=== PATIENT | female | born 1970 | race Caucasian/White ===

== ENCOUNTER 2018-08-15 23:21 | Emergency (ER) | payer MEDICAID, OTHER ==
[~2018-08-15] VITALS: Ht 162.6 cm; Wt 63.0 kg
--- NOTE | 2018-08-15 23:30 | NUR ---
BLOOD SUGAR WAS 406
--- NOTE | 2018-08-15 23:39 | ED General ---
General Chief Complaint: Glucose Problems Source of Information: Patient, RN Notes Reviewed Exam Limitations: No Limitations History of Present Illness Date Seen by Provider: Aug 15, 2018 Time Seen by Provider: 23:38 Allergies and Home Medications Allergies Coded Allergies: No Known Drug Allergies (Unverified , 08/16/18) Physical Exam Vital Signs Vital Signs - First Documented 08/15/18 23:25 Temp 98.6 Pulse 104 Resp 18 B/P (MAP) 120/72 (88) Pulse Ox 96 O2 Delivery Room Air Capillary Refill : Height, Weight, BMI Height: '" Weight: lbs. oz. kg; BMI Method: Progress/Results/Core Measures Suspected Sepsis SIRS Temperature: Pulse: Respiratory Rate: Laboratory Tests 08/15/18 23:25: White Blood Count 8.5 Blood Pressure / Mean: Laboratory Tests 08/15/18 23:25: Creatinine 0.86, Platelet Count 304, Total Bilirubin 0.2 Results/Orders Lab Results Laboratory Tests Test 08/15/18 00:00 08/15/18 23:25 08/15/18 23:28 Range/Units Urine Color YELLOW Urine Clarity CLEAR Urine pH 5.5 5-9 Urine Specific [place] 1.010 L 1.016-1.022 Urine Protein NEGATIVE NEGATIVE Urine Glucose (UA) 3+ H NEGATIVE Urine Ketones NEGATIVE NEGATIVE Urine Nitrite NEGATIVE NEGATIVE Urine Bilirubin NEGATIVE NEGATIVE Urine Urobilinogen 0.2 NORMAL MG/DL Urine Leukocyte Esterase NEGATIVE NEGATIVE Urine RBC (Auto) NEGATIVE NEGATIVE Urine RBC NONE /HPF Urine WBC 0-2 /HPF Urine Squamous Epithelial Cells 2-5 /HPF Urine Crystals NONE /LPF Urine Bacteria NONE /HPF Urine Casts NONE /LPF Urine Mucus NEGATIVE /LPF Urine Culture Indicated NO White Blood Count 8.5 4.3-11.0 10^3/uL Red Blood Count 4.07 L 4.35-5.85 10^6/uL Hemoglobin 11.9 11.5-16.0 G/DL Hematocrit 36 35-52 % Mean Corpuscular Volume 88 80-99 FL Mean Corpuscular Hemoglobin 29 25-34 PG Mean Corpuscular Hemoglobin Concent 33 32-36 G/DL Red Cell Distribution Width 12.6 10.0-14.5 % Platelet Count 304 130-400 10^3/uL Mean Platelet Volume 9.1 7.4-10.4 FL Neutrophils (%) (Auto) 55 42-75 % Lymphocytes (%) (Auto) 35 12-44 % Monocytes (%) (Auto) 6 0-12 % Eosinophils (%) (Auto) 4 0-10 % Basophils (%) (Auto) 1 0-10 % Neutrophils # (Auto) 4.7 1.8-7.8 X 10^3 Lymphocytes # (Auto) 3.0 1.0-4.0 X 10^3 Monocytes # (Auto) 0.5 0.0-1.0 X 10^3 Eosinophils # (Auto) 0.3 0.0-0.3 10^3/uL Basophils # (Auto) 0.0 0.0-0.1 10^3/uL Sodium Level 134 L 135-145 MMOL/L Potassium Level 3.9 3.6-5.0 MMOL/L Chloride Level 92 L 98-107 MMOL/L Carbon Dioxide Level 25 21-32 MMOL/L Anion Gap 17 H 5-14 MMOL/L Blood Urea Nitrogen 12 7-18 MG/DL Creatinine 0.86 0.60-1.30 MG/DL Estimat Glomerular Filtration Rate > 60 BUN/Creatinine Ratio 14 Glucose Level 411 *H 70-105 MG/DL Calcium Level 10.4 H 8.5-10.1 MG/DL Corrected Calcium 10.1 8.5-10.1 MG/DL Magnesium Level 1.4 L 1.8-2.4 MG/DL Total Bilirubin 0.2 0.1-1.0 MG/DL Aspartate Amino Transf (AST/SGOT) 20 5-34 U/L Alanine Aminotransferase (ALT/SGPT) 29 0-55 U/L Alkaline Phosphatase 54 40-136 U/L Troponin I < 0.30 <0.30 NG/ML Total Protein 7.1 6.4-8.2 GM/DL Albumin 4.4 3.2-4.5 GM/DL Glucometer 406 *H 70-110 MG/DL My Orders Orders - DARIUS DEL CASTILLO DO Cbc With Automated Diff (08/15/18 23:56) Comprehensive Metabolic Panel (08/15/18 23:56) Magnesium (08/15/18 23:56) Troponin I (08/15/18 23:56) Ua Culture If Indicated (08/15/18 23:56) Phosphorus (08/15/18 23:56) Iv/Invasive Line Insertion .IV start (08/15/18 23:56) Beta Hydroxybutyrate (08/15/18 23:56) Accucheck Q1hr Q1HR (08/15/18 23:56) Magnesium Oxide Tablet (Mag Ox Tablet) (08/16/18 00:45) Potassium Chloride (Tablet) (K Dur Table (08/16/18 00:45) Insulin Aspart (Novolog) (Novolog (Charg (08/16/18 00:45) Insulin (Regular) Human (Humulin R (Per (08/16/18 00:45) Medications Given in ED Current Medications Medications Dose Ordered Sig/Francis Route Start Time Stop Time Status Last Admin Dose Admin Insulin Aspart 10 unit ONCE ONCE SC 08/16/18 00:45 08/16/18 00:46 UNV 08/16/18 00:52 10 UNIT Magnesium Oxide 400 mg ONCE ONCE PO 08/16/18 00:45 08/16/18 00:46 DC 08/16/18 00:46 400 MG Potassium Chloride 40 meq ONCE ONCE PO 08/16/18 00:45 08/16/18 00:46 DC 08/16/18 00:46 40 MEQ Vital Signs/I&O 08/15/18 23:25 Temp 98.6 Pulse 104 Resp 18 B/P (MAP) 120/72 (88) Pulse Ox 96 O2 Delivery Room Air Capillary Refill : Departure Impression Primary Impression: Hyperglycemia Additional Impressions: NIDDM Non compliance w medication regimen Disposition: 01 HOME, SELF-CARE Condition: Stable Departure-Patient Inst. Decision time for Depature: 01:02 Patient Instructions: Hyperglycemia, Adult (DC) Add. Discharge Instructions: All discharge instructions reviewed with patient and/or family. Voiced understanding. GET RESTARTED ON YOUR MEDICATIONS DIRECTED INCLUDING TONIGHT. DARIUS DEL CASTILLO DO Aug 15, 2018 23:39
[2018-08-16 00:17] LABS: BILIRUBIN,URINE NEGATIVE (NEGATIVE); CLARITY,URINE CLEAR; COLOR,URINE YELLOW; GLUCOSE, URINE (UA) 3+ (NEGATIVE); KETONES,URINE NEGATIVE (NEGATIVE); LEUKOCYTE ESTERASE ,URINE NEGATIVE (NEGATIVE); NITRITE,URINE NEGATIVE (NEGATIVE); PH,URINE 5.5 (5-9); PROTEIN,URINE NEGATIVE (NEGATIVE); UROBILINOGEN,URINE 0.2 MG/DL (NORMAL); WBC,URINE 0-2 /HPF
[2018-08-16 00:17] LABS: WHITE BLOOD COUNT 8.5 10^3/uL (4.3-11.0)
[2018-08-16 00:18] LABS: BASOPHILS % (AUTO) 1 % (0-10); EOSINOPHILS # (AUTO) 0.3 10^3/uL (0.0-0.3); EOSINOPHILS % (AUTO) 4 % (0-10); HEMATOCRIT 36 % (35-52); HEMOGLOBIN 11.9 G/DL (11.5-16.0); LYMPHOCYTES % (AUTO) 35 % (12-44); MEAN CORPUSCULAR HEMOGLOBIN 29 PG (25-34); MEAN CORPUSCULAR HGB CONC 33 G/DL (32-36); MEAN CORPUSCULAR VOLUME 88 FL (80-99); MEAN PLATELET VOLUME 9.1 FL (7.4-10.4); MONOCYTES # (AUTO) 0.5 X 10^3 (0.0-1.0); MONOCYTES % (AUTO) 6 % (0-12); NEUTROPHILS # (AUTO) 4.7 X 10^3 (1.8-7.8); NEUTROPHILS % (AUTO) 55 % (42-75); PLATELET COUNT 304 10^3/uL (130-400); RED CELL DISTRIBUTION WIDTH 12.6 % (10.0-14.5)
[2018-08-16 00:29] LABS: SODIUM 134 MMOL/L (135-145)
[2018-08-16 00:30] LABS: BUN/CREATININE RATIO 14; CARBON DIOXIDE 25 MMOL/L (21-32); CHLORIDE 92 MMOL/L (98-107); CREATININE SERUM 0.86 MG/DL (0.60-1.30); GFR ESTIMATED > 60; GLUCOSE 411 MG/DL (70-105); POTASSIUM 3.9 MMOL/L (3.6-5.0)
[2018-08-16 00:31] LABS: ALANINE AMINOTRANSFERASE 29 U/L (0-55); ALBUMIN 4.4 GM/DL (3.2-4.5); ALKALINE PHOSPHATASE 54 U/L (40-136); BILIRUBIN,TOTAL 0.2 MG/DL (0.1-1.0); CALCIUM 10.4 MG/DL (8.5-10.1); MAGNESIUM 1.4 MG/DL (1.8-2.4); TOTAL PROTEIN 7.1 GM/DL (6.4-8.2)
[2018-08-16] MEDS ORDERED: inSUlin ASPART (NovoLOG) 1 UNIT/0.01 ML (CHARGE PER UNIT) SC ONE (00:45)
[2018-08-16] MEDS ORDERED: MAGNESIUM OXIDE (MAG-OX)400 MG TAB PO ONE (00:45)
[2018-08-16] MEDS ORDERED: KCL 20 MEQ TAB (K-DUR) PO ONE (00:45)
[2018-08-16] MEDS ORDERED: inSUlin (REGULAR) HUMAN 1 UNIT/0.01 ML (CHARGE PER UNIT) ONE (00:45)
[2018-08-16 01:14] VITALS: BP 121/77
[2018-08-16 14:48] LABS: PHOSPHORUS 4.6 MG/DL (2.3-4.7)
== END 2018-08-16 01:15 | disposition home or self-care (01) ==
LOC: ER FS 23:23
DX: E11.65 Type 2 diabetes mellitus with hyperglycemia (principal); Z91.14 Patient's other noncompliance with medication regimen
CPT/HCPCS: 36415; 80053; 81000; 82010; 82962; 83735; 84100; 84484; 85025; 99283

== ENCOUNTER 2018-09-07 07:08 | Day surgery (SDC) | payer MEDICAID ==
[2018-09-07] VITALS (10 sets, daily range): BP systolic 122–142; BP diastolic 69–84
[~2018-09-07] VITALS: Ht 162.6 cm; Wt 63.0 kg
[~2018-09-07 07:08] MED LIST: CITA20TA9 PO; CYCL10TA9 PO; DAPA5TAB PO; FENO145T37 PO; FLUT9.9S NS; GABA-488 PO; LEVO112T55 PO; LOPE2CAP14 PO; METF-399 PO; PANT40TA3 PO; RANI-515 PO
--- OUTSIDE RECORDS SUMMARY | 2018-09-07 07:11 | XMS REPORT | Continuity of Care Document ---
Author Organization Unknown Address Unknown Allergies There is no data. Medications There is no data. Problems There is no data. Procedures There is no data. Results Test Result Range TSH - 12/29/17 16:01 TSH 0.59 mIU/L NRG TSH - 05/11/18 10:00 TSH 0.50 mIU/L NRG PDM - 09 PANEL (PROFILE 1) - 08/28/18 13:22 Prescribed Drug 1 Codeine NRG Creatinine 48.3 mg/dL > or=20.0 pH 5.02 4.5 - 9.0 Oxidant NEGATIVE mcg/mL <200 Amphetamines NEGATIVE ng/mL <500 medMATCH Amphetamines CONSISTENT NRG Benzodiazepines NEGATIVE CONFIRMED ng/mL <100 Marijuana Metabolite NEGATIVE ng/mL <20 medMATCH Marijuana Metab CONSISTENT NRG Cocaine Metabolite NEGATIVE ng/mL <150 medMATCH Cocaine Metab CONSISTENT NRG Opiates POSITIVE ng/mL <100 Oxycodone NEGATIVE ng/mL <100 medMATCH Oxycodone CONSISTENT NRG COMMENT NRG Alphahydroxyalprazolam NEGATIVE ng/mL <25 medMATCH aOH alprazolam CONSISTENT NRG Alphahydroxymidazolam NEGATIVE ng/mL <50 medMATCH aOH midazolam CONSISTENT NRG Alphahydroxytriazolam NEGATIVE ng/mL <50 medMATCH aOH triazolam CONSISTENT NRG Aminoclonazepam NEGATIVE ng/mL <25 medMATCH Aminoclonazepam CONSISTENT NRG Hydroxyethylflurazepam NEGATIVE ng/mL <50 medMATCH OH,Et flurazepam CONSISTENT NRG Lorazepam NEGATIVE ng/mL <50 medMATCH Lorazepam CONSISTENT NRG Nordiazepam NEGATIVE ng/mL <50 medMATCH Nordiazepam CONSISTENT NRG Oxazepam NEGATIVE ng/mL <50 medMATCH Oxazepam CONSISTENT NRG Temazepam NEGATIVE ng/mL <50 medMATCH Temazepam CONSISTENT NRG Codeine 3661 ng/mL <50 medMATCH Codeine CONSISTENT NRG Hydrocodone NEGATIVE ng/mL <50 medMATCH Hydrocodone CONSISTENT NRG Hydromorphone NEGATIVE ng/mL <50 medMATCH Hydromorphone CONSISTENT NRG Morphine 330 ng/mL <50 medMATCH Morphine CONSISTENT NRG Norhydrocodone NEGATIVE ng/mL <50 medMATCH Norhydrocodone CONSISTENT NRG Barbiturates NEGATIVE ng/mL <300 medMATCH Barbiturates CONSISTENT NRG Methadone Metabolite NEGATIVE ng/mL <100 medMATCH Methadone Metab CONSISTENT NRG Phencyclidine NEGATIVE ng/mL <25 medMATCH Phencyclidine CONSISTENT NRG MICROALBUMIN/CREATININE RATIO, URINE - 08/30/18 09:20 CREATININE, RANDOM URINE 96 mg/dL 20-275 MICROALBUMIN 0.6 mg/dL See Note: MICROALBUMIN/CREATININE RATIO, RANDOM URINE 6 mcg/mg creat <30 CMP - 08/30/18 09:20 GLUCOSE 145 mg/dL 65-99 UREA NITROGEN (BUN) 13 mg/dL 7-25 CREATININE 0.88 mg/dL 0.50-1.05 eGFR NON-AFR. MONTENEGRIN 77 mL/min/1.73m2 > OR=60 eGFR 89 mL/min/1.73m2 > OR=60 BUN/CREATININE RATIO NOT APPLICABLE (calc) 6-22 SODIUM 140 mmol/L 135-146 POTASSIUM 4.4 mmol/L 3.5-5.3 CHLORIDE 105 mmol/L 98-110 CARBON DIOXIDE 26 mmol/L 20-32 CALCIUM 10.1 mg/dL 8.6-10.4 PROTEIN, TOTAL 7.0 g/dL 6.1-8.1 ALBUMIN 4.5 g/dL 3.6-5.1 GLOBULIN 2.5 g/dL (calc) 1.9-3.7 ALBUMIN/GLOBULIN RATIO 1.8 (calc) 1.0-2.5 BILIRUBIN, TOTAL 0.4 mg/dL 0.2-1.2 ALKALINE PHOSPHATASE 51 U/L 33-130 AST 20 U/L 10-35 ALT 19 U/L 6-29 TSH - 08/30/18 09:20 TSH 0.74 mIU/L NRG A1C - 08/30/18 09:20 HEMOGLOBIN A1c 7.6 % of total Hgb <5.7 Encounters ACCT No. Visit Date/Time Discharge Status Pt. Type Provider Facility Loc./Unit Complaint [id number] 09/05/2018 15:30:00 [facility] [id number] 08/30/2018 09:30:00 Document Registration [id number] 08/28/2018 13:30:00 Document Registration [id number] 05/11/2018 11:45:00 Document Registration [id number] 05/11/2018 11:40:00 Document Registration [id number] 05/11/2018 11:40:00 Document Registration [id number] 12/29/2017 15:00:00 Document Registration
--- NOTE | 2018-09-07 07:57 | Progress Note-Pre Operative ---
Pre-Operative Progress Note H&P Reviewed The H&P was reviewed, patient examined and no changes noted. Time Seen by Provider: 07:52 Date H&P Reviewed: Sep 07, 2018 Time H&P Reviewed: 07:53 Pre-Operative Diagnosis: Incarcerated Incisional/Ventral Hernia RAMIREZ WALTERS DO Sep 07, 2018 07:57
[2018-09-07] MEDS ORDERED: LIDOCAINE PF 2% 5 ML (XYLOCAINE) VIAL ONE (08:00)
[2018-09-07] MEDS ORDERED: fentaNYL INJECTION 100 MCG/2 ML AMP ONE (08:00)
[2018-09-07] MEDS ORDERED: proPOfol 200 MG/20 ML (DIPRIVAN) VIAL IV ONE (08:00)
[2018-09-07] MEDS ORDERED: NEOSTIGMINE 3 MG/3 ML VIAL ONE (08:00)
[2018-09-07] MEDS ORDERED: SEVOFLURANE (ULTANE) 15 ML INHAL SOLN ONE ×2 (08:00→09:40)
[2018-09-07] MEDS ORDERED: GLYCOPYRROLATE 0.2 MG/ML (ROBINUL) 2 ML VIAL ONE (08:00)
[2018-09-07] MEDS ORDERED: ROCURONIUM 10 MG/ML 5 ML SYRINGE IV ONE (08:00)
[2018-09-07] MEDS ORDERED: MIDAZOLAM 2 MG/2 ML (VERSED) VIAL ONE (08:00)
[2018-09-07] MEDS ORDERED: ONDANSETRON 4 MG/2 ML (SDV) Z0FRAN ONE (08:00)
[2018-09-07] MEDS ORDERED: BUP/EPI 0.5% 1:200,000 (MARCAINE) 10ML VIAL IJ ONE ×2 (08:06→08:13)
[2018-09-07] MEDS ORDERED: ceFAZolin 2 GM/50 ML NS 50 ML ONE (08:14)
[2018-09-07] MEDS ORDERED: LACTATED RINGERS 1,000 ML IV PRN (08:17)
[2018-09-07] MEDS ORDERED: ceFAZolin 2 GM/50 ML NS 50 ML IV ONE (08:30)
--- NOTE | 2018-09-07 09:50 | Progress Note-Post Operative ---
Post-Operative Progess Note Surgeon (s)/Access Representative (s) Surgeon RAMIREZ WALTERS DO Access Representative: NONE Pre-Operative Diagnosis Incarcerated Incisional/Ventral Hernia Post-Operative Diagnosis same Procedure & Operative Findings Date of Procedure 09/07/18 Procedure Performed/Findings Lap Vent/Inc with mesh placement Anesthesia Type GET Estimated Blood Loss Estimated blood loss (mL): scant Specimens/Packing Specimens Removed hernia contents RAMIREZ WALTERS DO Sep 07, 2018 09:50
[2018-09-07] MEDS ORDERED: ACHD5005 PO (09:51)
[2018-09-07] MEDS ORDERED: morphine INJ 10 MG/ML 1ML (SYR OR VIAL) ONE (09:53)
--- NOTE | 2018-09-07 09:53 | Discharge Inst-Surgical ---
Discharge Inst-Surgical Depart Medication/Instructions New, Converted or Re-Newed RX: RX Given to Pt/Family Patient Instructions Follow up Appt: Make appointment for 1 week. [phone] Instructions: No lifting greater than 20 pounds. No strenuous activity. May shower in 24 hours, no tub bath or soaking. Use incentive spirometer at home as directed. No Smoking Skin/Wound Care: May remove bandages in am. You need to leave the Dermabond on incision it will fall off on it's own. Symptoms to Report: Appetite Changes, Extremity Discoloration, Numbness/Tingling, Swelling Increased, Bleeding Excessive, Eyesight Changes, Pain Increased, Urine Color Change, Constipation(Persistent), Fever over 101 degree F, Pain/Pressure in chest, Urinating Difficulty, Cough Up/Vomit Blood, Heart Beat Irreg/Pounding, Pain/Pressure in jaw, Cramps in feet or legs, Lightheadedness, Pain/Pressure in shoulder, Diarrhea(Persistent), Memory Changes Suddenly, Questions/Concerns, Weight gain consecutive days, Dizziness/Fainting, Nausea/Vomiting, Shortness of Breath, Weight gain over 2 pounds If questions or concerns contact your physician Or seek help at emergency department. Activity Activity as Tolerated: Yes Driving Instructions: No Driving/Refer to Dr. Varela Discharge Diet: No Restrictions Diet After 24 Hours: Clear Liquid if Nauseous If Any Problems/Questions/Issu: Contact Your Physician, Go to Emergency Room Skin/Wound Care Infection Signs and Symptoms: Increased Redness, Foul Odor of Wound, Increased Drainage, Skin Itchy or Has a Rash, Increased Swelling, Temperature Above 101 F Wound Care Comment: Heating pad to shoulder and neck for pain Bathing Instructions: Shower Stitches/Kofi/Dermabond Dis: Dermabond Ice Pack: Ice On and Off Site RAMIREZ WALTERS DO Sep 07, 2018 09:53
[2018-09-07] MEDS ORDERED: ONDANSETRON 4 MG/2 ML (SDV) Z0FRAN IVP PRN (10:00)
[2018-09-07] MEDS ORDERED: HYDROmorphone 2 MG/ML VIAL (DILAUDID) IV ONE (10:00)
[2018-09-07] MEDS ORDERED: morphine INJ 10 MG/ML 1ML (SYR OR VIAL) IVP ONE (10:00)
--- NOTE | 2018-09-07 10:28 | Anesthesia-General Post-Op ---
General Patient Condition Mental Status/LOC: Same as Preop Cardiovascular: Satisfactory Nausea/Vomiting: Absent Respiratory: Satisfactory Pain: Controlled Complications: Absent Post Op Complications Complications None Follow Up Care/Instructions Patient Instructions None needed. Anesthesia/Patient Condition Patient Condition Patient is doing well, no complaints, stable vital signs, no apparent adverse anesthesia problems. No complications reported per nursing. GERBER OLVERA CRNA Sep 07, 2018 10:28
[2018-09-07] MEDS ORDERED: HYDROcodone/APAP 5 MG/325 MG (LORTAB) TAB ONE ×2 (11:27→11:30)
[2018-09-07] MEDS ORDERED: HYDROcodone/APAP 5 MG/325 MG (LORTAB) TAB PO ONE (11:45)
--- NOTE | 2018-09-07 13:10 | OPERATIVE REPORT ---
DATE OF SERVICE: 09/07/2018 PREOPERATIVE DIAGNOSIS: Incarcerated incisional ventral hernia. POSTOPERATIVE DIAGNOSIS: Incarcerated incisional ventral hernia. PROCEDURE: Laparoscopic ventral incisional herniorrhaphy with mesh placement. SURGEON: Moi Bruno DO SPRING SALVAGE WORKER: None. ANESTHESIA: General endotracheal tube. SPECIMEN: Hernia contents. BLOOD LOSS: Scant. FLUIDS: Per anesthesia. POSTOPERATIVE CONDITION: Stable. INDICATION FOR PROCEDURE: The patient is a 48-year-old female, who has had a previous hernia repair. She thought she had two, one in the umbilicus and one up above and the one up above was at the port site. FINDINGS: The patient had incarcerated incisional hernia up at the port site. There did not appear to be a hernia down in the midline around the umbilicus. Picture was taken. PROCEDURE NOTE: After informed consent was obtained, the patient was brought to the operating room, placed on the operating table in supine position. She was sterilely prepped and draped in normal fashion. Local lidocaine was used to infiltrate the left upper quadrant just below the rib. I then made an incision with #11 blade, carried down through the skin into subcutaneous tissue, deepened down to subcutaneous tissue with Bovie electrocautery down to the fascia. Fascia was incised with Bovie electrocautery and bluntly entered the abdomen, swept a finger around, placed 0 Vicryl [id number] suture and placed a limited trocar port under direct visualization. Created pneumoperitoneum, saw adhesions in the midline and then placed 2 more ports, 5 mm ports in normal fashion using local lidocaine. A 11 blade for stab incision and VersaStep system all done under direct visualization and then carefully started taking down the adhesions to look in the midline to make sure there is no hernia. I could see previous mesh, but I did not see any hernia. I then started taking down the falciform ligament, so we could get up to the port and the patient had approximately 2 or 3 cm fascial defect, took down some of the incarcerated fat out of the defect, took a picture of the defect and then elected to place a 4.5 inch Bard Echo mesh. I made a small stab incision through the previous port and then placed a grasper and then placed mesh into the abdomen and then grabbed the catheter and pulled with a grasper and pulled this up to the abdominal wall, cut off the corner and then blew up the balloon and then held this in place. We then tacked this up with SecureStrap Tacker, tacking around the edges at about 0.5 cm intervals and then removed the balloon and then tacked in the middle to do an inner layer, laid up very nicely, took a picture of this and then removed all ports under direct visualization, allowed the pneumoperitoneum to escape. Closed the left lower quadrant incision, closed the fascia with 0 Vicryl [id number] suture. I then copiously irrigated all incisions with normal saline and then closed the two small 5 mm incisions with a single interrupted 4-0 undyed Monocryl subcuticular stitch. Closed the left upper quadrant incision with 3 interrupted 4-0 undyed Monocryl subcuticular stitches. Area was cleaned and dried and Dermabond placed as well as bandaged. The patient then transferred to recovery room in stable condition. Sponge, instrument and needle count correct at the end of the case. Job ID: [id number] DocumentID: [id number] Dictated Date: 09/07/2018 09:49:29 Leather Stamper Date: 09/07/2018 13:09:44 Dictated By: MOI BRUNO DO MTDYvette
== END 2018-09-07 12:40 | disposition home or self-care (01) ==
LOC: SDC 07:08
PROVIDERS: ATTEND Surgery
DX: K43.0 Incisional hernia with obstruction, without gangrene (principal); K21.9 Gastro-esophageal reflux disease without esophagitis; K58.9 Irritable bowel syndrome, unspecified; E11.9 Type 2 diabetes mellitus without complications; F32.9 Major depressive disorder, single episode, unspecified; G89.29 Other chronic pain; M54.9 Dorsalgia, unspecified; M41.9 Scoliosis, unspecified; F17.210 Nicotine dependence, cigarettes, uncomplicated; Z88.6 Allergy status to analgesic agent; Z88.8 Allergy status to other drugs, medicaments and biological substances; Z88.2 Allergy status to sulfonamides; Z91.048 Other nonmedicinal substance allergy status; Z79.899 Other long term (current) drug therapy; Z79.84 Long term (current) use of oral hypoglycemic drugs; Z90.710 Acquired absence of both cervix and uterus
CPT/HCPCS: 82962; 87081; 88302

== ENCOUNTER 2018-09-24 13:59 | Emergency (ER) | payer MEDICAID ==
[~2018-09-24] VITALS: Ht 162.6 cm; Wt 64.9 kg
[~2018-09-24 13:59] MED LIST changes: +ACHD5005 PO
--- OUTSIDE RECORDS SUMMARY | 2018-09-24 14:06 | XMS REPORT | Continuity of Care Document ---
Author Organization Unknown Address Unknown Phone Unavailable Allergies There is no data. Medications There [...] 7-25 CREATININE 0.88 mg/dL 0.50-1.05 eGFR NON-AFR. CITIZEN OF [place] 77 mL/min/1.73m2 > OR=60 eGFR 89 mL/min/1.73m2 [...] Status Pt. Type Provider Facility Loc./Unit Complaint [id number] 09/05/2018 15:30:00 09/05/2018 23:59:59 CLS [facility], CARLOS Davis [facility] [id number] 08/30/2018 09:30:00 Document Registration [id number] 08/28/2018 13:30:00 Document Registration [id number] 05/11/2018 11:45:00 Document Registration [id number] 05/11/2018 11:40:00 Document Registration [id number] 05/11/2018 11:40:00 Document Registration [id number] 12/29/2017 15:00:00 Document Registration
[2018-09-24 15:32] LABS: HEMATOCRIT 37 % (35-52); HEMOGLOBIN 12.1 G/DL (11.5-16.0); MEAN CORPUSCULAR HEMOGLOBIN 29 PG (25-34); MEAN CORPUSCULAR HGB CONC 33 G/DL (32-36); MEAN CORPUSCULAR VOLUME 87 FL (80-99); MEAN PLATELET VOLUME 8.1 FL (7.4-10.4); PLATELET COUNT 379 10^3/uL (130-400); RED CELL DISTRIBUTION WIDTH 13.7 % (10.0-14.5); WHITE BLOOD COUNT 9.2 10^3/uL (4.3-11.0)
--- NOTE | 2018-09-24 15:32 | ED GI ---
General Chief Complaint: Abdominal/GI Problems Stated Complaint: PT IS 2 WKS POST OP - INCISION PAIN ON UPPER ABD Nursing Triage Note: Had hernia surgery [address] walters at [facility]. Last night heard a pop and is having RUQ pain ratedd at 2/10 currently but goes up to 8/10 with movement. The pain is described as sharp and RUQ is tender to palpation. Sepsis Screen: No Definite Risk History of Present Illness Date Seen by Provider: Sep 24, 2018 Time Seen by Provider: 15:26 Initial Comments as above pt apparently has had 3 hernia repairs laparoscopically the last 2 weeks ago says last night she was laughing hard and felt pop in RUQ abd and some pain intermittently having pain worse this AM radiating across upper abd has nausea no vomiting has unchanged chronic mild diarrhea ate earlier today wants to know what happened Allergies and Home Medications Allergies Coded Allergies: Sulfa (Sulfonamide Antibiotics) (Verified Allergy, Unknown, abd pain, 09/05/18) adhesive tape (Verified Allergy, Unknown, Hives, 09/05/18) bupropion (Verified Allergy, Unknown, sucidial, 09/05/18) carisoprodol (Verified Allergy, Unknown, heart palpatations, 09/05/18) quetiapine (Verified Allergy, Unknown, suicidal, 09/05/18) Home Medications Citalopram Hydrobromide 20 Mg Tablet, 20 MG PO DAILY, (Reported) Cyclobenzaprine HCl 10 Mg Tablet, 10 MG PO TID PRN for MUSCLE SPASMS, (Reported) Dapagliflozin Propanediol 5 Mg Tablet, 5 MG PO DAILY, (Reported) Fenofibrate Nanocrystallized 145 Mg Tablet, 145 MG PO DAILY, (Reported) Fluticasone Propionate 9.9 Ml [place].susp, 2 SPRAY NS DAILY PRN for nasal congestion, (Reported) Gabapentin 300 Mg Capsule, 300 MG PO TID, (Reported) Hydrocodone Bit/Acetaminophen 1 Tab Tab, 1 TAB PO Q6H PRN for PAIN-MODERATE Prescribed by: RAMIREZ WALTERS on 09/07/18 0951 Levothyroxine Sodium 112 Mcg Tablet, 112 MCG PO DAILY, (Reported) Loperamide HCl 2 Mg Capsule, 2 MG PO UD PRN for DIARRHEA, (Reported) Metformin HCl 1,000 Mg Tablet, 1,000 MG PO BID, (Reported) Pantoprazole Sodium 40 Mg Tablet.dr, 40 MG PO DAILY, (Reported) Ranitidine HCl 150 Mg Tablet, 150 MG PO DAILY, (Reported) Patient Home Medication List Home Medication List Reviewed: Yes Review of Systems Review of Systems Constitutional: No chills, No fever Respiratory: Denies No Symptoms Reported Cardiovascular: Denies No Symptoms Reported Gastrointestinal: Abdominal Pain, Nausea Genitourinary: No Symptoms Reported Musculoskeletal: no symptoms reported Past Bsllhoj-Iecfdb-Wpqflx Hx Patient Social History Alcohol Use: Denies Use Recreational Drug Use: No Smoking Status: Current Everyday Smoker Type Used: Cigarettes 2nd Hand Smoke Exposure: No Recent Foreign Travel: No Contact w/Someone Who Travel: No Recent Infectious Disease Expo: No Recent Hopitalizations: No Physical Abuse: No Sexual Abuse: No Mistreated: No Fear: No Seasonal Allergies Seasonal Allergies: Yes Past Medical History Surgeries: Yes (c/s x2, hernia x2, cone bx x2) Section, Hysterectomy, 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 Respiratory: No Cardiac: Yes High Cholesterol Neurological: No Genitourinary: No Gastrointestinal: Yes Gastroesophageal Reflux, Irritable Bowel Musculoskeletal: Yes Scoliosis, Chronic Back Pain Endocrine: Yes Hypothyroidsim, Diabetes, Non-Insulin dep HEENT: No Cancer: Yes Cervical Psychosocial: Yes Bipolar, Depression Integumentary: No Blood Disorders: No Physical Exam Vital Signs Vital Signs - First Documented 09/24/18 14:00 Temp 98.8 Pulse 111 Resp 20 B/P (MAP) 121/78 (92) Pulse Ox 97 Capillary Refill : Less Than 3 Seconds Height/Weight/BMI Height: 5'4.00" Weight: 143lbs. 0.0oz. 64.633151ik; 23.9 BMI Method:Stated General Appearance: WD/WN HEENT: PERRL/EOMI, normal ENT inspection, pharynx normal Neck: non-tender Respiratory: lungs clear, normal breath sounds Cardiovascular: regular rate, rhythm Gastrointestinal: normal bowel sounds, soft, tenderness (mild diffuse upper), other (no definitive recurrence of hernia appreciated on palpation) Progress/Results/Core Measures Results/Orders Lab Results Laboratory Tests Test 09/24/18 15:20 Range/Units White Blood Count 9.2 4.3-11.0 10^3/uL Red Blood Count 4.19 L 4.35-5.85 10^6/uL Hemoglobin 12.1 11.5-16.0 G/DL Hematocrit 37 35-52 % Mean Corpuscular Volume 87 80-99 FL Mean Corpuscular Hemoglobin 29 25-34 PG Mean Corpuscular Hemoglobin Concent 33 32-36 G/DL Red Cell Distribution Width 13.7 10.0-14.5 % Platelet Count 379 130-400 10^3/uL Mean Platelet Volume 8.1 7.4-10.4 FL Neutrophils (%) (Auto) 47 42-75 % Lymphocytes (%) (Auto) 30 12-44 % Monocytes (%) (Auto) 5 0-12 % Eosinophils (%) (Auto) 18 H 0-10 % Basophils (%) (Auto) 1 0-10 % Neutrophils # (Auto) 4.3 1.8-7.8 X 10^3 Lymphocytes # (Auto) 2.7 1.0-4.0 X 10^3 Monocytes # (Auto) 0.5 0.0-1.0 X 10^3 Eosinophils # (Auto) 1.6 H 0.0-0.3 10^3/uL Basophils # (Auto) 0.1 0.0-0.1 10^3/uL Neutrophils % (Manual) 50 % Lymphocytes % (Manual) 29 % Monocytes % (Manual) 4 % Eosinophils % (Manual) 12 % Basophils % (Manual) 2 % Band Neutrophils 3 % Sodium Level 136 135-145 MMOL/L Potassium Level 3.5 L 3.6-5.0 MMOL/L Chloride Level 96 L 98-107 MMOL/L Carbon Dioxide Level 21 21-32 MMOL/L Anion Gap 19 H 5-14 MMOL/L Blood Urea Nitrogen 13 7-18 MG/DL Creatinine 0.84 0.60-1.30 MG/DL Estimat Glomerular Filtration Rate > 60 BUN/Creatinine Ratio 15 Glucose Level 192 H 70-105 MG/DL Calcium Level 9.8 8.5-10.1 MG/DL Corrected Calcium 9.4 8.5-10.1 MG/DL Total Bilirubin 0.2 0.1-1.0 MG/DL Aspartate Amino Transf (AST/SGOT) 19 5-34 U/L Alanine Aminotransferase (ALT/SGPT) 17 0-55 U/L Alkaline Phosphatase 51 40-136 U/L Total Protein 7.3 6.4-8.2 GM/DL Albumin 4.5 3.2-4.5 GM/DL My Orders Orders - NATALEE,ASHUTOSH P MD Cbc With Automated Diff (09/24/18 15:05) Comprehensive Metabolic Panel (09/24/18 15:05) Iv Heplock-Insert (Order) (09/24/18 15:05) Fentanyl Injection (Sublimaze Injection (09/24/18 15:45) Manual Differential (09/24/18 15:20) Lorazepam Injection (Ativan Injection) (09/24/18 16:15) Iohexol Injection (Omnipaque 350 Mg/Ml 1 (09/24/18 16:15) Received Contrast (Hold Metformin- Contr (09/24/18 16:15) Sodium Chloride Flush (Catheter Flush Sy (09/24/18 16:15) Ns (Ivpb) (Sodium Chloride 0.9% Ivpb Bag (09/24/18 16:15) Ct Abdomen/Pelvis W (09/24/18 16:05) Medications Given in ED Current Medications Medications Dose Ordered Sig/Francis Route Start Time Stop Time Status Last Admin Dose Admin Fentanyl Citrate 25 mcg Q1H PRN IVP 09/24/18 15:45 09/24/18 15:40 25 MCG Iohexol 100 ml ONCE ONCE IV 09/24/18 16:15 09/24/18 16:16 DC 09/24/18 16:37 100 ML Lorazepam 1 mg ONCE ONCE IVP 09/24/18 16:15 09/24/18 16:16 DC 09/24/18 16:23 1 MG Sodium Chloride 10 ml NEEDED PRN IV 09/24/18 16:15 09/24/18 16:37 10 ML Sodium Chloride 100 ml ONCE ONCE IV 09/24/18 16:15 09/24/18 16:16 DC 09/24/18 16:37 100 ML Vital Signs/I&O 09/24/18 14:00 Temp 98.8 Pulse 111 Resp 20 B/P (MAP) 121/78 (92) Pulse Ox 97 Blood Pressure Mean: 92 Diagnostic Imaging Diagonstic Imaging: CT (no apparent failure of mesh etc has fluid collection hx and labs not consistent with abscess no fevers WBC normal) Departure Impression Primary Impression: Abdominal wall pain Disposition: 01 HOME, SELF-CARE Condition: Stable Departure-Patient Inst. Decision time for Depature: 17:37 Referrals: DARIUS FONTANEZ (PCP) Primary Care Physician CARLOS POST MD (Family) Primary Care Physician Patient Instructions: Abdominal Hernia Repair (DC) Add. Discharge Instructions: please be in touch with your surgeon for further guidance ASHUTOSH ALBRIGHT MD Sep 24, 2018 15:32
[2018-09-24 15:33] LABS: BASOPHILS # (AUTO) 0.1 10^3/uL (0.0-0.1); BASOPHILS % (AUTO) 1 % (0-10); EOSINOPHILS # (AUTO) 1.6 10^3/uL (0.0-0.3); EOSINOPHILS % (AUTO) 18 % (0-10); LYMPHOCYTES # (AUTO) 2.7 X 10^3 (1.0-4.0); LYMPHOCYTES % (AUTO) 30 % (12-44); MONOCYTES # (AUTO) 0.5 X 10^3 (0.0-1.0); MONOCYTES % (AUTO) 5 % (0-12); NEUTROPHILS # (AUTO) 4.3 X 10^3 (1.8-7.8); NEUTROPHILS % (AUTO) 47 % (42-75)
[2018-09-24] MEDS ORDERED: fentaNYL INJECTION 100 MCG/2 ML AMP IVP PRN (15:45)
[2018-09-24 15:50] LABS: BUN/CREATININE RATIO 15; CARBON DIOXIDE 21 MMOL/L (21-32); CHLORIDE 96 MMOL/L (98-107); CREATININE SERUM 0.84 MG/DL (0.60-1.30); GFR ESTIMATED > 60; POTASSIUM 3.5 MMOL/L (3.6-5.0); SODIUM 136 MMOL/L (135-145)
[2018-09-24 15:51] LABS: ALANINE AMINOTRANSFERASE 17 U/L (0-55); ALBUMIN 4.5 GM/DL (3.2-4.5); ALKALINE PHOSPHATASE 51 U/L (40-136); BILIRUBIN,TOTAL 0.2 MG/DL (0.1-1.0); CALCIUM 9.8 MG/DL (8.5-10.1); GLUCOSE 192 MG/DL (70-105); TOTAL PROTEIN 7.3 GM/DL (6.4-8.2)
[2018-09-24 15:54] LABS: BAND NEUTROPHILS 3 %; BASOPHILS % (MANUAL) 2 %; EOSINOPHILS % (MANUAL) 12 %; LYMPHOCYTES % (MANUAL) 29 %; MONOCYTES % (MANUAL) 4 %; NEUTROPHILS % (MANUAL) 50 %
[2018-09-24] MEDS ORDERED: CATHETER FLUSH 10 ML SYR IV PRN (16:15)
[2018-09-24] MEDS ORDERED: IOHEXOL 350 MG/ML 100 ML (OMNIPAQUE 350) VIAL IV ONE (16:15)
[2018-09-24] MEDS ORDERED: LORazepam INJ 2 MG/ML (ATIVAN) VIAL IVP ONE (16:15)
[2018-09-24] MEDS ORDERED: NS 100 ML (IVPB) BAG IV ONE (16:15)
[2018-09-24] MEDS ORDERED: HOLD METFORMIN - RECEIVED CONTRAST 20 ML VIAL IV SCH (16:15)
--- NOTE | 2018-09-24 17:24 | Diagnostic Imaging Report ---
INDICATION: Right upper quadrant pain since last night. Postoperative hernia repair two weeks ago. Hernia repair x 3. Hysterectomy, tubal ligation, . EXAMINATION: CT of the abdomen and pelvis with contrast, 09/24/2018. COMPARISON: None. FINDINGS: Lung bases appear unremarkable. There is marked fatty infiltration throughout the liver with no acute process seen. Gallbladder and spleen are grossly unremarkable. Adrenal glands and pancreas demonstrate no acute finding. Small nodule subcentimeter in nature in the left adrenal gland, followup or comparison with priors would be useful. There is a fluid collection noted within the anterior aspect of the left upper abdomen, measuring 2.4 x 1.5 x 2.4 cm in size with peripheral enhancement and adjacent fat stranding extending into the anterior subcutaneous soft tissues just deep to the skin. A more vague appearing area of fluid along the superior border of this lesion is seen in the subcutaneous fatty tissue. This is possibly a postprocedural abscess, however, correlation with site of recent surgery recommended. Otherwise, this could represent a seroma or hematoma, correlate with symptoms. No air within the lesion, however, is appreciated. Within the remaining abdomen and pelvis postoperative findings are noted along the midline of the lower abdomen. No adjacent abnormal acute abnormality is appreciated. No intra-abdominal free air or fluid appreciated. There is no inflammatory change about the bowel loops. The appendix is unremarkable. Osseous structures are grossly unremarkable as well. IMPRESSION: 1. Abnormality within the anterior abdominal wall in the left upper abdomen which appears intramuscular in nature, possibly a postsurgical seroma or hematoma; however, abscess is suspected and clinical correlation with symptoms recommended. Adjacent overlying subcutaneous fat stranding also noted. 2. Chronic findings otherwise noted within the abdomen and pelvis, see above description. Dictated by: Dictated on workstation # [id number]
[2018-09-24 17:46] VITALS: BP 114/79
== END 2018-09-24 17:47 | disposition home or self-care (01) ==
LOC: EDUNIT# 13:59 → ER FS 14:02
DX: G89.18 Other acute postprocedural pain (principal); R10.11 Right upper quadrant pain; E11.9 Type 2 diabetes mellitus without complications; F31.9 Bipolar disorder, unspecified; E03.9 Hypothyroidism, unspecified; E78.00 Pure hypercholesterolemia, unspecified; K21.9 Gastro-esophageal reflux disease without esophagitis; K58.9 Irritable bowel syndrome, unspecified; F17.210 Nicotine dependence, cigarettes, uncomplicated; Z85.41 Personal history of malignant neoplasm of cervix uteri; Z98.51 Tubal ligation status; Z90.710 Acquired absence of both cervix and uterus; Z88.2 Allergy status to sulfonamides; Z88.8 Allergy status to other drugs, medicaments and biological substances; Z79.52 Long term (current) use of systemic steroids; Z79.84 Long term (current) use of oral hypoglycemic drugs
CPT/HCPCS: 36415; 74177; 80053; 85007; 85027

== ENCOUNTER 2018-10-03 03:35 | Emergency (ER) | payer MEDICAID ==
[~2018-10-03] VITALS: Ht 162.6 cm; Wt 64.4 kg
[2018-10-03] MEDS ORDERED: ACETAMINOPHEN 500 MG TAB (TYLENOL) PO STA (03:39)
[2018-10-03] MEDS: NS IV 1000 ML 1,000 ML IV SCH ×3 (03:49→05:39)
--- NOTE | 2018-10-03 03:49 | NUR ---
The total amount of NS bags that Dr. Cochran ordered is 2. EMS had 2 bags hanging on arrival. Patients fluids stopped at 0449 with a total of 2000mls infused.
--- NOTE | 2018-10-03 03:54 | ED General ---
General Chief Complaint: Fever-Adult/Adol Stated Complaint: COMPLICATIONS WITH SURGICAL INCISION Nursing Triage Note: Patient was brought in via EMS with complaints of fever and body aches. Patient states that she had a hernia repair on 09/07/18 and there were complications with infection. Patient has 2 visible lap sites that are pink with no drainage noted. Patient states that she began feeling ill yesterday afternoon. She began having body aches and running a fever. EMS started an 18 in the left AC and a 20 in the left hand. EMS has 2 liters of NS hanging. Nursing Sepsis Screen: Possible Sepsis Risk Source of Information: Patient History of Present Illness Date Seen by Provider: Oct 03, 2018 Time Seen by Provider: 03:35 Initial Comments 48-year-old female presenting with complaints of body aches and fever that started around 3 PM Tuesday. She states that she has been fighting some infection off and on with the surgical sites on her abdomen from a recent laparoscopic ventral hernia repair. This was done at [facility] hit the end of August. She has not been on any antibiotics for it. She initially thought that it was just her joints are bothering her today. However with the body aches and fever getting worse throughout the evening she finally decided that it was her surgery that might be causing the problems. She called 911 and had them bring her to the hospital tonight. Allergies and Home Medications Allergies Coded Allergies: Sulfa (Sulfonamide Antibiotics) (Verified Allergy, Unknown, abd pain, 09/05/18) adhesive tape (Verified Allergy, Unknown, Hives, 09/05/18) bupropion (Verified Allergy, Unknown, sucidial, 09/05/18) carisoprodol (Verified Allergy, Unknown, heart palpatations, 09/05/18) quetiapine (Verified Allergy, Unknown, suicidal, 09/05/18) Home Medications Citalopram Hydrobromide 20 Mg Tablet, 20 MG PO DAILY, (Reported) Cyclobenzaprine HCl 10 Mg Tablet, 10 MG PO TID PRN for MUSCLE SPASMS, (Reported) Dapagliflozin Propanediol 5 Mg Tablet, 5 MG PO DAILY, (Reported) Fenofibrate Nanocrystallized 145 Mg Tablet, 145 MG PO DAILY, (Reported) Fluticasone Propionate 9.9 Ml [place].susp, 2 SPRAY NS DAILY PRN for nasal congestion, (Reported) Gabapentin 300 Mg Capsule, 300 MG PO TID, (Reported) Hydrocodone Bit/Acetaminophen 1 Tab Tab, 1 TAB PO Q6H PRN for PAIN-MODERATE Prescribed by: RAMIREZ WALTERS on 09/07/18 0951 Levofloxacin 500 Mg Tablet, 500 MG PO DAILY Prescribed by: FAROOQ LANGE on 10/03/18 0537 Levothyroxine Sodium 112 Mcg Tablet, 112 MCG PO DAILY, (Reported) Loperamide HCl 2 Mg Capsule, 2 MG PO UD PRN for DIARRHEA, (Reported) Metformin HCl 1,000 Mg Tablet, 1,000 MG PO BID, (Reported) Pantoprazole Sodium 40 Mg Tablet.dr, 40 MG PO DAILY, (Reported) Ranitidine HCl 150 Mg Tablet, 150 MG PO DAILY, (Reported) Patient Home Medication List Home Medication List Reviewed: Yes Review of Systems Review of Systems Constitutional: chills, fever (since 1500 Tuesday afternoon) EENTM: No vision loss, No nose congestion, No throat pain Respiratory: cough, dyspnea on exertion, phlegm, short of breath, wheezing Cardiovascular: No chest pain Gastrointestinal: abdominal pain (around the surgical laparoscopic incision sites) Genitourinary: No dysuria, No frequency Musculoskeletal: joint pain (generalized), muscle pain, muscle stiffness Skin: change in color (mild redness around the surgical laparoscopic sites on her abdomen) Psychiatric/Neurological: Anxiety Hematologic/Lymphatic: No Symptoms Reported Immunological/Allergic: no symptoms reported Past Dhyoeik-Crytyj-Nxgeae Hx Past Med/Social Hx: Reviewed Nursing Past Med/Soc Hx Patient Social History Alcohol Use: Denies Use Recreational Drug Use: No Smoking Status: Current Everyday Smoker Type Used: Cigarettes 2nd Hand Smoke Exposure: No Recent Foreign Travel: No Contact w/Someone Who Travel: No Recent Infectious Disease Expo: No Recent Hopitalizations: No Physical Abuse: No Sexual Abuse: No Mistreated: No Fear: No Seasonal Allergies Seasonal Allergies: Yes Past Medical History Surgeries: Yes (c/s x2, hernia x2, cone bx x2) Section, Hysterectomy, 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 Respiratory: No Cardiac: Yes High Cholesterol Neurological: No Genitourinary: No Gastrointestinal: Yes Gastroesophageal Reflux, Irritable Bowel Musculoskeletal: Yes Scoliosis, Chronic Back Pain Endocrine: Yes Hypothyroidsim, Diabetes, Non-Insulin dep HEENT: No Cancer: Yes Cervical Psychosocial: Yes Bipolar, Depression Integumentary: No Blood Disorders: No Physical Exam Vital Signs Vital Signs - First Documented 10/03/18 03:35 Temp 102.1 Pulse 123 Resp 20 B/P (MAP) 128/78 (95) Pulse Ox 97 O2 Delivery Room Air Capillary Refill : Less Than 3 Seconds Height, Weight, BMI Height: 5'4.00" Weight: 142lbs. 0oz. 64.111656dg; 23.9 BMI Method:Stated General Appearance: WD/WN, Mild Distress HEENT: PERRL/EOMI, Normal ENT Inspection, Pharynx Normal Neck: Full Range of Motion, Supple, Tender Lateral Respiratory: No Accessory Muscle Use, No Respiratory Distress, Decreased Breath Sounds; No Rhonci, No Stridor Cardiovascular: Normal Peripheral Pulses, Tachycardia Gastrointestinal: Normal Bowel Sounds, No Pulsatile Mass, Soft, Tenderness (around the laparoscopic incision sites on abdomen. no fluctuance or drainage noted) Extremity: Normal Capillary Refill, Normal Range of Motion, No Calf Tenderness Neurologic/Psychiatric: Alert, Oriented x3, No Motor/Sensory Deficits, city secretary II- XII Norm as Tested Skin: Warm/Dry, Erythema (mild around the lap incision site on epigastric area and left lateral abdomen) Focused Exam Lactate Level 10/03/18 03:32: Lactic Acid Level 1.78 Lactic Acid Level Laboratory Tests Test 10/03/18 03:32 Lactic Acid Level 1.78 MMOL/L (0.50-2.00) Progress/Results/Core Measures Suspected Sepsis Recent Fever Within 48 Hours: Yes Infection Criteria Present: Suspected New Infection New/Unexplained Altered Menta: No Sepsis Screen: Possible Sepsis Risk SIRS Temperature:102.1 Pulse: 123 Respiratory Rate: 20 Laboratory Tests 10/03/18 03:32: White Blood Count 7.9 Blood Pressure 128 /78 Mean: 95 10/03/18 03:32: Lactic Acid Level 1.78 Laboratory Tests 10/03/18 03:32: Creatinine 0.82, Platelet Count 242, Total Bilirubin 0.4 Results/Orders Lab Results Laboratory Tests Test 10/03/18 03:32 10/03/18 03:55 Range/Units White Blood Count 7.9 4.3-11.0 10^3/uL Red Blood Count 3.80 L 4.35-5.85 10^6/uL Hemoglobin 11.0 L 11.5-16.0 G/DL Hematocrit 34 L 35-52 % Mean Corpuscular Volume 89 80-99 FL Mean Corpuscular Hemoglobin 29 25-34 PG Mean Corpuscular Hemoglobin Concent 33 32-36 G/DL Red Cell Distribution Width 13.8 10.0-14.5 % Platelet Count 242 130-400 10^3/uL Mean Platelet Volume 9.0 7.4-10.4 FL Neutrophils (%) (Auto) 70 42-75 % Lymphocytes (%) (Auto) 11 L 12-44 % Monocytes (%) (Auto) 4 0-12 % Eosinophils (%) (Auto) 15 H 0-10 % Basophils (%) (Auto) 0 0-10 % Neutrophils # (Auto) 5.5 1.8-7.8 X 10^3 Lymphocytes # (Auto) 0.9 L 1.0-4.0 X 10^3 Monocytes # (Auto) 0.2 0.0-1.0 X 10^3 Eosinophils # (Auto) 1.2 H 0.0-0.3 10^3/uL Basophils # (Auto) 0.0 0.0-0.1 10^3/uL Neutrophils % (Manual) 66 % Lymphocytes % (Manual) 11 % Monocytes % (Manual) 2 % Eosinophils % (Manual) 17 % Basophils % (Manual) 0 % Band Neutrophils 4 % Blood Morphology Comment NORMAL Sodium Level 133 L 135-145 MMOL/L Potassium Level 3.7 3.6-5.0 MMOL/L Chloride Level 97 L 98-107 MMOL/L Carbon Dioxide Level 20 L 21-32 MMOL/L Anion Gap 16 H 5-14 MMOL/L Blood Urea Nitrogen 12 7-18 MG/DL Creatinine 0.82 0.60-1.30 MG/DL Estimat Glomerular Filtration Rate > 60 BUN/Creatinine Ratio 15 Glucose Level 133 H 70-105 MG/DL Lactic Acid Level 1.78 0.50-2.00 MMOL/L Calcium Level 8.8 8.5-10.1 MG/DL Corrected Calcium 8.8 8.5-10.1 MG/DL Total Bilirubin 0.4 0.1-1.0 MG/DL Aspartate Amino Transf (AST/SGOT) 19 5-34 U/L Alanine Aminotransferase (ALT/SGPT) 14 0-55 U/L Alkaline Phosphatase 45 40-136 U/L Total Protein 6.6 6.4-8.2 GM/DL Albumin 4.0 3.2-4.5 GM/DL Urine Color YELLOW Urine Clarity CLEAR Urine pH 6.0 5-9 Urine Specific [place] 1.010 L 1.016-1.022 Urine Protein NEGATIVE NEGATIVE Urine Glucose (UA) 3+ H NEGATIVE Urine Ketones NEGATIVE NEGATIVE Urine Nitrite NEGATIVE NEGATIVE Urine Bilirubin NEGATIVE NEGATIVE Urine Urobilinogen 0.2 NORMAL MG/DL Urine Leukocyte Esterase NEGATIVE NEGATIVE Urine RBC (Auto) NEGATIVE NEGATIVE Urine RBC NONE /HPF Urine WBC NONE /HPF Urine Squamous Epithelial Cells 5-10 /HPF Urine Crystals NONE /LPF Urine Bacteria FEW H /HPF Urine Casts NONE /LPF Urine Mucus NEGATIVE /LPF Urine Culture Indicated NO My Orders Orders - FAROOQ LANGE MD Acetaminophen Tablet (Tylenol Tablet) (10/03/18 03:39) Cbc With Automated Diff (10/03/18 03:39) Comprehensive Metabolic Panel (10/03/18 03:39) Blood Culture (10/03/18 03:39) Ua Culture If Indicated (10/03/18 03:39) Chest Pa/Lat (2 View) (10/03/18 03:39) Ed Iv/Invasive Line Start (10/03/18 03:39) Lactic Acid Analyzer (10/03/18 03:39) Ns Iv 1000 Ml (Sodium Chloride 0.9%) (10/03/18 03:45) Ct Abdomen/Pelvis W (10/03/18 03:43) Iohexol Injection (Omnipaque 350 Mg/Ml 1 (10/03/18 04:00) Received Contrast (Hold Metformin- Contr (10/03/18 04:00) Ns (Ivpb) (Sodium Chloride 0.9% Ivpb Bag (10/03/18 04:00) Manual Differential (10/03/18 03:32) Levofloxacin 500 Mg/100 Ml Iv (Levaquin (10/03/18 05:30) Ketorolac Injection (Toradol Injection) (10/03/18 05:30) Medications Given in ED Current Medications Medications Dose Ordered Sig/Francis Route Start Time Stop Time Status Last Admin Dose Admin Iohexol 100 ml ONCE ONCE IV 10/03/18 04:00 10/03/18 04:02 DC 10/03/18 04:18 100 ML Levofloxacin/ Dextrose 100 ml @ 100 mls/hr ONCE ONCE IV 10/03/18 05:30 10/03/18 06:29 10/03/18 05:35 100 MLS/HR Sodium Chloride 100 ml ONCE ONCE IV 10/03/18 04:00 10/03/18 04:02 DC 10/03/18 04:18 40 ML Vital Signs/I&O 10/03/18 10/03/18 03:35 03:52 Temp 102.1 102.1 Pulse 123 Resp 20 B/P (MAP) 128/78 (95) Pulse Ox 97 O2 Delivery Room Air Capillary Refill : Less Than 3 Seconds Blood Pressure Mean: 95 Progress Note #1: Progress Note obtain labs, cultures and lactic acid. give ivf for hydration with her tachycardia. acetaminophen for fever. Check a CT scan of the abdomen and pelvis to look for abscess or complication of her surgery. She had prior ct scan done on September 24 that did not show any abscess then when she was seen for abdominal pain in [facility] ED. At that time she did not have fever. Progress Note #2: Progress Note Labs are stable without acute significant abnormality. Normal WBC count and Lactic acid. CXR appears clear without acute infiltrate. CT scan did not show a reason for the fever either. the fluid collection seen on previous imaging from 09/24 has gotten smaller although she still has fat stranding. Temp has come down with treatment. She denies any tick bites recently either to account for her fever. No rashes either. With no focal source for fever will treat with empiric antibiotic and have her push fluids and rest at home. Follow up with clinic or return if worsens or not improving. Blood cultures are still pending. Diagnostic Imaging Diagonstic Imaging: CT Plain Films/CT/US/NM/MRI: abdomen, pelvis Comments Impression: Decrease in size of previously noted anterior abdominal wall fluid collection with persistent adjacent stranding of the subcutaneous fat. Radiologist Efrem Sawyer M.D. Study read at 4:52 AM and initial results transmitted at 5 AM. Reviewed: Reviewed [facility] Study Diagonstic Imaging: Xray Plain Films/CT/US/NM/MRI: chest Comments On my review of the 2 view chest x-ray she has no acute infiltrate or effusion. There is no cardiomegaly. Reviewed: Reviewed by Me Departure Impression Primary Impression: Fever in adult Additional Impressions: Arthralgia Qualified Codes: M25.50 - Pain in unspecified joint Cough Disposition: HOME, SELF-CARE Condition: Stable Departure-Patient Inst. Decision time for Depature: 05:34 Referrals: DARIUS FONTANEZ (PCP) Primary Care Physician CARLOS POST MD (Family) Primary Care Physician Patient Instructions: Fever, Adult (DC), Fever of Unknown Origin (DC) Add. Discharge Instructions: Stay well hydrated and make sure you are drinking plenty of fluids Take the full course of antibiotics Check with clinic for continued concerns of if having worsening symptoms you cou ld return to the ER as well. You could alternate Acetaminophen with Ibuprofen for your fevers over 101 F All discharge instructions reviewed with patient and/or family. Voiced understanding. Scripts Levofloxacin (Levofloxacin) 500 Mg Tablet 500 MG PO DAILY for 7 Days, #7 TAB 0 Refills Prov: FAROOQ LANGE MD 10/03/18 FAROOQ LANGE MD Oct 03, 2018 03:53
[2018-10-03 04:00] LABS: BASOPHILS % (AUTO) 0 % (0-10); EOSINOPHILS # (AUTO) 1.2 10^3/uL (0.0-0.3); EOSINOPHILS % (AUTO) 15 % (0-10); HEMATOCRIT 34 % (35-52); LYMPHOCYTES # (AUTO) 0.9 X 10^3 (1.0-4.0); LYMPHOCYTES % (AUTO) 11 % (12-44); MEAN CORPUSCULAR HEMOGLOBIN 29 PG (25-34); MEAN CORPUSCULAR HGB CONC 33 G/DL (32-36); MEAN CORPUSCULAR VOLUME 89 FL (80-99); MONOCYTES # (AUTO) 0.2 X 10^3 (0.0-1.0); MONOCYTES % (AUTO) 4 % (0-12); NEUTROPHILS # (AUTO) 5.5 X 10^3 (1.8-7.8); NEUTROPHILS % (AUTO) 70 % (42-75); PLATELET COUNT 242 10^3/uL (130-400); RED CELL DISTRIBUTION WIDTH 13.8 % (10.0-14.5); WHITE BLOOD COUNT 7.9 10^3/uL (4.3-11.0)
[2018-10-03] MEDS ORDERED: HOLD METFORMIN - RECEIVED CONTRAST 20 ML VIAL IV SCH (04:00)
[2018-10-03] MEDS ORDERED: NS 100 ML (IVPB) BAG IV ONE (04:00)
[2018-10-03] MEDS ORDERED: IOHEXOL 350 MG/ML 100 ML (OMNIPAQUE 350) VIAL IV ONE (04:00)
[2018-10-03 04:09] LABS: BACTERIA,URINE FEW /HPF; BILIRUBIN,URINE NEGATIVE (NEGATIVE); CLARITY,URINE CLEAR; COLOR,URINE YELLOW; GLUCOSE, URINE (UA) 3+ (NEGATIVE); KETONES,URINE NEGATIVE (NEGATIVE); LEUKOCYTE ESTERASE ,URINE NEGATIVE (NEGATIVE); NITRITE,URINE NEGATIVE (NEGATIVE); PROTEIN,URINE NEGATIVE (NEGATIVE); UROBILINOGEN,URINE 0.2 MG/DL (NORMAL)
[2018-10-03 04:18] LABS: BUN/CREATININE RATIO 15; CALCIUM 8.8 MG/DL (8.5-10.1); CARBON DIOXIDE 20 MMOL/L (21-32); CHLORIDE 97 MMOL/L (98-107); CREATININE SERUM 0.82 MG/DL (0.60-1.30); GFR ESTIMATED > 60; GLUCOSE 133 MG/DL (70-105); POTASSIUM 3.7 MMOL/L (3.6-5.0); SODIUM 133 MMOL/L (135-145)
[2018-10-03 04:19] LABS: ALANINE AMINOTRANSFERASE 14 U/L (0-55); ALKALINE PHOSPHATASE 45 U/L (40-136); BILIRUBIN,TOTAL 0.4 MG/DL (0.1-1.0); TOTAL PROTEIN 6.6 GM/DL (6.4-8.2)
[2018-10-03 04:26] LABS: BAND NEUTROPHILS 4 %; BASOPHILS % (MANUAL) 0 %; EOSINOPHILS % (MANUAL) 17 %; LYMPHOCYTES % (MANUAL) 11 %; MONOCYTES % (MANUAL) 2 %; NEUTROPHILS % (MANUAL) 66 %; RBC MORPH NORMAL
[2018-10-03] MEDS ORDERED: LEVOFLOXACIN 500 MG/100 ML IV 100 ML IV ONE (05:30)
[2018-10-03] MEDS ORDERED: KETOROLAC 30 MG/ML VIAL IVP STA (05:30)
[2018-10-03] MEDS ORDERED: LEVO500T80 PO (05:37)
[2018-10-03 06:30] VITALS: BP 114/60
--- NOTE | 2018-10-03 07:33 | Diagnostic Imaging Report ---
PROCEDURE: CT abdomen and pelvis with contrast. TECHNIQUE: Multiple contiguous axial images were obtained through the abdomen and pelvis after administration of intravenous contrast. Auto Exposure Controls were utilized during the CT exam to meet ALARA standards for radiation dose reduction. INDICATION: Fever and abdominal pain. Ventral hernia repair on 09/07/2018. Comparison is made with a study from a 09/24/2018. There is diffuse hepatic steatosis present. The gallbladder and bile ducts are normal. The spleen, pancreas and adrenals are normal. Kidneys, ureters and bladder are normal. No acute bowel abnormality is seen. Mesh is seen along the anterior abdominal wall with no residual or recurrent ventral hernia seen. There is no mass or abnormal fluid collections. The previously seen edema and induration of the anterior abdominal wall musculature in the left lower quadrant which is likely from laparotomy site has shown near complete resolution. There is no free intraperitoneal air or fluid. There is no abscess evident. There is no acute bony abnormality. IMPRESSION: No acute abnormality is seen. Dictated by: Dictated on workstation # [id number]
--- NOTE | 2018-10-03 07:40 | Diagnostic Imaging Report ---
INDICATION: Fever EXAMINATION: PA and lateral views of the chest. FINDINGS: The heart size and vascularity are normal. Lungs are clear. There is no effusion. There is no acute bony abnormality. IMPRESSION: No acute abnormality is seen. Dictated by: Dictated on workstation # [id number]
== END 2018-10-03 06:29 | disposition home or self-care (01) ==
LOC: EDUNIT# 03:35 → ER FS 03:38
DX: R50.9 Fever, unspecified (principal); R05 Cough; M25.512 Pain in left shoulder; M25.542 Pain in joints of left hand; F41.9 Anxiety disorder, unspecified; E78.00 Pure hypercholesterolemia, unspecified; K21.9 Gastro-esophageal reflux disease without esophagitis; K58.9 Irritable bowel syndrome, unspecified; E11.9 Type 2 diabetes mellitus without complications; E03.9 Hypothyroidism, unspecified; F31.9 Bipolar disorder, unspecified; F17.210 Nicotine dependence, cigarettes, uncomplicated; Z85.41 Personal history of malignant neoplasm of cervix uteri; Z90.710 Acquired absence of both cervix and uterus; Z98.51 Tubal ligation status; Z98.890 Other specified postprocedural states; Z88.2 Allergy status to sulfonamides; Z88.1 Allergy status to other antibiotic agents; Z88.8 Allergy status to other drugs, medicaments and biological substances; Z79.52 Long term (current) use of systemic steroids; Z79.84 Long term (current) use of oral hypoglycemic drugs
CPT/HCPCS: 36415; 71046; 74177; 80053; 81000; 83605; 85007; 85027; 87040

== ENCOUNTER 2018-10-30 20:44 | Emergency (ER) | payer MEDICAID ==
[~2018-10-30] VITALS: Ht 160 cm; Wt 65.0 kg
[~2018-10-30 20:44] MED LIST changes: +LEVO500T80 PO
[2018-10-30] MEDS ORDERED: DEXAMETHASONE 10 MG/ML (DECADRON) 1 ML VIAL IM STA (22:16)
[2018-10-30] MEDS ORDERED: methylPREDNISolone 80 MG/ML (DEPO MEDROL) VIAL IM STA (22:16)
[2018-10-30] MEDS ORDERED: ORPHENADRINE 60 MG/2 ML (NORFLEX) AMP IM STA (22:16)
--- NOTE | 2018-10-30 22:20 | ED Upper Extremity ---
General Chief Complaint: Upper Extremity Stated Complaint: UPPER BACK PAIN, RT ARM PAIN Nursing Triage Note: PT COMPLAINING OF RIGHT UPPER ARM AND NECK PAIN THAT STARTED 5 DAYS AGO. PT HAS TAKEN FLEXERIL AND TYLENOL #3 FOR PAIN Nursing Sepsis Screen: No Definite Risk Source: patient History of Present Illness Date Seen by Provider: Oct 30, 2018 Time Seen by Provider: 21:58 Initial Comments 48-year-old female presenting with complaints of upper back pain. She states that about 5 days ago she woke up with pain in her neck and upper back. Since then it has moved and isolated into the right scapula and shoulder. It's radiating down her right arm. She denies any numbness or tingling. She has been having some sharp pains especially with trying to move her right arm. She denies having pain like this before. She has been trying to take Flexeril and Tylenol 3 for pain. If that helps her sleep but the pain is still there when she wakes up. She has had family members massaged her back in that area that is tender and did helps for a short while but immediately comes back. She denies any fall or trauma to this area. She has felt that her right arm and hand has been more swollen with her not being able to use it is much. She has a history of bulging disks in her back. She was unsure if that might be causing some of the symptoms. Allergies and Home Medications Allergies Coded Allergies: Sulfa (Sulfonamide Antibiotics) (Verified Allergy, Unknown, abd pain, 09/05/18) adhesive tape (Verified Allergy, Unknown, Hives, 09/05/18) bupropion (Verified Allergy, Unknown, sucidial, 09/05/18) carisoprodol (Verified Allergy, Unknown, heart palpatations, 09/05/18) quetiapine (Verified Allergy, Unknown, suicidal, 09/05/18) Home Medications Citalopram Hydrobromide 20 Mg Tablet, 20 MG PO DAILY, (Reported) Cyclobenzaprine HCl 10 Mg Tablet, 10 MG PO TID PRN for MUSCLE SPASMS, (Reported) Dapagliflozin Propanediol 5 Mg Tablet, 5 MG PO DAILY, (Reported) Fenofibrate Nanocrystallized 145 Mg Tablet, 145 MG PO DAILY, (Reported) Fluticasone Propionate 9.9 Ml [place].susp, 2 SPRAY NS DAILY PRN for nasal congestion, (Reported) Gabapentin 300 Mg Capsule, 300 MG PO TID, (Reported) Hydrocodone Bit/Acetaminophen 1 Tab Tab, 1 TAB PO Q6H PRN for PAIN-MODERATE Prescribed by: RAMIREZ WALTERS on 09/07/18 0951 Levofloxacin 500 Mg Tablet, 500 MG PO DAILY Prescribed by: FAROOQ LANGE on 10/03/18 0537 Levothyroxine Sodium 112 Mcg Tablet, 112 MCG PO DAILY, (Reported) Loperamide HCl 2 Mg Capsule, 2 MG PO UD PRN for DIARRHEA, (Reported) Metformin HCl 1,000 Mg Tablet, 1,000 MG PO BID, (Reported) Pantoprazole Sodium 40 Mg Tablet.dr, 40 MG PO DAILY, (Reported) Ranitidine HCl 150 Mg Tablet, 150 MG PO DAILY, (Reported) Patient Home Medication List Home Medication List Reviewed: Yes Review of Systems Constitutional: No chills, No fever EENTM: No blurred vision, No double vision, No vision loss Respiratory: No cough, No short of breath Cardiovascular: No palpitations Gastrointestinal: no symptoms reported Genitourinary: no symptoms reported Musculoskeletal: see HPI Skin: no symptoms reported Psychiatric/Neurological: Denies Numbness, Denies Paresthesia Past Qbwxdgm-Wtqqjh-Zrkigy Hx Past Med/Social Hx: Reviewed Nursing Past Med/Soc Hx Patient Social History Alcohol Use: Denies Use Recreational Drug Use: No Smoking Status: Current Everyday Smoker Type Used: Cigarettes 2nd Hand Smoke Exposure: No Recent Foreign Travel: No Contact w/Someone Who Travel: No Recent Infectious Disease Expo: No Recent Hopitalizations: No Physical Abuse: No Sexual Abuse: No Mistreated: No Seasonal Allergies Seasonal Allergies: Yes Past Medical History Surgeries: Yes (c/s x2, hernia x2, cone bx x2) Section, Hysterectomy, 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 Respiratory: No Cardiac: Yes High Cholesterol Neurological: No Genitourinary: No Gastrointestinal: Yes Gastroesophageal Reflux, Irritable Bowel Musculoskeletal: Yes Scoliosis, Chronic Back Pain Endocrine: Yes Hypothyroidsim, Diabetes, Non-Insulin dep HEENT: No Cancer: Yes Cervical Psychosocial: Yes Bipolar, Depression Integumentary: No Blood Disorders: No Physical Exam Vital Signs Vital Signs - First Documented 10/30/18 21:12 Temp 36.6 Pulse 110 Resp 18 B/P (MAP) 137/89 (105) Pulse Ox 97 O2 Delivery Room Air Capillary Refill : Less Than 3 Seconds Height, Weight, BMI Height: 5'4.00" Weight: 142lbs. 0oz. 64.788439vs; 25.00 BMI Method:Stated General Appearance: WD/WN, no apparent distress HEENT: PERRL/EOMI, normal ENT inspection, TMs normal, pharynx normal Neck: non-tender, full range of motion, supple, normal inspection Cardiovascular: normal peripheral pulses, regular rate, rhythm Respiratory: chest non-tender, lungs clear, normal breath sounds Neurologic/Tendon: normal sensation, normal motor functions, normal tendon functions Neurologic/Psychiatric: special technical operations officer II-XII nml as tested, no motor/sensory deficits, alert, normal mood/affect, oriented x 3 Skin: normal color, warm/dry Progress/Results/Core Measures Results/Orders My Orders Orders - FAROOQ LANGE MD Dexamethasone Injection (Decadron Inject (10/30/18 22:16) Methylprednisolone Acetate Inj (Depo-Med (10/30/18 22:16) Orphenadrine Injection (Norflex Injectio (10/30/18 22:16) Vital Signs/I&O 10/30/18 10/30/18 21:12 22:27 Temp 36.6 Pulse 110 100 Resp 18 18 B/P (MAP) 137/89 (105) 137/89 Pulse Ox 97 98 O2 Delivery Room Air Room Air Blood Pressure Mean: 105 Progress Progress Note : Progress Note reviewed with pt that I could do a CT scan to look for bulging discs or pinched nerve but MRI would look best. On exam the areas of tenderness are over muscles so muscle relaxer and treatment for inflammation would help. will treat with steroids for inflammation and then have her continue flexeril and T#3. Check with Alexis Parrish from Ortho or her regular provider this week if not improving. Given Dexamethasone, DepoMedrol and Norflex here. Departure Impression Primary Impression: Rhomboid muscle strain Qualified Codes: S29.012A - Strain of muscle and tendon of back wall of thorax, initial encounter Additional Impressions: Radiculopathy affecting upper extremity Pinched nerve in shoulder Qualified Codes: G56.81 - Other specified mononeuropathies of right upper limb Disposition: 01 HOME, SELF-CARE Condition: Stable Departure-Patient Inst. Decision time for Depature: 22:18 Referrals: DARIUS FONTANEZ (PCP) Primary Care Physician SELF,CRALOS MD (Family) Primary Care Physician Patient Instructions: Muscle Strain (DC), Radiculopathy (DC), Upper Back Pain (DC) Add. Discharge Instructions: If not improving in the next few days check with clinic and you may need to have imaging to look at your spine for pinched nerve or bulging disk. Alexis Parrish with Orthopedics is available by calling [phone] or check with Tatianna Castellanos. All discharge instructions reviewed with patient and/or family. Voiced understanding. Images Torso/Trunk 1 - Muscle Spams, Tenderness, Other-See Progress Note Progress Tender to palpation over rhomboid muscles and paraspinal muscles on right side or upper back and shoulder area FAROOQ LANGE MD Oct 30, 2018 22:20
[2018-10-30 22:27] VITALS: BP 137/89
== END 2018-10-30 22:28 | disposition home or self-care (01) ==
LOC: EDUNIT# 20:44 → ER FS 20:46
DX: S29.012A Strain of muscle and tendon of back wall of thorax, initial encounter (principal); M54.12 Radiculopathy, cervical region; E78.00 Pure hypercholesterolemia, unspecified; K21.9 Gastro-esophageal reflux disease without esophagitis; K58.9 Irritable bowel syndrome, unspecified; E03.9 Hypothyroidism, unspecified; E11.9 Type 2 diabetes mellitus without complications; F31.9 Bipolar disorder, unspecified; F17.210 Nicotine dependence, cigarettes, uncomplicated; Z88.2 Allergy status to sulfonamides; Z88.8 Allergy status to other drugs, medicaments and biological substances; Z79.84 Long term (current) use of oral hypoglycemic drugs; Z98.890 Other specified postprocedural states; Z98.51 Tubal ligation status; Z85.41 Personal history of malignant neoplasm of cervix uteri; X50.1XXA Overexertion from prolonged static or awkward postures, initial encounter
CPT/HCPCS: 96372; 99284

== ENCOUNTER 2018-12-02 06:53 | Emergency (ER) | payer MEDICAID ==
[~2018-12-02] VITALS: Ht 160 cm; Wt 63.3 kg
[~2018-12-02 06:53] MED LIST changes: -RANI-515 PO; +RANI-609 PO
[2018-12-02] MEDS ORDERED: morphine INJ 10 MG/ML 1ML (SYR OR VIAL) IVP STA (07:25)
[2018-12-02] MEDS ORDERED: ONDANSETRON 4 MG/2 ML (SDV) Z0FRAN IVP ONE ×2 (07:30→09:30)
[2018-12-02 07:49] LABS: BASOPHILS # (AUTO) 0.1 10^3/uL (0.0-0.1); BASOPHILS % (AUTO) 1 % (0-10); EOSINOPHILS # (AUTO) 0.7 10^3/uL (0.0-0.3); EOSINOPHILS % (AUTO) 6 % (0-10); HEMATOCRIT 39 % (35-52); HEMOGLOBIN 13.2 G/DL (11.5-16.0); LYMPHOCYTES # (AUTO) 2.3 X 10^3 (1.0-4.0); LYMPHOCYTES % (AUTO) 21 % (12-44); MEAN CORPUSCULAR HEMOGLOBIN 29 PG (25-34); MEAN CORPUSCULAR HGB CONC 34 G/DL (32-36); MEAN CORPUSCULAR VOLUME 86 FL (80-99); MEAN PLATELET VOLUME 8.7 FL (7.4-10.4); MONOCYTES # (AUTO) 0.4 X 10^3 (0.0-1.0); MONOCYTES % (AUTO) 4 % (0-12); NEUTROPHILS # (AUTO) 7.5 X 10^3 (1.8-7.8); NEUTROPHILS % (AUTO) 68 % (42-75); PLATELET COUNT 365 10^3/uL (130-400); RED CELL DISTRIBUTION WIDTH 12.8 % (10.0-14.5); WHITE BLOOD COUNT 11.1 10^3/uL (4.3-11.0)
[2018-12-02 07:52] LABS: CLARITY,URINE CLEAR; COLOR,URINE YELLOW
[2018-12-02 07:53] LABS: BILIRUBIN,URINE NEGATIVE (NEGATIVE); GLUCOSE, URINE (UA) NEGATIVE (NEGATIVE); KETONES,URINE NEGATIVE (NEGATIVE); LEUKOCYTE ESTERASE ,URINE NEGATIVE (NEGATIVE); NITRITE,URINE NEGATIVE (NEGATIVE); PH,URINE 6.5 (5-9); PROTEIN,URINE NEGATIVE (NEGATIVE)
[2018-12-02 08:03] LABS: ALANINE AMINOTRANSFERASE 21 U/L (0-55); ALBUMIN 4.6 GM/DL (3.2-4.5); ALKALINE PHOSPHATASE 48 U/L (40-136); BILIRUBIN,TOTAL 0.2 MG/DL (0.1-1.0); BUN/CREATININE RATIO 11; CALCIUM 9.6 MG/DL (8.5-10.1); CARBON DIOXIDE 24 MMOL/L (21-32); CHLORIDE 96 MMOL/L (98-107); GFR ESTIMATED > 60; GLUCOSE 137 MG/DL (70-105); LIPASE 51 U/L (8-78); POTASSIUM 3.7 MMOL/L (3.6-5.0); SODIUM 134 MMOL/L (135-145); TOTAL PROTEIN 7.4 GM/DL (6.4-8.2)
[2018-12-02] MEDS ORDERED: HOLD METFORMIN - RECEIVED CONTRAST 20 ML VIAL IV SCH (08:15)
[2018-12-02] MEDS ORDERED: NS 100 ML (IVPB) BAG IV ONE (08:15)
[2018-12-02] MEDS ORDERED: IOHEXOL 350 MG/ML 100 ML (OMNIPAQUE 350) VIAL IV ONE (08:15)
[2018-12-02] MEDS ORDERED: CATHETER FLUSH 10 ML SYR IV PRN (08:15)
--- NOTE | 2018-12-02 08:39 | Diagnostic Imaging Report ---
PROCEDURE: CT abdomen and pelvis with contrast. TECHNIQUE: Multiple contiguous axial images were obtained through the abdomen and pelvis after administration of intravenous contrast. Auto Exposure Controls were utilized during the CT exam to meet ALARA standards for radiation dose reduction. INDICATION: Crampy abdominal pain since the yesterday afternoon, vomited twice this morning. History of irritable bowel syndrome with diarrhea. CORRELATION STUDY: None. FINDINGS: LOWER THORAX: Clear. LIVER: Enlarged at 22 cm craniocaudal length with moderate steatosis. GALLBLADDER: Present and unremarkable. No bile duct dilatation. SPLEEN: There is a somewhat triangular, wedge-shaped area of asymmetric low-attenuation involving the posterior to mid aspect of the spleen. This occupies approximately one 4th of the splenic volume. This is changed from prior study. No significant pericapsular fluid collections. Enhancing vessel does course through this area. PANCREAS: Unremarkable. ADRENAL GLANDS: 9 mm nodule left adrenal gland likely stable, favors probable adenoma. KIDNEYS: Normal configuration. No calcification or obstruction. ABDOMINAL AORTA: Moderate aortoiliac wall calcification. Major branches are patent proximally. GASTROINTESTINAL TRACT: Stomach is collapsed, however there is suggestion of some gastric wall thickening and hyperemia. Small bowel nonobstructed. There is mild severity fecal retention throughout the colon. No evidence for appendicitis. No abdominal ascites or free air. Postoperative changes anterior abdominal wall with mesh. URINARY BLADDER: Relatively decompressed. REPRODUCTIVE: Post hysterectomy. OSSEOUS STRUCTURES: Asymmetric degenerative changes L4-L5 level disc space narrowing reactive endplate sclerosis and osteophyte. OTHER: None. IMPRESSION: 1. Suggestion of some gastric wall thickening hyperemia could reflect nonspecific abdomen gastritis. No bowel obstruction. 2. Development of a wedge-shaped area of a diminished attenuation of the spleen suspect for potential area of splenic infarct. Age is indeterminate, but does not have an overly acute appearance. 3. Hepatomegaly with steatosis. Dictated by: Dictated on workstation # [id number]
[2018-12-02] MEDS ORDERED: FAMOTIDINE 20MG/2ML IV (PEPCID) IVP ONE (09:30)
[2018-12-02] MEDS ORDERED: ONDA4TAB11 PO (09:33)
[2018-12-02] MEDS ORDERED: TRAM-42 PO (09:33)
[2018-12-02 09:42] VITALS: BP 154/90
[2018-12-03] MEDS ORDERED: HYOS0.1283 SL (00:08)
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
--- OUTSIDE RECORDS SUMMARY | 2018-12-25 13:42 | XMS REPORT | Continuity of Care Document ---
Author Organization Unknown POS Address Unknown SP Phone Unavailable SP Allergies Active Description Code Type Severity POS Reaction Onset Reported/Identified POS to Patient Clinical Status POS Yes No Known Drug Allergies [id number] Drug SP Unknown N/A 08/16/2018 SP SP Yes adhesive tape [id number] Joel g Allergy SP Unknown Hives 09/05/2018 SP SP Yes bupropion [id number] Drug Allergy SP sucidial 09/05/2018 SP Yes carisoprodol [id number] Drug Allergy SP Unknown heart palpatati 09/05/2018 SP SP Yes quetiapine [id number] Drug Allerg y SP suicidal 09/05/2018 SP Yes Sulfa (Sulfonamide Antibiotics) [id number] SP Allergy Unknown abd pain 2018 SP SP Medications There is no data. Problems Date Dx Coded Attending Type Code POS Diagnosed By POS 08/16/2018 DARIUS DEL CASTILLO DO Ot E11.65 SP TYPE 2 DIABETES MELLITUS WITH HYPERGLYCE SP 08/16/2018 DARIUS DEL CASTILLO DO Ot Z91.14 SP PATIENT'S OTHER NONCOMPLIANCE WITH MEDIC SP 08/17/2018 DARIUS DEL CASTILLO DO Ot E11.65 SP TYPE 2 DIABETES MELLITUS WITH HYPERGLYCE SP 08/17/2018 DARIUS DEL CASTILLO DO Ot Z91.14 SP PATIENT'S OTHER NONCOMPLIANCE WITH MEDIC SP 09/05/2018 RAMIREZ WALTERS DO B Ot Z01.8 18 SP FOR OTHER PREPROCEDURAL EXAMIN SP 09/07/2018 RAMIREZ WALTERS DO Ot E11.9 SP 2 DIABETES MELLITUS WITHOUT COMPLIC SP 09/07/2018 RAMIREZ WALTERS DO Ot F17.2 10 SP DEPENDENCE, CIGARETTES, UNCOMPL SP 09/07/2018 RAMIREZ WALTERS DO B Ot F32.9 SP DEPRESSIVE DISORDER, SINGLE EPISOD SP 09/07/2018 RAMIREZ WALTERS DO Ot G89.2 9 SP CHRONIC PAIN SP 09/07/2018 RAMIREZ WALTERS DO Ot K21.9 SPESOPHAGEAL REFLUX DISEASE WITHOUT SP 09/07/2018 RAMIREZ WALTERS DO Ot K43.0 SP HERNIA WITH OBSTRUCTION, WITH SP 09/07/2018 RAMIREZ WALTERS DO Ot K58.9 SP BOWEL SYNDROME WITHOUT DIARRHE SP 09/07/2018 RAMIREZ WALTERS DO Ot M41.9 SP UNSPECIFIED SP 09/07/2018 RAMIREZ WALTERS DO Ot M54.9 SP UNSPECIFIED SP 09/07/2018 RAMIREZ WALTERS DO Ot Z79.8 4 SP TERM (CURRENT) USE OF ORAL HYPOGLYC SP 09/07/2018 RAMIREZ WALTERS DO Ot 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 SP 09/07/2018 RAMIREZ WALTERS DO Ot Z88.2 SP STATUS TO SULFONAMIDES STATUS SP 09/07/2018 RAMIREZ WALTERS DO Ot Z88.6 SP STATUS TO ANALGESIC AGENT STATUS SP 09/07/2018 RAMIREZ WALTERS DO Ot Z88.8 SP STATUS TO OT DRUG/MEDS/BIOL SUB SP 09/07/2018 RAMIREZ WALTERS DO Ot Z90.7 10 SP ABSENCE OF BOTH CERVIX AND UTER SP 09/07/2018 RAMIREZ WALTERS DO Ot Z91.0 48 SP NONMEDICINAL SUBSTANCE ALLERGY STA SP 09/17/2018 RAMIREZ WALTERS DO Ot E11.9 SP 2 DIABETES MELLITUS WITHOUT COMPLIC SP 09/17/2018 RAMIREZ WALTERS DO Ot F17.2 10 SP DEPENDENCE, CIGARETTES, UNCOMPL SP 09/17/2018 RAMIREZ WALTERS DO Ot F32.9 SP DEPRESSIVE DISORDER, SINGLE EPISOD SP 09/17/2018 RAMIREZ WALTERS DO Ot G89.2 9 SP CHRONIC PAIN SP 09/17/2018 RAMIREZ WALTERS DO Ot K21.9 SPESOPHAGEAL REFLUX DISEASE WITHOUT SP 09/17/2018 RAMIREZ WALTERS DO Ot K43.0 SP HERNIA WITH OBSTRUCTION, WITH SP 09/17/2018 RAMIREZ WALTERS DO Ot K58.9 SP BOWEL SYNDROME WITHOUT DIARRHE SP 09/17/2018 RAMIREZ WALTERS DO Ot M41.9 SP UNSPECIFIED SP 09/17/2018 DELMAN DO, RAMIREZ B Ot M54.9 SP UNSPECIFIED SP 09/17/2018 ROMOE GUTIERREZ RAMIREZ B Ot Z79.8 4 SP TERM (CURRENT) USE OF ORAL HYPOGLYC SP 09/17/2018 ROMEO GUTIERREZ RAMIREZ B Ot Z79.8 99 SP [facility] (CURRENT) DRUG THERAPY SP 09/17/2018 ROMEO GUTIERREZ RAMIREZ B Ot Z88.2 SP STATUS TO SULFONAMIDES STATUS SP 09/17/2018 ROMEO GUTIERREZ RAMIREZ B Ot Z88.6 SP STATUS TO ANALGESIC AGENT STATUS SP 09/17/2018 ROMEO GUTIERREZ RAMIREZ B Ot Z88.8 SP STATUS TO OTH DRUG/MEDS/BIOL SUB SP 09/17/2018 ROMEO GUTIERREZ RAMIREZ B Ot Z90.7 10 SP ABSENCE OF BOTH CERVIX AND UTER SP 09/17/2018 ROMEO GUTIERREZJANELLEIC B Ot Z91.0 48 SP NONMEDICINAL SUBSTANCE ALLERGY STA SP 09/24/2018 ASHUTOSH ALBRIGHT MD Ot E03. 9 SP UNSPECIFIED SP 09/24/2018 ASHUTOSH ALBRIGHT MD Ot E11. 9 SP 2 DIABETES MELLITUS WITHOUT COMPLIC SP 09/24/2018 ASHUTOSH ALBRIGHT MD Ot E78. 00 SP HYPERCHOLESTEROLEMIA, UNSPECIFIED SP 09/24/2018 ASHUTOSH ALBRIGHT MD Ot F17.210 SP NICOTINE DEPENDENCE, CIGARETTES, UNCOMPL SP 09/24/2018 ASHUTOSH ALBRIGHT MD Ot F31. 9 SP DISORDER, UNSPECIFIED SP 09/24/2018 ASHUTOSH ALBRIGHT MD Ot G89. 18 SP ACUTE POSTPROCEDURAL PAIN SP 09/24/2018 ASHUTOSH ALBRIGHT MD Ot K21. 9 SPESOPHAGEAL REFLUX DISEASE WITHOUT SP 09/24/2018 ASHUTOSH ALBRIGHT MD Ot K58. 9 SP BOWEL SYNDROME WITHOUT DIARRHE SP 09/24/2018 ASHUTOSH ALBRIGHT MD Ot R10. 11 SP UPPER QUADRANT PAIN SP 09/24/2018 ASHUTOSH ALBRIGHT MD Ot R10. 9 SP ABDOMINAL PAIN SP 09/24/2018 ASHUTOSH ALBRIGHT MD Ot Z79. 52 SP TERM (CURRENT) USE OF SYSTEMIC STER SP 09/24/2018 ASHUTOSH ALBRIGHT MD Ot Z79. 84 SP TERM (CURRENT) USE OF ORAL HYPOGLYC SP 09/24/2018 ASHUTOSH ALBRIGHT MD Ot Z85. 41 SP HISTORY OF MALIGNANT NEOPLASM O SP 09/24/2018 NATALEE HERRERA, ASHUTOSH Mathur Ot Z88. 2 SP STATUS TO SULFONAMIDES STATUS SP 09/24/2018 NATALEE HERRERA, ASHUTOSH Mathur Ot Z88. 8 SP STATUS TO OTH DRUG/MEDS/BIOL SUB SP 09/24/2018 NATALEE HERRERA, ASHUTOSH Mathur Ot Z90.710 SP ACQUIRED ABSENCE OF BOTH CERVIX AND UTER SP 09/24/2018 NATALEE HERRERA, ASHUTOSH Mathur Ot Z98. 51 SP LIGATION STATUS SP 10/03/2018 NAZARIO HERRERA, FAROOQ Patterson Ot E03.9 SP UNSPECIFIED SP 10/03/2018 NAZARIO HERRERA, FAROOQ Patterson Ot E11.9 SP 2 DIABETES MELLITUS WITHOUT COMPLIC SP 10/03/2018 NAZARIO HERRERA, FAROOQ Patterson Ot E78.0 0 SP HYPERCHOLESTEROLEMIA, UNSPECIFIED SP 10/03/2018 NAZARIO HERRERA, FAROOQ Patterson Ot F17.2 10 SP DEPENDENCE, CIGARETTES, UNCOMPL SP 10/03/2018 NAZARIO HERRERA, FAROOQ Patterson Ot F31.9 SP DISORDER, UNSPECIFIED SP 10/03/2018 NAZARIO HERRERA, FAROOQ Patterson Ot F41.9 SP DISORDER, UNSPECIFIED SP 10/03/2018 NAZARIO HERRERA, FAROOQ Patterson Ot K21.9 SPESOPHAGEAL REFLUX DISEASE WITHOUT SP 10/03/2018 NAZARIO HERRERA, FAROOQ Patterson Ot K58.9 SP BOWEL SYNDROME WITHOUT DIARRHE SP 10/03/2018 NAZARIO HERRERA, FAROOQ Patterson Ot M25.5 12 SP IN LEFT SHOULDER SP 10/03/2018 NAZARIO HERRERA, FAROOQ Patterson Ot M25.5 42 SP IN JOINTS OF LEFT HAND SP 10/03/2018 NAZARIO HERRERA, FAROOQ Patterson Ot R05 SP SP 10/03/2018 NAAZRIO HERRERA, FAROOQ Patterson Ot R50.9 SP UNSPECIFIED SP 10/03/2018 NAZARIO HERRERA, FAROOQ Patterson Ot Z79.5 2 SP TERM (CURRENT) USE OF SYSTEMIC STER SP 10/03/2018 FAROOQ LANGE MD Ot Z79.8 4 SP TERM (CURRENT) USE OF ORAL HYPOGLYC SP 10/03/2018 NAZARIO HERRERA, FAROOQ Patterson Ot Z85.4 1 SP HISTORY OF MALIGNANT NEOPLASM O SP 10/03/2018 NAZARIO HERRERA, FAROOQ Patterson Ot Z88.1 SP STATUS TO OTHER ANTIBIOTIC AGENT SP 10/03/2018 NAZARIO HERRERA, FAROOQ Patterson Ot Z88.2 SP STATUS TO SULFONAMIDES STATUS SP 10/03/2018 FAROOQ LANGE MD Ot Z88.8 SP STATUS TO OTH DRUG/MEDS/BIOL SUB SP 10/03/2018 FAROOQ LANGE MD Ot Z90.7 10 SP ABSENCE OF BOTH CERVIX AND UTER SP 10/03/2018 FAROOQ LANGE MD Ot Z98.5 1 SP LIGATION STATUS SP 10/03/2018 FAROOQ LANGE MD Ot Z98.8 90 SP SPECIFIED POSTPROCEDURAL STATES SP 10/05/2018 FAROOQ LANGE MD Ot E03.9 SP UNSPECIFIED SP 10/05/2018 FAROOQ LANGE MD Ot E11.9 SP 2 DIABETES MELLITUS WITHOUT COMPLIC SP 10/05/2018 FAROOQ LANGE MD Ot E78.0 0 SP HYPERCHOLESTEROLEMIA, UNSPECIFIED SP 10/05/2018 FAROOQ LANGE MD Ot F17.2 10 SP DEPENDENCE, CIGARETTES, UNCOMPL SP 10/05/2018 FAROOQ LANGE MD Ot F31.9 SP DISORDER, UNSPECIFIED SP 10/05/2018 FAROOQ LANGE MD Ot F41.9 SP DISORDER, UNSPECIFIED SP 10/05/2018 FAROOQ LANGE MD Ot K21.9 SPESOPHAGEAL REFLUX DISEASE WITHOUT SP 10/05/2018 FAROOQ LANGE MD Ot K58.9 SP BOWEL SYNDROME WITHOUT DIARRHE SP 10/05/2018 FAROOQ LANGE MD Ot M25.5 12 SP IN LEFT SHOULDER SP 10/05/2018 FAROOQ LANGE MD Ot M25.5 42 SP IN JOINTS OF LEFT HAND SP 10/05/2018 FAROOQ LANGE MD Ot R05 SP SP 10/05/2018 FAROOQ LANGE MD Ot R50.9 SP UNSPECIFIED SP 10/05/2018 FAROOQ LANGE MD Ot Z79.5 2 SP TERM (CURRENT) USE OF SYSTEMIC STER SP 10/05/2018 FAROOQ LANGE MD Ot Z79.8 4 SP TERM (CURRENT) USE OF ORAL HYPOGLYC SP 10/05/2018 FAROOQ LANGE MD Ot Z85.4 1 SP HISTORY OF MALIGNANT NEOPLASM O SP 10/05/2018 FAROOQ LANGE MD Ot Z88.1 SP STATUS TO OTHER ANTIBIOTIC AGENT SP 10/05/2018 FAROOQ LANGE MD Ot Z88.2 SP STATUS TO SULFONAMIDES STATUS SP 10/05/2018 FAROOQ LANGE MD Ot Z88.8 SP STATUS TO OTH DRUG/MEDS/BIOL SUB SP 10/05/2018 FAROOQ LANGE MD Ot Z90.7 10 SP ABSENCE OF BOTH CERVIX AND UTER SP 10/05/2018 FAROOQ LANGE MD Ot Z98.5 1 SP LIGATION STATUS SP 10/05/2018 FAROOQ LANGE MD Ot Z98.8 90 SP SPECIFIED POSTPROCEDURAL STATES SP 10/30/2018 FAROOQ LANGE MD Ot E03.9 SP UNSPECIFIED SP 10/30/2018 FAROOQ LANGE MD Ot E11.9 SP 2 DIABETES MELLITUS WITHOUT COMPLIC SP 10/30/2018 FAROOQ LANGE MD Ot E78.0 0 SP HYPERCHOLESTEROLEMIA, UNSPECIFIED SP 10/30/2018 FAROOQ LANGE MD Ot F17.2 10 SP DEPENDENCE, CIGARETTES, UNCOMPL SP 10/30/2018 FAROOQ LANGE MD Ot F31.9 SP DISORDER, UNSPECIFIED SP 10/30/2018 FAROOQ LANGE MD Ot K21.9 SPESOPHAGEAL REFLUX DISEASE WITHOUT SP 10/30/2018 FAROOQ LANGE MD Ot K58.9 SP BOWEL SYNDROME WITHOUT DIARRHE SP 10/30/2018 FAROOQ LANGE MD Ot M54.1 2 SP CERVICAL REGION SP 10/30/2018 FAROOQ LANGE MD Ot M54.6 SP IN THORACIC SPINE SP 10/30/2018 FAROOQ LANGE MD Ot S29.012A SP STRAIN OF MUSCLE AND TENDON OF BACK WALL SP 10/30/2018 FAROOQ LANGE MD Ot X50.1XXA SP OVEREXERTION FROM PROLONGED STATIC OR AW SP 10/30/2018 FAROOQ LANGE MD Ot Z79.8 4 SP TERM (CURRENT) USE OF ORAL HYPOGLYC SP 10/30/2018 FAROOQ LANGE MD Ot Z85.4 1 SP HISTORY OF MALIGNANT NEOPLASM O SP 10/30/2018 FAROOQ LANGE MD Ot Z88.2 SP STATUS TO SULFONAMIDES STATUS SP 10/30/2018 FAROOQ LANGE MD Ot Z88.8 SP STATUS TO OTH DRUG/MEDS/BIOL SUB SP 10/30/2018 NAZARIO HERRERA, FAROOQ Patterson Ot Z98.5 1 SP LIGATION STATUS SP 10/30/2018 NAZARIO HERRERA, FAROOQ Patterson Ot Z98.8 90 SP SPECIFIED POSTPROCEDURAL STATES SP 12/05/2018 [facility], ELAINA Ot D73.5 SP OF SPLEEN SP 12/05/2018 [facility], ELAINA Ot E03.9 SP UNSPECIFIED SP 12/05/2018 [facility], ELAINA Ot E11.9 TYPE 2 SPDIABETES MELLITUS WITHOUT COMPLIC SP 12/05/2018 [facility], ELAINA Ot E78.00 PURE SP UNSPECIFIED SP 12/05/2018 [facility], ELAINA Ot F31.9 SP DISORDER, UNSPECIFIED SP 12/05/2018 [facility], ELAINA Ot K21.9 SPESOPHAGEAL REFLUX DISEASE WITHOUT SP 12/05/2018 [facility], ELAINA Ot K58.0 SP BOWEL SYNDROME WITH DIARRHEA SP 12/05/2018 [facility], ELAINA Ot R10.84 SP ABDOMINAL PAIN SP 12/05/2018 [facility], ELAINA Ot R11.2 NAUSEA SPWITH VOMITING, UNSPECIFIED SP 12/05/2018 [facility], ELAINA Ot Z79.84 LONG SP (CURRENT) USE OF ORAL HYPOGLYC SP 12/05/2018 [facility], ELAINA Ot Z85.41 SP HISTORY OF MALIGNANT NEOPLASM O SP 12/05/2018 [facility], ELAINA Ot Z88.2 SP STATUS TO SULFONAMIDES STATUS SP 12/05/2018 [facility], ELAINA Ot Z88.8 SP STATUS TO OTH DRUG/MEDS/BIOL SUB SP 12/05/2018 [facility], ELAINA Ot Z90.710 SP ABSENCE OF BOTH CERVIX AND UTER SP 12/05/2018 [facility], ELAINA Ot Z98.51 TUBAL SPLIGATION STATUS SP 12/06/2018 KIRK DOSANDRA K Ot E03.9 SP UNSPECIFIED SP 12/06/2018 KIRK DO SANDRA K Ot E11.9 TYPE SP2 DIABETES MELLITUS WITHOUT COMPLIC SP 12/06/2018 KIRK DOSANDRA K Ot E78.00 SP HYPERCHOLESTEROLEMIA, UNSPECIFIED SP 12/06/2018 KIRK DO SANDRA K Ot F31.9 SP DISORDER, UNSPECIFIED SP 12/06/2018 KIRK DO SANDRA K Ot K21.9 SPESOPHAGEAL REFLUX DISEASE WITHOUT SP 12/06/2018 KIRK DO, SANDRA K Ot K52.9 SP GASTROENTERITIS AND COLITIS SP 12/06/2018 KIRK SANDRA GUTIERREZ Ot K58.9 SP BOWEL SYNDROME WITHOUT DIARRHE SP 12/06/2018 SANDRA BRADLEY DO Ot R11.2 SP WITH VOMITING, UNSPECIFIED SP 12/06/2018 SANDRA BRADLEY DO Ot Z79.51 SP TERM (CURRENT) USE OF INHALED STERO SP 12/06/2018 SANDRA BRADLEY DO Ot Z79.84 SP TERM (CURRENT) USE OF ORAL HYPOGLYC SP 12/06/2018 KIRK SANDRA Steward Ot Z85.41 SP HISTORY OF MALIGNANT NEOPLASM O SP 12/06/2018 SANDRA BRADLEY DO Ot Z88.2 SP STATUS TO SULFONAMIDES STATUS SP 12/06/2018 KIRK SANDRA Steward Ot Z88.8 SP STATUS TO OTH DRUG/MEDS/BIOL SUB SP 12/06/2018 SANDRA BRADLEY DO Ot Z90.710 SP ABSENCE OF BOTH CERVIX AND UTER SP 12/06/2018 IKRK SANDRA Steward Ot Z98.51 SP LIGATION STATUS SP Procedures There is no data. Results Test Result Range POS TSH - 12/29/17 16:01 POS TSH 0.59 mIU/L NRG SP TSH - 05/11/18 10:00 POS TSH 0.50 mIU/L NRG SP Complete urinalysis with reflex to cultu re - 08/15/18 00:00 POS Urine color determination YELLOW NRG SP Urine clarity determination CLEAR NR G SP Urine pH measurement by test strip 5.5 5-9 SP Specific gravity of urine by test strip 1.010 1.016-1.022 SP Urine protein assay by test strip, semi-quantitative NEGATIVE SP NEGATIVE SP Urine glucose detection by automated test strip 3+ NEGATIVE SP Erythrocytes detection in urine sediment by light micr oscopy NEGATIVE SP NEGATIVE SP Urine ketones detection by automated test strip NE GATIVE SP Urine nitrite detection by test strip NEGATIVE NEGATIVE SP Urine total bilirubin detection by test strip NEGA TIVE SP Urine urobilinogen measurement by automated test strip (mass/volume) SP mg/dL NORMAL SP Urine leukocyte esterase detection by dipstick NEG ATIVE SP Automated urine sediment erythrocyte cou nt by microscopy (number/high power SP NONE NRG SP Automated urine sediment leukocyte count by microscopy (number/high power field) SP [HPF] NRG SP Bacteria detection in urine sediment by light microsco py NONE SP NRG SP Squamous epithelial cells detection in u rine sediment by light microscopy SP 2-5 NRG SP Crystals detection in urine sediment by light microsco py NONE SP NRG SP Casts detection in urine sediment by light microscopy NONE SP Mucus detection in urine sediment by light microscopy NEGATIVE SP NRG SP Complete urinalysis with reflex to culture NO NRG SP Complete blood count (CBC) with automate d white blood cell (WBC) differential - POS 23:25 Blood leukocytes automated count (number/volume) 8.5 10*3/uL POS 4.3-11.0 SP Blood erythrocytes automated count (number/volume) 4.07 10*6/uL SP 4.35-5.85 SP Venous blood hemoglobin measurement (mass/volume) 11.9 g/dL SP16.0 Blood hematocrit (volume fraction) 36 % 35-52 SP Automated erythrocyte mean corpuscular volume 88 [ foz_us] SP99 Automated erythrocyte mean corpuscular h emoglobin (mass per erythrocyte) SP 29 pg 25-34 SP Automated erythrocyte mean corpuscular h emoglobin concentration measurement SP 33 g/dL 32-36 SP Automated erythrocyte distribution width ratio 12. 6 % 10.0- SP Automated blood platelet count (count/volume) 304 10*3/uL SP400 Automated blood platelet mean volume measurement 9.1 [foz_us] SP 7.4-10.4 SP Automated blood neutrophils/100 leukocytes 55 % 42-75 SP Automated blood lymphocytes/100 leukocytes 35 % 12-44 SP Blood monocytes/100 leukocytes 6 % 0-12 SP Automated blood eosinophils/100 leukocytes 4 % 0-10 SP Automated blood basophils/100 leukocytes 1 % 0-10 SP Blood neutrophils automated count (number/volume) 4.7 10*3 SP7.8 Blood lymphocytes automated count (number/volume) 3.0 10*3 SP4.0 Blood monocytes automated count (number/volume) 0. 5 10*3 SP1.0 Automated eosinophil count 0.3 10*3/uL 0 .0-0.3 SP Automated blood basophil count (count/volume) 0.0 10*3/uL SP0.1 Comprehensive metabolic panel - 08/15/18 23:25 POS Serum or plasma sodium measurement (moles/volume) 134 mmol/L SP 135-145 SP Serum or plasma potassium measurement (moles/volume) 3.9 mmol/L SP 3.6-5.0 SP Serum or plasma chloride measurement (moles/volume) 92 mmol/L SP 98-107 SP Carbon dioxide 25 mmol/L 21-32 SP Serum or plasma anion gap determination (moles/volume) 17 mmol/L SP 5-14 SP Serum or plasma urea nitrogen measurement (mass/volume ) 12 mg/dL SP 7-18 SP Serum or plasma creatinine measurement (mass/volume) 0.86 mg/dL SP 0.60-1.30 SP Serum or plasma urea nitrogen/creatinine mass ratio 14 NRG SP Serum or plasma creatinine measurement w ith calculation of estimated glomerular SP rate > NRG SP Serum or plasma glucose measurement (mass/volume) 411 mg/dL SP105 Serum or plasma calcium measurement (mass/volume) 10.4 mg/dL SP 8.5-10.1 SP Serum or plasma total bilirubin measurement (mass/volu me) 0.2 mg/dL SP 0.1-1.0 SP Serum or plasma alkaline phosphatase liliana surement (enzymatic activity/volume) SP 54 U/L 40-136 SP Serum or plasma aspartate aminotransfera se measurement (enzymatic SP 20 U/L 5-34 SP Serum or plasma alanine aminotransferase measurement (enzymatic activity/volume) SP 29 U/L 0-55 SP Serum or plasma protein measurement (mass/volume) 7.1 g/dL SP8.2 Serum or plasma albumin measurement (mass/volume) 4.4 g/dL SP4.5 CALCIUM CORRECTED 10.1 mg/dL 8.5-10.1 SP Serum or plasma phosphate measurement (m ass/volume) - 08/15/18 23:25 POS Serum or plasma phosphate measurement (mass/volume) 4.6 mg/dL SP 2.3-4.7 SP Magnesium - 08/15/18 23:25 POS Magnesium 1.4 mg/dL 1.8-2.4 SP Serum or plasma troponin i.cardiac measu rement (mass/volume) - 08/15/18 23:25 POS Serum or plasma troponin i.cardiac measurement (mass/v olume) < ng/mL POS <0.30 SP Beta-hydroxybutyric acid measurement - 0 08/15/18 23:25 POS Beta-hydroxybutyric acid measurement 0.09 mmol/L 0.00-0.27 SP Capillary blood glucose measurement by g lucometer (mass/volume) - 08/15/18 23:28 POS Capillary blood glucose measurement by glucometer (mas s/volume) 406 POS 70-110 SP Capillary blood glucose measurement by g lucometer (mass/volume) - 08/16/18 01:09 POS Capillary blood glucose measurement by glucometer (mas s/volume) 297 POS 70-110 SP PDM - 09 PANEL (PROFILE 1) - 08/28/18 13 :22 POS Prescribed Drug 1 Codeine NRG SP Creatinine 48.3 mg/dL > or=20.0 SP pH 5.02 4.5 - 9.0 SP Oxidant NEGATIVE mcg/mL <200 SP Amphetamines NEGATIVE ng/mL <500 SP medMATCH Amphetamines CONSISTENT NRG SP Benzodiazepines NEGATIVE CONFIRMED ng/mL <100 SP Marijuana Metabolite NEGATIVE ng/mL <20 SP medMATCH Marijuana Metab CONSISTENT NRG SP Cocaine Metabolite NEGATIVE ng/mL <150 SP medMATCH Cocaine Metab CONSISTENT NRG SP Opiates POSITIVE ng/mL <100 SP Oxycodone NEGATIVE ng/mL <100 SP medMATCH Oxycodone CONSISTENT NRG SP COMMENT NRG SP Alphahydroxyalprazolam NEGATIVE ng/mL <25 SP medMATCH aOH alprazolam CONSISTENT NRG SP Alphahydroxymidazolam NEGATIVE ng/mL < 50 SP medMATCH aOH midazolam CONSISTENT NRG SP Alphahydroxytriazolam NEGATIVE ng/mL < 50 SP medMATCH aOH triazolam CONSISTENT NRG SP Aminoclonazepam NEGATIVE ng/mL <25 SP medMATCH Aminoclonazepam CONSISTENT NRG SP Hydroxyethylflurazepam NEGATIVE ng/mL <50 SP medMATCH OH,Et flurazepam CONSISTENT NR G SP Lorazepam NEGATIVE ng/mL <50 SP medMATCH Lorazepam CONSISTENT NRG SP Nordiazepam NEGATIVE ng/mL <50 SP medMATCH Nordiazepam CONSISTENT NRG SP Oxazepam NEGATIVE ng/mL <50 SP medMATCH Oxazepam CONSISTENT NRG SP Temazepam NEGATIVE ng/mL <50 SP medMATCH Temazepam CONSISTENT NRG SP Codeine 3661 ng/mL <50 SP medMATCH Codeine CONSISTENT NRG SP Hydrocodone NEGATIVE ng/mL <50 SP medMATCH Hydrocodone CONSISTENT NRG SP Hydromorphone NEGATIVE ng/mL <50 SP medMATCH Hydromorphone CONSISTENT NRG SP Morphine 330 ng/mL <50 SP medMATCH Morphine CONSISTENT NRG SP Norhydrocodone NEGATIVE ng/mL <50 SP medMATCH Norhydrocodone CONSISTENT NRG SP Barbiturates NEGATIVE ng/mL <300 SP medMATCH Barbiturates CONSISTENT NRG SP Methadone Metabolite NEGATIVE ng/mL <100 SP medMATCH Methadone Metab CONSISTENT NRG SP Phencyclidine NEGATIVE ng/mL <25 SP medMATCH Phencyclidine CONSISTENT NRG SP MICROALBUMIN/CREATININE RATIO, URINE - 0 08/30/18 09:20 POS CREATININE, RANDOM URINE 96 mg/dL 20-27 5 SP MICROALBUMIN 0.6 mg/dL See Note: SP MICROALBUMIN/CREATININE RATIO, RANDOM URINE 6 mcg/ mg creat SP CMP - 08/30/18 09:20 POS GLUCOSE 145 mg/dL 65-99 SP UREA NITROGEN (BUN) 13 mg/dL 7-25 SP CREATININE 0.88 mg/dL 0.50-1.05 SP eGFR NON-AFR. THAI 77 mL/min/1.73m2 > OR=60 SP eGFR 89 mL/min/1.73m2 > OR=60 SP BUN/CREATININE RATIO NOT APPLICABLE (calc) 6-22 SP SODIUM 140 mmol/L 135-146 SP POTASSIUM 4.4 mmol/L 3.5-5.3 SP CHLORIDE 105 mmol/L 98-110 SP CARBON DIOXIDE 26 mmol/L 20-32 SP CALCIUM 10.1 mg/dL 8.6-10.4 SP PROTEIN, TOTAL 7.0 g/dL 6.1-8.1 SP ALBUMIN 4.5 g/dL 3.6-5.1 SP GLOBULIN 2.5 g/dL (calc) 1.9-3.7 SP ALBUMIN/GLOBULIN RATIO 1.8 (calc) 1.0-2. 5 SP BILIRUBIN, TOTAL 0.4 mg/dL 0.2-1.2 SP ALKALINE PHOSPHATASE 51 U/L 33-130 SP AST 20 U/L 10-35 SP ALT 19 U/L 6-29 SP TSH - 08/30/18 09:20 POS TSH 0.74 mIU/L NRG SP A1C - 08/30/18 09:20 POS HEMOGLOBIN A1c 7.6 % of total Hgb <5.7 SP Capillary blood glucose measurement by g lucometer (mass/volume) - 09/07/18 07:30 POS Capillary blood glucose measurement by glucometer (mas s/volume) 160 POS 70-110 SP Methicillin resistant Staphylococcus aur eus (MRSA) screening culture - 09/07/18 POS Methicillin resistant Staphylococcus aureus (MRSA) scr eening culture POS NRG SP Complete blood count (CBC) with automate d white blood cell (WBC) differential - POS 15:20 Blood leukocytes automated count (number/volume) 9.2 10*3/uL POS 4.3-11.0 SP Blood erythrocytes automated count (number/volume) 4.19 10*6/uL SP 4.35-5.85 SP Venous blood hemoglobin measurement (mass/volume) 12.1 g/dL SP16.0 Blood hematocrit (volume fraction) 37 % 35-52 SP Automated erythrocyte mean corpuscular volume 87 [ foz_us] SP99 Automated erythrocyte mean corpuscular h emoglobin (mass per erythrocyte) SP 29 pg 25-34 SP Automated erythrocyte mean corpuscular h emoglobin concentration measurement SP 33 g/dL 32-36 SP Automated erythrocyte distribution width ratio 13. 7 % 10.0- SP Automated blood platelet count (count/volume) 379 10*3/uL SP400 Automated blood platelet mean volume measurement 8.1 [foz_us] SP 7.4-10.4 SP Automated blood neutrophils/100 leukocytes 47 % 42-75 SP Automated blood lymphocytes/100 leukocytes 30 % 12-44 SP Blood monocytes/100 leukocytes 5 % 0-12 SP Automated blood eosinophils/100 leukocytes 18 % 0-10 SP Automated blood basophils/100 leukocytes 1 % 0-10 SP Blood neutrophils automated count (number/volume) 4.3 10*3 SP7.8 Blood lymphocytes automated count (number/volume) 2.7 10*3 SP4.0 Blood monocytes automated count (number/volume) 0. 5 10*3 SP1.0 Automated eosinophil count 1.6 10*3/uL 0 .0-0.3 SP Automated blood basophil count (count/volume) 0.1 10*3/uL SP0.1 Comprehensive metabolic panel - 09/24/18 15:20 POS Serum or plasma sodium measurement (moles/volume) 136 mmol/L SP 135-145 SP Serum or plasma potassium measurement (moles/volume) 3.5 mmol/L SP 3.6-5.0 SP Serum or plasma chloride measurement (moles/volume) 96 mmol/L SP 98-107 SP Carbon dioxide 21 mmol/L 21-32 SP Serum or plasma anion gap determination (moles/volume) 19 mmol/L SP 5-14 SP Serum or plasma urea nitrogen measurement (mass/volume ) 13 mg/dL SP 7-18 SP Serum or plasma creatinine measurement (mass/volume) 0.84 mg/dL SP 0.60-1.30 SP Serum or plasma urea nitrogen/creatinine mass ratio 15 NRG SP Serum or plasma creatinine measurement w ith calculation of estimated glomerular SP rate > NRG SP Serum or plasma glucose measurement (mass/volume) 192 mg/dL SP105 Serum or plasma calcium measurement (mass/volume) 9.8 mg/dL SP10.1 Serum or plasma total bilirubin measurement (mass/volu me) 0.2 mg/dL SP 0.1-1.0 SP Serum or plasma alkaline phosphatase liliana surement (enzymatic activity/volume) SP 51 U/L 40-136 SP Serum or plasma aspartate aminotransfera se measurement (enzymatic SP 19 U/L 5-34 SP Serum or plasma alanine aminotransferase measurement (enzymatic activity/volume) SP 17 U/L 0-55 SP Serum or plasma protein measurement (mass/volume) 7.3 g/dL SP8.2 Serum or plasma albumin measurement (mass/volume) 4.5 g/dL SP4.5 CALCIUM CORRECTED 9.4 mg/dL 8.5-10.1 SP Manual absolute plasma cell count - 09/14 03/04 15:20 POS Blood monocytes/100 leukocytes 4 % NRG SP Manual blood segmented neutrophils/100 leukocytes 50 % NRG SP Blood band neutrophils/100 leukocytes 3 % NRG SP Manual blood lymphocytes/100 leukocytes 29 % NRG SP Manual eosinophils/100 leukocytes in nose 12 % NRG SP Manual blood basophils/100 leukocytes 2 % NRG SP Complete blood count (CBC) with automate d white blood cell (WBC) differential - POS 03:32 Blood leukocytes automated count (number/volume) 7.9 10*3/uL POS 4.3-11.0 SP Blood erythrocytes automated count (number/volume) 3.80 10*6/uL SP 4.35-5.85 SP Venous blood hemoglobin measurement (mass/volume) 11.0 g/dL SP16.0 Blood hematocrit (volume fraction) 34 % 35-52 SP Automated erythrocyte mean corpuscular volume 89 [ foz_us] SP99 Automated erythrocyte mean corpuscular h emoglobin (mass per erythrocyte) SP 29 pg 25-34 SP Automated erythrocyte mean corpuscular h emoglobin concentration measurement SP 33 g/dL 32-36 SP Automated erythrocyte distribution width ratio 13. 8 % 10.0- SP Automated blood platelet count (count/volume) 242 10*3/uL SP400 Automated blood platelet mean volume measurement 9.0 [foz_us] SP 7.4-10.4 SP Automated blood neutrophils/100 leukocytes 70 % 42-75 SP Automated blood lymphocytes/100 leukocytes 11 % 12-44 SP Blood monocytes/100 leukocytes 4 % 0-12 SP Automated blood eosinophils/100 leukocytes 15 % 0-10 SP Automated blood basophils/100 leukocytes 0 % 0-10 SP Blood neutrophils automated count (number/volume) 5.5 10*3 SP7.8 Blood lymphocytes automated count (number/volume) 0.9 10*3 SP4.0 Blood monocytes automated count (number/volume) 0. 2 10*3 SP1.0 Automated eosinophil count 1.2 10*3/uL 0 .0-0.3 SP Automated blood basophil count (count/volume) 0.0 10*3/uL SP0.1 Blood lactic acid measurement (moles/vol ume) - 10/03/18 03:32 POS Blood lactic acid measurement (moles/volume) 1.78 mmol/L SP2.00 Comprehensive metabolic panel - 10/03/18 03:32 POS Serum or plasma sodium measurement (moles/volume) 133 mmol/L SP 135-145 SP Serum or plasma potassium measurement (moles/volume) 3.7 mmol/L SP 3.6-5.0 SP Serum or plasma chloride measurement (moles/volume) 97 mmol/L SP 98-107 SP Carbon dioxide 20 mmol/L 21-32 SP Serum or plasma anion gap determination (moles/volume) 16 mmol/L SP 5-14 SP Serum or plasma urea nitrogen measurement (mass/volume ) 12 mg/dL SP 7-18 SP Serum or plasma creatinine measurement (mass/volume) 0.82 mg/dL SP 0.60-1.30 SP Serum or plasma urea nitrogen/creatinine mass ratio 15 NRG SP Serum or plasma creatinine measurement w ith calculation of estimated glomerular SP rate > NRG SP Serum or plasma glucose measurement (mass/volume) 133 mg/dL SP105 Serum or plasma calcium measurement (mass/volume) 8.8 mg/dL SP10.1 Serum or plasma total bilirubin measurement (mass/volu me) 0.4 mg/dL SP 0.1-1.0 SP Serum or plasma alkaline phosphatase liliana surement (enzymatic activity/volume) SP 45 U/L 40-136 SP Serum or plasma aspartate aminotransfera se measurement (enzymatic SP 19 U/L 5-34 SP Serum or plasma alanine aminotransferase measurement (enzymatic activity/volume) SP 14 U/L 0-55 SP Serum or plasma protein measurement (mass/volume) 6.6 g/dL SP8.2 Serum or plasma albumin measurement (mass/volume) 4.0 g/dL SP4.5 CALCIUM CORRECTED 8.8 mg/dL 8.5-10.1 SP Manual absolute plasma cell count - 09/15 03:32 POS Blood monocytes/100 leukocytes 2 % NRG SP Manual blood segmented neutrophils/100 leukocytes 66 % NRG SP Blood band neutrophils/100 leukocytes 4 % NRG SP Manual blood lymphocytes/100 leukocytes 11 % NRG SP Manual eosinophils/100 leukocytes in nose 17 % NRG SP Manual blood basophils/100 leukocytes 0 % NRG SP Blood erythrocyte morphology finding identification NORMAL SP Bacterial blood culture - 10/03/18 03:32 POS Bacterial blood culture NG NRG SP Complete urinalysis with reflex to cultu re - 10/03/18 03:55 POS Urine color determination YELLOW NRG SP Urine clarity determination CLEAR NR G SP Urine pH measurement by test strip 6.0 5-9 SP Specific gravity of urine by test strip 1.010 1.016-1.022 SP Urine protein assay by test strip, semi-quantitative NEGATIVE SP NEGATIVE SP Urine glucose detection by automated test strip 3+ NEGATIVE SP Erythrocytes detection in urine sediment by light micr oscopy NEGATIVE SP NEGATIVE SP Urine ketones detection by automated test strip NE GATIVE SP Urine nitrite detection by test strip NEGATIVE NEGATIVE SP Urine total bilirubin detection by test strip NEGA TIVE SP Urine urobilinogen measurement by automated test strip (mass/volume) SP mg/dL NORMAL SP Urine leukocyte esterase detection by dipstick NEG ATIVE SP Automated urine sediment erythrocyte cou nt by microscopy (number/high power SP NONE NRG SP Automated urine sediment leukocyte count by microscopy (number/high power field) SP NONE NRG SP Bacteria detection in urine sediment by light microsco py FEW SP NRG SP Squamous epithelial cells detection in u rine sediment by light microscopy SP 5-10 NRG SP Crystals detection in urine sediment by light microsco py NONE SP NRG SP Casts detection in urine sediment by light microscopy NONE SP Mucus detection in urine sediment by light microscopy NEGATIVE SP NRG SP Complete urinalysis with reflex to culture NO NRG SP Bacterial blood culture - 10/03/18 04:04 POS Bacterial blood culture NG NRG SP Complete blood count (CBC) with automate d white blood cell (WBC) differential - POS 07:30 Blood leukocytes automated count (number/volume) 11.1 10*3/uL POS 4.3-11.0 SP Blood erythrocytes automated count (number/volume) 4.57 10*6/uL SP 4.35-5.85 SP Venous blood hemoglobin measurement (mass/volume) 13.2 g/dL SP16.0 Blood hematocrit (volume fraction) 39 % 35-52 SP Automated erythrocyte mean corpuscular volume 86 [ foz_us] SP99 Automated erythrocyte mean corpuscular h emoglobin (mass per erythrocyte) SP 29 pg 25-34 SP Automated erythrocyte mean corpuscular h emoglobin concentration measurement SP 34 g/dL 32-36 SP Automated erythrocyte distribution width ratio 12. 8 % 10.0- SP Automated blood platelet count (count/volume) 365 10*3/uL SP400 Automated blood platelet mean volume measurement 8.7 [foz_us] SP 7.4-10.4 SP Automated blood neutrophils/100 leukocytes 68 % 42-75 SP Automated blood lymphocytes/100 leukocytes 21 % 12-44 SP Blood monocytes/100 leukocytes 4 % 0-12 SP Automated blood eosinophils/100 leukocytes 6 % 0-10 SP Automated blood basophils/100 leukocytes 1 % 0-10 SP Blood neutrophils automated count (number/volume) 7.5 10*3 SP7.8 Blood lymphocytes automated count (number/volume) 2.3 10*3 SP4.0 Blood monocytes automated count (number/volume) 0. 4 10*3 SP1.0 Automated eosinophil count 0.7 10*3/uL 0 .0-0.3 SP Automated blood basophil count (count/volume) 0.1 10*3/uL SP0.1 Comprehensive metabolic panel - 12/02/18 07:30 POS Serum or plasma sodium measurement (moles/volume) 134 mmol/L SP 135-145 SP Serum or plasma potassium measurement (moles/volume) 3.7 mmol/L SP 3.6-5.0 SP Serum or plasma chloride measurement (moles/volume) 96 mmol/L SP 98-107 SP Carbon dioxide 24 mmol/L 21-32 SP Serum or plasma anion gap determination (moles/volume) 14 mmol/L SP 5-14 SP Serum or plasma urea nitrogen measurement (mass/volume ) 9 mg/dL SP 7-18 SP Serum or plasma creatinine measurement (mass/volume) 0.80 mg/dL SP 0.60-1.30 SP Serum or plasma urea nitrogen/creatinine mass ratio 11 NRG SP Serum or plasma creatinine measurement w ith calculation of estimated glomerular SP rate > NRG SP Serum or plasma glucose measurement (mass/volume) 137 mg/dL SP105 Serum or plasma calcium measurement (mass/volume) 9.6 mg/dL SP10.1 Serum or plasma total bilirubin measurement (mass/volu me) 0.2 mg/dL SP 0.1-1.0 SP Serum or plasma alkaline phosphatase liliana surement (enzymatic activity/volume) SP 48 U/L 40-136 SP Serum or plasma aspartate aminotransfera se measurement (enzymatic SP 21 U/L 5-34 SP Serum or plasma alanine aminotransferase measurement (enzymatic activity/volume) SP 21 U/L 0-55 SP Serum or plasma protein measurement (mass/volume) 7.4 g/dL SP8.2 Serum or plasma albumin measurement (mass/volume) 4.6 g/dL SP4.5 Lipase - 12/02/18 07:30 POS Lipase 51 U/L 8-78 SP Complete urinalysis with reflex to cultu re - 12/02/18 07:40 POS Urine color determination YELLOW NRG SP Urine clarity determination CLEAR NR G SP Urine pH measurement by test strip 6.5 5-9 SP Specific gravity of urine by test strip 1.020 1.016-1.022 SP Urine protein assay by test strip, semi-quantitative NEGATIVE SP NEGATIVE SP Urine glucose detection by automated test strip NE GATIVE SP Erythrocytes detection in urine sediment by light micr oscopy NEGATIVE SP NEGATIVE SP Urine ketones detection by automated test strip NE GATIVE SP Urine nitrite detection by test strip NEGATIVE NEGATIVE SP Urine total bilirubin detection by test strip NEGA TIVE SP Urine urobilinogen measurement by automated test strip (mass/volume) SP mg/dL NORMAL SP Urine leukocyte esterase detection by dipstick NEG ATIVE SP Automated urine sediment erythrocyte cou nt by microscopy (number/high power SP NONE NRG SP Automated urine sediment leukocyte count by microscopy (number/high power field) SP NONE NRG SP Bacteria detection in urine sediment by light microsco py NONE SP NRG SP Squamous epithelial cells detection in u rine sediment by light microscopy SP 5-10 NRG SP Crystals detection in urine sediment by light microsco py NONE SP NRG SP Casts detection in urine sediment by light microscopy NONE SP Mucus detection in urine sediment by light microscopy NEGATIVE SP NRG SP Complete urinalysis with reflex to culture NO NRG SP Fibrin D-dimer FEU measurement in platel et poor plasma (mass/volume) - 12/02/18 POS Fibrin D-dimer FEU measurement in platelet poor plasma (mass/volume) POS ug/mL 0.00-0.49 SP Complete blood count (CBC) with automate d white blood cell (WBC) differential - POS 22:10 Blood leukocytes automated count (number/volume) 15.2 10*3/uL POS 4.3-11.0 SP Blood erythrocytes automated count (number/volume) 4.86 10*6/uL SP 4.35-5.85 SP Venous blood hemoglobin measurement (mass/volume) 13.7 g/dL SP16.0 Blood hematocrit (volume fraction) 41 % 35-52 SP Automated erythrocyte mean corpuscular volume 84 [ foz_us] SP99 Automated erythrocyte mean corpuscular h emoglobin (mass per erythrocyte) SP 28 pg 25-34 SP Automated erythrocyte mean corpuscular h emoglobin concentration measurement SP 34 g/dL 32-36 SP Automated erythrocyte distribution width ratio 13. 4 % 10.0- SP Automated blood platelet count (count/volume) 356 10*3/uL SP400 Automated blood platelet mean volume measurement 8.3 [foz_us] SP 7.4-10.4 SP Automated blood neutrophils/100 leukocytes 77 % 42-75 SP Automated blood lymphocytes/100 leukocytes 15 % 12-44 SP Blood monocytes/100 leukocytes 5 % 0-12 SP Automated blood eosinophils/100 leukocytes 3 % 0-10 SP Automated blood basophils/100 leukocytes 0 % 0-10 SP Blood neutrophils automated count (number/volume) 11.8 10*3 SP7.8 Blood lymphocytes automated count (number/volume) 2.2 10*3 SP4.0 Blood monocytes automated count (number/volume) 0. 8 10*3 SP1.0 Automated eosinophil count 0.5 10*3/uL 0 .0-0.3 SP Automated blood basophil count (count/volume) 0.0 10*3/uL SP0.1 PT panel in platelet poor plasma by coag ulation assay - 12/02/18 22:10 POS Prothrombin time (PT) in platelet poor plasma by coagu lation assay SP s 12.2-14.7 SP INR in platelet poor plasma or blood by coagulation as say 0.9 SP 0.8-1.4 SP Activated partial thromboplastin time (a PTT) in platelet poor plasma POS assay - 12/02/18 22:10 Activated partial thromboplastin time (a PTT) in platelet poor plasma POS assay 30 s 24-35 SP Serum heterophile antibody titer - 12/02 22:10 POS Serum heterophile antibody titer NEGATIVE NEGATIVE SP Manual absolute plasma cell count - 11/14 11/02 22:10 POS Blood monocytes/100 leukocytes 4 % NRG SP Manual blood segmented neutrophils/100 leukocytes 72 % NRG SP Blood band neutrophils/100 leukocytes 3 % NRG SP Manual blood lymphocytes/100 leukocytes 18 % NRG SP Manual eosinophils/100 leukocytes in nose 3 % NRG SP Blood erythrocyte morphology finding identification NORMAL SP Comprehensive metabolic panel - 12/02/18 22:10 POS Serum or plasma sodium measurement (moles/volume) 134 mmol/L SP 135-145 SP Serum or plasma potassium measurement (moles/volume) 3.7 mmol/L SP 3.6-5.0 SP Serum or plasma chloride measurement (moles/volume) 99 mmol/L SP 98-107 SP Carbon dioxide 20 mmol/L 21-32 SP Serum or plasma anion gap determination (moles/volume) 15 mmol/L SP 5-14 SP Serum or plasma urea nitrogen measurement (mass/volume ) 7 mg/dL SP 7-18 SP Serum or plasma creatinine measurement (mass/volume) 0.85 mg/dL SP 0.60-1.30 SP Serum or plasma urea nitrogen/creatinine mass ratio 8 NRG SP Serum or plasma creatinine measurement w ith calculation of estimated glomerular SP rate > NRG SP Serum or plasma glucose measurement (mass/volume) 122 mg/dL SP105 Serum or plasma calcium measurement (mass/volume) 10.2 mg/dL SP 8.5-10.1 SP Serum or plasma total bilirubin measurement (mass/volu me) 0.4 mg/dL SP 0.1-1.0 SP Serum or plasma alkaline phosphatase liliana surement (enzymatic activity/volume) SP 58 U/L 40-136 SP Serum or plasma aspartate aminotransfera se measurement (enzymatic SP 19 U/L 5-34 SP Serum or plasma alanine aminotransferase measurement (enzymatic activity/volume) SP 23 U/L 0-55 SP Serum or plasma protein measurement (mass/volume) 7.8 g/dL SP8.2 Serum or plasma albumin measurement (mass/volume) 4.6 g/dL SP4.5 Magnesium - 12/02/18 22:10 POS Magnesium 1.4 mg/dL 1.6-2.4 SP Serum or plasma amylase measurement (enz ymatic activity/volume) - 12/02/18 22:10 POS Serum or plasma amylase measurement (enzymatic activit y/volume) 74 U/L POS 25-125 SP Lipase - 12/02/18 22:10 POS Lipase 23 U/L 8-78 SP Serum or plasma acetaminophen measuremen t (mass/volume) - 12/02/18 22:10 POS Serum or plasma acetaminophen measurement (mass/volume ) < ug/mL SP 10-30 SP Serum or plasma ethanol measurement (mas s/volume) - 12/02/18 22:10 POS Serum or plasma ethanol measurement (mass/volume) < mg/dL SP Complete urinalysis with reflex to cultu re - 12/02/18 22:55 POS Urine color determination LAZARA NRG SP Urine clarity determination CLEAR NR G SP Urine pH measurement by test strip 6.5 5-9 SP Specific gravity of urine by test strip 1.010 1.016-1.022 SP Urine protein assay by test strip, semi-quantitative 2+ SP Urine glucose detection by automated test strip NE GATIVE SP Erythrocytes detection in urine sediment by light micr oscopy NEGATIVE SP NEGATIVE SP Urine ketones detection by automated test strip 1+ NEGATIVE SP Urine nitrite detection by test strip NEGATIVE NEGATIVE SP Urine total bilirubin detection by test strip NEGA TIVE SP Urine urobilinogen measurement by automated test strip (mass/volume) SP NORMAL SP Urine leukocyte esterase detection by dipstick 1+ NEGATIVE SP Automated urine sediment erythrocyte cou nt by microscopy (number/high power SP NONE NRG SP Automated urine sediment leukocyte count by microscopy (number/high power field) SP RARE NRG SP Bacteria detection in urine sediment by light microsco py TRACE SP NRG SP Squamous epithelial cells detection in u rine sediment by light microscopy SP 10-25 NRG SP Crystals detection in urine sediment by light microsco py NONE SP NRG SP Casts detection in urine sediment by light microscopy NONE SP Mucus detection in urine sediment by light microscopy MODERATE SP NRG SP Complete urinalysis with reflex to culture NO NRG SP Urine drug screening test - 12/02/18 22: 55 POS Urine phencyclidine detection by screening method NEGATIVE SP Urine benzodiazepines detection by screening method NEGATIVE SP NEGATIVE SP Urine cocaine detection NEGATIVE NEGATI VE SP Urine amphetamines detection by screening method N EGATIVE SP Urine methamphetamine detection by screening method NEGATIVE SP NEGATIVE SP Urine cannabinoids detection by screening method N EGATIVE SP Urine opiates detection by screening method POSITI VE SP Urine barbiturates detection NEGATIVE N EGATIVE SP Screening urine tricyclic antidepressants detection NEGATIVE SP NEGATIVE SP Urine methadone detection by screening method NEGA TIVE SP Urine oxycodone detection NEGATIVE NEGA TIVE SP Urine propoxyphene detection NEGATIVE N EGATIVE SP A1C - 12/05/18 09:30 POS HEMOGLOBIN A1c 6.4 % of total Hgb <5.7 SP CULTURE, URINE - 12/06/18 05:12 POS CULTURE, URINE, ROUTINE SEE NOTE NRG SP Encounters ACCT No. Visit Date/Time Discharge Status POS Pt. Type Provider Facility Loc./Un it POS Complaint POS [id number] 12/16/2018 12:50:00 12/16/2018 23:59: 59 CLS SP Outpatient [facility] SP [id number] 12/05/2018 10:40:00 Document SPRegistration SP [id number] 12/05/2018 09:30:00 Document SPRegistration SP [id number] 08/30/2018 09:30:00 Document SPRegistration SP [id number] 08/28/2018 13:30:00 Document SPRegistration SP [id number] 05/11/2018 11:45:00 Document SPRegistration SP [id number] 05/11/2018 11:40:00 Document SPRegistration SP [id number] 05/11/2018 11:40:00 Document SPRegistration SP [id number] 12/29/2017 15:00:00 Document SPRegistration SP [id number] 12/02/2018 22:51:00 00:50:00 SP DIS Outpatient KIRK , SANDRA K V ia [facility] ER N,V,ABD PAIN SP [id number] 12/02/2018 06:56:00 09:50:00 SP DIS Outpatient ELAINA COREY DO Via [facility] ER FS N,V,ABD PAIN SP [id number] 10/30/2018 20:46:00 22:28:00 SP DIS Emergency NAZARIO HERRERA, FAROOQ Patterson [facility] FS UPPER BACK PAIN, RT ARM PAIN SP [id number] 10/03/2018 03:38:00 06:29:00 SP DIS Emergency NAZARIO HERRERA, FAROOQ Patterson [facility] FS COMPLICATIONS WITH SURGICAL INCISION SP [id number] 09/24/2018 14:02:00 17:47:00 SP DIS Emergency ASHUTOSH ALBRIGHT MD [facility] FS PT IS 2 WKS POST OP - INCISI ON PAIN ON SP ABD [id number] 09/07/2018 07:08:00 12:40:00 SP DIS Outpatient RAMIREZ WALTERS DO [facility] SD INCISIONAL/VENTRAL HERNIA SP [id number] 09/05/2018 07:15:00 10:29:00 SP DIS Outpatient RAMIREZ WALTERS DO [facility] PREOP INCISIONAL/VENTRAL HERNIA SP [id number] 08/15/2018 23:23:00 01:15:00 SP DIS Emergency DARIUS DEL CASTILLO DO [facility] ER FS DIABETIC ISSUES SP [id number] 08/31/2018 15:09:00 SP Registration SP
== END 2018-12-02 09:50 | disposition home or self-care (01) ==
LOC: EDUNIT# 06:53 → ER FS 06:56
DX: R10.84 Generalized abdominal pain (principal); R11.2 Nausea with vomiting, unspecified; K58.0 Irritable bowel syndrome with diarrhea; D73.5 Infarction of spleen; E78.00 Pure hypercholesterolemia, unspecified; K21.9 Gastro-esophageal reflux disease without esophagitis; E03.9 Hypothyroidism, unspecified; E11.9 Type 2 diabetes mellitus without complications; F31.9 Bipolar disorder, unspecified; Z88.2 Allergy status to sulfonamides; Z88.8 Allergy status to other drugs, medicaments and biological substances; Z79.84 Long term (current) use of oral hypoglycemic drugs; Z90.710 Acquired absence of both cervix and uterus; Z98.51 Tubal ligation status; Z85.41 Personal history of malignant neoplasm of cervix uteri
CPT/HCPCS: 36415; 74177; 80053; 81000; 83690; 85025; 85379; 93005; 96374; 96375; 96376

== ENCOUNTER 2018-12-02 22:49 | Emergency (ER) | payer MEDICAID ==
[~2018-12-02] VITALS: Ht 160 cm; Wt 63.3 kg
[~2018-12-02 22:49] MED LIST changes: +ONDA4TAB11 PO; +RANI-515 PO; -RANI-609 PO; +TRAM-42 PO
[2018-12-02] MEDS ORDERED: LACTATED RINGERS 1,000 ML IV ONE (23:03)
[2018-12-02 23:11] LABS: BILIRUBIN,URINE NEGATIVE (NEGATIVE); CLARITY,URINE CLEAR; COLOR,URINE AMBER; GLUCOSE, URINE (UA) NEGATIVE (NEGATIVE); KETONES,URINE 1+ (NEGATIVE); LEUKOCYTE ESTERASE ,URINE 1+ (NEGATIVE); NITRITE,URINE NEGATIVE (NEGATIVE); PH,URINE 6.5 (5-9); PROTEIN,URINE 2+ (NEGATIVE)
[2018-12-02] MEDS ORDERED: ONDANSETRON 4 MG/2 ML (SDV) Z0FRAN IVP ONE (23:15)
[2018-12-02] MEDS ORDERED: PANTOPRAZOLE 40 MG (PROTONIX) VIAL IV ONE (23:15)
[2018-12-02 23:23] LABS: BASOPHILS % (AUTO) 0 % (0-10); EOSINOPHILS # (AUTO) 0.5 10^3/uL (0.0-0.3); EOSINOPHILS % (AUTO) 3 % (0-10); HEMATOCRIT 41 % (35-52); HEMOGLOBIN 13.7 G/DL (11.5-16.0); LYMPHOCYTES # (AUTO) 2.2 X 10^3 (1.0-4.0); LYMPHOCYTES % (AUTO) 15 % (12-44); MEAN CORPUSCULAR HEMOGLOBIN 28 PG (25-34); MEAN CORPUSCULAR HGB CONC 34 G/DL (32-36); MEAN CORPUSCULAR VOLUME 84 FL (80-99); MEAN PLATELET VOLUME 8.3 FL (7.4-10.4); MONOCYTES # (AUTO) 0.8 X 10^3 (0.0-1.0); MONOCYTES % (AUTO) 5 % (0-12); NEUTROPHILS # (AUTO) 11.8 X 10^3 (1.8-7.8); NEUTROPHILS % (AUTO) 77 % (42-75); PLATELET COUNT 356 10^3/uL (130-400); RED CELL DISTRIBUTION WIDTH 13.4 % (10.0-14.5); WHITE BLOOD COUNT 15.2 10^3/uL (4.3-11.0)
[2018-12-02 23:29] LABS: BACTERIA,URINE TRACE /HPF; WBC,URINE RARE /HPF
[2018-12-02 23:30] LABS: INR 0.9 (0.8-1.4); PROTHROMBIN TIME PATIENT 12.4 SEC (12.2-14.7)
[2018-12-02 23:35] LABS: AMPHETAMINE SCREEN, URINE NEGATIVE (NEGATIVE); BARBITURATE SCREEN URINE NEGATIVE (NEGATIVE); BENZODIAZEPINES SCREEN URINE NEGATIVE (NEGATIVE); CANNABINOID SCREEN, URINE NEGATIVE (NEGATIVE); COCAINE SCREEN URINE NEGATIVE (NEGATIVE); METHADONE STAT NEGATIVE (NEGATIVE); METHAMPHETAMINE SCREEN URINE S NEGATIVE (NEGATIVE); OPIATE SCREEN URINE POSITIVE (NEGATIVE); OXYCODONE STAT NEGATIVE (NEGATIVE); PROPOXYPHENE STAT NEGATIVE (NEGATIVE); TRICYCLIC ANTIDEPRESSANTS SCRE NEGATIVE (NEGATIVE)
[2018-12-02 23:44] LABS: BAND NEUTROPHILS 3 %; EOSINOPHILS % (MANUAL) 3 %; LYMPHOCYTES % (MANUAL) 18 %; MONOCYTES % (MANUAL) 4 %; NEUTROPHILS % (MANUAL) 72 %; RBC MORPH NORMAL
[2018-12-02 23:46] LABS: ALANINE AMINOTRANSFERASE 23 U/L (0-55); ALBUMIN 4.6 GM/DL (3.2-4.5); ALKALINE PHOSPHATASE 58 U/L (40-136); AMYLASE 74 U/L (25-125); BILIRUBIN,TOTAL 0.4 MG/DL (0.1-1.0); BUN/CREATININE RATIO 8; CALCIUM 10.2 MG/DL (8.5-10.1); CARBON DIOXIDE 20 MMOL/L (21-32); CHLORIDE 99 MMOL/L (98-107); CREATININE SERUM 0.85 MG/DL (0.60-1.30); GFR ESTIMATED > 60; GLUCOSE 122 MG/DL (70-105); LIPASE 23 U/L (8-78); MAGNESIUM 1.4 MG/DL (1.6-2.4); POTASSIUM 3.7 MMOL/L (3.6-5.0); SODIUM 134 MMOL/L (135-145); TOTAL PROTEIN 7.8 GM/DL (6.4-8.2)
[2018-12-02 23:52] LABS: ACETAMINOPHEN < 10 UG/ML (10-30)
[2018-12-03] MEDS ORDERED: KETOROLAC 30 MG/ML VIAL IVP ONE
[2018-12-03] MEDS ORDERED: HYOSCYAMINE 0.125 MG (LEVSIN) TAB PO ONE
[2018-12-03] MEDS ORDERED: MAGNESIUM OXIDE (MAG-OX)400 MG TAB PO ONE
[2018-12-03] MEDS ORDERED: diphenhydrAMINE 50 MG/ML INJ (BENADRYL) IVP ONE
[2018-12-03] MEDS ORDERED: PROMETHAZINE INJ 25 MG/ML (PHENERGAN) AMP IVP ONE
[2018-12-03] MEDS ORDERED: HYOS0.1283 SL (00:08)
--- NOTE | 2018-12-03 00:09 | ED GI ---
General Chief Complaint: Abdominal/GI Problems Stated Complaint: N,V,ABD PAIN Source of Information: Patient Allergies and Home Medications Allergies Coded Allergies: Sulfa (Sulfonamide Antibiotics) (Verified Allergy, Unknown, abd pain, 09/05/18) adhesive tape (Verified Allergy, Unknown, Hives, 09/05/18) bupropion (Verified Allergy, Unknown, sucidial, 09/05/18) carisoprodol (Verified Allergy, Unknown, heart palpatations, 09/05/18) quetiapine (Verified Allergy, Unknown, suicidal, 09/05/18) Home Medications Citalopram Hydrobromide 20 Mg Tablet, 20 MG PO DAILY, (Reported) Cyclobenzaprine HCl 10 Mg Tablet, 10 MG PO TID PRN for MUSCLE SPASMS, (Reported) Dapagliflozin Propanediol 5 Mg Tablet, 5 MG PO DAILY, (Reported) Fenofibrate Nanocrystallized 145 Mg Tablet, 145 MG PO DAILY, (Reported) Fluticasone Propionate 9.9 Ml Stem.susp, 2 SPRAY NS DAILY PRN for nasal congestion, (Reported) Gabapentin 300 Mg Capsule, 300 MG PO TID, (Reported) Hydrocodone Bit/Acetaminophen 1 Tab Tab, 1 TAB PO Q6H PRN for PAIN-MODERATE Prescribed by: RAMIREZ WALTERS on 09/07/18 0951 Levofloxacin 500 Mg Tablet, 500 MG PO DAILY Prescribed by: FAROOQ LANGE on 10/03/18 0537 Levothyroxine Sodium 112 Mcg Tablet, 112 MCG PO DAILY, (Reported) Loperamide HCl 2 Mg Capsule, 2 MG PO UD PRN for DIARRHEA, (Reported) Metformin HCl 1,000 Mg Tablet, 1,000 MG PO BID, (Reported) Ondansetron 4 Mg Tab.rapdis, 4 MG PO q6 Prescribed by: ELAINA COREY on 12/02/18932 Pantoprazole Sodium 40 Mg Tablet.dr, 40 MG PO DAILY, (Reported) Ranitidine HCl 150 Mg Tablet, 150 MG PO DAILY, (Reported) Tramadol HCl 50 Mg Tablet, 50 MG PO Q4H Prescribed by: ELAINA COREY on 12/02/18932 Past [id number]-Ptfyhu Hx Patient Social History Type Used: Cigarettes 2nd Hand Smoke Exposure: No Recent Hopitalizations: No Seasonal Allergies Seasonal Allergies: Yes Past Medical History Surgeries: Yes (c/s x2, hernia x2, cone bx x2) Section, Hysterectomy, 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 Respiratory: No Cardiac: Yes High Cholesterol Neurological: No Genitourinary: No Gastrointestinal: Yes Gastroesophageal Reflux, Irritable Bowel Musculoskeletal: Yes Degenerate Disk Disease, Scoliosis, Chronic Back Pain Endocrine: Yes Hypothyroidsim, Diabetes, Non-Insulin dep HEENT: Yes (chronic sinusitis) Cancer: Yes Cervical Psychosocial: Yes Bipolar, Depression Integumentary: No Blood Disorders: No Physical Exam Vital Signs Capillary Refill : Height/Weight/BMI Height: 5'4.00" Weight: 142lbs. 0oz. [id number]; 24.00 BMI Method:Stated Progress/Results/Core Measures Results/Orders Lab Results Laboratory Tests Test 12/02/18 22:10 12/02/18 22:55 Range/Units White Blood Count 15.2 H 4.3-11.0 10^3/uL Red Blood Count 4.86 4.35-5.85 10^6/uL Hemoglobin 13.7 11.5-16.0 G/DL Hematocrit 41 35-52 % Mean Corpuscular Volume 84 80-99 FL Mean Corpuscular Hemoglobin 28 25-34 PG Mean Corpuscular Hemoglobin Concent 34 32-36 G/DL Red Cell Distribution Width 13.4 10.0-14.5 % Platelet Count 356 130-400 10^3/uL Mean Platelet Volume 8.3 7.4-10.4 FL Neutrophils (%) (Auto) 77 H 42-75 % Lymphocytes (%) (Auto) 15 12-44 % Monocytes (%) (Auto) 5 0-12 % Eosinophils (%) (Auto) 3 0-10 % Basophils (%) (Auto) 0 0-10 % Neutrophils # (Auto) 11.8 H 1.8-7.8 X 10^3 Lymphocytes # (Auto) 2.2 1.0-4.0 X 10^3 Monocytes # (Auto) 0.8 0.0-1.0 X 10^3 Eosinophils # (Auto) 0.5 H 0.0-0.3 10^3/uL Basophils # (Auto) 0.0 0.0-0.1 10^3/uL Neutrophils % (Manual) 72 % Lymphocytes % (Manual) 18 % Monocytes % (Manual) 4 % Eosinophils % (Manual) 3 % Band Neutrophils 3 % Blood Morphology Comment NORMAL Prothrombin Time 12.4 12.2-14.7 SEC INR Comment 0.9 0.8-1.4 Activated Partial Thromboplast Time 30 24-35 SEC Sodium Level 134 L 135-145 MMOL/L Potassium Level 3.7 3.6-5.0 MMOL/L Chloride Level 99 98-107 MMOL/L Carbon Dioxide Level 20 L 21-32 MMOL/L Anion Gap 15 H 5-14 MMOL/L Blood Urea Nitrogen 7 7-18 MG/DL Creatinine 0.85 0.60-1.30 MG/DL Estimat Glomerular Filtration Rate > 60 BUN/Creatinine Ratio 8 Glucose Level 122 H 70-105 MG/DL Calcium Level 10.2 H 8.5-10.1 MG/DL Corrected Calcium 8.5-10.1 MG/DL Magnesium Level 1.4 L 1.6-2.4 MG/DL Total Bilirubin 0.4 0.1-1.0 MG/DL Aspartate Amino Transf (AST/SGOT) 19 5-34 U/L Alanine Aminotransferase (ALT/SGPT) 23 0-55 U/L Alkaline Phosphatase 58 40-136 U/L Total Protein 7.8 6.4-8.2 GM/DL Albumin 4.6 H 3.2-4.5 GM/DL Amylase Level 74 25-125 U/L Lipase 23 8-78 U/L Acetaminophen Level < 10 L 10-30 UG/ML Serum Alcohol < 10 <10 MG/DL Monoscreen NEGATIVE NEGATIVE Urine Color LAZARA H Urine Clarity CLEAR Urine pH 6.5 5-9 Urine Specific [place] 1.010 L 1.016-1.022 Urine Protein 2+ H NEGATIVE Urine Glucose (UA) NEGATIVE NEGATIVE Urine Ketones 1+ H NEGATIVE Urine Nitrite NEGATIVE NEGATIVE Urine Bilirubin NEGATIVE NEGATIVE Urine Urobilinogen NORMAL NORMAL MG/DL Urine Leukocyte Esterase 1+ H NEGATIVE Urine RBC (Auto) NEGATIVE NEGATIVE Urine RBC NONE /HPF Urine WBC RARE /HPF Urine Squamous Epithelial Cells 10-25 H /HPF Urine Crystals NONE /LPF Urine Bacteria TRACE /HPF Urine Casts NONE /LPF Urine Mucus MODERATE H /LPF Urine Culture Indicated NO Urine Opiates Screen POSITIVE H NEGATIVE Urine Oxycodone Screen NEGATIVE NEGATIVE Urine Methadone Screen NEGATIVE NEGATIVE Urine Propoxyphene Screen NEGATIVE NEGATIVE Urine Barbiturates Screen NEGATIVE NEGATIVE Ur Tricyclic Antidepressants Screen NEGATIVE NEGATIVE Urine Phencyclidine Screen NEGATIVE NEGATIVE Urine Amphetamines Screen NEGATIVE NEGATIVE Urine Methamphetamines Screen NEGATIVE NEGATIVE Urine Benzodiazepines Screen NEGATIVE NEGATIVE Urine Cocaine Screen NEGATIVE NEGATIVE Urine Cannabinoids Screen NEGATIVE NEGATIVE My Orders Orders - SANDRA BRADLEY DO Ed Iv/Invasive Line Start (12/02/18 23:03) Acetaminophen (12/02/18 23:03) Alcohol (12/02/18 23:03) Amylase (12/02/18:03) Cbc With Automated Diff (12/02/18:03) Comprehensive Metabolic Panel (12/02/18:03) Drug Screen Stat (Urine) (12/02/18:) Lipase (12/02/18:03) Magnesium (12/02/18:03) Monotest (12/02/18:03) Protime With Inr (12/02/18:) Partial Thromboplastin Time (12/02/18:) Ua Culture If Indicated (12/02/18 23:03) Ed Iv/Invasive Line Start (12/02/18 23:03) Lactated Ringers (Lr 1000 Ml Iv Solution (12/02/18 23:03) Ondansetron Injection (Zofran Injectio (12/02/18 23:15) Pantoprazole Injection (Protonix Injecti (12/02/18 23:15) Manual Differential (12/02/18 22:10) Magnesium Oxide Tablet (Mag Ox Tablet) (12/03/18 00:00) Ketorolac Injection (Toradol Injection) (12/03/18 00:00) Hyoscyamine Sl Tablet (Levsin Sl Tablet) (12/03/18 00:00) Promethazine Injection (Phenergan Injec (12/03/18 00:00) Diphenhydramine Injection (Benadryl Inje (12/03/18 00:00) Medications Given in ED Current Medications Medications Dose Ordered Sig/Francis Route Start Time Stop Time Status Last Admin Dose Admin Lactated Ringer's 1,000 ml @ 0 mls/hr Q0M ONCE IV 12/02/18 23:03 12/02/18 23:06 DC 12/02/18 23:17 1,000 MLS/HR Ondansetron HCl 4 mg ONCE ONCE IVP 12/02/18 23:15 12/02/18 23:16 DC 12/02/18 23:16 4 MG Pantoprazole 40 mg ONCE ONCE IV 12/02/18 23:15 12/02/18 23:16 DC 12/02/18 23:16 40 MG Departure Impression Primary Impression: Gastroenteritis Disposition: 01 HOME, SELF-CARE Condition: Improved Departure-Patient Inst. Referrals: JESÚS WHITE APRN (PCP) Primary Care Physician [facility] (Family) Primary Care Physician Patient Instructions: [id number] Add. Discharge Instructions: CLEAR LIQUIDS--WATER, BROTH, JELLO, GATORADE TOMORROW IF YOU ARE BETTER, ADD BRATS DIET TO CLEAR LIQUIDS--BANANAS, RICE, APPLESAUCE, TOAST, SALTINES CONTINUE YOUR PHENERGAN AND ZOFRAN PRESCRIBED FOLLOW UP WITH YOUR DR ON TUESDAY FOR FURTHER CARE All discharge instructions reviewed with patient and/or family. Voiced understanding. Scripts Hyoscyamine Sulfate (Levsin-Sl) 0.125 Mg Tab.subl 1-2 TAB SL Q4H for Abdominal Pain, #15 TAB Prov: SANDRA BRADLEY DO 12/03/18 SANDRA BRADLEY DO Dec 03, 2018 00:09
[2018-12-03 00:50] VITALS: BP 157/101
== END 2018-12-03 00:50 | disposition home or self-care (01) ==
LOC: EDUNIT# 22:49 → ER 22:51
DX: K52.9 Noninfective gastroenteritis and colitis, unspecified (principal); E78.00 Pure hypercholesterolemia, unspecified; E11.9 Type 2 diabetes mellitus without complications; E03.9 Hypothyroidism, unspecified; K21.9 Gastro-esophageal reflux disease without esophagitis; K58.9 Irritable bowel syndrome, unspecified; F31.9 Bipolar disorder, unspecified; Z85.41 Personal history of malignant neoplasm of cervix uteri; Z88.2 Allergy status to sulfonamides; Z88.8 Allergy status to other drugs, medicaments and biological substances; Z79.51 Long term (current) use of inhaled steroids; Z79.84 Long term (current) use of oral hypoglycemic drugs; Z90.710 Acquired absence of both cervix and uterus; Z98.51 Tubal ligation status
CPT/HCPCS: 36415; 80053; 80306; 80320; 80329; 81000; 82150; 83690; 83735; 85007; 85027; 85610; 85730; 86308

== ENCOUNTER 2019-01-13 00:23 | Emergency (ER) | payer MEDICAID ==
[~2019-01-13] VITALS: Ht 160 cm; Wt 63.3 kg
[~2019-01-13 00:23] MED LIST changes: +HYOS0.1283 SL
--- NOTE | 2019-01-13 00:44 | NUR ---
PT. WAS ABLE TO MOVE HER LEGS TO THE SIDE OF THE WHEELCHAIR AND CARDIOLOGY NURSE PRACTITIONER ORDER TO GET ON THE TABLE FOR X-RAYS. PT. STATED SOMETIMES THEY WORK AND SOMETIMES THEY DONT.
--- NOTE | 2019-01-13 00:47 | ED Back Pain ---
General Chief Complaint: Back Problems Stated Complaint: LOW BACK PAIN Nursing Triage Note: PT. REPORTED SHE HAS HAD BACK PAIN FOR YEARS BUT STARTING THIS EVENING AROUND 1930 SHE WAS UNABLE TO MOVE HER LEGS AND FELT LIKE THEY WERE IN A DEEP SLEEP. PT. HAD TO HAVE ASSISTANCE TO GET OUT OF THE CAR. Nursing Sepsis Screen: No Definite Risk Source of Information: Patient Exam Limitations: No Limitations History of Present Illness Date Seen by Provider: Jan 13, 2019 Time Seen by Provider: 12:35 Initial Comments Presents after a fall today and worsening of her chronic low back pain. STates she was having numbness and tingling into both legs and was having trouble mov ing her legs and had to have help. Symptoms resolved and was then able to move her legs. Seemed to feel that way only when she was sitting on the bed w legs extended and feet on top of bed. Denies loss of bowel or bladder control. Denies loss of sensation. Allergies and Home Medications Allergies Coded Allergies: Sulfa (Sulfonamide Antibiotics) (Verified Allergy, Unknown, abd pain, 09/05/18) adhesive tape (Verified Allergy, Unknown, Hives, 09/05/18) bupropion (Verified Allergy, Unknown, sucidial, 09/05/18) carisoprodol (Verified Allergy, Unknown, heart palpatations, 09/05/18) quetiapine (Verified Allergy, Unknown, suicidal, 09/05/18) Home Medications Citalopram Hydrobromide 20 Mg Tablet, 20 MG PO DAILY, (Reported) Cyclobenzaprine HCl 10 Mg Tablet, 10 MG PO TID PRN for MUSCLE SPASMS, (Reported) Dapagliflozin Propanediol 5 Mg Tablet, 5 MG PO DAILY, (Reported) Fenofibrate Nanocrystallized 145 Mg Tablet, 145 MG PO DAILY, (Reported) Fluticasone Propionate 9.9 Ml [place].susp, 2 SPRAY NS DAILY PRN for nasal congestion, (Reported) Gabapentin 300 Mg Capsule, 300 MG PO TID, (Reported) Hydrocodone Bit/Acetaminophen 1 Tab Tab, 1 TAB PO Q6H PRN for PAIN-MODERATE Prescribed by: RAMIREZ WALTERS on 09/07/18 0951 Hyoscyamine Sulfate 0.125 Mg Tab.subl, 1-2 TAB SL Q4H Prescribed by: SANDRA BRADLEY on 12/03/18 0008 Levofloxacin 500 Mg Tablet, 500 MG PO DAILY Prescribed by: FAROOQ LANGE on 10/03/18 0537 Levothyroxine Sodium 112 Mcg Tablet, 112 MCG PO DAILY, (Reported) Loperamide HCl 2 Mg Capsule, 2 MG PO UD PRN for DIARRHEA, (Reported) Metformin HCl 1,000 Mg Tablet, 1,000 MG PO BID, (Reported) Ondansetron 4 Mg Tab.rapdis, 4 MG PO q6 Prescribed by: ELAINA COREY on 12/02/18932 Pantoprazole Sodium 40 Mg Tablet.dr, 40 MG PO DAILY, (Reported) Ranitidine HCl 150 Mg Tablet, 150 MG PO DAILY, (Reported) Tramadol HCl 50 Mg Tablet, 50 MG PO Q4H Prescribed by: ELAINA COREY on 12/02/18932 Patient Home Medication List Home Medication List Reviewed: Yes Review of Systems Constitutional: No chills, No fever, No malaise Respiratory: No cough Cardiovascular: No chest pain, No palpitations Gastrointestinal: No abdominal pain, No vomiting Musculoskeletal: back pain; No joint pain, No muscle pain, No muscle stiffness, No muscle cramps; muscle weakness (b/l legs- comes and goes) Skin: No change in color, No rash Psychiatric/Neurological: Numbness, Tingling, Weakness Past Egdangg-Crmpcz-Vdbyhz Hx Past Med/Social Hx: Reviewed Nursing Past Med/Soc Hx Patient Social History Type Used: Cigarettes 2nd Hand Smoke Exposure: No Recent Foreign Travel: No Contact w/Someone Who Travel: No Recent Infectious Disease Expo: No Recent Hopitalizations: No Seasonal Allergies Seasonal Allergies: Yes Past Medical History Surgeries: Yes Abdominal, Section, Hysterectomy, Oophorectomy, 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 Respiratory: No Cardiac: Yes High Cholesterol Neurological: No 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 Disorders: Yes 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 Disorders: Ovarian Cyst [employer] History: Hysterectomy, 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, Menopausal Genitourinary: Yes Bladder Infection Gastrointestinal: Yes Gastroesophageal Reflux, Chronic Diarrhea, Irritable Bowel Musculoskeletal: Yes Degenerate Disk Disease, Scoliosis, Chronic Back Pain Endocrine: Yes Hypothyroidsim, Diabetes, Non-Insulin dep HEENT: Yes (chronic sinusitis) Cancer: Yes Cervical Did You Recieve Any Treatments: Yes What Type of Treatment Did You: Surgical Intervention Psychosocial: Yes Anxiety, Bipolar, Depression Integumentary: No Blood Disorders: No Physical Exam Vital Signs Vital Signs - First Documented 01/13/19 00:33 Temp 36.3 Pulse 108 Resp 16 B/P (MAP) 148/87 (107) Pulse Ox 96 O2 Delivery Room Air Capillary Refill : Less Than 3 Seconds Height, Weight, BMI Height: 5'4.00" Weight: 142lbs. 0oz. 64.616577gs; 24.00 BMI Method:Stated General Appearance: No Apparent Distress, WD/WN Back: Normal Inspection, No Vertebral Tenderness Extremity: Normal Capillary Refill, Normal Inspection, Normal Range of Motion, Non Tender, No Calf Tenderness, No Pedal Edema Neurologic/Psychiatric: No Motor/Sensory Deficits, Normal Mood/Affect; No Motor Weakness (able to flex both hips and extend both legs without difficulty. dorsi- and plantarflexion of both feet) Progress/Results/Core Measures Results/Orders My Orders Orders - JAREK ADAME DO Lumbar Spine 2 Or 3 View (01/13/19 00:40) Vital Signs/I&O 01/13/19 00:33 Temp 36.3 Pulse 108 Resp 16 B/P (MAP) 148/87 (107) Pulse Ox 96 O2 Delivery Room Air Blood Pressure Mean: 107 POS Departure Impression Primary Impression: Chronic back pain Qualified Codes: M54.9 - Dorsalgia, unspecified; G89.29 - Other chronic pain Additional Impressions: Lumbar radiculopathy Degenerative joint disease (DJD) of lumbar spine Qualified Codes: M47.816 - Spondylosis without myelopathy or radiculopathy, lumbar region Disposition: 01 HOME, SELF-CARE Condition: Stable Departure-Patient Inst. Decision time for Depature: 12:45 Referrals: JESÚS WHITE APRN (PCP) Primary Care Physician [facility] (Family) Primary Care Physician Patient Instructions: JAREK Duncan DO Jan 13, 2019 00:46 POS
[2019-01-13 00:52] VITALS: BP 148/87
--- NOTE | 2019-01-13 07:29 | Diagnostic Imaging Report ---
INDICATION: Low back pain COMPARISON: None FINDINGS: 3 views of the lumbar column demonstrate mild lumbar scoliosis. Mild to moderate diffuse degenerative changes are present. This is most pronounced at L4-L5 and L5-S1. There is no osseous lesion. There is no traumatic malalignment or fracture. SI joints are symmetric. IMPRESSION: 1. Mild to moderate diffuse degenerative changes 2. No traumatic malalignment or fracture Dictated by: Dictated on workstation # [id number]
--- OUTSIDE RECORDS SUMMARY | 2019-02-07 19:07 | XMS REPORT | Continuity of Care Document ---
Author Organization Unknown Address Unknown Phone Unavailable Allergies Active Description Code Type Severity Reaction Onset Reported/Identified Relationship to Patient Clinical Status Yes No Known Drug Allergies [id number] Drug Allergy Unknown N/A 08/16/2018 Yes adhesive tape [id number] Joel g Allergy Unknown Hives 09/05/2018 Yes bupropion [id number] Drug Allergy Unknown sucidial 09/05/2018 Yes carisoprodol [id number] Drug Allergy Unknown heart palpatati 09/05/2018 Yes quetiapine [id number] Drug Allerg y Unknown suicidal 09/05/2018 Yes Sulfa (Sulfonamide Antibiotics) [id number] Drug Allergy Unknown abd pain 09/05/2018 Medications There is no data. Problems Date Dx Coded Attending Type Code Diagnosis Diagnosed By 08/16/2018 DARIUS DEL CASTILLO DO, Ot E11.65 TYPE 2 DIABETES MELLITUS WITH HYPERGLYCE 08/16/2018 DARIUS DEL CASTILLO DO Ot Z91.14 PATIENT'S OTHER NONCOMPLIANCE WITH MEDIC 08/17/2018 DARIUS DEL CASTILLO DO, Ot E11.65 TYPE 2 DIABETES MELLITUS WITH HYPERGLYCE 08/17/2018 DARIUS DEL CASTILLO DO Ot Z91.14 PATIENT'S OTHER NONCOMPLIANCE WITH MEDIC 09/05/2018 RAMIREZ WALTERS DO Ot Z01.8 18 ENCOUNTER FOR OTHER PREPROCEDURAL EXAMIN 09/07/2018 RAMIREZ WALTERS DO Ot E11.9 TYPE 2 DIABETES MELLITUS WITHOUT COMPLIC 09/07/2018 RAMIREZ WALTERS DO Ot F17.2 10 NICOTINE DEPENDENCE, CIGARETTES, UNCOMPL 09/07/2018 RAMIREZ WALTERS DO Ot F32.9 MAJOR DEPRESSIVE DISORDER, SINGLE EPISOD 09/07/2018 RAMIREZ WALTERS DO Ot G89.2 9 OTHER CHRONIC PAIN 09/07/2018 RAMIREZ WALTERS DO Ot K21.9 GASTRO-ESOPHAGEAL REFLUX DISEASE WITHOUT 09/07/2018 RAMIREZ WALTERS DO Ot K43.0 INCISIONAL HERNIA WITH OBSTRUCTION, WITH 09/07/2018 RAMIREZ WALTERS DO Ot K58.9 IRRITABLE BOWEL SYNDROME WITHOUT DIARRHE 09/07/2018 RAMIREZ WALTERS DO Ot M41.9 SCOLIOSIS, UNSPECIFIED 09/07/2018 RAMIREZ WALTERS DO Ot M54.9 DORSALGIA, UNSPECIFIED 09/07/2018 RAMIREZ WALTERS DO Ot Z79.8 4 NURSING HOME (CURRENT) USE OF ORAL HYPOGLYC 09/07/2018 ARMIREZ WALTERS DO Ot Z79.8 99 OTHER CLOTH TRIMMER HAND (CURRENT) DRUG THERAPY 09/07/2018 RAMIREZ WALTERS DO Ot Z88.2 ALLERGY STATUS TO SULFONAMIDES STATUS 09/07/2018 RAMIREZ WALTERS DO Ot Z88.6 ALLERGY STATUS TO ANALGESIC AGENT STATUS 09/07/2018 RAMIREZ WALTERS DO Ot Z88.8 ALLERGY STATUS TO OTH DRUG/MEDS/BIOL SUB 09/07/2018 RMAIREZ WALTERS DO Ot Z90.7 10 ACQUIRED ABSENCE OF BOTH CERVIX AND UTER 09/07/2018 RAMIREZ WALTERS DO Ot Z91.0 48 OTHER NONMEDICINAL SUBSTANCE ALLERGY STA 09/17/2018 RAMIREZ WALTERS DO Ot E11.9 TYPE 2 DIABETES MELLITUS WITHOUT COMPLIC 09/17/2018 RAMIREZ WALTERS DO Ot F17.2 10 NICOTINE DEPENDENCE, CIGARETTES, UNCOMPL 09/17/2018 RAMIREZ WALTERS DO Ot F32.9 MAJOR DEPRESSIVE DISORDER, SINGLE EPISOD 09/17/2018 RAMIREZ WALTERS DO Ot G89.2 9 OTHER CHRONIC PAIN 09/17/2018 RAMIREZ WALTERS DO Ot K21.9 GASTRO-ESOPHAGEAL REFLUX DISEASE WITHOUT 09/17/2018 RAMIREZ WALTERS DO Ot K43.0 INCISIONAL HERNIA WITH OBSTRUCTION, WITH 09/17/2018 RAMIREZ WALTERS DO B Ot K58.9 IRRITABLE BOWEL SYNDROME WITHOUT DIARRHE 09/17/2018 RAMIREZ WALTERS DO Ot M41.9 SCOLIOSIS, UNSPECIFIED 09/17/2018 RAMIREZ WALTERS DO B Ot M54.9 DORSALGIA, UNSPECIFIED 09/17/2018 RAMIREZ WALTERS DO B Ot Z79.8 4 CL[employer] TRIMMER HAND (CURRENT) USE OF ORAL HYPOGLYC 09/17/2018 RAMIREZ WALTERS DO Ot Z79.8 99 OTHER [employer]OTH TRIMMER HAND (CURRENT) DRUG THERAPY 09/17/2018 RAMIREZ WALTERS DO Ot Z88.2 ALLERGY STATUS TO SULFONAMIDES STATUS 09/17/2018 RAMIREZ WALTERS DO Ot Z88.6 ALLERGY STATUS TO ANALGESIC AGENT STATUS 09/17/2018 RAMIREZ WALTERS DO Ot Z88.8 ALLERGY STATUS TO OTH DRUG/MEDS/BIOL SUB 09/17/2018 RAMIREZ WALTERS DO Ot Z90.7 10 ACQUIRED ABSENCE OF BOTH CERVIX AND UTER 09/17/2018 RAMIREZ WALTERS DO Ot Z91.0 48 OTHER NONMEDICINAL SUBSTANCE ALLERGY STA 09/24/2018 ASHUTOSH ALBRIGHT MD Ot E03. 9 HYPOTHYROIDISM, UNSPECIFIED 09/24/2018 ASHUTOSH ALBRIGHT MD Ot E11. 9 TYPE 2 DIABETES MELLITUS WITHOUT COMPLIC 09/24/2018 ASHUTOSH ALBRIGHT MD Ot E78. 00 PURE HYPERCHOLESTEROLEMIA, UNSPECIFIED 09/24/2018 ASHUTOSH ALBRIGHT MD Ot F17.210 NICOTINE DEPENDENCE, CIGARETTES, UNCOMPL 09/24/2018 ASHUTOSH ALBRIGHT MD Ot F31. 9 BIPOLAR DISORDER, UNSPECIFIED 09/24/2018 ASHUTOSH ALBRIGHT MD Ot G89. 18 OTHER ACUTE POSTPROCEDURAL PAIN 09/24/2018 ASHUTOSH ALBRIGHT MD Ot K21. 9 GASTRO-ESOPHAGEAL REFLUX DISEASE WITHOUT 09/24/2018 ASHUTOSH ALBRIGHT MD Ot K58. 9 IRRITABLE BOWEL SYNDROME WITHOUT DIARRHE 09/24/2018 ASHUTOSH ALBRIGHT MD Ot R10. 11 RIGHT UPPER QUADRANT PAIN 09/24/2018 ASHUTOSH ALBRIGHT MD Ot R10. 9 UNSPECIFIED ABDOMINAL PAIN 09/24/2018 ASHUTOSH ALBRIGHT MD Ot Z79. 52 NURSING HOME (CURRENT) USE OF SYSTEMIC STER 09/24/2018 ASHUTOSH ALBRIGHT MD Ot Z79. 84 CLOTH TRIMMER HAND (CURRENT) USE OF ORAL HYPOGLYC 09/24/2018 ASHUTOSH ALBRIGHT MD Ot Z85. 41 PERSONAL HISTORY OF MALIGNANT NEOPLASM O 09/24/2018 ASHUTOSH ALBRIGHT MD Ot Z88. 2 ALLERGY STATUS TO SULFONAMIDES STATUS 09/24/2018 ASHUTOSH ALBRIGHT MD Ot Z88. 8 ALLERGY STATUS TO OTH DRUG/MEDS/BIOL SUB 09/24/2018 ASHUTOSH ALBRIGHT MD Ot Z90.710 ACQUIRED ABSENCE OF BOTH CERVIX AND UTER 09/24/2018 ASHUTOSH ALBRIGHT MD Ot Z98. 51 TUBAL LIGATION STATUS 10/03/2018 FAROOQ LANGE MD Ot E03.9 HYPOTHYROIDISM, UNSPECIFIED 10/03/2018 FAROOQ LANGE MD Ot E11.9 TYPE 2 DIABETES MELLITUS WITHOUT COMPLIC 10/03/2018 FAROOQ LANGE MD Ot E78.0 0 PURE HYPERCHOLESTEROLEMIA, UNSPECIFIED 10/03/2018 FAROOQ LANGE MD Ot F17.2 10 NICOTINE DEPENDENCE, CIGARETTES, UNCOMPL 10/03/2018 FAROOQ LANGE MD Ot F31.9 BIPOLAR DISORDER, UNSPECIFIED 10/03/2018 FAROOQ LANGE MD Ot F41.9 ANXIETY DISORDER, UNSPECIFIED 10/03/2018 FAROOQ LANGE MD Ot K21.9 GASTRO-ESOPHAGEAL REFLUX DISEASE WITHOUT 10/03/2018 FAROOQ LANGE MD Ot K58.9 IRRITABLE BOWEL SYNDROME WITHOUT DIARRHE 10/03/2018 FAROOQ LANGE MD Ot M25.5 12 PAIN IN LEFT SHOULDER 10/03/2018 FAROOQ LANGE MD Ot M25.5 42 PAIN IN JOINTS OF LEFT HAND 10/03/2018 FAROOQ LANGE MD Ot R05 COUGH 10/03/2018 FAROOQ LANGE MD Ot R50.9 FEVER, UNSPECIFIED 10/03/2018 FAROOQ LANGE MD Ot Z79.5 2 CL[employer] TRIMMER HAND (CURRENT) USE OF SYSTEMIC STER 10/03/2018 FAROOQ LANGE MD Ot Z79.8 4 NURSING HOME (CURRENT) USE OF ORAL HYPOGLYC 10/03/2018 FAROOQ LANGE MD Ot Z85.4 1 PERSONAL HISTORY OF MALIGNANT NEOPLASM O 10/03/2018 FAROOQ LANGE MD Ot Z88.1 ALLERGY STATUS TO OTHER ANTIBIOTIC AGENT 10/03/2018 FAROOQ LANGE MD Ot Z88.2 ALLERGY STATUS TO SULFONAMIDES STATUS 10/03/2018 FAROOQ LANGE MD, Ot Z88.8 ALLERGY STATUS TO OTH DRUG/MEDS/BIOL SUB 10/03/2018 FAROOQ LANGE MD Ot Z90.7 10 ACQUIRED ABSENCE OF BOTH CERVIX AND UTER 10/03/2018 FAROOQ LANGE MD Ot Z98.5 1 TUBAL LIGATION STATUS 10/03/2018 FAROOQ LANGE MD, Ot Z98.8 90 OTHER SPECIFIED POSTPROCEDURAL STATES 10/05/2018 FAROOQ LANGE MD, Ot E03.9 HYPOTHYROIDISM, UNSPECIFIED 10/05/2018 FAROOQ LANGE MD, Ot E11.9 TYPE 2 DIABETES MELLITUS WITHOUT COMPLIC 10/05/2018 FAROOQ LANGE MD, Ot E78.0 0 PURE HYPERCHOLESTEROLEMIA, UNSPECIFIED 10/05/2018 FAROOQ LANGE MD, Ot F17.2 10 NICOTINE DEPENDENCE, CIGARETTES, UNCOMPL 10/05/2018 FAROOQ LANGE MD Ot F31.9 BIPOLAR DISORDER, UNSPECIFIED 10/05/2018 FAROOQ LANGE MD, Ot F41.9 ANXIETY DISORDER, UNSPECIFIED 10/05/2018 FAROOQ LANGE MD, Ot K21.9 GASTRO-ESOPHAGEAL REFLUX DISEASE WITHOUT 10/05/2018 FAROOQ LANGE MD, Ot K58.9 IRRITABLE BOWEL SYNDROME WITHOUT DIARRHE 10/05/2018 FAROOQ LANGE MD, Ot M25.5 12 PAIN IN LEFT SHOULDER 10/05/2018 FAROOQ LANGE MD, Ot M25.5 42 PAIN IN JOINTS OF LEFT HAND 10/05/2018 FAROOQ LANGE MD Ot R05 COUGH 10/05/2018 FAROOQ LANGE MD, Ot R50.9 FEVER, UNSPECIFIED 10/05/2018 FAROOQ LANGE MD, Ot Z79.5 2 NURSING HOME (CURRENT) USE OF SYSTEMIC STER 10/05/2018 FAROOQ LANGE MD, Ot Z79.8 4 NURSING HOME (CURRENT) USE OF ORAL HYPOGLYC 10/05/2018 FAROOQ LANGE MD, Ot Z85.4 1 PERSONAL HISTORY OF MALIGNANT NEOPLASM O 10/05/2018 FAROOQ LANGE MD, Ot Z88.1 ALLERGY STATUS TO OTHER ANTIBIOTIC AGENT 10/05/2018 FAROOQ LANGE MD, Ot Z88.2 ALLERGY STATUS TO SULFONAMIDES STATUS 10/05/2018 FAROOQ LANGE MD, Ot Z88.8 ALLERGY STATUS TO OTH DRUG/MEDS/BIOL SUB 10/05/2018 FAROOQ LANGE MD, Ot Z90.7 10 ACQUIRED ABSENCE OF BOTH CERVIX AND UTER 10/05/2018 FAROOQ LANGE MD, Ot Z98.5 1 TUBAL LIGATION STATUS 10/05/2018 FAROOQ LANGE MD, Ot Z98.8 90 OTHER SPECIFIED POSTPROCEDURAL STATES 10/30/2018 FAROOQ LANGE MD, Ot E03.9 HYPOTHYROIDISM, UNSPECIFIED 10/30/2018 FAROOQ LANGE MD, Ot E11.9 TYPE 2 DIABETES MELLITUS WITHOUT COMPLIC 10/30/2018 FAROOQ LANGE MD, Ot E78.0 0 PURE HYPERCHOLESTEROLEMIA, UNSPECIFIED 10/30/2018 FAROOQ LANGE MD, Ot F17.2 10 NICOTINE DEPENDENCE, CIGARETTES, UNCOMPL 10/30/2018 FAROOQ LANGE MD, Ot F31.9 BIPOLAR DISORDER, UNSPECIFIED 10/30/2018 FAROOQ LANGE MD, Ot K21.9 GASTRO-ESOPHAGEAL REFLUX DISEASE WITHOUT 10/30/2018 FAROOQ LANGE MD, Ot K58.9 IRRITABLE BOWEL SYNDROME WITHOUT DIARRHE 10/30/2018 FAROOQ LANGE MD, Ot M54.1 2 RADICULOPATHY, CERVICAL REGION 10/30/2018 FAROOQ LANGE MD, Ot M54.6 PAIN IN THORACIC SPINE 10/30/2018 FAROOQ LANGE MD, Ot S29.012A STRAIN OF MUSCLE AND TENDON OF BACK WALL 10/30/2018 FAROOQ LANGE MD, Ot X50.1XXA OVEREXERTION FROM PROLONGED STATIC OR AW 10/30/2018 FAROOQ LANGE MD, Ot Z79.8 4 NURSING HOME (CURRENT) USE OF ORAL HYPOGLYC 10/30/2018 FAROOQ LANGE MD, Ot Z85.4 1 PERSONAL HISTORY OF MALIGNANT NEOPLASM O 10/30/2018 FAROOQ LANGE MD, Ot Z88.2 ALLERGY STATUS TO SULFONAMIDES STATUS 10/30/2018 FAROOQ LANGE MD, Ot Z88.8 ALLERGY STATUS TO OTH DRUG/MEDS/BIOL SUB 10/30/2018 FAROOQ LAGNE MD, Ot Z98.5 1 TUBAL LIGATION STATUS 10/30/2018 FAROOQ LANGE MD, Ot Z98.8 90 OTHER SPECIFIED POSTPROCEDURAL STATES 12/02/2018 COREY ELAINA GUTIERREZ Ot 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 12/02/2018 ELAINA COREY DO Ot E03.9 HYPOTHYROIDISM, UNSPECIFIED 12/02/2018 ELAINA COREY DO Ot E11.9 TYPE 2 DIABETES MELLITUS WITHOUT COMPLIC 12/02/2018 ELAINA COREY DO Ot E78.00 PURE HYPERCHOLESTEROLEMIA, UNSPECIFIED 12/02/2018 MADHAV GUTIERREZ ELAINA Ot F31.9 BIPOLAR DISORDER, UNSPECIFIED 12/02/2018 LIVINGSTON DO, ELAINA Ot K21.9 GASTRO-ESOPHAGEAL REFLUX DISEASE WITHOUT 12/02/2018 [facility] K58.0 IRRITABLE BOWEL SYNDROME WITH DIARRHEA 12/02/2018 COREY DO, ELAINA Ot R10.84 GENERALIZED ABDOMINAL PAIN 12/02/2018 LIVINGSTON DO, ELAINA Ot R11.2 NAUSEA WITH VOMITING, UNSPECIFIED 12/02/2018 [facility], ELAINA Ot Z79.84 CLOTH TRIMMER HAND (CURRENT) USE OF ORAL HYPOGLYC 12/02/2018 LIVINGSTON DO, ELAINA Ot Z85.41 PERSONAL HISTORY OF MALIGNANT NEOPLASM O 12/02/2018 LIVINGSTON DO, ELAINA Ot Z88.2 ALLERGY STATUS TO SULFONAMIDES STATUS 12/02/2018 [facility], ELAINA Ot Z88.8 ALLERGY STATUS TO OTH DRUG/MEDS/BIOL SUB 12/02/2018 [facility] Ot Z90.710 ACQUIRED ABSENCE OF BOTH CERVIX AND UTER 12/02/2018 [facility], ELAINA Ot Z98.51 TUBAL LIGATION STATUS 12/03/2018 KIRK DOSANDRA Ot E03.9 HYPOTHYROIDISM, UNSPECIFIED 12/03/2018 OWINGS DO SANDRA K Ot E11.9 TYPE 2 DIABETES MELLITUS WITHOUT COMPLIC 12/03/2018 KIRK DOYUSUFA K Ot E78.00 PURE HYPERCHOLESTEROLEMIA, UNSPECIFIED 12/03/2018 OWINGS DO SANDRA Nichelle Ot F31.9 BIPOLAR DISORDER, UNSPECIFIED 12/03/2018 KIRK DO SANDRA K Ot K21.9 GASTRO-ESOPHAGEAL REFLUX DISEASE WITHOUT 12/03/2018 KIRK DOYUSUFA Nichelle Ot K52.9 NONINFECTIVE GASTROENTERITIS AND COLITIS 12/03/2018 OWINGS DO SANDRA K Ot K58.9 IRRITABLE BOWEL SYNDROME WITHOUT DIARRHE 12/03/2018 KIRK DO SANDRA K Ot R11.2 NAUSEA WITH VOMITING, UNSPECIFIED 12/03/2018 KIRK DOYUSUFA Nichelle Ot Z79.51 NURSING HOME (CURRENT) USE OF INHALED STERO 12/03/2018 OWINGS DOYUSUFA Nichelle Ot Z79.84 NURSING HOME (CURRENT) USE OF ORAL HYPOGLYC 12/03/2018 KIRK DOYUSUFA Nichelle Ot Z85.41 PERSONAL HISTORY OF MALIGNANT NEOPLASM O 12/03/2018 OWINGS DOYUSUFA Nichelle Ot Z88.2 ALLERGY STATUS TO SULFONAMIDES STATUS 12/03/2018 KIRK DO, SANDRA K Ot Z88.8 ALLERGY STATUS TO OTH DRUG/MEDS/BIOL SUB 12/03/2018 KIRK DO, SANDRA K Ot Z90.710 ACQUIRED ABSENCE OF BOTH CERVIX AND UTER 12/03/2018 KIRK DO, SANDRA K Ot Z98.51 TUBAL LIGATION STATUS 12/05/2018 LIVINGSTON DO, ELAINA Ot 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 12/05/2018 COREY DO, ELAINA Ot E03.9 HYPOTHYROIDISM, UNSPECIFIED 12/05/2018 LIVINGSTON DO, ELAINA Ot E11.9 TYPE 2 DIABETES MELLITUS WITHOUT COMPLIC 12/05/2018 LIVINGSTON DO, ELAINA Ot E78.00 PURE HYPERCHOLESTEROLEMIA, UNSPECIFIED 12/05/2018 LIVINGSTON DO, ELAINA Ot F31.9 BIPOLAR DISORDER, UNSPECIFIED 12/05/2018 LIVINGSTON DO, ELAINA Ot K21.9 GASTRO-ESOPHAGEAL REFLUX DISEASE WITHOUT 12/05/2018 [facility], ELAINA Ot K58.0 IRRITABLE BOWEL SYNDROME WITH DIARRHEA 12/05/2018 [facility], ELAINA Ot R10.84 GENERALIZED ABDOMINAL PAIN 12/05/2018 [facility], ELAINA Ot R11.2 NAUSEA WITH VOMITING, UNSPECIFIED 12/05/2018 [facility], ELAINA Ot Z79.84 NURSING HOME (CURRENT) USE OF ORAL HYPOGLYC 12/05/2018 [facility], ELAINA Ot Z85.41 PERSONAL HISTORY OF MALIGNANT NEOPLASM O 12/05/2018 [facility], ELAINA Ot Z88.2 ALLERGY STATUS TO SULFONAMIDES STATUS 12/05/2018 LIVINGSTON DO, ELAINA Ot Z88.8 ALLERGY STATUS TO OTH DRUG/MEDS/BIOL SUB 12/05/2018 LIVINGSTON DO, ELAINA Ot Z90.710 ACQUIRED ABSENCE OF BOTH CERVIX AND UTER 12/05/2018 COREY DO, ELAINA Ot Z98.51 TUBAL LIGATION STATUS 12/06/2018 KIRK DOYUSUFA K Ot E03.9 HYPOTHYROIDISM, UNSPECIFIED 12/06/2018 KIRK DOYUSUFA K Ot E11.9 TYPE 2 DIABETES MELLITUS WITHOUT COMPLIC 12/06/2018 KIRK DO, SANDRA Nichelle Ot E78.00 PURE HYPERCHOLESTEROLEMIA, UNSPECIFIED 12/06/2018 KIRK DO, SANDRA Nichelle Ot F31.9 BIPOLAR DISORDER, UNSPECIFIED 12/06/2018 KIRK DOYUSUFA Nichelle Ot K21.9 GASTRO-ESOPHAGEAL REFLUX DISEASE WITHOUT 12/06/2018 KIRK DOSANDRA Ot K52.9 NONINFECTIVE GASTROENTERITIS AND COLITIS 12/06/2018 KRIK GUTIERREZ SANDRA K Ot K58.9 IRRITABLE BOWEL SYNDROME WITHOUT DIARRHE 12/06/2018 KIRK GUTIERREZSANDRA Ot R11.2 NAUSEA WITH VOMITING, UNSPECIFIED 12/06/2018 KIRK GUTIERREZSANDRA Ot Z79.51 CLOTH TRIMMER HAND (CURRENT) USE OF INHALED STERO 12/06/2018 KIRK SANDRA Ot Z79.84 CLOTH TRIMMER HAND (CURRENT) USE OF ORAL HYPOGLYC 12/06/2018 KIRK SANDRA Ot Z85.41 PERSONAL HISTORY OF MALIGNANT NEOPLASM O 12/06/2018 KIRK GUTIERREZSANDRA Ot Z88.2 ALLERGY STATUS TO SULFONAMIDES STATUS 12/06/2018 KIRK GUTIERREZSANDRA Ot Z88.8 ALLERGY STATUS TO OTH DRUG/MEDS/BIOL SUB 12/06/2018 KIRK SANDRA Ot Z90.710 ACQUIRED ABSENCE OF BOTH CERVIX AND UTER 12/06/2018 KIRK SANDRA Ot Z98.51 TUBAL LIGATION STATUS 01/13/2019 ROVENSTINE DOJAREK Ot E03.9 HYPOTHYROIDISM, UNSPECIFIED 01/13/2019 ROVENSTINE DOJAREK Ot E11.9 TYPE 2 DIABETES MELLITUS WITHOUT COMPLIC 01/13/2019 ROVENSTINE JAREK GUTIERREZ Ot E78.00 PURE HYPERCHOLESTEROLEMIA, UNSPECIFIED 01/13/2019 ROVENSTINE DOJAREK Ot F31.9 BIPOLAR DISORDER, UNSPECIFIED 01/13/2019 ROVENSTINE DOJAREK Ot F41.9 ANXIETY DISORDER, UNSPECIFIED 01/13/2019 ROVENSTINE DOJAREK Ot G89.29 OTHER CHRONIC PAIN 01/13/2019 ROVENSTINE DOJAREK Ot K21.9 GASTRO-ESOPHAGEAL REFLUX DISEASE WITHOUT 01/13/2019 ROVENSTINE DOJAREK Ot K58.9 IRRITABLE BOWEL SYNDROME WITHOUT DIARRHE 01/13/2019 ROVENSTINE JAREK GUTIERREZ Ot M51.36 OTHER INTERVERTEBRAL DISC DEGENERATION, 01/13/2019 ROVENSTINE DOJAREK Ot M54.16 RADICULOPATHY, LUMBAR REGION 01/13/2019 ROVENSTINE DOJAREK Ot M54.5 LOW BACK PAIN 01/13/2019 ROVENSTINE DO, JAREK L Ot Z79.51 CLOTH TRIMMER HAND (CURRENT) USE OF INHALED STERO 01/13/2019 ROVENSTINE DO, JAREK Monge Ot Z79.84 CLOTH TRIMMER HAND (CURRENT) USE OF ORAL HYPOGLYC 01/13/2019 ROVENSTINE DO, JAREK Monge Ot Z85.41 PERSONAL HISTORY OF MALIGNANT NEOPLASM O 01/13/2019 ROVENSTINE DO, JAREK Monge Ot Z88.2 ALLERGY STATUS TO SULFONAMIDES STATUS 01/13/2019 ROVENSTINE DO, JAREK Monge Ot Z88.5 ALLERGY STATUS TO NARCOTIC AGENT STATUS 01/13/2019 ROVENSTINE DO, JAREK Monge Ot Z88.8 ALLERGY STATUS TO OTH DRUG/MEDS/BIOL SUB 01/13/2019 ROVENSTINE DO, JAREK Monge Ot Z90.710 ACQUIRED ABSENCE OF BOTH CERVIX AND UTER 01/13/2019 ROVENSTINE DO, JAREK Monge Ot Z98.51 TUBAL LIGATION STATUS 01/17/2019 ROVENSTINE DO, JAREK Monge Ot E03.9 HYPOTHYROIDISM, UNSPECIFIED 01/17/2019 ROVENSTINE DO, JAREK Monge Ot E11.9 TYPE 2 DIABETES MELLITUS WITHOUT COMPLIC 01/17/2019 ROVENSTINE DO, JAREK Monge Ot E78.00 PURE HYPERCHOLESTEROLEMIA, UNSPECIFIED 01/17/2019 ROVENSTINE DOJAREK Ot F31.9 BIPOLAR DISORDER, UNSPECIFIED 01/17/2019 ROVENSTINE DOJAREK Ot F41.9 ANXIETY DISORDER, UNSPECIFIED 01/17/2019 ROVENSTINE DOJAREK Ot G89.29 OTHER CHRONIC PAIN 01/17/2019 ROVENSTINE DO, JAREK Monge Ot K21.9 GASTRO-ESOPHAGEAL REFLUX DISEASE WITHOUT 01/17/2019 ROVENSTINE DO, JAREK Monge Ot K58.9 IRRITABLE BOWEL SYNDROME WITHOUT DIARRHE 01/17/2019 ROVENSTINE DOJAREK Ot M51.36 OTHER INTERVERTEBRAL DISC DEGENERATION, 01/17/2019 ROVENSTINE DO, JAREK Monge Ot M54.16 RADICULOPATHY, LUMBAR REGION 01/17/2019 ROVENSTINE DOJAREK Ot M54.5 LOW BACK PAIN 01/17/2019 ROVENSTINE DO, JAREK Monge Ot Z79.51 CLOTH TRIMMER HAND (CURRENT) USE OF INHALED STERO 01/17/2019 MATILDAVENSTINE DO JAREK Monge Ot Z79.84 CLOTH TRIMMER HAND (CURRENT) USE OF ORAL HYPOGLYC 01/17/2019 IONASTINE DO JAREK Monge Ot Z85.41 PERSONAL HISTORY OF MALIGNANT NEOPLASM O 01/17/2019 IONASTOZIEL DO JAREK Monge Ot Z88.2 ALLERGY STATUS TO SULFONAMIDES STATUS 01/17/2019 IONASTINE DO JAREK Monge Ot Z88.5 ALLERGY STATUS TO NARCOTIC AGENT STATUS 01/17/2019 IONASTINE DO JAREK Monge Ot Z88.8 ALLERGY STATUS TO OTH DRUG/MEDS/BIOL SUB 01/17/2019 IONASTOZIEL GUTIERREZ JAREK Monge Ot Z90.710 ACQUIRED ABSENCE OF BOTH CERVIX AND UTER 01/17/2019 IONASTOZIEL GUTIERREZ JAREK Monge Ot Z98.51 TUBAL LIGATION STATUS Procedures There is no data. Results Test Result Range TSH - 12/29/17 16:01 TSH 0.59 mIU/L NRG TSH - 05/11/18 10:00 TSH 0.50 mIU/L NRG Complete urinalysis with reflex to cultu re - 08/15/18 00:00 Urine color determination YELLOW NRG Urine clarity determination CLEAR NR G Urine pH measurement by test strip 5.5 5-9 Specific gravity of urine by test strip 1.010 1.016-1.022 Urine protein assay by test strip, semi-quantitative NEGATIVE NEGATIVE Urine glucose detection by automated test strip 3+ NEGATIVE Erythrocytes detection in urine sediment by light micr oscopy NEGATIVE NEGATIVE Urine ketones detection by automated test strip NE GATIVE NEGATIVE Urine nitrite detection by test strip NEGATIVE NEGATIVE Urine total bilirubin detection by test strip NEGA TIVE NEGATIVE Urine urobilinogen measurement by automated test strip (mass/volume) 0.2 mg/dL NORMAL Urine leukocyte esterase detection by dipstick NEG ATIVE NEGATIVE Automated urine sediment erythrocyte cou nt by microscopy (number/high power field) NONE NRG Automated urine sediment leukocyte count by microscopy (number/high power field) [HPF] NRG Bacteria detection in urine sediment by light microsco py NONE NRG Squamous epithelial cells detection in u rine sediment by light microscopy 2-5 NRG Crystals detection in urine sediment by light microsco py NONE NRG Casts detection in urine sediment by light microscopy NONE NRG Mucus detection in urine sediment by light microscopy NEGATIVE NRG Complete urinalysis with reflex to culture NO NRG Complete blood count (CBC) with automate d white blood cell (WBC) differential - 08/15/18 23:25 Blood leukocytes automated count (number/volume) 8.5 10*3/uL 4.3-11.0 Blood erythrocytes automated count (number/volume) 4.07 10*6/uL 4.35-5.85 Venous blood hemoglobin measurement (mass/volume) 11.9 g/dL 11.5-16.0 Blood hematocrit (volume fraction) 36 % 35-52 Automated erythrocyte mean corpuscular volume 88 [ foz_us] 80-99 Automated erythrocyte mean corpuscular h emoglobin (mass per erythrocyte) 29 pg 25-34 Automated erythrocyte mean corpuscular h emoglobin concentration measurement (mass/volume) 33 g/dL 32-36 Automated erythrocyte distribution width ratio 12. 6 % 10.0- 14.5 Automated blood platelet count (count/volume) 304 10*3/uL 130-400 Automated blood platelet mean volume measurement 9.1 [foz_us] 7.4-10.4 Automated blood neutrophils/100 leukocytes 55 % 42-75 Automated blood lymphocytes/100 leukocytes 35 % 12-44 Blood monocytes/100 leukocytes 6 % 0-12 Automated blood eosinophils/100 leukocytes 4 % 0-10 Automated blood basophils/100 leukocytes 1 % 0-10 Blood neutrophils automated count (number/volume) 4.7 10*3 1.8-7.8 Blood lymphocytes automated count (number/volume) 3.0 10*3 1.0-4.0 Blood monocytes automated count (number/volume) 0. 5 10*3 0.0-1.0 Automated eosinophil count 0.3 10*3/uL 0 .0-0.3 Automated blood basophil count (count/volume) 0.0 10*3/uL 0.0-0.1 Comprehensive metabolic panel - 08/15/18 23:25 Serum or plasma sodium measurement (moles/volume) 134 mmol/L 135-145 Serum or plasma potassium measurement (moles/volume) 3.9 mmol/L 3.6-5.0 Serum or plasma chloride measurement (moles/volume) 92 mmol/L 98-107 Carbon dioxide 25 mmol/L 21-32 Serum or plasma anion gap determination (moles/volume) 17 mmol/L 5-14 Serum or plasma urea nitrogen measurement (mass/volume ) 12 mg/dL 7-18 Serum or plasma creatinine measurement (mass/volume) 0.86 mg/dL 0.60-1.30 Serum or plasma urea nitrogen/creatinine mass ratio 14 NRG Serum or plasma creatinine measurement w ith calculation of estimated glomerular filtration rate > NRG Serum or plasma glucose measurement (mass/volume) 411 mg/dL 70-105 Serum or plasma calcium measurement (mass/volume) 10.4 mg/dL 8.5-10.1 Serum or plasma total bilirubin measurement (mass/volu me) 0.2 mg/dL 0.1-1.0 Serum or plasma alkaline phosphatase liliana surement (enzymatic activity/volume) 54 U/L 40-136 Serum or plasma aspartate aminotransfera se measurement (enzymatic activity/volume) 20 U/L 5-34 Serum or plasma alanine aminotransferase measurement (enzymatic activity/volume) 29 U/L 0-55 Serum or plasma protein measurement (mass/volume) 7.1 g/dL 6.4-8.2 Serum or plasma albumin measurement (mass/volume) 4.4 g/dL 3.2-4.5 CALCIUM CORRECTED 10.1 mg/dL 8.5-10.1 Serum or plasma phosphate measurement (m ass/volume) - 08/15/18 23:25 Serum or plasma phosphate measurement (mass/volume) 4.6 mg/dL 2.3-4.7 Magnesium - 08/15/18 23:25 Magnesium 1.4 mg/dL 1.8-2.4 Serum or plasma troponin i.cardiac measu rement (mass/volume) - 08/15/18 23:25 Serum or plasma troponin i.cardiac measurement (mass/v olume) < ng/mL <0.30 Beta-hydroxybutyric acid measurement - 0 08/15/18 23:25 Beta-hydroxybutyric acid measurement 0.09 mmol/L 0.00-0.27 Capillary blood glucose measurement by g lucometer (mass/volume) - 08/15/18 23:28 Capillary blood glucose measurement by glucometer (mas s/volume) 406 mg/dL 70-110 Capillary blood glucose measurement by g lucometer (mass/volume) - 08/16/18 01:09 Capillary blood glucose measurement by glucometer (mas s/volume) 297 mg/dL 70-110 PDM - 09 PANEL (PROFILE 1) - 08/28/18 13 :22 Prescribed Drug 1 Codeine NRG Creatinine 48.3 mg/dL > or = 20.0 pH 5.02 4.5 - 9.0 Oxidant NEGATIVE [...] aOH alprazolam CONSISTENT NRG Alphahydroxymidazolam NEGATIVE ng/mL < 50 medMATCH aOH midazolam CONSISTENT NRG Alphahydroxytriazolam NEGATIVE ng/mL < 50 medMATCH aOH triazolam CONSISTENT NRG Aminoclonazepam NEGATIVE ng/mL <25 medMATCH Aminoclonazepam CONSISTENT NRG Hydroxyethylflurazepam NEGATIVE ng/mL <50 medMATCH OH,Et flurazepam CONSISTENT NR G Lorazepam NEGATIVE ng/mL <50 medMATCH Lorazepam CONSISTENT [...] Phencyclidine CONSISTENT NRG MICROALBUMIN/CREATININE RATIO, URINE - 0 08/30/18 09:20 CREATININE, RANDOM URINE 96 mg/dL 20-27 5 MICROALBUMIN 0.6 mg/dL See Note: MICROALBUMIN/CREATININE RATIO, RANDOM URINE 6 mcg/ mg creat <30 CMP - 08/30/18 09:20 GLUCOSE 145 mg/dL 65-99 UREA NITROGEN (BUN) 13 mg/dL 7-25 CREATININE 0.88 mg/dL 0.50-1.05 eGFR NON-AFR. SWISS 77 mL/min/1.73m2 > OR = 60 eGFR 89 mL/min/1.73m2 > OR = 60 BUN/CREATININE RATIO NOT APPLICABLE (calc) 6-22 SODIUM 140 mmol/L 135-146 POTASSIUM 4.4 mmol/L 3.5-5.3 CHLORIDE 105 mmol/L 98-110 CARBON DIOXIDE 26 mmol/L 20-32 CALCIUM 10.1 mg/dL 8.6-10.4 PROTEIN, TOTAL 7.0 g/dL 6.1-8.1 ALBUMIN 4.5 g/dL 3.6-5.1 GLOBULIN 2.5 g/dL (calc) 1.9-3.7 ALBUMIN/GLOBULIN RATIO 1.8 (calc) 1.0-2. 5 BILIRUBIN, TOTAL 0.4 mg/dL 0.2-1.2 ALKALINE PHOSPHATASE 51 U/L 33-130 AST 20 U/L 10-35 ALT 19 U/L 6-29 TSH - 08/30/18 09:20 TSH 0.74 mIU/L NRG A1C - 08/30/18 09:20 HEMOGLOBIN A1c 7.6 % of total Hgb <5.7 Capillary blood glucose measurement by g lucometer (mass/volume) - 09/07/18 07:30 Capillary blood glucose measurement by glucometer (mas s/volume) 160 mg/dL 70-110 Methicillin resistant Staphylococcus aur eus (MRSA) screening culture - 09/07/18 07:55 Methicillin resistant Staphylococcus aureus (MRSA) scr eening culture NEG NRG Complete blood count (CBC) with automate d white blood cell (WBC) differential - 09/24/18 15:20 Blood leukocytes automated count (number/volume) 9.2 10*3/uL 4.3-11.0 Blood erythrocytes automated count (number/volume) 4.19 10*6/uL 4.35-5.85 Venous blood hemoglobin measurement (mass/volume) 12.1 g/dL 11.5-16.0 Blood hematocrit (volume fraction) 37 % 35-52 Automated erythrocyte mean corpuscular volume 87 [ foz_us] 80-99 Automated erythrocyte mean corpuscular h emoglobin (mass per erythrocyte) 29 pg 25-34 Automated erythrocyte mean corpuscular h emoglobin concentration measurement (mass/volume) 33 g/dL 32-36 Automated erythrocyte distribution width ratio 13. 7 % 10.0- 14.5 Automated blood platelet count (count/volume) 379 10*3/uL 130-400 Automated blood platelet mean volume measurement 8.1 [foz_us] 7.4-10.4 Automated blood neutrophils/100 leukocytes 47 % 42-75 Automated blood lymphocytes/100 leukocytes 30 % 12-44 Blood monocytes/100 leukocytes 5 % 0-12 Automated blood eosinophils/100 leukocytes 18 % 0-10 Automated blood basophils/100 leukocytes 1 % 0-10 Blood neutrophils automated count (number/volume) 4.3 10*3 1.8-7.8 Blood lymphocytes automated count (number/volume) 2.7 10*3 1.0-4.0 Blood monocytes automated count (number/volume) 0. 5 10*3 0.0-1.0 Automated eosinophil count 1.6 10*3/uL 0 .0-0.3 Automated blood basophil count (count/volume) 0.1 10*3/uL 0.0-0.1 Comprehensive metabolic panel - 09/24/18 15:20 Serum or plasma sodium measurement (moles/volume) 136 mmol/L 135-145 Serum or plasma potassium measurement (moles/volume) 3.5 mmol/L 3.6-5.0 Serum or plasma chloride measurement (moles/volume) 96 mmol/L 98-107 Carbon dioxide 21 mmol/L 21-32 Serum or plasma anion gap determination (moles/volume) 19 mmol/L 5-14 Serum or plasma urea nitrogen measurement (mass/volume ) 13 mg/dL 7-18 Serum or plasma creatinine measurement (mass/volume) 0.84 mg/dL 0.60-1.30 Serum or plasma urea nitrogen/creatinine mass ratio 15 NRG Serum or plasma creatinine measurement w ith calculation of estimated glomerular filtration rate > NRG Serum or plasma glucose measurement (mass/volume) 192 mg/dL 70-105 Serum or plasma calcium measurement (mass/volume) 9.8 mg/dL 8.5-10.1 Serum or plasma total bilirubin measurement (mass/volu me) 0.2 mg/dL 0.1-1.0 Serum or plasma alkaline phosphatase liliana surement (enzymatic activity/volume) 51 U/L 40-136 Serum or plasma aspartate aminotransfera se measurement (enzymatic activity/volume) 19 U/L 5-34 Serum or plasma alanine aminotransferase measurement (enzymatic activity/volume) 17 U/L 0-55 Serum or plasma protein measurement (mass/volume) 7.3 g/dL 6.4-8.2 Serum or plasma albumin measurement (mass/volume) 4.5 g/dL 3.2-4.5 CALCIUM CORRECTED 9.4 mg/dL 8.5-10.1 Manual absolute plasma cell count - 09/14 03/04 15:20 Blood monocytes/100 leukocytes 4 % NRG Manual blood segmented neutrophils/100 leukocytes 50 % NRG Blood band neutrophils/100 leukocytes 3 % NRG Manual blood lymphocytes/100 leukocytes 29 % NRG Manual eosinophils/100 leukocytes in nose 12 % NRG Manual blood basophils/100 leukocytes 2 % NRG Complete blood count (CBC) with automate d white blood cell (WBC) differential - 10/03/18 03:32 Blood leukocytes automated count (number/volume) 7.9 10*3/uL 4.3-11.0 Blood erythrocytes automated count (number/volume) 3.80 10*6/uL 4.35-5.85 Venous blood hemoglobin measurement (mass/volume) 11.0 g/dL 11.5-16.0 Blood hematocrit (volume fraction) 34 % 35-52 Automated erythrocyte mean corpuscular volume 89 [ foz_us] 80-99 Automated erythrocyte mean corpuscular h emoglobin (mass per erythrocyte) 29 pg 25-34 Automated erythrocyte mean corpuscular h emoglobin concentration measurement (mass/volume) 33 g/dL 32-36 Automated erythrocyte distribution width ratio 13. 8 % 10.0- 14.5 Automated blood platelet count (count/volume) 242 10*3/uL 130-400 Automated blood platelet mean volume measurement 9.0 [foz_us] 7.4-10.4 Automated blood neutrophils/100 leukocytes 70 % 42-75 Automated blood lymphocytes/100 leukocytes 11 % 12-44 Blood monocytes/100 leukocytes 4 % 0-12 Automated blood eosinophils/100 leukocytes 15 % 0-10 Automated blood basophils/100 leukocytes 0 % 0-10 Blood neutrophils automated count (number/volume) 5.5 10*3 1.8-7.8 Blood lymphocytes automated count (number/volume) 0.9 10*3 1.0-4.0 Blood monocytes automated count (number/volume) 0. 2 10*3 0.0-1.0 Automated eosinophil count 1.2 10*3/uL 0 .0-0.3 Automated blood basophil count (count/volume) 0.0 10*3/uL 0.0-0.1 Blood lactic acid measurement (moles/vol ume) - 10/03/18 03:32 Blood lactic acid measurement (moles/volume) 1.78 mmol/L 0.50-2.00 Comprehensive metabolic panel - 10/03/18 03:32 Serum or plasma sodium measurement (moles/volume) 133 mmol/L 135-145 Serum or plasma potassium measurement (moles/volume) 3.7 mmol/L 3.6-5.0 Serum or plasma chloride measurement (moles/volume) 97 mmol/L 98-107 Carbon dioxide 20 mmol/L 21-32 Serum or plasma anion gap determination (moles/volume) 16 mmol/L 5-14 Serum or plasma urea nitrogen measurement (mass/volume ) 12 mg/dL 7-18 Serum or plasma creatinine measurement (mass/volume) 0.82 mg/dL 0.60-1.30 Serum or plasma urea nitrogen/creatinine mass ratio 15 NRG Serum or plasma creatinine measurement w ith calculation of estimated glomerular filtration rate > NRG Serum or plasma glucose measurement (mass/volume) 133 mg/dL 70-105 Serum or plasma calcium measurement (mass/volume) 8.8 mg/dL 8.5-10.1 Serum or plasma total bilirubin measurement (mass/volu me) 0.4 mg/dL 0.1-1.0 Serum or plasma alkaline phosphatase liliana surement (enzymatic activity/volume) 45 U/L 40-136 Serum or plasma aspartate aminotransfera se measurement (enzymatic activity/volume) 19 U/L 5-34 Serum or plasma alanine aminotransferase measurement (enzymatic activity/volume) 14 U/L 0-55 Serum or plasma protein measurement (mass/volume) 6.6 g/dL 6.4-8.2 Serum or plasma albumin measurement (mass/volume) 4.0 g/dL 3.2-4.5 CALCIUM CORRECTED 8.8 mg/dL 8.5-10.1 Manual absolute plasma cell count - 09/15 03:32 Blood monocytes/100 leukocytes 2 % NRG Manual blood segmented neutrophils/100 leukocytes 66 % NRG Blood band neutrophils/100 leukocytes 4 % NRG Manual blood lymphocytes/100 leukocytes 11 % NRG Manual eosinophils/100 leukocytes in nose 17 % NRG Manual blood basophils/100 leukocytes 0 % NRG Blood erythrocyte morphology finding identification NORMAL NRG Bacterial blood culture - 10/03/18 03:32 Bacterial blood culture NG NRG Complete urinalysis with reflex to cultu re - 10/03/18 03:55 Urine color determination YELLOW NRG Urine clarity determination CLEAR NR G Urine pH measurement by test strip 6.0 5-9 Specific gravity of urine by test strip 1.010 1.016-1.022 Urine protein assay by test strip, semi-quantitative NEGATIVE NEGATIVE Urine glucose detection by automated test strip 3+ NEGATIVE Erythrocytes detection in urine sediment by light micr oscopy NEGATIVE NEGATIVE Urine ketones detection by automated test strip NE GATIVE NEGATIVE Urine nitrite detection by test strip NEGATIVE NEGATIVE Urine total bilirubin detection by test strip NEGA TIVE NEGATIVE Urine urobilinogen measurement by automated test strip (mass/volume) 0.2 mg/dL NORMAL Urine leukocyte esterase detection by dipstick NEG ATIVE NEGATIVE Automated urine sediment erythrocyte cou nt by microscopy (number/high power field) NONE NRG Automated urine sediment leukocyte count by microscopy (number/high power field) NONE NRG Bacteria detection in urine sediment by light microsco py FEW NRG Squamous epithelial cells detection in u rine sediment by light microscopy 5-10 NRG Crystals detection in urine sediment by light microsco py NONE NRG Casts detection in urine sediment by light microscopy NONE NRG Mucus detection in urine sediment by light microscopy NEGATIVE NRG Complete urinalysis with reflex to culture NO NRG Bacterial blood culture - 10/03/18 04:04 Bacterial blood culture NG NRG Complete blood count (CBC) with automate d white blood cell (WBC) differential - 12/02/18 07:30 Blood leukocytes automated count (number/volume) 11.1 10*3/uL 4.3-11.0 Blood erythrocytes automated count (number/volume) 4.57 10*6/uL 4.35-5.85 Venous blood hemoglobin measurement (mass/volume) 13.2 g/dL 11.5-16.0 Blood hematocrit (volume fraction) 39 % 35-52 Automated erythrocyte mean corpuscular volume 86 [ foz_us] 80-99 Automated erythrocyte mean corpuscular h emoglobin (mass per erythrocyte) 29 pg 25-34 Automated erythrocyte mean corpuscular h emoglobin concentration measurement (mass/volume) 34 g/dL 32-36 Automated erythrocyte distribution width ratio 12. 8 % 10.0- 14.5 Automated blood platelet count (count/volume) 365 10*3/uL 130-400 Automated blood platelet mean volume measurement 8.7 [foz_us] 7.4-10.4 Automated blood neutrophils/100 leukocytes 68 % 42-75 Automated blood lymphocytes/100 leukocytes 21 % 12-44 Blood monocytes/100 leukocytes 4 % 0-12 Automated blood eosinophils/100 leukocytes 6 % 0-10 Automated blood basophils/100 leukocytes 1 % 0-10 Blood neutrophils automated count (number/volume) 7.5 10*3 1.8-7.8 Blood lymphocytes automated count (number/volume) 2.3 10*3 1.0-4.0 Blood monocytes automated count (number/volume) 0. 4 10*3 0.0-1.0 Automated eosinophil count 0.7 10*3/uL 0 .0-0.3 Automated blood basophil count (count/volume) 0.1 10*3/uL 0.0-0.1 Comprehensive metabolic panel - 12/02/18 07:30 Serum or plasma sodium measurement (moles/volume) 134 mmol/L 135-145 Serum or plasma potassium measurement (moles/volume) 3.7 mmol/L 3.6-5.0 Serum or plasma chloride measurement (moles/volume) 96 mmol/L 98-107 Carbon dioxide 24 mmol/L 21-32 Serum or plasma anion gap determination (moles/volume) 14 mmol/L 5-14 Serum or plasma urea nitrogen measurement (mass/volume ) 9 mg/dL 7-18 Serum or plasma creatinine measurement (mass/volume) 0.80 mg/dL 0.60-1.30 Serum or plasma urea nitrogen/creatinine mass ratio 11 NRG Serum or plasma creatinine measurement w ith calculation of estimated glomerular filtration rate > NRG Serum or plasma glucose measurement (mass/volume) 137 mg/dL 70-105 Serum or plasma calcium measurement (mass/volume) 9.6 mg/dL 8.5-10.1 Serum or plasma total bilirubin measurement (mass/volu me) 0.2 mg/dL 0.1-1.0 Serum or plasma alkaline phosphatase liliana surement (enzymatic activity/volume) 48 U/L 40-136 Serum or plasma aspartate aminotransfera se measurement (enzymatic activity/volume) 21 U/L 5-34 Serum or plasma alanine aminotransferase measurement (enzymatic activity/volume) 21 U/L 0-55 Serum or plasma protein measurement (mass/volume) 7.4 g/dL 6.4-8.2 Serum or plasma albumin measurement (mass/volume) 4.6 g/dL 3.2-4.5 Lipase - 12/02/18 07:30 Lipase 51 U/L 8-78 Complete urinalysis with reflex to cultu re - 12/02/18 07:40 Urine color determination YELLOW NRG Urine clarity determination CLEAR NR G Urine pH measurement by test strip 6.5 5-9 Specific gravity of urine by test strip 1.020 1.016-1.022 Urine protein assay by test strip, semi-quantitative NEGATIVE NEGATIVE Urine glucose detection by automated test strip NE GATIVE NEGATIVE Erythrocytes detection in urine sediment by light micr oscopy NEGATIVE NEGATIVE Urine ketones detection by automated test strip NE GATIVE NEGATIVE Urine nitrite detection by test strip NEGATIVE NEGATIVE Urine total bilirubin detection by test strip NEGA TIVE NEGATIVE Urine urobilinogen measurement by automated test strip (mass/volume) 0.2 mg/dL NORMAL Urine leukocyte esterase detection by dipstick NEG ATIVE NEGATIVE Automated urine sediment erythrocyte cou nt by microscopy (number/high power field) NONE NRG Automated urine sediment leukocyte count by microscopy (number/high power field) NONE NRG Bacteria detection in urine sediment by light microsco py NONE NRG Squamous epithelial cells detection in u rine sediment by light microscopy 5-10 NRG Crystals detection in urine sediment by light microsco py NONE NRG Casts detection in urine sediment by light microscopy NONE NRG Mucus detection in urine sediment by light microscopy NEGATIVE NRG Complete urinalysis with reflex to culture NO NRG Fibrin D-dimer FEU measurement in platel et poor plasma (mass/volume) - 12/02/18 07:50 Fibrin D-dimer FEU measurement in platelet poor plasma (mass/volume) 0.53 ug/mL 0.00-0.49 Complete blood count (CBC) with automate d white blood cell (WBC) differential - 12/02/18 22:10 Blood leukocytes automated count (number/volume) 15.2 10*3/uL 4.3-11.0 Blood erythrocytes automated count (number/volume) 4.86 10*6/uL 4.35-5.85 Venous blood hemoglobin measurement (mass/volume) 13.7 g/dL 11.5-16.0 Blood hematocrit (volume fraction) 41 % 35-52 Automated erythrocyte mean corpuscular volume 84 [ foz_us] 80-99 Automated erythrocyte mean corpuscular h emoglobin (mass per erythrocyte) 28 pg 25-34 Automated erythrocyte mean corpuscular h emoglobin concentration measurement (mass/volume) 34 g/dL 32-36 Automated erythrocyte distribution width ratio 13. 4 % 10.0- 14.5 Automated blood platelet count (count/volume) 356 10*3/uL 130-400 Automated blood platelet mean volume measurement 8.3 [foz_us] 7.4-10.4 Automated blood neutrophils/100 leukocytes 77 % 42-75 Automated blood lymphocytes/100 leukocytes 15 % 12-44 Blood monocytes/100 leukocytes 5 % 0-12 Automated blood eosinophils/100 leukocytes 3 % 0-10 Automated blood basophils/100 leukocytes 0 % 0-10 Blood neutrophils automated count (number/volume) 11.8 10*3 1.8-7.8 Blood lymphocytes automated count (number/volume) 2.2 10*3 1.0-4.0 Blood monocytes automated count (number/volume) 0. 8 10*3 0.0-1.0 Automated eosinophil count 0.5 10*3/uL 0 .0-0.3 Automated blood basophil count (count/volume) 0.0 10*3/uL 0.0-0.1 PT panel in platelet poor plasma by coag ulation assay - 12/02/18 22:10 Prothrombin time (PT) in platelet poor plasma by coagu lation assay 12.4 s 12.2-14.7 INR in platelet poor plasma or blood by coagulation as say 0.9 0.8-1.4 Activated partial thromboplastin time (a PTT) in platelet poor plasma bycoagulation assay - 12/02/18 22:10 Activated partial thromboplastin time (a PTT) in platelet poor plasma bycoagulation assay 30 s 24-35 Serum heterophile antibody titer - 12/02 22:10 Serum heterophile antibody titer NEGATIVE NEGATIVE Manual absolute plasma cell count - 11/14 11/02 22:10 Blood monocytes/100 leukocytes 4 % NRG Manual blood segmented neutrophils/100 leukocytes 72 % NRG Blood band neutrophils/100 leukocytes 3 % NRG Manual blood lymphocytes/100 leukocytes 18 % NRG Manual eosinophils/100 leukocytes in nose 3 % NRG Blood erythrocyte morphology finding identification NORMAL NRG Comprehensive metabolic panel - 12/02/18 22:10 Serum or plasma sodium measurement (moles/volume) 134 mmol/L 135-145 Serum or plasma potassium measurement (moles/volume) 3.7 mmol/L 3.6-5.0 Serum or plasma chloride measurement (moles/volume) 99 mmol/L 98-107 Carbon dioxide 20 mmol/L 21-32 Serum or plasma anion gap determination (moles/volume) 15 mmol/L 5-14 Serum or plasma urea nitrogen measurement (mass/volume ) 7 mg/dL 7-18 Serum or plasma creatinine measurement (mass/volume) 0.85 mg/dL 0.60-1.30 Serum or plasma urea nitrogen/creatinine mass ratio 8 NRG Serum or plasma creatinine measurement w ith calculation of estimated glomerular filtration rate > NRG Serum or plasma glucose measurement (mass/volume) 122 mg/dL 70-105 Serum or plasma calcium measurement (mass/volume) 10.2 mg/dL 8.5-10.1 Serum or plasma total bilirubin measurement (mass/volu me) 0.4 mg/dL 0.1-1.0 Serum or plasma alkaline phosphatase liliana surement (enzymatic activity/volume) 58 U/L 40-136 Serum or plasma aspartate aminotransfera se measurement (enzymatic activity/volume) 19 U/L 5-34 Serum or plasma alanine aminotransferase measurement (enzymatic activity/volume) 23 U/L 0-55 Serum or plasma protein measurement (mass/volume) 7.8 g/dL 6.4-8.2 Serum or plasma albumin measurement (mass/volume) 4.6 g/dL 3.2-4.5 Magnesium - 12/02/18 22:10 Magnesium 1.4 mg/dL 1.6-2.4 Serum or plasma amylase measurement (enz ymatic activity/volume) - 12/02/18 22:10 Serum or plasma amylase measurement (enzymatic activit y/volume) 74 U/L 25-125 Lipase - 12/02/18 22:10 Lipase 23 U/L 8-78 Serum or plasma acetaminophen measuremen t (mass/volume) - 12/02/18 22:10 Serum or plasma acetaminophen measurement (mass/volume ) < ug/mL 10-30 Serum or plasma ethanol measurement (mas s/volume) - 12/02/18 22:10 Serum or plasma ethanol measurement (mass/volume) < mg/dL <10 Complete urinalysis with reflex to cultu re - 12/02/18 22:55 Urine color determination LAZARA NRG Urine clarity determination CLEAR NR G Urine pH measurement by test strip 6.5 5-9 Specific gravity of urine by test strip 1.010 1.016-1.022 Urine protein assay by test strip, semi-quantitative 2+ NEGATIVE Urine glucose detection by automated test strip NE GATIVE NEGATIVE Erythrocytes detection in urine sediment by light micr oscopy NEGATIVE NEGATIVE Urine ketones detection by automated test strip 1+ NEGATIVE Urine nitrite detection by test strip NEGATIVE NEGATIVE Urine total bilirubin detection by test strip NEGA TIVE NEGATIVE Urine urobilinogen measurement by automated test strip (mass/volume) NORMAL NORMAL Urine leukocyte esterase detection by dipstick 1+ NEGATIVE Automated urine sediment erythrocyte cou nt by microscopy (number/high power field) NONE NRG Automated urine sediment leukocyte count by microscopy (number/high power field) RARE NRG Bacteria detection in urine sediment by light microsco py TRACE NRG Squamous epithelial cells detection in u rine sediment by light microscopy 10-25 NRG Crystals detection in urine sediment by light microsco py NONE NRG Casts detection in urine sediment by light microscopy NONE NRG Mucus detection in urine sediment by light microscopy MODERATE NRG Complete urinalysis with reflex to culture NO NRG Urine drug screening test - 12/02/18 22: 55 Urine phencyclidine detection by screening method NEGATIVE NEGATIVE Urine benzodiazepines detection by screening method NEGATIVE NEGATIVE Urine cocaine detection NEGATIVE NEGATI VE Urine amphetamines detection by screening method N EGATIVE NEGATIVE Urine methamphetamine detection by screening method NEGATIVE NEGATIVE Urine cannabinoids detection by screening method N EGATIVE NEGATIVE Urine opiates detection by screening method POSITI VE NEGATIVE Urine barbiturates detection NEGATIVE N EGATIVE Screening urine tricyclic antidepressants detection NEGATIVE NEGATIVE Urine methadone detection by screening method NEGA TIVE NEGATIVE Urine oxycodone detection NEGATIVE NEGA TIVE Urine propoxyphene detection NEGATIVE N EGATIVE A1C - 12/05/18 09:30 HEMOGLOBIN A1c 6.4 % of total Hgb <5.7 CULTURE, URINE - 12/06/18 05:12 CULTURE, URINE, ROUTINE SEE NOTE NRG Encounters ACCT No. Visit Date/Time Discharge Status Pt. Type Provider Facility Loc./Unit Complaint [id number] 01/25/2019 14:20:00 01/25/2019 23:59: [id number] 12/05/2018 10:40:00 Document Registration [id number] 12/05/2018 09:30:00 Document Registration [id number] 08/30/2018 09:30:00 Document Registration [id number] 08/28/2018 13:30:00 Document Registration [id number] 05/11/2018 11:45:00 Document Registration [id number] 05/11/2018 11:40:00 Document Registration [id number] 05/11/2018 11:40:00 Document Registration [id number] 12/29/2017 15:00:00 Document Registration [id number] 01/13/2019 00:26:00 00:56:00 DIS Emergency JAREK ADAME DO Via [facility] ER FS LOW BACK PAIN [id number] 12/02/2018 22:51:00 00:50:00 DIS Emergency SANDRA BRADLEY DO [facility] ER N,V,ABD PAIN [id number] 12/02/2018 06:56:00 09:50:00 DIS Emergency ELAINA COREY DO [facility] ER FS N,V,ABD PAIN [id number] 10/30/2018 20:46:00 22:28:00 DIS Emergency FAROOQ LANGE MD [facility] ER FS UPPER BACK PAIN, RT ARM PAIN [id number] 10/03/2018 03:38:00 06:29:00 DIS Emergency FAROOQ LANGE MD [facility] ER FS COMPLICATIONS WITH SURG ICAL INCISION [id number] 09/24/2018 14:02:00 17:47:00 DIS Emergency ASHUTOSH ALBRIGHT MD [facility] ER FS PT IS 2 WKS POST OP - I NCISION PAIN ON UPPER ABD [id number] 09/07/2018 07:08:00 019 12:40:00 DIS Outpatient RAMIREZ WALTERS DO [facility] INCISIONAL/VENTRAL ANGELITA [place] [id number] 09/05/2018 07:15:00 10:29:00 DIS Outpatient RAMIREZ WALTERS DO Via [facility] PREOP INCISIONAL/VENTRAL ANGELITA IA [id number] 08/15/2018 23:23:00 01:15:00 DIS Emergency DARIUS DEL CASTILLO DO Via [facility] ER FS DIABETIC ISSUES [id number] 08/31/2018 15:09:00 Document Registration
== END 2019-01-13 00:56 | disposition home or self-care (01) ==
LOC: EDUNIT# 00:23 → ER FS 00:26
DX: M54.16 Radiculopathy, lumbar region (principal); M51.36 Other intervertebral disc degeneration, lumbar region; M54.5 Low back pain; G89.29 Other chronic pain; E78.00 Pure hypercholesterolemia, unspecified; K21.9 Gastro-esophageal reflux disease without esophagitis; K58.9 Irritable bowel syndrome, unspecified; E03.9 Hypothyroidism, unspecified; E11.9 Type 2 diabetes mellitus without complications; F41.9 Anxiety disorder, unspecified; F31.9 Bipolar disorder, unspecified; Z88.2 Allergy status to sulfonamides; Z88.5 Allergy status to narcotic agent; Z88.8 Allergy status to other drugs, medicaments and biological substances; Z79.51 Long term (current) use of inhaled steroids; Z79.84 Long term (current) use of oral hypoglycemic drugs; Z90.710 Acquired absence of both cervix and uterus; Z98.51 Tubal ligation status; Z85.41 Personal history of malignant neoplasm of cervix uteri
CPT/HCPCS: 72100

== ENCOUNTER 2019-02-18 19:51 | Emergency (ER) | payer MEDICAID ==
[~2019-02-18] VITALS: Ht 160 cm; Wt 67.1 kg
[2019-02-18] MEDS ORDERED: NS IV 1000 ML 1,000 ML IV SCH (20:15)
[2019-02-18 20:16] LABS: BASOPHILS % (AUTO) 1 % (0-10); EOSINOPHILS % (AUTO) 12 % (0-10); HEMATOCRIT 37 % (35-52); HEMOGLOBIN 12.3 G/DL (11.5-16.0); LYMPHOCYTES # (AUTO) 3.6 X 10^3 (1.0-4.0); LYMPHOCYTES % (AUTO) 41 % (12-44); MEAN CORPUSCULAR HEMOGLOBIN 29 PG (25-34); MEAN CORPUSCULAR HGB CONC 33 G/DL (32-36); MEAN CORPUSCULAR VOLUME 87 FL (80-99); MEAN PLATELET VOLUME 8.8 FL (7.4-10.4); MONOCYTES % (AUTO) 5 % (0-12); NEUTROPHILS # (AUTO) 0.3 X 10^3 (1.8-7.8); NEUTROPHILS % (AUTO) 41 % (42-75); PLATELET COUNT 326 10^3/uL (130-400); RED CELL DISTRIBUTION WIDTH 13.4 % (10.0-14.5); WHITE BLOOD COUNT 8.7 10^3/uL (4.3-11.0)
[2019-02-18 20:17] LABS: EOSINOPHILS # (AUTO) 0.4 10^3/uL (0.0-0.3); MONOCYTES # (AUTO) 3.6 X 10^3 (0.0-1.0); SMEAR SCAN COMMENT 0.09
--- NOTE | 2019-02-18 20:19 | ED General ---
General Chief Complaint: General Problems/Pain Stated Complaint: HYPOGLYCEMIA History of Present Illness Date Seen by Provider: Feb 18, 2019 Time Seen by Provider: 20:00 Initial Comments Patient is a lethargic complaining of low blood sugar blood sugar in the 50s by EMS they administered oral glucose and did come up still lethargic no other complaints that her stomach has had some intermittent discomfort and has had some diarrhea. But short of that no nausea vomiting no fever no chills no chest pain no productive cough Timing/Duration: 2-3 Days Severity: Mild Associated Systoms: No Chest Pain, No Cough, No Diaphoresis, No Fever/Chills; Loss of Appetite, Malaise; No Nausea/Vomiting, No Rash; Weakness Allergies and Home Medications Allergies Coded Allergies: Sulfa (Sulfonamide Antibiotics) (Verified Allergy, Unknown, abd pain, 09/05/18) adhesive tape (Verified Allergy, Unknown, Hives, 09/05/18) bupropion (Verified Allergy, Unknown, sucidial, 09/05/18) carisoprodol (Verified Allergy, Unknown, heart palpatations, 09/05/18) quetiapine (Verified Allergy, Unknown, suicidal, 09/05/18) Home Medications Citalopram Hydrobromide 20 Mg Tablet, 20 MG PO DAILY, (Reported) Cyclobenzaprine HCl 10 Mg Tablet, 10 MG PO TID PRN for MUSCLE SPASMS, (Reported) Dapagliflozin Propanediol 5 Mg Tablet, 5 MG PO DAILY, (Reported) Fenofibrate Nanocrystallized 145 Mg Tablet, 145 MG PO DAILY, (Reported) Fluticasone Propionate 9.9 Ml [place].susp, 2 SPRAY NS DAILY PRN for nasal congestion, (Reported) Gabapentin 300 Mg Capsule, 300 MG PO TID, (Reported) Hydrocodone Bit/Acetaminophen 1 Tab Tab, 1 TAB PO Q6H PRN for PAIN-MODERATE Prescribed by: RAMIREZ WALTERS on 09/07/18 0951 Hyoscyamine Sulfate 0.125 Mg Tab.subl, 1-2 TAB SL Q4H Prescribed by: SANDRA BRADLEY on 12/03/18 0008 Levofloxacin 500 Mg Tablet, 500 MG PO DAILY Prescribed by: FAROOQ LANGE on 10/03/18 0537 Levothyroxine Sodium 112 Mcg Tablet, 112 MCG PO DAILY, (Reported) Loperamide HCl 2 Mg Capsule, 2 MG PO UD PRN for DIARRHEA, (Reported) Metformin HCl 1,000 Mg Tablet, 1,000 MG PO BID, (Reported) Ondansetron 4 Mg Tab.rapdis, 4 MG PO q6 Prescribed by: ELAINA COREY on 12/02/18932 Pantoprazole Sodium 40 Mg Tablet.dr, 40 MG PO DAILY, (Reported) Ranitidine HCl 150 Mg Tablet, 150 MG PO DAILY, (Reported) Tramadol HCl 50 Mg Tablet, 50 MG PO Q4H Prescribed by: ELAINA COREY on 12/02/18932 Patient Home Medication List Home Medication List Reviewed: Yes Review of Systems Review of Systems Constitutional: No chills, No dizziness, No fever; malaise, weakness EENTM: No hearing loss, No ear pain, No eye pain, No throat pain, No throat swelling Respiratory: No cough, No dyspnea on exertion Cardiovascular: No chest pain, No palpitations Gastrointestinal: abdominal pain, diarrhea; No jaundice, No loss of appetite Genitourinary: No dysuria, No frequency Musculoskeletal: No joint pain, No muscle pain Skin: No change in color, No rash Past Wwmrxxf-Eqitom-Cpopei Hx Past Med/Social Hx: Reviewed Nursing Past Med/Soc Hx Patient Social History Type Used: Cigarettes 2nd Hand Smoke Exposure: No Recent Foreign Travel: No Contact w/Someone Who Travel: No Recent Hopitalizations: No Seasonal Allergies Seasonal Allergies: Yes Past Medical History Surgeries: Yes Abdominal, Section, Hysterectomy, Oophorectomy, 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 Respiratory: No Cardiac: Yes High Cholesterol Neurological: No 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 Disorders: Yes 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 Disorders: Ovarian Cyst [employer] History: Hysterectomy, 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, Menopausal Genitourinary: Yes Bladder Infection Gastrointestinal: Yes Gastroesophageal Reflux, Chronic Diarrhea, Irritable Bowel Musculoskeletal: Yes Degenerate Disk Disease, Scoliosis, Chronic Back Pain Endocrine: Yes Hypothyroidsim, Diabetes, Non-Insulin dep HEENT: Yes (chronic sinusitis) Cancer: Yes Cervical Did You Recieve Any Treatments: Yes What Type of Treatment Did You: Surgical Intervention Psychosocial: Yes Anxiety, Bipolar, Depression Integumentary: No Blood Disorders: No Physical Exam Vital Signs Vital Signs - First Documented 02/18/19 20:14 Temp 36.0 Pulse 90 Resp 20 B/P (MAP) 141/71 (94) Pulse Ox 98 O2 Delivery Room Air Capillary Refill : Height, Weight, BMI Height: 5'4.00" Weight: 142lbs. 0oz. 64.553861dl; 24.00 BMI Method:Stated General Appearance: WD/WN, Mild Distress Eyes: Bilateral Eye PERRL, Bilateral Eye EOMI HEENT: TMs Normal, Normal ENT Inspection, Pharynx Normal Neck: Full Range of Motion, Normal Inspection Respiratory: Lungs Clear, Normal Breath Sounds Cardiovascular: Regular Rate, Rhythm, No Murmur Gastrointestinal: Normal Bowel Sounds, Non Tender Back: Normal Inspection Extremity: Normal Inspection, Non Tender Neurologic/Psychiatric: Alert, Oriented x3 Skin: Normal Color, Warm/Dry Progress/Results/Core Measures Suspected Sepsis SIRS Temperature: Pulse: Respiratory Rate: Laboratory Tests 02/18/19 20:09: White Blood Count 8.7 Blood Pressure / Mean: Laboratory Tests 02/18/19 20:09: Creatinine 0.90, Platelet Count 326, Total Bilirubin 0.2 Results/Orders Lab Results Laboratory Tests Test 02/18/19 20:03 02/18/19 20:09 02/18/19 21:13 Range/Units Glucometer 105 70-110 MG/DL White Blood Count 8.7 4.3-11.0 10^3/uL Red Blood Count 4.21 L 4.35-5.85 10^6/uL Hemoglobin 12.3 11.5-16.0 G/DL Hematocrit 37 35-52 % Mean Corpuscular Volume 87 80-99 FL Mean Corpuscular Hemoglobin 29 25-34 PG Mean Corpuscular Hemoglobin Concent 33 32-36 G/DL Red Cell Distribution Width 13.4 10.0-14.5 % Platelet Count 326 130-400 10^3/uL Mean Platelet Volume 8.8 7.4-10.4 FL Neutrophils (%) (Auto) 41 L 42-75 % Lymphocytes (%) (Auto) 41 12-44 % Monocytes (%) (Auto) 5 0-12 % Eosinophils (%) (Auto) 12 H 0-10 % Basophils (%) (Auto) 1 0-10 % Neutrophils # (Auto) 0.3 L 1.8-7.8 X 10^3 Lymphocytes # (Auto) 3.6 1.0-4.0 X 10^3 Monocytes # (Auto) 3.6 H 0.0-1.0 X 10^3 Eosinophils # (Auto) 0.4 H 0.0-0.3 10^3/uL Basophils # (Auto) 1.0 H 0.0-0.1 10^3/uL Neutrophils % (Manual) 43 % Lymphocytes % (Manual) 41 % Monocytes % (Manual) 3 % Eosinophils % (Manual) 13 % Microcytosis MODERATE Sodium Level 136 135-145 MMOL/L Potassium Level 5.0 3.6-5.0 MMOL/L Chloride Level 101 98-107 MMOL/L Carbon Dioxide Level 19 L 21-32 MMOL/L Anion Gap 16 H 5-14 MMOL/L Blood Urea Nitrogen 10 7-18 MG/DL Creatinine 0.90 0.60-1.30 MG/DL Estimat Glomerular Filtration Rate > 60 BUN/Creatinine Ratio 11 Glucose Level 107 H 70-105 MG/DL Calcium Level 9.7 8.5-10.1 MG/DL Corrected Calcium 9.4 8.5-10.1 MG/DL Total Bilirubin 0.2 0.1-1.0 MG/DL Aspartate Amino Transf (AST/SGOT) 37 H 5-34 U/L Alanine Aminotransferase (ALT/SGPT) 24 0-55 U/L Alkaline Phosphatase 39 L 40-136 U/L Total Protein 7.5 6.4-8.2 GM/DL Albumin 4.4 3.2-4.5 GM/DL Serum Alcohol < 10 <10 MG/DL Smear Scan 0.09 Urine Color YELLOW Urine Clarity CLEAR Urine pH 6.0 5-9 Urine Specific [place] <=1.005 1.016-1.022 Urine Protein NEGATIVE NEGATIVE Urine Glucose (UA) NEGATIVE NEGATIVE Urine Ketones NEGATIVE NEGATIVE Urine Nitrite NEGATIVE NEGATIVE Urine Bilirubin NEGATIVE NEGATIVE Urine Urobilinogen 0.2 < = 1.0 MG/DL Urine Leukocyte Esterase NEGATIVE NEGATIVE Urine RBC (Auto) NEGATIVE NEGATIVE Urine RBC NONE /HPF Urine WBC NONE /HPF Urine Squamous Epithelial Cells NONE /HPF Urine Crystals NONE /LPF Urine Bacteria NEGATIVE /HPF Urine Casts NONE /LPF Urine Mucus NEGATIVE /LPF Urine Culture Indicated NO Urine Opiates Screen NEGATIVE NEGATIVE Urine Oxycodone Screen NEGATIVE NEGATIVE Urine Methadone Screen NEGATIVE NEGATIVE Urine Propoxyphene Screen NEGATIVE NEGATIVE Urine Barbiturates Screen NEGATIVE NEGATIVE Ur Tricyclic Antidepressants Screen POSITIVE H NEGATIVE Urine Phencyclidine Screen NEGATIVE NEGATIVE Urine Amphetamines Screen NEGATIVE NEGATIVE Urine Methamphetamines Screen NEGATIVE NEGATIVE Urine Benzodiazepines Screen NEGATIVE NEGATIVE Urine Cocaine Screen NEGATIVE NEGATIVE Urine Cannabinoids Screen NEGATIVE NEGATIVE My Orders Orders - SUSAN SÁNCHEZ JR, MD Cbc And Manual Diff (02/18/19 20:06) Comprehensive Metabolic Panel (02/18/19 20:06) Ua Culture If Indicated (02/18/19 20:06) Ns Iv 1000 Ml (Sodium Chloride 0.9%) (02/18/19 20:15) Alcohol (02/18/19 20:09) Drug Screen Stat (Urine) (02/18/19 20:09) Vital Signs/I&O 02/18/19 20:14 Temp 36.0 Pulse 90 Resp 20 B/P (MAP) 141/71 (94) Pulse Ox 98 O2 Delivery Room Air Capillary Refill : Progress Note : Time: 21:34 Progress Note Is better with the 500 IV fluids feeling like she is ready to go home at this time lab work negative and abdominal pain not speak of. Departure Impression Primary Impression: Fatigue Qualified Codes: R53.82 - Chronic fatigue, unspecified Additional Impression: Abdominal pain Qualified Codes: R10.84 - Generalized abdominal pain Disposition: HOME, SELF-CARE Condition: Stable Departure-Patient Inst. Referrals: JESÚS WHITE APRN (PCP) Primary Care Physician [facility] (Family) Primary Care Physician SUSAN SÁNCHEZ JR, MD Feb 18, 2019 20:19
[2019-02-18 20:37] LABS: ALANINE AMINOTRANSFERASE 24 U/L (0-55); ALKALINE PHOSPHATASE 39 U/L (40-136); BILIRUBIN,TOTAL 0.2 MG/DL (0.1-1.0); BUN/CREATININE RATIO 11; CALCIUM 9.7 MG/DL (8.5-10.1); CARBON DIOXIDE 19 MMOL/L (21-32); CHLORIDE 101 MMOL/L (98-107); GFR ESTIMATED > 60; GLUCOSE 107 MG/DL (70-105); SODIUM 136 MMOL/L (135-145)
[2019-02-18 20:38] LABS: ALBUMIN 4.4 GM/DL (3.2-4.5); EOSINOPHILS % (MANUAL) 13 %; LYMPHOCYTES % (MANUAL) 41 %; MONOCYTES % (MANUAL) 3 %; NEUTROPHILS % (MANUAL) 43 %; TOTAL PROTEIN 7.5 GM/DL (6.4-8.2)
[2019-02-18 20:39] LABS: MICROCYTOSIS MODERATE
[2019-02-18 21:23] LABS: BACTERIA,URINE NEGATIVE /HPF; BILIRUBIN,URINE NEGATIVE (NEGATIVE); CLARITY,URINE CLEAR; COLOR,URINE YELLOW; GLUCOSE, URINE (UA) NEGATIVE (NEGATIVE); KETONES,URINE NEGATIVE (NEGATIVE); LEUKOCYTE ESTERASE ,URINE NEGATIVE (NEGATIVE); NITRITE,URINE NEGATIVE (NEGATIVE); PROTEIN,URINE NEGATIVE (NEGATIVE)
[2019-02-18 21:31] LABS: AMPHETAMINE SCREEN, URINE NEGATIVE (NEGATIVE); BARBITURATE SCREEN URINE NEGATIVE (NEGATIVE); BENZODIAZEPINES SCREEN URINE NEGATIVE (NEGATIVE); CANNABINOID SCREEN, URINE NEGATIVE (NEGATIVE); COCAINE SCREEN URINE NEGATIVE (NEGATIVE); METHADONE STAT NEGATIVE (NEGATIVE); METHAMPHETAMINE SCREEN URINE S NEGATIVE (NEGATIVE); OPIATE SCREEN URINE NEGATIVE (NEGATIVE); OXYCODONE STAT NEGATIVE (NEGATIVE); PROPOXYPHENE STAT NEGATIVE (NEGATIVE); TRICYCLIC ANTIDEPRESSANTS SCRE POSITIVE (NEGATIVE)
[2019-02-18 21:42] VITALS: BP 124/74
== END 2019-02-18 21:42 | disposition home or self-care (01) ==
LOC: EDUNIT# 19:51 → ER FS 19:58
DX: R53.83 Other fatigue (principal); R10.9 Unspecified abdominal pain; E11.9 Type 2 diabetes mellitus without complications; E78.00 Pure hypercholesterolemia, unspecified; F41.9 Anxiety disorder, unspecified; F31.9 Bipolar disorder, unspecified; K21.9 Gastro-esophageal reflux disease without esophagitis; K58.9 Irritable bowel syndrome, unspecified; E03.9 Hypothyroidism, unspecified; Z88.2 Allergy status to sulfonamides; Z88.8 Allergy status to other drugs, medicaments and biological substances; Z85.41 Personal history of malignant neoplasm of cervix uteri; Z79.51 Long term (current) use of inhaled steroids; Z79.84 Long term (current) use of oral hypoglycemic drugs; Z90.710 Acquired absence of both cervix and uterus; Z98.51 Tubal ligation status
CPT/HCPCS: 36415; 80053; 80306; 80320; 81000; 82962; 85007; 85027; 96360; 99283

== ENCOUNTER 2019-04-10 00:47 | Emergency (ER) | payer MEDICAID ==
[~2019-04-10] VITALS: Ht 160 cm; Wt 70.0 kg
[~2019-04-10 00:47] MED LIST changes: +FENO145T26 PO; -FENO145T37 PO; -RANI-515 PO; +RANI-609 PO
--- NOTE | 2019-04-10 01:01 | ED General ---
General Chief Complaint: Glucose Problems Stated Complaint: DIABETIC Source of Information: Patient, EMS History of Present Illness Date Seen by Provider: Apr 10, 2019 Time Seen by Provider: 01:01 Initial Comments 49-year-old female presenting by EMS to the emergency department after having elevated blood sugars at home. She has had a recent upper respiratory infection and was on steroids for this. She states that she has 3 more days of prednisone to take. She has had elevated blood sugar earlier in the evening around 220 and was feeling "off". She did go ahead and eat supper after the elevated sugar. She is only taking oral medications of metformin and Januvia. She has been having some pain and discomfort with urination as well as some increased bowel movements. She has not been smoking as much recently because she ran out of cigarettes. She denies any fever or chills. She has had no nausea or vomiting. When she continued to feel worse this evening she checked her sugar again and it was over 500 at home. She called EMS and they came to the resident's. At that point her sugar was 580 and they brought her to the emergency department. Allergies and Home Medications Allergies Coded Allergies: Sulfa (Sulfonamide Antibiotics) (Verified Allergy, Unknown, abd pain, 09/05/18) adhesive tape (Verified Allergy, Unknown, Hives, 09/05/18) bupropion (Verified Allergy, Unknown, sucidial, 09/05/18) carisoprodol (Verified Allergy, Unknown, heart palpatations, 09/05/18) quetiapine (Verified Allergy, Unknown, suicidal, 09/05/18) Home Medications Citalopram Hydrobromide 20 Mg Tablet, 20 MG PO DAILY, (Reported) Cyclobenzaprine HCl 10 Mg Tablet, 10 MG PO TID PRN for MUSCLE SPASMS, (Reported) Dapagliflozin Propanediol 5 Mg Tablet, 5 MG PO DAILY, (Reported) Fenofibrate Nanocrystallized 145 Mg Tablet, 145 MG PO DAILY, (Reported) Fluticasone Propionate 9.9 Ml [place].susp, 2 SPRAY NS DAILY PRN for nasal congestion, (Reported) Gabapentin 300 Mg Capsule, 300 MG PO TID, (Reported) Hydrocodone Bit/Acetaminophen 1 Tab Tab, 1 TAB PO Q6H PRN for PAIN-MODERATE Prescribed by: RAMIREZ WALTERS on 09/07/18 0951 Hyoscyamine Sulfate 0.125 Mg Tab.subl, 1-2 TAB SL Q4H Prescribed by: SANDRA BRADLEY on 12/03/187 Levofloxacin 500 Mg Tablet, 500 MG PO DAILY Prescribed by: FAROOQ LANGE on 10/03/18536 Levothyroxine Sodium 112 Mcg Tablet, 112 MCG PO DAILY, (Reported) Loperamide HCl 2 Mg Capsule, 2 MG PO UD PRN for DIARRHEA, (Reported) Metformin HCl 1,000 Mg Tablet, 1,000 MG PO BID, (Reported) Ondansetron 4 Mg Tab.rapdis, 4 MG PO q6 Prescribed by: ELAINA COREY on 12/02/18932 Pantoprazole Sodium 40 Mg Tablet.dr, 40 MG PO DAILY, (Reported) Ranitidine HCl 150 Mg Tablet, 150 MG PO DAILY, (Reported) Tramadol HCl 50 Mg Tablet, 50 MG PO Q4H Prescribed by: ELAINA COREY on 12/02/18932 Patient Home Medication List Home Medication List Reviewed: Yes Review of Systems Review of Systems Constitutional: No chills, No fever; malaise EENTM: nose congestion; No ear pain, No vision loss Respiratory: cough, short of breath; No stridor; wheezing Cardiovascular: No chest pain Gastrointestinal: No diarrhea, No nausea, No vomiting Genitourinary: dysuria, frequency; No hematuria Musculoskeletal: no symptoms reported Skin: No rash Psychiatric/Neurological: Headache, Paresthesia (chronic neuropathy and feels worse tonight with the elevated sugar), Weakness (generalized) Past Ziqxpvp-Kpiqau-Pgdlha Hx Past Med/Social Hx: Reviewed Nursing Past Med/Soc Hx Patient Social History Type Used: Cigarettes 2nd Hand Smoke Exposure: No Recent Foreign Travel: No Contact w/Someone Who Travel: No Recent Hopitalizations: No Seasonal Allergies Seasonal Allergies: Yes Past Medical History Surgeries: Yes Abdominal, Section, Hysterectomy, Oophorectomy, 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 Respiratory: No Cardiac: Yes High Cholesterol Neurological: No 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 Disorders: Yes 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 Disorders: Ovarian Cyst [employer] 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[employer] History: Hysterectomy, 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, Menopausal Genitourinary: Yes Bladder Infection Gastrointestinal: Yes Gastroesophageal Reflux, Chronic Diarrhea, Irritable Bowel Musculoskeletal: Yes Degenerate Disk Disease, Scoliosis, Chronic Back Pain Endocrine: Yes Hypothyroidsim, Diabetes, Non-Insulin dep HEENT: Yes (chronic sinusitis) Cancer: Yes Cervical Did You Recieve Any Treatments: Yes What Type of Treatment Did You: Surgical Intervention Psychosocial: Yes Anxiety, Bipolar, Depression Integumentary: No Blood Disorders: No Physical Exam Vital Signs Vital Signs - First Documented 04/10/19 01:01 Temp 36.2 Pulse 96 Resp 20 B/P (MAP) 142/78 (99) Pulse Ox 98 O2 Delivery Room Air Capillary Refill : Height, Weight, BMI Height: 5'4.00" Weight: 142lbs. 0oz. 64.732498gj; 26.00 BMI Method:Stated General Appearance: WD/WN, Mild Distress HEENT: PERRL/EOMI, Pharynx Normal Neck: Full Range of Motion, Non Tender, Supple Respiratory: Chest Non Tender, No Accessory Muscle Use, No Respiratory Distress, Decreased Breath Sounds, Wheezing Cardiovascular: Regular Rate, Rhythm, Normal Peripheral Pulses Gastrointestinal: Normal Bowel Sounds, No Pulsatile Mass, Soft Extremity: Normal Capillary Refill, No Pedal Edema Neurologic/Psychiatric: Alert, Oriented x3, Normal Mood/Affect Skin: Normal Color, Warm/Dry Progress/Results/Core Measures Suspected Sepsis SIRS Temperature: Pulse: Respiratory Rate: Laboratory Tests 04/10/19 01:28: White Blood Count 5.4 Blood Pressure / Mean: Laboratory Tests 04/10/19 01:28: Creatinine 1.02, Platelet Count 305, Total Bilirubin 0.2 Results/Orders Lab Results Laboratory Tests Test 04/10/19 01:13 04/10/19 01:28 Range/Units Urine Color YELLOW Urine Clarity CLEAR Urine pH 6.0 5-9 Urine Specific [place] <=1.005 1.016-1.022 Urine Protein NEGATIVE NEGATIVE Urine Glucose (UA) 3+ H NEGATIVE Urine Ketones NEGATIVE NEGATIVE Urine Nitrite NEGATIVE NEGATIVE Urine Bilirubin NEGATIVE NEGATIVE Urine Urobilinogen 0.2 < = 1.0 MG/DL Urine Leukocyte Esterase NEGATIVE NEGATIVE Urine RBC (Auto) NEGATIVE NEGATIVE Urine RBC NONE /HPF Urine WBC 0-2 /HPF Urine Squamous Epithelial Cells 0-2 /HPF Urine Crystals NONE /LPF Urine Bacteria NEGATIVE /HPF Urine Casts NONE /LPF Urine Mucus NONE /LPF Urine Culture Indicated NO White Blood Count 5.4 4.3-11.0 10^3/uL Red Blood Count 3.73 L 4.35-5.85 10^6/uL Hemoglobin 11.0 L 11.5-16.0 G/DL Hematocrit 33 L 35-52 % Mean Corpuscular Volume 87 80-99 FL Mean Corpuscular Hemoglobin 29 25-34 PG Mean Corpuscular Hemoglobin Concent 34 32-36 G/DL Red Cell Distribution Width 12.7 10.0-14.5 % Platelet Count 305 130-400 10^3/uL Mean Platelet Volume 9.1 7.4-10.4 FL Neutrophils (%) (Auto) 74 42-75 % Lymphocytes (%) (Auto) 20 12-44 % Monocytes (%) (Auto) 3 0-12 % Eosinophils (%) (Auto) 1 0-10 % Basophils (%) (Auto) 1 0-10 % Neutrophils # (Auto) 4.0 1.8-7.8 X 10^3 Lymphocytes # (Auto) 1.1 1.0-4.0 X 10^3 Monocytes # (Auto) 0.2 0.0-1.0 X 10^3 Eosinophils # (Auto) 0.1 0.0-0.3 10^3/uL Basophils # (Auto) 0.0 0.0-0.1 10^3/uL Sodium Level 128 L 135-145 MMOL/L Potassium Level 5.7 H 3.6-5.0 MMOL/L Chloride Level 92 L 98-107 MMOL/L Carbon Dioxide Level 20 L 21-32 MMOL/L Anion Gap 16 H 5-14 MMOL/L Blood Urea Nitrogen 11 7-18 MG/DL Creatinine 1.02 0.60-1.30 MG/DL Estimat Glomerular Filtration Rate 57 BUN/Creatinine Ratio 11 Glucose Level 608 *H 70-105 MG/DL Calcium Level 8.7 8.5-10.1 MG/DL Corrected Calcium 8.6 8.5-10.1 MG/DL Total Bilirubin 0.2 0.1-1.0 MG/DL Aspartate Amino Transf (AST/SGOT) 40 H 5-34 U/L Alanine Aminotransferase (ALT/SGPT) 38 0-55 U/L Alkaline Phosphatase 52 40-136 U/L Total Protein 7.2 6.4-8.2 GM/DL Albumin 4.1 3.2-4.5 GM/DL Lipase 46 8-78 U/L My Orders Orders - FAROOQ LANGE MD Comprehensive Metabolic Panel (04/10/19 01:10) Lipase (04/10/19 01:10) Ua Culture If Indicated (04/10/19 01:10) Ed Iv/Invasive Line Start (04/10/19 01:10) Cbc With Automated Diff (04/10/19 01:10) Insulin (Regular) Human (Humulin R (Per (04/10/19 01:10) Ns Iv 1000 Ml (Sodium Chloride 0.9%) (04/10/19 01:10) Insulin (Regular) Human (Humulin R (Per (04/10/19 02:15) Accucheck Stat ONCE (04/10/19 02:15) Vital Signs/I&O 04/10/19 01:01 Temp 36.2 Pulse 96 Resp 20 B/P (MAP) 142/78 (99) Pulse Ox 98 O2 Delivery Room Air Capillary Refill : Progress Note #1: Progress Note Check basic labs and urinalysis as well as her sugar. Give IV fluids to help with her sugar and 10 units of regular insulin. Progress Note #2: Time: 02:08 Progress Note Labs show stable CBC. Her urinalysis shows 3+ glucose and diluted urine with specific gravity less than 1.005. Her urinalysis does not show any ketones. The chemistry does show hyponatremia of 126 and a glucose of 608. Accucheck after 10 units of regular insulin did bring her glucose down to 533 here. will repeat the insulin 10 units IV and allow fluids to finish infusing by IV then recheck her glucose about 30 min after the insulin. Have her stop the steroid and monitor her diet. Progress Note #3: Time: 03:04 Progress Note glucose recheck is now down to 379 so will discharge pt to home. Encourage her to watch her diet closely and stop the prednisone. Departure Impression Primary Impression: Steroid-induced hyperglycemia Additional Impression: Type 2 diabetes mellitus Qualified Codes: E11.65 - Type 2 diabetes mellitus with hyperglycemia Disposition: 01 HOME, SELF-CARE Condition: Stable Departure-Patient Inst. Decision time for Depature: 03:05 Referrals: JESÚS WHITE APRN (PCP) Primary Care Physician [facility] (Family) Primary Care Physician Patient Instructions: Diabetes Type 2 (DC), Hyperglycemia, Adult (DC), Diabetic Meal Planning , Diabetes Diet , Diabetes and Diet Add. Discharge Instructions: Stop the Prednisone steroids so that it is not making your sugars run so high. Follow up with clinic for continued problems Try to watch your diet closely in the next few days because it will take a few days for your sugars to return to normal. All discharge instructions reviewed with patient and/or family. Voiced understanding. FAROOQ LANGE MD Apr 10, 2019 01:01
[2019-04-10] MEDS ORDERED: NS IV 1000 ML 1,000 ML IV STA (01:10)
[2019-04-10] MEDS ORDERED: inSUlin (REGULAR) HUMAN 1 UNIT/0.01 ML (CHARGE PER UNIT) IV STA ×2 (01:10→02:15)
[2019-04-10 01:27] LABS: BILIRUBIN,URINE NEGATIVE (NEGATIVE); CLARITY,URINE CLEAR; COLOR,URINE YELLOW; GLUCOSE, URINE (UA) 3+ (NEGATIVE); KETONES,URINE NEGATIVE (NEGATIVE); NITRITE,URINE NEGATIVE (NEGATIVE); PROTEIN,URINE NEGATIVE (NEGATIVE)
[2019-04-10 01:28] LABS: BACTERIA,URINE NEGATIVE /HPF; LEUKOCYTE ESTERASE ,URINE NEGATIVE (NEGATIVE); SQUAMOUS EPITHELIAL CELL,UR 0-2 /HPF; WBC,URINE 0-2 /HPF
[2019-04-10 01:36] LABS: EOSINOPHILS % (AUTO) 1 % (0-10); HEMATOCRIT 33 % (35-52); LYMPHOCYTES % (AUTO) 20 % (12-44); MEAN CORPUSCULAR HEMOGLOBIN 29 PG (25-34); MEAN CORPUSCULAR HGB CONC 34 G/DL (32-36); MEAN CORPUSCULAR VOLUME 87 FL (80-99); MEAN PLATELET VOLUME 9.1 FL (7.4-10.4); MONOCYTES % (AUTO) 3 % (0-12); NEUTROPHILS % (AUTO) 74 % (42-75); PLATELET COUNT 305 10^3/uL (130-400); RED CELL DISTRIBUTION WIDTH 12.7 % (10.0-14.5); WHITE BLOOD COUNT 5.4 10^3/uL (4.3-11.0)
[2019-04-10 01:37] LABS: BASOPHILS % (AUTO) 1 % (0-10); EOSINOPHILS # (AUTO) 0.1 10^3/uL (0.0-0.3); LYMPHOCYTES # (AUTO) 1.1 X 10^3 (1.0-4.0); MONOCYTES # (AUTO) 0.2 X 10^3 (0.0-1.0)
[2019-04-10 01:59] LABS: CREATININE SERUM 1.02 MG/DL (0.60-1.30); POTASSIUM 5.7 MMOL/L (3.6-5.0)
[2019-04-10 02:00] LABS: ALBUMIN 4.1 GM/DL (3.2-4.5); BILIRUBIN,TOTAL 0.2 MG/DL (0.1-1.0); CALCIUM 8.7 MG/DL (8.5-10.1); TOTAL PROTEIN 7.2 GM/DL (6.4-8.2)
--- NOTE | 2019-04-10 02:08 | NUR ---
POC 533 THIS RN NOTIFIED DOCTOR NAZARIO
[2019-04-10 03:06] VITALS: BP 138/76
== END 2019-04-10 03:08 | disposition home or self-care (01) ==
LOC: EDUNIT# 00:47 → ER FS 00:49
DX: E09.65 Drug or chemical induced diabetes mellitus with hyperglycemia (principal); K21.9 Gastro-esophageal reflux disease without esophagitis; E03.9 Hypothyroidism, unspecified; F31.9 Bipolar disorder, unspecified; F41.9 Anxiety disorder, unspecified; Z85.41 Personal history of malignant neoplasm of cervix uteri; Z88.2 Allergy status to sulfonamides; Z88.8 Allergy status to other drugs, medicaments and biological substances; Z79.51 Long term (current) use of inhaled steroids; Z79.84 Long term (current) use of oral hypoglycemic drugs
CPT/HCPCS: 36415; 80053; 81000; 82962; 83690; 85025; 96374; 96376

== ENCOUNTER 2019-04-29 16:33 | Emergency (ER) | payer MEDICAID ==
[~2019-04-29] VITALS: Ht 160 cm; Wt 64.9 kg
[2019-04-29] MEDS ORDERED: RT-ALBUTEROL/IPRATROPIUM 3 ML (DUONEB) VIAL INH ONE (16:45)
--- NOTE | 2019-04-29 16:49 | ED Respiratory ---
General Stated Complaint: COUGH,CONGESTION,VOMITING,FEVER History of Present Illness Date Seen by Provider: Apr 29, 2019 Time Seen by Provider: 16:46 Initial Comments This patient is a 49-year-old female with a long history of COPD still currently smokes one pack per day presents to the emergency room for shortness of breath. Patient states that his been off and on for about 3 weeks and seems to still have significant cough and tightness with breathing. Patient has not had a fever and denies any significant nasal congestion. Patient appears more anxious than anything. Patient was seen by her PCP 2 days ago they told her that it was a viral illness. Patient did not have a strep or flu swab. This patient does not appear to be acutely sick. Vital signs are stable. Abdomen evaluation treated Timing/Duration: week (3 weeks) Severity: mild Prior Episodes/Possible Cause: occasional episodes Modifying Factors: Improves With Albuterol Inhaler Associated Symptoms: cough, shortness of breath Allergies and Home Medications Allergies Coded Allergies: Sulfa (Sulfonamide Antibiotics) (Verified Allergy, Unknown, abd pain, 09/05/18) adhesive tape (Verified Allergy, Unknown, Hives, 09/05/18) bupropion (Verified Allergy, Unknown, sucidial, 09/05/18) carisoprodol (Verified Allergy, Unknown, heart palpatations, 09/05/18) quetiapine (Verified Allergy, Unknown, suicidal, 09/05/18) Home Medications Citalopram Hydrobromide 20 Mg Tablet, 20 MG PO DAILY, (Reported) Cyclobenzaprine HCl 10 Mg Tablet, 10 MG PO TID PRN for MUSCLE SPASMS, (Reported) Dapagliflozin Propanediol 5 Mg Tablet, 5 MG PO DAILY, (Reported) Fenofibrate Nanocrystallized 145 Mg Tablet, 145 MG PO DAILY, (Reported) Fluticasone Propionate 9.9 Ml [place].susp, 2 SPRAY NS DAILY PRN for nasal congestion, (Reported) Gabapentin 300 Mg Capsule, 300 MG PO TID, (Reported) Hydrocodone Bit/Acetaminophen 1 Tab Tab, 1 TAB PO Q6H PRN for PAIN-MODERATE Prescribed by: RAMIREZ WALTERS on 09/07/18 0951 Hyoscyamine Sulfate 0.125 Mg Tab.subl, 1-2 TAB SL Q4H Prescribed by: SANDRA BRADLEY on 12/03/18 0008 Levofloxacin 500 Mg Tablet, 500 MG PO DAILY Prescribed by: FAROOQ LANGE on 10/03/18 0537 Levothyroxine Sodium 112 Mcg Tablet, 112 MCG PO DAILY, (Reported) Loperamide HCl 2 Mg Capsule, 2 MG PO UD PRN for DIARRHEA, (Reported) Metformin HCl 1,000 Mg Tablet, 1,000 MG PO BID, (Reported) Ondansetron 4 Mg Tab.rapdis, 4 MG PO q6 Prescribed by: ELAINA COREY on 12/02/18932 Pantoprazole Sodium 40 Mg Tablet.dr, 40 MG PO DAILY, (Reported) Ranitidine HCl 150 Mg Tablet, 150 MG PO DAILY, (Reported) Tramadol HCl 50 Mg Tablet, 50 MG PO Q4H Prescribed by: ELAINA COREY on 12/02/18932 Patient Home Medication List Home Medication List Reviewed: Yes Review of Systems Review of Systems Constitutional: no symptoms reported, see HPI; No chills, No diaphoresis, No dizziness, No fever, No malaise, No weakness, No weight gain, No weight loss, No other EENTM: see HPI, no symptoms reported; No ear discharge, No hearing loss, No ear pain, No blurred vision, No double vision, No eye pain, No tearing, No vision loss, No dental problems, No hoarseness, No mouth pain, No mouth swelling, No epistaxis, No nose congestion, No nose pain, No throat pain, No throat swelling, No other Respiratory: No no symptoms reported; see HPI, cough; No dyspnea on exertion, No hemoptysis, No orthopnea, No phlegm, No short of breath, No stridor, No wheezing, No other Cardiovascular: no symptoms reported; No see HPI, No chest pain, No edema, No Hx of Intervention, No palpitations, No syncope, No vascular heart diseas, No other Gastrointestinal: No RUQ, No LUQ, No RLQ, No LLQ, No no symptoms reported, No see HPI, No abdominal pain, No constipation, No diarrhea, No dysphagia, No hematemesis, No heartburn, No jaundice, No loss of appetite, No melena, No nausea, No vomiting, No other Genitourinary: no symptoms reported; No see HPI, No decreased output, No discharge, No dysuria, No frequency, No hematuria, No hesitancy, No incontinence, No nocturia, No pain, No other Musculoskeletal: no symptoms reported; No see HPI, No back pain, No gout, No joint pain, No joint swelling, No muscle pain, No muscle stiffness, No muscle cramps, No muscle twitching, No muscle weakness, No neck pain, No other Past [id number]-[id number] Hx Patient Social History Type Used: Cigarettes 2nd Hand Smoke Exposure: No Recent Hopitalizations: No Seasonal Allergies Seasonal Allergies: Yes Past Medical History Surgeries: Yes Abdominal, Section, Hysterectomy, Oophorectomy, 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 Respiratory: No Cardiac: Yes High Cholesterol Neurological: No 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 Disorders: Yes 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 Disorders: Ovarian Cyst [employer] History: Hysterectomy, 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, Menopausal Genitourinary: Yes Bladder Infection Gastrointestinal: Yes Gastroesophageal Reflux, Chronic Diarrhea, Irritable Bowel Musculoskeletal: Yes Degenerate Disk Disease, Scoliosis, Chronic Back Pain Endocrine: Yes Hypothyroidsim, Diabetes, Non-Insulin dep HEENT: Yes (chronic sinusitis) Cancer: Yes Cervical Did You Recieve Any Treatments: Yes What Type of Treatment Did You: Surgical Intervention Psychosocial: Yes Anxiety, Bipolar, Depression Integumentary: No Blood Disorders: No Physical Exam Vital Signs - First Documented 04/29/19 16:40 Temp 36.5 Pulse 110 Resp 24 B/P (MAP) 133/75 (94) Pulse Ox 98 O2 Delivery Room Air Capillary Refill : Height: 5'4.00" Weight: 142lbs. 0oz. [id number]; 27.00 BMI Method:Stated General Appearance: WD/WN, no apparent distress HEENT: PERRL/EOMI, normal ENT inspection, TMs normal, pharynx normal Neck: non-tender, full range of motion, supple, normal inspection Respiratory: chest non-tender, lungs clear, normal breath sounds, no respiratory distress, no accessory muscle use Cardiovascular: normal peripheral pulses, regular rate, rhythm, no edema, no gallop, no JVD, no murmur Skin: normal color, warm/dry Progress/Results/Core Measures Suspected Sepsis SIRS Temperature: Pulse: Respiratory Rate: Blood Pressure / Mean: Results/Orders Lab Results Laboratory Tests Test 04/29/19 16:50 Range/Units Group A Streptococcus Screen NEGATIVE NEGATIVE Micro Results Microbiology 04/29/19 Influenza Types A,B Antigen (AVERY) - Final, Complete My Orders Orders - GENEVIEVE ESTEVEZ MD Influenza A And B Antigens (04/29/19 16:45) Rapid Strep A Screen (04/29/19 16:45) Chest 1 View Ap/Pa Only (04/29/19 16:45) Albuterol/Ipra Inhalation Soln (Duoneb I (04/29/19 16:45) Svn Small Volume Nebulizer (04/29/19 16:45) Medications Given in ED Current Medications Medications Dose Ordered Sig/Francis Route Start Time Stop Time Status Last Admin Dose Admin Albuterol/ Ipratropium 3 ml ONCE ONCE INH 04/29/19 16:45 04/29/19 16:47 DC 04/29/19 16:53 3 ML Vital Signs/I&O 04/29/19 16:40 Temp 36.5 Pulse 110 Resp 24 B/P (MAP) 133/75 (94) Pulse Ox 98 O2 Delivery Room Air Capillary Refill : Progress Note : Time: 17:16 Progress Note Negative evaluation in the MRSA from her. Patient much improved after DuoNeb updraft. Patient has long history of COPD he has recently been on a steroid Dosepak for same. Patient will be given a prescription for Zithromax and will get a pro-air puff inhaler to carry her purse. Patient should stop smoking and follow the following instructions follow up with PCP in 2-3 days. She states understanding Treatments In general, follow these three basic rules: (1) Keep warm and rest as much as possible. If you feel like resting, you should. (2) Take plenty of fluids. Food is not as important since appetite will return when you are well. (3) For fever, take Tylenol or Motrin in normal doses (see label on the bottle). If cough is present: Humidification and drinking lots of fluids helps to moisten and loosen up sticky mucus. Non-prescription drugs designed to suppress cough, such as Delysm, Robitussin, Mucinex are occasionally helpful. If you use an inhaler, you might need to use it more often. If throat is sore: Gargle with warm water (1/2 tsp salt in 1/2 glass of water). Try cold packs to the outside of your throat to help ease the pain of swallowi ng. Humidification of the air you breathe (use vaporizer, pans of evaporating water, or steaming tub or shower) and lots of fluids help. If temperature is elevated: Fluids are doubly important. Fever medicine (such as Tylenol or Motrin) should control temperature. Persistent temperature elevation of 103-104 degrees is a danger sign. If nausea and/or diarrhea are present: Eat only clear liquids, soups, or juices as tolerated. Remember fluids are important to prevent dehydration. If your symptoms worsen call [facility] for further instructions, especially if you notice: Persistent temperature elevation greater than 103-104 degrees despite fever medication Bloody sputum or increasing chest pain Increasing difficulty getting your breath Stiff neck preventing bending neck and placing chin on chest Departure Impression Primary Impression: COPD (chronic obstructive pulmonary disease) Additional Impressions: Pleurisy Smokers' cough Disposition: HOME, SELF-CARE Condition: Stable Departure-Patient Inst. Decision time for Depature: 17:18 Referrals: JESÚS WHITE APRN (PCP) Primary Care Physician [facility] (Family) Primary Care Physician Patient Instructions: COPD Including Emphysema (DC), Bacterial Upper Respiratory Infection, Adult (DC), Cough, Adult (DC) Add. Discharge Instructions: Treatments In general, follow these three basic rules: (1) Keep warm and rest as much as possible. If you feel like resting, you should. (2) Take plenty of fluids. Food is not as important since appetite will return when you are well. (3) For fever, take Tylenol or Motrin in normal doses (see label on the bottle). If cough is present: Humidification and drinking lots of fluids helps to moisten and loosen up sticky mucus. Non-prescription drugs designed to suppress cough, such as Delysm, Robitussin, Mucinex are occasionally helpful. If you use an inhaler, you might need to use it more often. If throat is sore: Gargle with warm water (1/2 tsp salt in 1/2 glass of water). Try cold packs to the outside of your throat to help ease the pain of swallowing. Humidification of the air you breathe (use vaporizer, pans of evaporating water, or steaming tub or shower) and lots of fluids help. If temperature is elevated: Fluids are doubly important. Fever medicine (such as Tylenol or Motrin) should control temperature. Persistent temperature elevation of 103-104 degrees is a danger sign. If nausea and/or diarrhea are present: Eat only clear liquids, soups, or juices as tolerated. Remember fluids are important to prevent dehydration. If your symptoms worsen call [facility] for further instructions, especially if you notice: Persistent temperature elevation greater than 103-104 degrees despite fever medication Bloody sputum or increasing chest pain Increasing difficulty getting your breath Stiff neck preventing bending neck and placing chin on chest Scripts Albuterol Sulfate (VENTOLIN HFA) 1 Puff Puff 2 PUFF INH Q4H for 10 Days, #1 EACH 0 Refills 1 PUFF = 90 MCG Prov: GENEVIEVE ESTEVEZ MD 04/29/19 Azithromycin (Azithromycin) 250 Mg Tablet 250 MG PO UD, #6 TAB TAKE 2 TABLETS ON DAY ONE THEN TAKE 1 TABLET DAILY FOR FOUR MORE DAYS Prov: GENEVIEVE ESTEVEZ MD 04/29/19 GENEVIEVE ESTEVEZ MD Apr 29, 2019 16:49
[2019-04-29] MEDS ORDERED: AZIT250T12 PO (17:19)
[2019-04-29] MEDS ORDERED: RT-ALBUINH INH (17:19)
--- NOTE | 2019-04-29 17:20 | Diagnostic Imaging Report ---
INDICATION: Fever, chills, cough, short of air. FINDINGS: A single view of the chest shows normal heart size and vascularity. The lungs are clear. There is no effusion or pneumothorax. There is no bony abnormality. IMPRESSION: Normal chest with no change from 10/03/2018. Dictated by: Dictated on workstation # [id number]
[2019-04-29 17:25] VITALS: BP 128/72
--- OUTSIDE RECORDS SUMMARY | 2019-04-30 03:04 | XMS REPORT ---
Author Author Angella Griffith Organization [facility] Address [address] [place] [address] Care Team Providers Care Director Medical Science Name Role Phone GUILLE Griffith Unavailable PROBLEMS Type Condition ICD9-CM Code [id number] Code Onset Dates Condition S tatus SNOMED Code Problem Gastroesophageal reflux disease with esophagitis K 21.0 Active 208050292 Problem Neuropathy G62.9 Active 578844159 Problem Controlled type 2 diabetes m ellitus without complication, without long- term current use of insulin E11.9 Active 630705342 Problem Other idiopathic scoliosis, thoracic region M41.24 Active 430546113 Problem Anxiety F41.9 Active 95174305 Problem Lumbago with sciatica, right side M54.41 Active 569861957768604 Problem Non-seasonal allergic rhinitis, unspecified trigger J30.89 Active 52572862 Problem Acquired hypothyroidism E03.9 Active 144334508 Problem Sinusitis J32.9 Active 34300517 Problem Lumbago with sciatica, left side M54.42 Active 808151796 Problem Hypoglycemia E16.2 Active 1434519 03 Problem Other chronic pain G89.29 Active 8 5449232 Problem Urinary incontinence R32 Active 750271304 Problem Insomnia G47.00 Active 846710466 Problem IBS (irritable bowel syndrome) K58.9 Active 00283652 Problem Chronic bronchitis J42 Active 6 5836671 ALLERGIES Substance Reaction Event Type Date Status Sulfur stomach upset Drug Allergy Apr, Active Soma elevated blood pressure Drug Allergy Apr, Acti ve Seroquel suicidal Drug Allergy Apr, Active Wellbutrin homicidal Drug Allergy Apr, Active ENCOUNTERS Encounter Location Date Diagnosis [facility] [address] [id number] [place] [address] Mar, [facility] [address] [id number] [place] [address] Mar, [address] [place] [address] Mar, Right shoulder pain M25.511 ; Gastroesophageal reflux disease with esophagitis K21.0 and Controlled type 2 diabetes mellitus without complication, without long-term current use of insulin E11.9 [address] [place] [address] Feb, Anxiety F41.9 and Gastroesop hageal reflux disease with esophagitis K21.0 [address] [place] [address] Feb, [address] [place] [address] Feb, Spinal stenosis M48.00 [address] [place] [address] Feb, Anxiety F41.9 ; Gastroesopha geal reflux disease with esophagitis K21.0 and Spinal stenosis M48.00 [facility] [address] [facility] [id number] [place] [address] Feb, [address] [place] [address] Feb, Controlled type 2 diabetes m ellitus without complication, without long-term current use of insulin E11.9 [address] [place] [address] Feb, Controlled type 2 diabetes m ellitus without complication, without long-term current use of insulin E11.9 ; Hypoglycemia E16.2 and Urinary incontinence R32 [address] [place] [address] Feb, Spinal stenosis M48.00 [facility] [id number] [place] [address] Feb, [address] [place] [address] Jan, Spinal stenosis M48.[address] [place] [address] Jan, Chronic bronchitis J42 and S inusitis J32.[address] [place] [address] Jan, [address] [place] [address] Jan, Gastroesophageal reflux dise ase with esophagitis K21.0 [address] [place] [address] Jan, [address] [place] [address] Jan, Spinal stenosis M48.00 [place] [id number] [id number] [place] [address] Dec, Non-seasonal allergic rhinitis, unspecif ied trigger J30.89 [facility] [address] [place] [address] Dec, Right foot pain M79.671 [address] [place] [address] Nov, Controlled type 2 diabetes m ellitus without complication, without long-term current use of insulin E11.9 [facility] [address] [facility] [id number] [place] [address] Nov, Controlled type 2 diabetes mellitus with out complication, without long-term current use of insulin E11.[address] [place] [address] Nov, Gastroesophageal reflux dise ase with esophagitis K21.0 [address] [place] [address] Nov, LUQ pain R10.12 ; Dysuria R3 0.0 ; IBS (irritable bowel syndrome) K58.9 ; Gastroesophageal reflux disease with esophagitis K21.0 and Spinal stenosis M48.00 [address] [place] [address] Nov, Acquired hypothyroidism E03. 9 and Controlled type 2 diabetes mellitus without complication, without long-term current use of insulin E11.9 [facility] [place] [address] Nov, Lumbago with sciatica, right side M54.[address] [place] [address] Nov, Cellulitis L03.90 and Dog bi te W54.0XXA [address] [place] [address] Nov, Controlled type 2 diabetes m ellitus without complication, without long-term current use of insulin E11.9 and Acquired hypothyroidism E03.[address] [place] [address] Nov, Controlled type 2 diabetes m ellitus without complication, without long-term current use of insulin E11.[address] [place] [address] Nov, [facility] [address] [id number] [place] [address] Oct, [address] [place] [address] Oct, [address] [place] [address] Oct, Nasopharyngitis acute J00 [address] [place] [address] Sep, Lumbago with sciatica, right side M54.[address] [place] [address] Sep, [address] [place] [address] Sep, Abnormal mammogram R92.[address] [place] [address] Sep, Abnormal mammogram R92.8 [address] [place] [address] Sep, Vaginitis N76.0 ; Anxiety F4 1.9 and Insomnia G47.00 [facility] [address] [facility] [id number] [place] [address] Sep, [place] [address] [place] [address] Sep, Fever R50.9 and Urinary inco ntinence R32 [place] [address] [place] [address] Sep, Abnormal mammogram R92.8 [place] [address] [place] [address] Sep, Controlled type 2 diabetes m ellitus without complication, without long-term current use of insulin E11.9 [place] [address] [place] [address] Aug, Lumbago with sciatica, right side M54.41 [address] [place] [address] Aug, [place] [address] [place] [address] Aug, Screening mammogram, encount er for Z12.31 [place] [address] [place] [address] Aug, Controlled type 2 diabetes m ellitus without complication, without long-term current use of insulin E11.9 and Acquired hypothyroidism E03.[address] [place] [address] Aug, Screening mammogram, encount er for Z12.31 ; Encounter for therapeutic drug monitoring Z51.81 ; Controlled type 2 diabetes mellitus without complication, without long-term current use of insulin E11.9 and Acquired hypothyroidism E03.9 [facility] [id number] [place] [id number] Aug, [facility] [address] [place] [address] Aug, [address] [place] [address] Aug, [address] [place] [address] Aug, [address] [place] [address] Aug, [facility] [address] [id number] [place] [address] Aug, [address] [place] [address] Aug, [facility] [address] [facility] [id number] [place] [address] Jul, Neuropathy G62.9 [facility] [address] [place] [address] Jul, Dermatitis L30.[address] [place] [address] June, Gastroesophageal reflux dise ase with esophagitis K21.0 ; Lumbago with sciatica, right side M54.41 ; Non-seasonal allergic rhinitis, unspecified trigger J30.89 and Controlled type 2 diabetes mellitus without complication, without long-term current use of insulin E11.9 [facility] [address] [place] [address] May, [address] [place] [address] May, Neuropathy G62.9 ; Controlle d type 2 diabetes mellitus without complication, without long-term current use of insulin E11.9 and Bronchitis J40 [facility] [address] [place] [address] May, [facility] [place] [address] [place] [address] Apr, [place] [address] [place] [address] Apr, Controlled type 2 diabetes m ellitus without complication, without long-term current use of insulin E11.9 ; Gastroesophageal reflux disease with esophagitis K21.0 ; Lumbago with sciatica, left side M54.42 ; Lumbago with sciatica, right side M54.41 ; Anxiety F41.9 ; Non-seasonal allergic rhinitis, unspecified trigger J30.89 ; Neuropathy G62.9 ; Breast cancer screening Z12.31 ; Incisional hernia, without obstruction or gangrene K43.2 and Acquired hypothyroidism E03.9 [place] [address] [address] Apr, [place] [address] [address] Mar, Controlled type 2 diabetes mellitus with out complication, without long-term current use of insulin E11.9 [place] [address] [address] Feb, Bronchitis J40 [place] [address] [address] Feb, [place] [address] [address] Jan, Bronchitis J40 ; Lumbago with sciatica, left side M54.42 ; Lumbago with sciatica, right side M54.41 and Other chronic pain G89.29 [place] [address] [address] Dec, Controlled type 2 diabetes mellitus with out complication, without long-term current use of insulin E11.9 ; Gastroesophageal reflux disease with esophagitis K21.0 ; Encounter for immunization Z23 ; Neuropathy G62.9 ; Spinal stenosis of cervical region M48.02 ; Other idiopathic scoliosis, thoracic region M41.24 ; Plantar fasciitis M72.2 ; Lumbago with sciatica, left side M54.42 ; Other chronic pain G89.29 and Anxiety F41.9 IMMUNIZATIONS No Known Immunizations SOCIAL HISTORY Never Assessed REASON FOR VISIT Establish Care, chest & nasal congestion, cough, ear pain, x couple of weeks/hx of recurrent ear infections/, 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 was suppose to send over a letter to get a live in aid, needs an order for a mammo, check abdominal hernia PLAN OF CARE Activity Details Follow Up 3 Months Reason: VITAL SIGNS Height 64 in 2018-05-11 Weight 143 lbs 2018-05-11 Temperature 98.9 degrees Fahrenheit 2018-05-11 BMI 24.54 kg/m2 2018-05-11 Blood pressure systolic 124 mmHg 2018-05-11 Blood pressure diastolic 84 mmHg 2018-05-11 MEDICATIONS Medication Instructions Dosage Frequency Start Date End Date Duration S tatus Tylenol with Codeine #3 300-30 MG Orally every 6 hrs 1 tablet as ne eded 6h Dec, Active Aspir-81 81 MG Orally Once a day 1 tablet 24h 30 day (s) Active Levothyroxine Sodium 112 mcg Orally Once a day 1 tablet on an empty stomach in the morning 24h Active VESIcare 5 mg Orally Once a day 1 tablet 24h 30 day( s) Active Metformin HCl 1000 mg Orally 2 times a day 1 tablet with a meal 12h 30 day(s) Active Cyclobenzaprine HCl 10 mg Orally Three times a day 1 tablet as needed 8h 30 Active Citalopram Hydrobromide 20 mg Orally Once a day 1 tablet 24h Dec, 30 day(s) Active Gabapentin 300 MG Orally Three times a day 1 capsule 8h 30 day(s) Active Pantoprazole Sodium 40 mg Orally Once a day 1 tablet 24h 30 day(s) Active Loratadine 10 mg Orally Once a day 1 tablet 24h 30 d ay(s) Not-Taking Farxiga 5 mg Orally Once a day 1 tablet 24h 30 day(s ) Active RESULTS No Results PROCEDURES No Known procedures INSTRUCTIONS MEDICATIONS ADMINISTERED No Known Medications MEDICAL (GENERAL) HISTORY Type Description Date Medical History Controlled type 2 diabetes m ellitus without complication, without long-term current use of insulin Medical History Gastroesophageal reflux disease with eso phagitis Medical History Neuropathy Medical History Other idiopathic scoliosis, thoracic reg ion Medical History Lumbago with sciatica, left side Medical History Other chronic pain Medical History Anxiety Medical History Lumbago with sciatica, right side Medical History Non-seasonal allergic rhinitis, unspecif ied trigger Medical History Acquired hypothyroidism Surgical History cervical biospy x2 1991 Surgical History hernia x2 Surgical History dog bite-stitches only Surgical History hysterectomy Surgical History c section x2 Surgical History hernia repair 09/07/2018 Hospitalization History surgeries Hospitalization History after hysterectomy had to be hospitalized for an abdominal blockage
--- OUTSIDE RECORDS SUMMARY | 2019-04-30 03:05 | XMS REPORT | Continuity of Care Document ---
Author Organization Unknown Address Unknown Phone Unavailable Allergies Active Description Code Type Severity Reaction Onset Reported/Identified Relationship to Patient Clinical Status Yes No Known Drug Allergies [id number] Drug Allergy Unknown N/A 08/16/2018 Yes adhesive tape [id number] Joel g Allergy Unknown Hives 09/05/2018 Yes bupropion [id number] Drug Allergy Unknown sucidial 09/05/2018 Yes carisoprodol [id number] Drug Allergy Unknown heart palpatati 09/05/2018 Yes quetiapine [id number] Drug Allerg y Unknown suicidal 09/05/2018 Yes Sulfa (Sulfonamide Antibiotics) [id number] Drug Allergy Unknown abd pain 09/05/2018 [...] 09/07/2018 RAMIREZ WALTERS DO Ot Z79.8 4 CORRECTION (CURRENT) USE OF ORAL HYPOGLYC 09/07/2018 RAMIREZ WALTERS DO Ot Z79.8 99 OTHER DESIGN DRAFTSMAN (CURRENT) DRUG THERAPY 09/07/2018 RAMIREZ WALTERS DO Ot Z88.2 ALLERGY STATUS TO SULFONAMIDES STATUS 09/07/2018 RAMIREZ WALTERS DO Ot Z88.6 ALLERGY STATUS TO ANALGESIC AGENT STATUS 09/07/2018 RAMIREZ WALTERS DO Ot Z88.8 ALLERGY STATUS TO OTH DRUG/MEDS/BIOL SUB 09/07/2018 RAMIREZ WALTERS DO Ot Z90.7 10 ACQUIRED [...] RAMIREZ WALTERS DO B Ot Z79.8 4 DESIGN DRAFTSMAN (CURRENT) USE OF ORAL HYPOGLYC 09/17/2018 RAMIREZ WALTERS DO Ot Z79.8 99 OTHER DESIGN DRAFTSMAN (CURRENT) DRUG THERAPY 09/17/2018 RAMIREZ WALTERS DO [...] 09/24/2018 ASHUTOSH ALBRIGHT MD Ot Z79. 52 CORRECTION (CURRENT) USE OF SYSTEMIC STER 09/24/2018 ASHUTOSH ALBRIGHT MD Ot Z79. 84 DESIGN DRAFTSMAN (CURRENT) USE OF ORAL HYPOGLYC 09/24/2018 ASHUTOSH [...] 10/03/2018 FAROOQ LANGE MD Ot Z79.5 2 DESIGN DRAFTSMAN (CURRENT) USE OF SYSTEMIC STER 10/03/2018 FAROOQ LANGE MD Ot Z79.8 4 CORRECTION (CURRENT) USE OF ORAL HYPOGLYC 10/03/2018 FAROOQ [...] Ot E78.0 0 PURE HYPERCHOLESTEROLEMIA, UNSPECIFIED 10/05/2018 FAOROQ LANGE MD, Ot F17.2 10 NICOTINE DEPENDENCE, [...] 10/05/2018 FAROOQ LANGE MD, Ot Z79.5 2 CORRECTION (CURRENT) USE OF SYSTEMIC STER 10/05/2018 FAROOQ LANGE MD, Ot Z79.8 4 CORRECTION (CURRENT) USE OF ORAL HYPOGLYC 10/05/2018 FAROOQ [...] 10/30/2018 FAROOQ LANGE MD, Ot Z79.8 4 CORRECTION (CURRENT) USE OF ORAL HYPOGLYC 10/30/2018 FAROOQ LANGE MD, Ot Z85.4 1 PERSONAL HISTORY OF MALIGNANT NEOPLASM O 10/30/2018 FAROOQ LANGE MD, Ot Z88.2 ALLERGY STATUS TO SULFONAMIDES STATUS 10/30/2018 FAROOQ LANGE MD, Ot Z88.8 ALLERGY STATUS TO OTH DRUG/MEDS/BIOL SUB 10/30/2018 FAROOQ LANGE MD, Ot Z98.5 1 TUBAL [...] ELAINA Ot F31.9 BIPOLAR DISORDER, UNSPECIFIED 12/02/2018 CHRISTIANA DO, ELAINA Ot K21.9 GASTRO-ESOPHAGEAL REFLUX DISEASE WITHOUT [facility] IRRITABLE BOWEL SYNDROME WITH DIARRHEA 12/02/2018 COREY DO, ELAINA Ot R10.84 GENERALIZED ABDOMINAL PAIN 12/02/2018 CHRISTIANA DO, ELAINA Ot R11.2 NAUSEA WITH VOMITING, UNSPECIFIED 12/02/2018 [facility], ELAINA Ot Z79.84 DESIGN DRAFTSMAN (CURRENT) USE OF ORAL HYPOGLYC 12/02/2018 CHRISTIANA DO, ELAINA Ot Z85.41 PERSONAL HISTORY OF MALIGNANT NEOPLASM O 12/02/2018 CHRISTIANA DO, ELAINA Ot Z88.2 ALLERGY STATUS TO SULFONAMIDES STATUS 12/02/2018 [facility], ELAINA Ot Z88.8 ALLERGY STATUS TO OTH DRUG/MEDS/BIOL SUB 12/02/2018 [facility] Ot Z90.710 ACQUIRED ABSENCE OF BOTH CERVIX AND UTER 12/02/2018 [facility], ELAINA Ot Z98.51 TUBAL LIGATION STATUS 12/03/2018 KIRK DOSANDRA Ot E03.9 HYPOTHYROIDISM, UNSPECIFIED 12/03/2018 PFEIFER DO SANDRA K Ot E11.9 TYPE 2 DIABETES MELLITUS WITHOUT COMPLIC 12/03/2018 KIRK DOYUSUFA K Ot E78.00 PURE HYPERCHOLESTEROLEMIA, UNSPECIFIED 12/03/2018 PFEIFER DO SANDRA Nichelle Ot F31.9 BIPOLAR DISORDER, UNSPECIFIED 12/03/2018 KIRK DO SANDRA K Ot K21.9 GASTRO-ESOPHAGEAL REFLUX DISEASE WITHOUT 12/03/2018 KIRK DOYUSUFA Nichelle Ot K52.9 NONINFECTIVE GASTROENTERITIS AND COLITIS 12/03/2018 PFEIFER DO SANDRA K Ot K58.9 IRRITABLE BOWEL SYNDROME WITHOUT DIARRHE 12/03/2018 KIRK DO SANDRA K Ot R11.2 NAUSEA WITH VOMITING, UNSPECIFIED 12/03/2018 KIRK DOYUSUFA Nichelle Ot Z79.51 CORRECTION (CURRENT) USE OF INHALED STERO 12/03/2018 PFEIFER DOYUSUFA Nichelle Ot Z79.84 CORRECTION (CURRENT) USE OF ORAL HYPOGLYC 12/03/2018 KIRK DOYUSUFA Nichelle Ot Z85.41 PERSONAL HISTORY OF MALIGNANT NEOPLASM O 12/03/2018 PFEIFER DOYUSUFA Nichelle Ot Z88.2 ALLERGY STATUS TO SULFONAMIDES STATUS 12/03/2018 KIRK DO, SANDRA K Ot Z88.8 ALLERGY STATUS TO OTH DRUG/MEDS/BIOL SUB 12/03/2018 KIRK DO, SANDRA K Ot Z90.710 ACQUIRED ABSENCE OF BOTH CERVIX AND UTER 12/03/2018 KIRK DO, SANDRA K Ot Z98.51 TUBAL LIGATION STATUS 12/05/2018 CHRISTIANA DO, ELAINA Ot 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 12/05/2018 COREY DO, ELAINA Ot E03.9 HYPOTHYROIDISM, UNSPECIFIED 12/05/2018 CHRISTIANA DO, ELAINA Ot E11.9 TYPE 2 DIABETES MELLITUS WITHOUT COMPLIC 12/05/2018 CHRISTIANA DO, ELAINA Ot E78.00 PURE HYPERCHOLESTEROLEMIA, UNSPECIFIED 12/05/2018 CHRISTIANA DO, ELAINA Ot F31.9 BIPOLAR DISORDER, UNSPECIFIED 12/05/2018 CHRISTIANA DO, ELAINA Ot K21.9 GASTRO-ESOPHAGEAL REFLUX DISEASE WITHOUT 12/05/2018 [facility], ELAINA Ot K58.0 IRRITABLE BOWEL SYNDROME WITH DIARRHEA 12/05/2018 [facility], ELAINA Ot R10.84 GENERALIZED ABDOMINAL PAIN 12/05/2018 [facility], ELAINA Ot R11.2 NAUSEA WITH VOMITING, UNSPECIFIED 12/05/2018 [facility], ELAINA Ot Z79.84 CORRECTION (CURRENT) USE OF ORAL HYPOGLYC 12/05/2018 [facility], ELAINA Ot Z85.41 PERSONAL HISTORY OF MALIGNANT NEOPLASM O 12/05/2018 [facility], ELAINA Ot Z88.2 ALLERGY STATUS TO SULFONAMIDES STATUS 12/05/2018 CHRISTIANA DO, ELAINA Ot Z88.8 ALLERGY STATUS TO OTH DRUG/MEDS/BIOL SUB 12/05/2018 CHRISTIANA DO, ELAINA Ot Z90.710 ACQUIRED ABSENCE OF [...] Ot K52.9 NONINFECTIVE GASTROENTERITIS AND COLITIS 12/06/2018 KIRK GUTIERREZ SANDRA K Ot K58.9 IRRITABLE BOWEL SYNDROME WITHOUT DIARRHE 12/06/2018 KIRK GUTIERREZSANDRA Ot R11.2 NAUSEA WITH VOMITING, UNSPECIFIED 12/06/2018 KIRK GUTIERREZSANDRA Ot Z79.51 DESIGN DRAFTSMAN (CURRENT) USE OF INHALED STERO 12/06/2018 KIRK SANDRA Ot Z79.84 DESIGN DRAFTSMAN (CURRENT) USE OF ORAL HYPOGLYC 12/06/2018 KIRK [...] 01/13/2019 ROVENSTINE DO, JAREK L Ot Z79.51 DESIGN DRAFTSMAN (CURRENT) USE OF INHALED STERO 01/13/2019 ROVENSTINE DO, JAREK Monge Ot Z79.84 DESIGN DRAFTSMAN (CURRENT) USE OF ORAL HYPOGLYC 01/13/2019 ROVENSTINE [...] 01/17/2019 ROVENSTINE DO, JAREK Monge Ot Z79.51 DESIGN DRAFTSMAN (CURRENT) USE OF INHALED STERO 01/17/2019 ROVENSTINE DOJAREK Ot Z79.84 DESIGN DRAFTSMAN (CURRENT) USE OF ORAL HYPOGLYC 01/17/2019 ROVENSTINE DOJAREK Ot Z85.41 PERSONAL HISTORY OF MALIGNANT NEOPLASM O 01/17/2019 ROVENSTINE DO, JAREK Monge Ot Z88.2 ALLERGY STATUS TO SULFONAMIDES STATUS 01/17/2019 ROVENSTINE DO, JAREK Monge Ot Z88.5 ALLERGY STATUS TO NARCOTIC AGENT STATUS 01/17/2019 ROVENSTINE DO, JAREK Monge Ot Z88.8 ALLERGY STATUS TO OTH DRUG/MEDS/BIOL SUB 01/17/2019 ROVENSTINE DO, JAREK Monge Ot Z90.710 ACQUIRED ABSENCE OF BOTH CERVIX AND UTER 01/17/2019 ROVENSTINE DO, JAREK Monge Ot Z98.51 TUBAL LIGATION STATUS 02/23/2019 SUSAN SÁNCHEZ MD Ot E03.9 HYPOTHYROIDISM, UNSPECIFIED 02/23/2019 SUSAN SÁNCHEZ MD Ot E11.9 TYPE 2 DIABETES MELLITUS WITHOUT COMPLIC 02/23/2019 SUSAN SÁNCHEZ MD Ot E78.00 PURE HYPERCHOLESTEROLEMIA, UNSPECIFIED 02/23/2019 SUSAN SÁNCHEZ MD Ot F31.9 BIPOLAR DISORDER, UNSPECIFIED 02/23/2019 SUSAN SÁNCHEZ MD Ot F41.9 ANXIETY DISORDER, UNSPECIFIED 02/23/2019 SUSAN SÁNCHEZ MD Ot K21.9 GASTRO-ESOPHAGEAL REFLUX DISEASE WITHOUT 02/23/2019 SUSAN SÁNCHEZ MD Ot K58.9 IRRITABLE BOWEL SYNDROME WITHOUT DIARRHE 02/23/2019 SUSAN SÁNCHEZ MD Ot R10.9 UNSPECIFIED ABDOMINAL PAIN 02/23/2019 SUSAN SÁNCHEZ MD Ot R53.83 OTHER FATIGUE 02/23/2019 SUSAN SÁNCHEZ MD Ot Z79.51 DESIGN DRAFTSMAN (CURRENT) USE OF INHALED STERO 02/23/2019 SUSAN SÁNCHEZ MD Ot Z79.84 CORRECTION (CURRENT) USE OF ORAL HYPOGLYC 02/23/2019 SUSAN SÁNCHEZ MD Ot Z85.41 PERSONAL HISTORY OF MALIGNANT NEOPLASM O 02/23/2019 SUSAN SÁNCHEZ MD Ot Z88.2 ALLERGY STATUS TO SULFONAMIDES STATUS 02/23/2019 SUSAN SÁNCHEZ MD Ot Z88.8 ALLERGY STATUS TO OTH DRUG/MEDS/BIOL SUB 02/23/2019 SUSAN SÁNCHEZ MD Ot Z90.710 ACQUIRED ABSENCE OF BOTH CERVIX AND UTER 02/23/2019 SUSAN SÁNCHEZ MD Ot Z98.51 TUBAL LIGATION STATUS Procedures There [...] 7-25 CREATININE 0.88 mg/dL 0.50-1.05 eGFR NON-AFR. BURMESE 77 mL/min/1.73m2 > OR = 60 eGFR [...] NRG Blood erythrocyte morphology finding identification [facility] Comprehensive metabolic panel - 12/02/18 22:10 Serum [...] 05:12 CULTURE, URINE, ROUTINE SEE NOTE NRG Capillary blood glucose measurement by g lucometer (mass/volume) - 02/18/19 20:03 Capillary blood glucose measurement by glucometer (mas s/volume) 105 mg/dL 70-110 Blood CBC with ordered manual differenti al panel - 02/18/19 20:09 Blood leukocytes automated count (number/volume) 8.7 10*3/uL 4.3-11.0 Blood erythrocytes automated count (number/volume) 4.21 10*6/uL 4.35-5.85 Venous blood hemoglobin measurement (mass/volume) 12.3 g/dL 11.5-16.0 Blood hematocrit (volume fraction) 37 % 35-52 Automated erythrocyte mean corpuscular volume 87 [ foz_us] 80-99 Automated erythrocyte mean corpuscular h emoglobin (mass per erythrocyte) 29 pg 25-34 Automated erythrocyte mean corpuscular h emoglobin concentration measurement (mass/volume) 33 g/dL 32-36 Automated erythrocyte distribution width ratio 13. 4 % 10.0- 14.5 Automated blood platelet count (count/volume) 326 10*3/uL 130-400 Automated blood platelet mean volume measurement 8.8 [foz_us] 7.4-10.4 Automated blood neutrophils/100 leukocytes 41 % 42-75 Automated blood lymphocytes/100 leukocytes 41 % 12-44 Blood monocytes/100 leukocytes 3 % NRG Automated blood eosinophils/100 leukocytes 12 % 0-10 Automated blood basophils/100 leukocytes 1 % 0-10 Blood neutrophils automated count (number/volume) 0.3 10*3 1.8-7.8 Blood lymphocytes automated count (number/volume) 3.6 10*3 1.0-4.0 Blood monocytes automated count (number/volume) 3. 6 10*3 0.0-1.0 Automated eosinophil count 0.4 10*3/uL 0 .0-0.3 Automated blood basophil count (count/volume) 1.0 10*3/uL 0.0-0.1 Manual blood segmented neutrophils/100 leukocytes 43 % NRG Manual blood lymphocytes/100 leukocytes 41 % NRG Manual eosinophils/100 leukocytes in nose 13 % NRG Blood microcytes detection by light microscopy MOD ERATE NR Blood blood smear finding identification by light micr oscopy 0.09 NR Serum or plasma ethanol measurement (mas s/volume) - 02/18/19 20:09 Serum or plasma ethanol measurement (mass/volume) < mg/dL <10 Comprehensive metabolic panel - 02/18/19 20:09 Serum or plasma sodium measurement (moles/volume) 136 mmol/L 135-145 Serum or plasma potassium measurement (moles/volume) 5.0 mmol/L 3.6-5.0 Serum or plasma chloride measurement (moles/volume) 101 mmol/L 98-107 Carbon dioxide 19 mmol/L 21-32 Serum or plasma anion gap determination (moles/volume) 16 mmol/L 5-14 Serum or plasma urea nitrogen measurement (mass/volume ) 10 mg/dL 7-18 Serum or plasma creatinine measurement (mass/volume) 0.90 mg/dL 0.60-1.30 Serum or plasma urea nitrogen/creatinine mass ratio 11 NRG Serum or plasma creatinine measurement w ith calculation of estimated glomerular filtration rate > NRG Serum or plasma glucose measurement (mass/volume) 107 mg/dL 70-105 Serum or plasma calcium measurement (mass/volume) 9.7 mg/dL 8.5-10.1 Serum or plasma total bilirubin measurement (mass/volu me) 0.2 mg/dL 0.1-1.0 Serum or plasma alkaline phosphatase liliana surement (enzymatic activity/volume) 39 U/L 40-136 Serum or plasma aspartate aminotransfera se measurement (enzymatic activity/volume) 37 U/L 5-34 Serum or plasma alanine aminotransferase measurement (enzymatic activity/volume) 24 U/L 0-55 Serum or plasma protein measurement (mass/volume) 7.5 g/dL 6.4-8.2 Serum or plasma albumin measurement (mass/volume) 4.4 g/dL 3.2-4.5 CALCIUM CORRECTED 9.4 mg/dL 8.5-10.1 Complete urinalysis with reflex to cultu re - 02/18/19 21:13 Urine color determination YELLOW NRG Urine clarity determination CLEAR NR G Urine pH measurement by test strip 6.0 5-9 Specific gravity of urine by test strip <= 1.016-1.022 Urine protein assay by test strip, [...] by automated test strip (mass/volume) 0.2 mg/dL < = 1.0 Urine leukocyte esterase detection by dipstick NEG ATIVE NEGATIVE Automated urine sediment erythrocyte cou nt by microscopy (number/high power field) NONE NRG Automated urine sediment leukocyte count by microscopy (number/high power field) NONE NRG Bacteria detection in urine sediment by light microsco py NEGATIVE NRG Squamous epithelial cells detection in u rine sediment by light microscopy NONE NRG Crystals detection in urine sediment by light microsco py NONE NRG Casts detection in urine sediment by light microscopy NONE NRG Mucus detection in urine sediment by light microscopy NEGATIVE NRG Complete urinalysis with reflex to culture NO NRG Urine drug screening test - 02/18/19 21: 13 Urine phencyclidine detection by screening method NEGATIVE NEGATIVE Urine benzodiazepines detection by screening method NEGATIVE NEGATIVE Urine cocaine detection NEGATIVE NEGATI VE Urine amphetamines detection by screening method N EGATIVE NEGATIVE Urine methamphetamine detection by screening method NEGATIVE NEGATIVE Urine cannabinoids detection by screening method N EGATIVE NEGATIVE Urine opiates detection by screening method NEGATI VE NEGATIVE Urine barbiturates detection NEGATIVE N EGATIVE Screening urine tricyclic antidepressants detection POSITIVE NEGATIVE Urine methadone detection by screening method NEGA TIVE NEGATIVE Urine oxycodone detection NEGATIVE NEGA TIVE Urine propoxyphene detection NEGATIVE N EGATIVE CULTURE, URINE - 02/21/19 19:00 CULTURE, URINE, ROUTINE SEE NOTE NRG Complete urinalysis with reflex to cultu re - 04/10/19 01:13 Urine color determination YELLOW NRG Urine clarity determination CLEAR NR G Urine pH measurement by test strip 6.0 5-9 Specific gravity of urine by test strip <= 1.016-1.022 Urine protein assay by test strip, [...] by automated test strip (mass/volume) 0.2 mg/dL < = 1.0 Urine leukocyte esterase detection by dipstick NEG ATIVE NEGATIVE Automated urine sediment erythrocyte cou nt by microscopy (number/high power field) NONE NRG Automated urine sediment leukocyte count by microscopy (number/high power field) [HPF] NRG Bacteria detection in urine sediment by light microsco py NEGATIVE NRG Squamous epithelial cells detection in u rine sediment by light microscopy 0-2 NRG Crystals detection in urine sediment by light microsco py NONE NRG Casts detection in urine sediment by light microscopy NONE NRG Mucus detection in urine sediment by light microscopy NONE NRG Complete urinalysis with reflex to culture NO NRG Complete blood count (CBC) with automate d white blood cell (WBC) differential - 04/10/19 01:28 Blood leukocytes automated count (number/volume) 5.4 10*3/uL 4.3-11.0 Blood erythrocytes automated count (number/volume) 3.73 10*6/uL 4.35-5.85 Venous blood hemoglobin measurement (mass/volume) 11.0 g/dL 11.5-16.0 Blood hematocrit (volume fraction) 33 % 35-52 Automated erythrocyte mean corpuscular volume 87 [ foz_us] 80-99 Automated erythrocyte mean corpuscular h emoglobin (mass per erythrocyte) 29 pg 25-34 Automated erythrocyte mean corpuscular h emoglobin concentration measurement (mass/volume) 34 g/dL 32-36 Automated erythrocyte distribution width ratio 12. 7 % 10.0- 14.5 Automated blood platelet count (count/volume) 305 10*3/uL 130-400 Automated blood platelet mean volume measurement 9.1 [foz_us] 7.4-10.4 Automated blood neutrophils/100 leukocytes 74 % 42-75 Automated blood lymphocytes/100 leukocytes 20 % 12-44 Blood monocytes/100 leukocytes 3 % 0-12 Automated blood eosinophils/100 leukocytes 1 % 0-10 Automated blood basophils/100 leukocytes 1 % 0-10 Blood neutrophils automated count (number/volume) 4.0 10*3 1.8-7.8 Blood lymphocytes automated count (number/volume) 1.1 10*3 1.0-4.0 Blood monocytes automated count (number/volume) 0. 2 10*3 0.0-1.0 Automated eosinophil count 0.1 10*3/uL 0 .0-0.3 Automated blood basophil count (count/volume) 0.0 10*3/uL 0.0-0.1 Comprehensive metabolic panel - 04/10/19 01:28 Serum or plasma sodium measurement (moles/volume) 128 mmol/L 135-145 Serum or plasma potassium measurement (moles/volume) 5.7 mmol/L 3.6-5.0 Serum or plasma chloride measurement (moles/volume) 92 mmol/L 98-107 Carbon dioxide 20 mmol/L 21-32 Serum or plasma anion gap determination (moles/volume) 16 mmol/L 5-14 Serum or plasma urea nitrogen measurement (mass/volume ) 11 mg/dL 7-18 Serum or plasma creatinine measurement (mass/volume) 1.02 mg/dL 0.60-1.30 Serum or plasma urea nitrogen/creatinine mass ratio 11 NRG Serum or plasma creatinine measurement w ith calculation of estimated glomerular filtration rate 57 NRG Serum or plasma glucose measurement (mass/volume) 608 mg/dL 70-105 Serum or plasma calcium measurement (mass/volume) 8.7 mg/dL 8.5-10.1 Serum or plasma total bilirubin measurement (mass/volu me) 0.2 mg/dL 0.1-1.0 Serum or plasma alkaline phosphatase liliana surement (enzymatic activity/volume) 52 U/L 40-136 Serum or plasma aspartate aminotransfera se measurement (enzymatic activity/volume) 40 U/L 5-34 Serum or plasma alanine aminotransferase measurement (enzymatic activity/volume) 38 U/L 0-55 Serum or plasma protein measurement (mass/volume) 7.2 g/dL 6.4-8.2 Serum or plasma albumin measurement (mass/volume) 4.1 g/dL 3.2-4.5 CALCIUM CORRECTED 8.6 mg/dL 8.5-10.1 Lipase - 04/10/19 01:28 Lipase 46 U/L 8-78 Capillary blood glucose measurement by g lucometer (mass/volume) - 04/10/19 02:06 Capillary blood glucose measurement by glucometer (mas s/volume) 533 mg/dL 70-110 Capillary blood glucose measurement by g lucometer (mass/volume) - 04/10/19 03:03 Capillary blood glucose measurement by glucometer (mas s/volume) 379 mg/dL 70-110 Encounters ACCT No. Visit Date/Time Discharge Status Pt. Type Provider Facility Loc./Unit Complaint [id number] 01/25/2019 14:20:00 01/25/2019 23:59: 59 [facility] Outpatient JES[facility]S [facility] [id number] 02/21/2019 10:40:00 Document Registration [id number] 12/05/2018 10:40:00 Document Registration [id number] 12/05/2018 09:30:00 Document Registration [id number] 08/30/2018 09:30:00 Document Registration [id number] 08/28/2018 13:30:00 Document Registration [id number] 05/11/2018 11:45:00 Document Registration [id number] 05/11/2018 11:40:00 Document Registration [id number] 05/11/2018 11:40:00 Document Registration [id number] 12/29/2017 15:00:00 Document Registration [id number] 04/10/2019 00:49:00 03:08:00 DIS Emergency NAZARIO HERRERA, FAROOQ Patterson [facility] FS DIABETIC [id number] 02/18/2019 19:58:00 21:42:00 DIS Outpatient PRINCESS HERRERA, SUSAN Monge [facility] FS HYPOGLYCEMIA [id number] 01/13/2019 00:26:00 00:56:00 DIS Emergency ROVENSTJAREK LUDWIG DO [facility] FS LOW BACK PAIN [id number] 12/02/2018 22:51:00 00:50:00 DIS Emergency KIRK , SANDRA Arias a [facility] N,V,ABD PAIN [id number] 12/02/2018 06:56:00 09:50:00 DIS Emergency ELAINA COREY DO [facility] FS N,V,ABD PAIN [id number] 10/30/2018 20:46:00 22:28:00 DIS Emergency NAZARIO HERRERA, FAROOQ Patterson [facility] FS UPPER BACK PAIN, RT ARM PAIN [id number] 10/03/2018 03:38:00 06:29:00 DIS Emergency NAZARIO HERRERA, FAROOQ Patterson [facility] FS COMPLICATIONS WITH SURG ICAL INCISION [id number] 09/24/2018 14:02:00 17:47:00 DIS Emergency ASHUTOSH ALBRIGHT MD [facility] FS PT IS 2 WKS POST OP - I NCISION PAIN ON UPPER ABD [id number] 09/07/2018 07:08:00 12:40:00 DIS Outpatient RAMIREZ WALTERS DO [facility] INCISIONAL/VENTRAL ANGELITA [place] [id number] 09/05/2018 07:15:00 10:29:00 DIS Outpatient RAMIREZ WALTERS DO [facility] PREOP INCISIONAL/VENTRAL ANGELITA IA [id number] 08/15/2018 23:23:00 019 01:15:00 DIS Emergency DARIUS DEL CASTILLO DO [facility] FS DIABETIC ISSUES [id number] 08/31/2018 15:09:00 Document Registration
--- OUTSIDE RECORDS SUMMARY | 2019-04-30 03:05 | XMS REPORT ---
Author Author Angella Griffith Organization [facility] Address [address] [place] [address] Care Team Providers Care Neurological Surgery Teacher Name Role Phone GUILLE Griffith Unavailable PROBLEMS Type Condition ICD9-CM Code RZU15-[place] Code Onset Dates Condition S tatus SNOMED Code Problem Gastroesophageal reflux disease with esophagitis K 21.0 Active 312521180 Problem Neuropathy G62.9 Active 814521727 Problem Controlled type 2 diabetes m ellitus without complication, without long- term current use of insulin E11.9 Active 513038114 Problem Other idiopathic scoliosis, thoracic region M41.24 Active 920010487 Problem Anxiety F41.9 Active 08314198 Problem Lumbago with sciatica, right side M54.41 Active [id number] Problem Non-seasonal allergic rhinitis, unspecified trigger J30.89 Active 84665310 Problem Acquired hypothyroidism E03.9 Active 239068374 Problem Sinusitis J32.9 Active 14889996 Problem Lumbago with sciatica, left side M54.42 Active 900819267 Problem Hypoglycemia E16.2 Active 3777108 03 Problem Other chronic pain G89.29 Active 8 5952305 Problem Urinary incontinence R32 Active 174726790 Problem Insomnia G47.00 Active 069282368 Problem IBS (irritable bowel syndrome) K58.9 Active 01354910 Problem Chronic bronchitis J42 Active 6 [id number] ALLERGIES No Information ENCOUNTERS Encounter Location Date Diagnosis [facility] [place] [address] [facility] [place] [address] Mar, [facility] [place] [address] [facility] [facility] [place] [address] Mar, [facility] [address] [address] [address] [place] [address] Mar, Right shoulder pain M25.511 ; Gastroesophageal reflux disease with esophagitis K21.0 and Controlled type 2 diabetes mellitus without complication, without long-term current use of insulin E11.9 [address] [place] [address] Feb, Anxiety F41.9 and Gastroesop hageal reflux disease with esophagitis K21.[address] [place] [address] Feb, [address] [place] [address] Feb, Spinal stenosis M48.00 [address] [place] [address] Feb, Anxiety F41.9 ; Gastroesopha geal reflux disease with esophagitis K21.0 and Spinal stenosis M48.00 [facility] [place] [address] [facility] [facility] [place] [address] Feb, [address] [place] [address] Feb, Controlled type 2 diabetes m ellitus without complication, without long-term current use of insulin E11.[address] [place] [address] Feb, Controlled type 2 diabetes m ellitus without complication, without long-term current use of insulin E11.9 ; Hypoglycemia E16.2 and Urinary incontinence R32 [address] [place] [address] Feb, Spinal stenosis M48.00 [facility] [id number] [place] [address] Feb, [address] [place] [address] Jan, Spinal stenosis M48.00 [address] [place] [address] Jan, Chronic bronchitis J42 and S inusitis J32.[address] [place] [address] Jan, [address] [place] [address] Jan, Gastroesophageal reflux dise ase with esophagitis K21.0 [address] [place] [address] Jan, [address] [place] [address] Jan, Spinal stenosis M48.00 [facility] [place] [address] [facility] [facility] [place] [address] Dec, Non-seasonal allergic rhinitis, unspecif ied trigger J30.89 [facility] [address] [place] [address] Dec, Right foot pain M79.671 [address] [place] [address] Nov, Controlled type 2 diabetes m ellitus without complication, without long-term current use of insulin E11.9 [address] [facility] [place] [address] Nov, Controlled type 2 diabetes mellitus with out complication, without long-term current use of insulin E11.9 [address] [place] [address] Nov, Gastroesophageal reflux dise ase with esophagitis K21.0 [facility] [address] [place] [address] Nov, LUQ pain R10.12 ; Dysuria R3 0.0 ; IBS (irritable bowel syndrome) K58.9 ; Gastroesophageal reflux disease with esophagitis K21.0 and Spinal stenosis M48.[address] [place] [address] Nov, Acquired hypothyroidism E03. 9 and Controlled type 2 diabetes mellitus without complication, without long-term current use of insulin E11.[address] [place] [address] Nov, Lumbago with sciatica, right side M54.[address] [place] [address] Nov, Cellulitis L03.90 and Dog bi te W54.0XXA [address] [place] [address] Nov, Controlled type 2 diabetes m ellitus without complication, without long-term current use of insulin E11.9 and Acquired hypothyroidism E03.[address] [place] [address] Nov, Controlled type 2 diabetes m ellitus without complication, without long-term current use of insulin E11.[address] [place] [address] Nov, [facility] [place] [address] [facility] [place] [address] Oct, [address] [place] [address] Oct, [address] [place] [address] Oct, Nasopharyngitis acute J00 [address] [place] [address] Sep, Lumbago with sciatica, right side M54.[address] [place] [address] Sep, [address] [place] [address] Sep, Abnormal mammogram R92.[address] [place] [address] Sep, Abnormal mammogram R92.[address] [place] [address] Sep, Vaginitis N76.0 ; Anxiety F4 1.9 and Insomnia G47.00 [facility] [place] [address] [facility] [place] [address] Sep, [address] [place] [address] Sep, Fever R50.9 and Urinary inco ntinence R32 [address] [place] [address] Sep, Abnormal mammogram R92.8 [address] [place] [address] Sep, Controlled type 2 diabetes m ellitus without complication, without long-term current use of insulin E11.9 [address] [place] [address] Aug, Lumbago with sciatica, right side M54.41 [address] [place] [address] Aug, [address] [place] [address] Aug, Screening mammogram, encount er for Z12.31 [address] [place] [address] Aug, Controlled type 2 diabetes m ellitus without complication, without long-term current use of insulin E11.9 and Acquired hypothyroidism E03.[address] [place] [address] Aug, Screening mammogram, encount er for Z12.31 ; Encounter for therapeutic drug monitoring Z51.81 ; Controlled type 2 diabetes mellitus without complication, without long-term current use of insulin E11.9 and Acquired hypothyroidism E03.9 [facility] [address] [facility] [place] [address] Aug, [address] [place] [address] Aug, [facility] [address] [place] [address] Aug, [facility] [address] [place] [address] Aug, [address] [place] [address] Aug, [facility] [place] [address] [facility] [place] [address] Aug, [address] [place] [address] Aug, [facility] [place] [address] [facility] [place] [address] Jul, Neuropathy G62.9 [facility] [address] [place] [address] Jul, Dermatitis L30.[address] [place] [address] June, Gastroesophageal reflux dise ase with esophagitis K21.0 ; Lumbago with sciatica, right side M54.41 ; Non-seasonal allergic rhinitis, unspecified trigger J30.89 and Controlled type 2 diabetes mellitus without complication, without long-term current use of insulin E11.9 [facility] [address] [place] [address] May, [facility] [address] [place] [address] May, Neuropathy G62.9 ; Controlle d type 2 diabetes mellitus without complication, without long-term current use of insulin E11.9 and Bronchitis J40 [facility] [address] [place] [address] May, [facility] [address] [place] [address] Apr, [facility] [address] [place] [address] Apr, Controlled type 2 diabetes m ellitus [...] or gangrene K43.2 and Acquired hypothyroidism E03.9 [address] [address] Apr, [address] [address] Mar, Controlled type 2 diabetes mellitus with out complication, without long-term current use of insulin E11.9 [address] [address] Feb, Bronchitis J40 [address] [address] Feb, [address] [address] Jan, Bronchitis J40 ; Lumbago with sciatica, left side M54.42 ; Lumbago with sciatica, right side M54.41 and Other chronic pain G89.[address] [address] Dec, Controlled type 2 diabetes mellitus with [...] SOCIAL HISTORY Never Assessed REASON FOR VISIT Requests return call PLAN OF CARE VITAL SIGNS MEDICATIONS Unknown Medications RESULTS No Results PROCEDURES No Known procedures [...]
== END 2019-04-29 17:25 | disposition home or self-care (01) ==
LOC: EDUNIT# 16:33 → ER FS 16:35
DX: J44.9 Chronic obstructive pulmonary disease, unspecified (principal); R09.1 Pleurisy; E78.00 Pure hypercholesterolemia, unspecified; K21.9 Gastro-esophageal reflux disease without esophagitis; E11.9 Type 2 diabetes mellitus without complications; E03.9 Hypothyroidism, unspecified; F31.9 Bipolar disorder, unspecified; F41.9 Anxiety disorder, unspecified; F17.210 Nicotine dependence, cigarettes, uncomplicated; Z85.41 Personal history of malignant neoplasm of cervix uteri; Z88.2 Allergy status to sulfonamides; Z88.8 Allergy status to other drugs, medicaments and biological substances; Z79.51 Long term (current) use of inhaled steroids; Z79.84 Long term (current) use of oral hypoglycemic drugs
CPT/HCPCS: 71045; 87430; 87804; 94640

== ENCOUNTER → 2019-05-03 | Outpatient (CLI) | payer MEDICAID ==
[~2019-05-03] MED LIST changes: +AZIT250T12 PO; +RT-ALBUINH INH
[2019-05-03 15:08] LABS: CHLORIDE 100 MMOL/L (98-107); POTASSIUM 5.1 MMOL/L (3.6-5.0); SODIUM 134 MMOL/L (135-145)
[2019-05-03 15:09] LABS: ALANINE AMINOTRANSFERASE 29 U/L (0-55); ALBUMIN 4.8 GM/DL (3.2-4.5); ALKALINE PHOSPHATASE 59 U/L (40-136); AMYLASE 62 U/L (25-125); BILIRUBIN,TOTAL 0.3 MG/DL (0.1-1.0); BUN/CREATININE RATIO 22; CALCIUM 10.1 MG/DL (8.5-10.1); CARBON DIOXIDE 19 MMOL/L (21-32); CREATININE SERUM 1.71 MG/DL (0.60-1.30); GFR ESTIMATED 31; GLUCOSE 183 MG/DL (70-105); LIPASE 28 U/L (8-78); TOTAL PROTEIN 8.2 GM/DL (6.4-8.2)
== END ==
LOC: LAB FS 14:09
PROVIDERS: ATTEND Nurse Practitioner
DX: R11.12 Projectile vomiting (principal); R10.9 Unspecified abdominal pain
CPT/HCPCS: 36415; 80053; 82150; 83690

== ENCOUNTER 2019-05-10 19:30 | Inpatient (IN) | payer MEDICAID ==
[~2019-05-10] VITALS: Ht 160 cm; Wt 68.0 kg
[2019-05-10] MEDS ORDERED: NS IV 1000 ML 1,000 ML IV SCH ×2 (19:45→21:15)
[2019-05-10] MEDS ORDERED: LORazepam INJ 2 MG/ML (ATIVAN) VIAL IVP PRN (19:45)
[2019-05-10] MEDS ORDERED: METOCLOPRAMIDE INJ 10 MG/2 ML (REGLAN) IVP ONE (19:45)
--- NOTE | 2019-05-10 19:47 | ED GI ---
General Stated Complaint: NAUSEA,VOMITING Source of Information: Patient Exam Limitations: No Limitations History of Present Illness Date Seen by Provider: May 10, 2019 Time Seen by Provider: 19:38 Initial Comments The patient is a 49-year-old female who presents for evaluation of nausea and vomiting over the last 3 weeks or so as well as some upper abdominal discomfort. She saw her PCP last week and was prescribed Phenergan which she states is helping a little bit. She denies any history of abdominal surgeries. She states that she has irritable bowel disease. She is a former alcoholic. She denies fevers or chills, hematemesis, rectal bleeding, chest pain or shortness of breath, dizziness or syncope. She is alert and oriented 4, calm, and appears to be in no distress at this time. Timing/Duration: Other (3 weeks) Severity/Quality: Moderate Location: Epigastric Radiation: No Radiation Activities at Onset: None Associated Symptoms: Denies Symptoms Allergies and Home Medications Allergies Coded Allergies: Sulfa (Sulfonamide Antibiotics) (Verified Allergy, Unknown, abd pain, 09/05/18) adhesive tape (Verified Allergy, Unknown, Hives, 09/05/18) bupropion (Verified Allergy, Unknown, sucidial, 09/05/18) carisoprodol (Verified Allergy, Unknown, heart palpatations, 09/05/18) quetiapine (Verified Allergy, Unknown, suicidal, 09/05/18) Home Medications Albuterol Sulfate 1 Puff Puff, 2 PUFF INH Q4H 1 PUFF = 90 MCG Prescribed by: GENEVIEVE ESTEVEZ on 04/29/191718 Azithromycin 250 Mg Tablet, 250 MG PO UD TAKE 2 TABLETS ON DAY ONE THEN TAKE 1 TABLET DAILY FOR FOUR MORE DAYS Prescribed by: GENEVIEVE ESTEVEZ on 04/29/191718 Citalopram Hydrobromide 20 Mg Tablet, 20 MG PO DAILY, (Reported) Cyclobenzaprine HCl 10 Mg Tablet, 10 MG PO TID PRN for MUSCLE SPASMS, (Reported) Dapagliflozin Propanediol 5 Mg Tablet, 5 MG PO DAILY, (Reported) Fenofibrate Nanocrystallized 145 Mg Tablet, 145 MG PO DAILY, (Reported) Fluticasone Propionate 9.9 Ml New Era.susp, 2 SPRAY NS DAILY PRN for nasal congestion, (Reported) Gabapentin 300 Mg Capsule, 300 MG PO TID, (Reported) Hydrocodone Bit/Acetaminophen 1 Tab Tab, 1 TAB PO Q6H PRN for PAIN-MODERATE Prescribed by: RAMIREZ WALTERS on 09/07/18950 Hyoscyamine Sulfate 0.125 Mg Tab.subl, 1-2 TAB SL Q4H Prescribed by: SANDRA BRADLEY on 12/03/187 Levofloxacin 500 Mg Tablet, 500 MG PO DAILY Prescribed by: FAROOQ LANGE on 10/03/1837 Levothyroxine Sodium 112 Mcg Tablet, 112 MCG PO DAILY, (Reported) Loperamide HCl 2 Mg Capsule, 2 MG PO UD PRN for DIARRHEA, (Reported) Metformin HCl 1,000 Mg Tablet, 1,000 MG PO BID, (Reported) Ondansetron 4 Mg Tab.rapdis, 4 MG PO q6 Prescribed by: ELAINA COREY on 12/02/18932 Pantoprazole Sodium 40 Mg Tablet.dr, 40 MG PO DAILY, (Reported) Ranitidine HCl 150 Mg Tablet, 150 MG PO DAILY, (Reported) Tramadol HCl 50 Mg Tablet, 50 MG PO Q4H Prescribed by: ELAINA COREY on 12/02/18932 Patient Home Medication List Home Medication List Reviewed: Yes Review of Systems Review of Systems Constitutional: no symptoms reported EENTM: No Symptoms Reported Respiratory: No Symptoms Reported Cardiovascular: No Symptoms Reported Gastrointestinal: Abdominal Pain, Nausea, Vomiting Genitourinary: No Symptoms Reported Musculoskeletal: no symptoms reported Skin: no symptoms reported Psychiatric/Neurological: No Symptoms Reported Endocrine: No Symptoms Reported Hematologic/Lymphatic: No Symptoms Reported All Other Systems Reviewed Negative Unless Noted: Yes Past Gyuauyo-Nrbthg-Ajupef Hx Past Med/Social Hx: Reviewed Nursing Past Med/Soc Hx Patient Social History Type Used: Cigarettes 2nd Hand Smoke Exposure: No Recent Foreign Travel: No Contact w/Someone Who Travel: No Recent Hopitalizations: No Seasonal Allergies Seasonal Allergies: Yes Past Medical History Surgeries: Yes Abdominal, Section, Hysterectomy, Oophorectomy, 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 Respiratory: Yes Asthma, COPD Cardiac: Yes High Cholesterol Neurological: No 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 Disorders: Yes 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, 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, 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 Genitourinary: Yes Bladder Infection Gastrointestinal: Yes Gastroesophageal Reflux, Chronic Diarrhea, Irritable Bowel Musculoskeletal: Yes Degenerate Disk Disease, Scoliosis, Chronic Back Pain Endocrine: Yes Hypothyroidsim, Diabetes, Non-Insulin dep HEENT: Yes (chronic sinusitis) Cancer: Yes Cervical Did You Recieve Any Treatments: Yes What Type of Treatment Did You: Surgical Intervention Psychosocial: Yes Anxiety, Bipolar, Depression Integumentary: No Blood Disorders: No Physical Exam Vital Signs Vital Signs - First Documented 05/10/19 19:40 Temp 36.0 Pulse 97 Resp 18 B/P (MAP) 122/74 (90) Pulse Ox 98 O2 Delivery Room Air Capillary Refill : Height/Weight/BMI Height: 5'4.00" Weight: 142lbs. 0oz. 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 nml as tested, no motor/sensory deficits, alert, normal mood/affect, oriented x 3 Skin: normal color, warm/dry Progress/Results/Core Measures Results/Orders Lab Results Laboratory Tests Test 05/10/19 19:47 05/10/19 19:55 Range/Units White Blood Count 8.4 4.3-11.0 10^3/uL Red Blood Count 3.88 L 4.35-5.85 10^6/uL Hemoglobin 11.5 11.5-16.0 G/DL Hematocrit 34 L 35-52 % Mean Corpuscular Volume 87 80-99 FL Mean Corpuscular Hemoglobin 30 25-34 PG Mean Corpuscular Hemoglobin Concent 34 32-36 G/DL Red Cell Distribution Width 12.4 10.0-14.5 % Platelet Count 377 130-400 10^3/uL Mean Platelet Volume 9.1 7.4-10.4 FL Neutrophils (%) (Auto) 51 42-75 % Lymphocytes (%) (Auto) 37 12-44 % Monocytes (%) (Auto) 5 0-12 % Eosinophils (%) (Auto) 6 0-10 % Basophils (%) (Auto) 1 0-10 % Neutrophils # (Auto) 4.2 1.8-7.8 X 10^3 Lymphocytes # (Auto) 3.1 1.0-4.0 X 10^3 Monocytes # (Auto) 0.5 0.0-1.0 X 10^3 Eosinophils # (Auto) 0.5 H 0.0-0.3 10^3/uL Basophils # (Auto) 0.1 0.0-0.1 10^3/uL Sodium Level 137 135-145 MMOL/L Potassium Level 4.4 3.6-5.0 MMOL/L Chloride Level 99 98-107 MMOL/L Carbon Dioxide Level 20 L 21-32 MMOL/L Anion Gap 18 H 5-14 MMOL/L Blood Urea Nitrogen 30 H 7-18 MG/DL Creatinine 3.42 H 0.60-1.30 MG/DL Estimat Glomerular Filtration Rate 14 BUN/Creatinine Ratio 9 Glucose Level 117 H 70-105 MG/DL Calcium Level 9.0 8.5-10.1 MG/DL Corrected Calcium 8.8 8.5-10.1 MG/DL Total Bilirubin 0.2 0.1-1.0 MG/DL Aspartate Amino Transf (AST/SGOT) 35 H 5-34 U/L Alanine Aminotransferase (ALT/SGPT) 24 0-55 U/L Alkaline Phosphatase 54 40-136 U/L Total Protein 7.2 6.4-8.2 GM/DL Albumin 4.2 3.2-4.5 GM/DL Amylase Level 74 25-125 U/L Lipase 29 8-78 U/L Urine Color DARK YELLOW Urine Clarity CLEAR Urine pH 5.0 5-9 Urine Specific [place] >=1.030 1.016-1.022 Urine Protein NEGATIVE NEGATIVE Urine Glucose (UA) NEGATIVE NEGATIVE Urine Ketones TRACE H NEGATIVE Urine Nitrite NEGATIVE NEGATIVE Urine Bilirubin 1+ H NEGATIVE Urine Urobilinogen 0.2 < = 1.0 MG/DL Urine Leukocyte Esterase NEGATIVE NEGATIVE Urine RBC (Auto) NEGATIVE NEGATIVE Urine RBC 0-2 /HPF Urine WBC 2-5 /HPF Urine Squamous Epithelial Cells 5-10 /HPF Urine Crystals NONE /LPF Urine Bacteria TRACE /HPF Urine Casts PRESENT /LPF Urine Hyaline Casts 25-50 H /LPF Urine Mucus SMALL H /LPF Urine Culture Indicated NO My Orders Orders - JULIENNE INTERIANO DO Comprehensive Metabolic Panel (05/10/19 19:34) Lipase (05/10/19 19:34) Amylase (05/10/19 19:34) Ua Culture If Indicated (05/10/19 19:34) Ed Iv/Invasive Line Start (05/10/19 19:34) Cbc With Automated Diff (05/10/19 19:34) Ns Iv 1000 Ml (Sodium Chloride 0.9%) (05/10/19 19:45) Metoclopramide Injection (Reglan Injecti (05/10/19 19:45) Lorazepam Injection (Ativan Injection) (05/10/19 19:45) Ct Abdomen/Pelvis Wo (05/10/19 20:32) Ns Iv 1000 Ml (Sodium Chloride 0.9%) (05/10/19 21:15) Medications Given in ED Current Medications Medications Dose Ordered Sig/Francis Route Start Time Stop Time Status Last Admin Dose Admin Lorazepam 0.5 mg ONCE PRN IVP 05/10/19 19:45 05/10/19 19:55 0.5 MG Metoclopramide HCl 10 mg ONCE ONCE IVP 05/10/19 19:45 05/10/19 19:46 DC 05/10/19 19:53 10 MG Vital Signs/I&O 05/10/19 19:40 Temp 36.0 Pulse 97 Resp 18 B/P (MAP) 122/74 (90) Pulse Ox 98 O2 Delivery Room Air Progress Progress Note : Progress Note @2135 - patient updated on lab and imaging results. As she is having some nausea and vomiting and has an acute kidney injury I offered admission and the patient agrees. Dr. Layton excepts the admission at [facility]. He requests that the patient received lactated Ringer's at 150 cc per hour that she be a full admission, and that she received Zofran 4 mg every 6 hours PRN. Diagnostic Imaging Diagonstic Imaging: CT Comments PROCEDURE: CT abdomen and pelvis without contrast. TECHNIQUE: Multiple contiguous axial images were obtained through the abdomen and pelvis without the use of intravenous contrast. Auto Exposure Controls were utilized during the CT exam to meet ALARA standards for radiation dose reduction. INDICATION: Nausea, vomiting and right upper quadrant pain. COMPARISON: Prior CT study from 12/02/2018. FINDINGS: Lung bases demonstrate some mild dependent atelectasis. There is no pleural effusion. There is no significant pericardial effusion. The liver demonstrates diffuse hepatic steatosis without focal abnormality. There is some fatty sparing along the gallbladder fossa. The gallbladder is not distended. There is no radiodense gallstones or findings of biliary dilatation. The pancreas demonstrates no focal abnormality. The spleen is normal in size. There is no adrenal mass. Kidneys appear nonobstructed without evidence of urolithiasis. Stomach is nondistended. The duodenal sweep is appropriately positioned. There are no findings of abnormal small bowel dilation. There is a large degree of stool present within the right colon and the transverse colon. There is no abnormal colonic thickening or abnormal pericolonic fat stranding. The appendix appears normal. Urinary bladder nondistended. Patient is status post hysterectomy. There is no pelvic mass. There is no free air, free fluid or abscess. No pathologically enlarged abdominal or pelvic lymph nodes demonstrated. The patient is status post previous anterior abdominal wall hernia repair. IMPRESSION: 1. No CT evidence of an acute inflammatory obstructive process within the abdomen or pelvis. 2. Diffuse hepatic steatosis. 3. No findings of radiodense gallstone or biliary dilatation. 4. There is no bowel obstruction. There is a large degree of stool within the colon without evidence of focal inflammatory changes. 5. No findings of free fluid or abscess. 6. No evidence of adenopathy. 7. The appendix is normal. Dictated on workstation # [id number] Dict: 05/10/192099 Trans: 05/10/192124 [facility] [id number] Interpreted by: DEIRDRE GEORGES MD Electronically signed by: Departure Communication (Admissions) Time/Spoke to Admitting Phy: 21:41 Dr. Layton accepts the pt for admission at [facility] Impression Primary Impression: Nausea & vomiting Additional Impressions: Dehydration Acute kidney injury Disposition: ADMITTED INPATIENT Condition: Stable Admissions Decision to Admit Reason: Admit from ER (General) Decision to Admit/Date: May 10, 2019 Time/Decision to Admit Time: 21:40 Departure-Patient Inst. Referrals: JESÚS WHITE APRN (PCP) Primary Care Physician [facility] (Family) Primary Care Physician JULIENNE INTERIANO DO May 10, 2019 19:46
[2019-05-10 20:08] LABS: BASOPHILS % (AUTO) 1 % (0-10); EOSINOPHILS % (AUTO) 6 % (0-10); HEMATOCRIT 34 % (35-52); HEMOGLOBIN 11.5 G/DL (11.5-16.0); LYMPHOCYTES % (AUTO) 37 % (12-44); MEAN CORPUSCULAR HEMOGLOBIN 30 PG (25-34); MEAN CORPUSCULAR HGB CONC 34 G/DL (32-36); MEAN CORPUSCULAR VOLUME 87 FL (80-99); MEAN PLATELET VOLUME 9.1 FL (7.4-10.4); MONOCYTES % (AUTO) 5 % (0-12); NEUTROPHILS % (AUTO) 51 % (42-75); PLATELET COUNT 377 10^3/uL (130-400); RED CELL DISTRIBUTION WIDTH 12.4 % (10.0-14.5); WHITE BLOOD COUNT 8.4 10^3/uL (4.3-11.0)
[2019-05-10 20:09] LABS: BASOPHILS # (AUTO) 0.1 10^3/uL (0.0-0.1); EOSINOPHILS # (AUTO) 0.5 10^3/uL (0.0-0.3); LYMPHOCYTES # (AUTO) 3.1 X 10^3 (1.0-4.0); MONOCYTES # (AUTO) 0.5 X 10^3 (0.0-1.0); NEUTROPHILS # (AUTO) 4.2 X 10^3 (1.8-7.8)
[2019-05-10 20:20] LABS: CLARITY,URINE CLEAR; COLOR,URINE DARK YELLOW; GLUCOSE, URINE (UA) NEGATIVE (NEGATIVE); KETONES,URINE TRACE (NEGATIVE); NITRITE,URINE NEGATIVE (NEGATIVE); PROTEIN,URINE NEGATIVE (NEGATIVE)
[2019-05-10 20:21] LABS: BACTERIA,URINE TRACE /HPF; BILIRUBIN,URINE 1+ (NEGATIVE); HYALINE CASTS, URINE 25-50 /LPF; LEUKOCYTE ESTERASE ,URINE NEGATIVE (NEGATIVE); RBC,URINE 0-2 /HPF
[2019-05-10 20:24] LABS: ALBUMIN 4.2 GM/DL (3.2-4.5); BILIRUBIN,TOTAL 0.2 MG/DL (0.1-1.0); CREATININE SERUM 3.42 MG/DL (0.60-1.30); POTASSIUM 4.4 MMOL/L (3.6-5.0); TOTAL PROTEIN 7.2 GM/DL (6.4-8.2)
--- OUTSIDE RECORDS SUMMARY | 2019-05-10 20:31 | XMS REPORT | Continuity of Care Document ---
Author Organization Unknown Address Unknown Phone Unavailable Allergies Active Description Code Type Severity Reaction Onset Reported/Identified Relationship to Patient Clinical Status Yes No Known Drug Allergies [id number] Drug Allergy Unknown N/A 08/16/2018 Yes adhesive tape [id number] Joel g Allergy Unknown Hives 09/05/2018 Yes bupropion [id number] Drug Allergy Unknown sucidial 09/05/2018 Yes carisoprodol [id number] Drug Allergy Unknown heart palpatati 09/05/2018 Yes quetiapine [id number] Drug Allerg y Unknown suicidal 09/05/2018 Yes Sulfa (Sulfonamide Antibiotics) [id number] Drug Allergy Unknown abd pain 09/05/2018 [...] F17.2 10 NICOTINE DEPENDENCE, CIGARETTES, UNCOMPL 09/07/2018 ARMIREZ WALTERS DO Ot F32.9 MAJOR DEPRESSIVE DISORDER, [...] 09/07/2018 RAMIREZ WALTERS DO Ot Z79.8 4 LONGTERM (CURRENT) USE OF ORAL HYPOGLYC 09/07/2018 RAMIREZ WALTERS DO Ot Z79.8 99 OTHER ANALYST GEOCHEMICAL PROSPECTING (CURRENT) DRUG THERAPY 09/07/2018 RAMIREZ WALTERS DO [...] RAMIREZ WALTERS DO B Ot Z79.8 4 ANALYST GEOCHEMICAL PROSPECTING (CURRENT) USE OF ORAL HYPOGLYC 09/17/2018 RAMIREZ WALTERS DO Ot Z79.8 99 OTHER ANALYST GEOCHEMICAL PROSPECTING (CURRENT) DRUG THERAPY 09/17/2018 RAMIREZ WALTERS DO [...] 09/24/2018 ASHUTOSH ALBRIGHT MD Ot Z79. 52 LONGTERM (CURRENT) USE OF SYSTEMIC STER 09/24/2018 ASHUTOSH ALBRIGHT MD Ot Z79. 84 ANALYST GEOCHEMICAL PROSPECTING (CURRENT) USE OF ORAL HYPOGLYC 09/24/2018 ASHUTOSH [...] 10/03/2018 FAROOQ LANGE MD Ot Z79.5 2 ANALYST GEOCHEMICAL PROSPECTING (CURRENT) USE OF SYSTEMIC STER 10/03/2018 FAROOQ LANGE MD Ot Z79.8 4 LONGTERM (CURRENT) USE OF ORAL HYPOGLYC 10/03/2018 FAROOQ [...] 10/05/2018 FAROOQ LANGE MD, Ot Z79.5 2 LONGTERM (CURRENT) USE OF SYSTEMIC STER 10/05/2018 FAROOQ LANGE MD, Ot Z79.8 4 LONGTERM (CURRENT) USE OF ORAL HYPOGLYC 10/05/2018 FAROOQ [...] 10/30/2018 FAROOQ LANGE MD, Ot Z79.8 4 LONGTERM (CURRENT) USE OF ORAL HYPOGLYC 10/30/2018 FAROOQ [...] ELAINA Ot F31.9 BIPOLAR DISORDER, UNSPECIFIED 12/02/2018 [place] DO, ELAINA Ot K21.9 GASTRO-ESOPHAGEAL REFLUX DISEASE WITHOUT [facility] IRRITABLE BOWEL SYNDROME WITH DIARRHEA 12/02/2018 COREY DO, ELAINA Ot R10.84 GENERALIZED ABDOMINAL PAIN 12/02/2018 [place] DO, ELAINA Ot R11.2 NAUSEA WITH VOMITING, UNSPECIFIED 12/02/2018 [facility], ELAINA Ot Z79.84 ANALYST GEOCHEMICAL PROSPECTING (CURRENT) USE OF ORAL HYPOGLYC 12/02/2018 [place] DO, ELAINA Ot Z85.41 PERSONAL HISTORY OF MALIGNANT NEOPLASM O 12/02/2018 [place] DO, ELAINA Ot Z88.2 ALLERGY STATUS TO SULFONAMIDES STATUS 12/02/2018 [facility], ELAINA Ot Z88.8 ALLERGY STATUS TO OTH DRUG/MEDS/BIOL SUB 12/02/2018 [facility] Z90[facility]710 ACQUIRED ABSENCE OF BOTH CERVIX AND UTER 12/02/2018 [facility], ELAINA Ot Z98.51 TUBAL LIGATION STATUS 12/03/2018 KIRK DOSANDRA Ot E03.9 HYPOTHYROIDISM, UNSPECIFIED 12/03/2018 QUIN[facility] DO SANDRA K Ot E11.9 TYPE 2 DIABETES MELLITUS WITHOUT COMPLIC 12/03/2018 KIRK DOYUSUFA K Ot E78.00 PURE HYPERCHOLESTEROLEMIA, UNSPECIFIED 12/03/2018 [facility]IN[facility] DO SANDRA Nichelle Ot F31.9 BIPOLAR DISORDER, UNSPECIFIED 12/03/2018 KIRK DO SANDRA K Ot K21.9 GASTRO-ESOPHAGEAL REFLUX DISEASE WITHOUT 12/03/2018 KIRK DOYUSUFA Nichelle Ot K52.9 NONINFECTIVE GASTROENTERITIS AND COLITIS 12/03/2018 QUIN[facility] DO SANDRA K Ot K58.9 IRRITABLE BOWEL SYNDROME WITHOUT DIARRHE 12/03/2018 KIRK DO SANDRA K Ot R11.2 NAUSEA WITH VOMITING, UNSPECIFIED 12/03/2018 KIRK DOYUSUFA Nichelle Ot Z79.51 LONGTERM (CURRENT) USE OF INHALED STERO 12/03/2018 QUINCY DOYUSUFA Nichelle Ot Z79.84 LONGTERM (CURRENT) USE OF ORAL HYPOGLYC 12/03/2018 KIRK DOYUSUFA Nichelle Ot Z85.41 PERSONAL HISTORY OF MALIGNANT NEOPLASM O 12/03/2018 QUINCY DOYUSUFA Nichelle Ot Z88.2 ALLERGY STATUS TO SULFONAMIDES STATUS 12/03/2018 KIRK DO, SANDRA K Ot Z88.8 ALLERGY STATUS TO OTH DRUG/MEDS/BIOL SUB 12/03/2018 [facility]K DO, SANDRA K Ot Z90.710 ACQUIRED ABSENCE OF BOTH CERVIX AND UTER 12/03/2018 [facility]IRK DO, SANDRA K Ot Z98.51 TUBAL LIGATION STATUS 12/05/2018 [place] DO, ELAINA Ot 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 12/05/2018 CORE[facility] DO, ELAINA Ot E03.9 HYPOTHYROIDISM, UNSPECIFIED 12/05/2018 [place] DO, ELAINA Ot E11.9 TYPE 2 DIABETES MELLITUS WITHOUT COMPLIC 12/05/2018 [place] DO, ELAINA Ot E78.00 PURE HYPERCHOLESTEROLEMIA, UNSPECIFIED 12/05/2018 [place] DO, ELAINA Ot F31.9 BIPOLAR DISORDER, UNSPECIFIED 12/05/2018 [place] DO, ELAINA Ot K21.9 GASTRO-ESOPHAGEAL REFLUX DISEASE WITHOUT 12/05/2018 [facility], ELAINA Ot K58.0 IRRITABLE BOWEL SYNDROME WITH DIARRHEA 12/05/2018 [facility], ELAINA Ot R10.84 GENERALIZED ABDOMINAL PAIN 12/05/2018 [facility], ELAINA Ot R11.2 NAUSEA WITH VOMITING, UNSPECIFIED 12/05/2018 [facility], ELAINA Ot Z79.84 LONGTERM (CURRENT) USE OF ORAL HYPOGLYC 12/05/2018 [facility], ELAINA Ot Z85.41 PERSONAL HISTORY OF MALIGNANT NEOPLASM O 12/05/2018 [facility], ELAINA Ot Z88.2 ALLERGY STATUS TO SULFONAMIDES STATUS 12/05/2018 [place] DO, ELAINA Ot Z88.8 ALLERGY STATUS TO OTH DRUG/MEDS/BIOL SUB 12/05/2018 [place] DO, ELAINA Ot Z90.710 ACQUIRED ABSENCE OF [...] VOMITING, UNSPECIFIED 12/06/2018 KIRK GUTIERREZSANDRA Ot Z79.51 ANALYST GEOCHEMICAL PROSPECTING (CURRENT) USE OF INHALED STERO 12/06/2018 KIRK SANDRA Ot Z79.84 ANALYST GEOCHEMICAL PROSPECTING (CURRENT) USE OF ORAL HYPOGLYC 12/06/2018 KIRK [...] 01/13/2019 [place] DO, JAREK L Ot Z79.51 ANALYST GEOCHEMICAL PROSPECTING (CURRENT) USE OF INHALED STERO 01/13/2019 [place] DO, JAREK Monge Ot Z79.84 ANALYST GEOCHEMICAL PROSPECTING (CURRENT) USE OF ORAL HYPOGLYC 01/13/2019 ROVENSTINE [...] 01/17/2019 ROVENSTINE DO, JAREK Monge Ot Z79.51 ANALYST GEOCHEMICAL PROSPECTING (CURRENT) USE OF INHALED STERO 01/17/2019 ROVENSTINE DOJAREK Ot Z79.84 ANALYST GEOCHEMICAL PROSPECTING (CURRENT) USE OF ORAL HYPOGLYC 01/17/2019 ROVENSTINE [...] FATIGUE 02/23/2019 SUSAN SÁNCHEZ MD Ot Z79.51 ANALYST GEOCHEMICAL PROSPECTING (CURRENT) USE OF INHALED STERO 02/23/2019 SUSAN SÁNCHEZ MD Ot Z79.84 LONGTERM (CURRENT) USE OF ORAL HYPOGLYC 02/23/2019 SUSAN SÁNCHEZ MD Ot Z85.41 PERSONAL HISTORY OF MALIGNANT NEOPLASM O 02/23/2019 SUSAN SÁNCHEZ MD Ot Z88.2 ALLERGY STATUS TO SULFONAMIDES STATUS 02/23/2019 SUSAN SÁNCHEZ MD Ot Z88.8 ALLERGY STATUS TO OTH DRUG/MEDS/BIOL SUB 02/23/2019 SUSAN SÁNCHEZ MD Ot Z90.710 ACQUIRED ABSENCE OF BOTH CERVIX AND UTER 02/23/2019 SUSAN SÁNCHEZ MD Ot Z98.51 TUBAL LIGATION STATUS 05/09/2019 [facility]ES[facility] AYAH Ot R10.9 UNSPECIFIED ABDOMINAL PAIN 05/09/2019 [facility]ES[facility] A[facility] Ot R11.12 PROJECTILE VOMITING Procedures There is no data. Results Test [...] 7-25 CREATININE 0.88 mg/dL 0.50-1.05 eGFR NON-AFR. FINNISH 77 mL/min/1.73m2 > OR = 60 eGFR [...] Manual blood segmented neutrophils/100 leukocytes 43 % NR Manual blood lymphocytes/100 leukocytes 41 % NR Manual eosinophils/100 leukocytes in nose 13 % NR Blood microcytes detection by light microscopy [facility] Blood blood smear finding identification by light [...] calculation of estimated glomerular filtration rate 57 NR Serum or plasma glucose measurement (mass/volume) 608 [...] by glucometer (mas s/volume) 379 mg/dL 70-110 Bacterial throat culture - 04/29/19 16:5 0 Bacterial throat culture [facility] Comprehensive metabolic panel - 05/03/19 14:35 Serum or plasma sodium measurement (moles/volume) 134 mmol/L 135-145 Serum or plasma potassium measurement (moles/volume) 5.1 mmol/L 3.6-5.0 Serum or plasma chloride measurement (moles/volume) 100 mmol/L 98-107 Carbon dioxide 19 mmol/L 21-32 Serum or plasma anion gap determination (moles/volume) 15 mmol/L 5-14 Serum or plasma urea nitrogen measurement (mass/volume ) 37 mg/dL 7-18 Serum or plasma creatinine measurement (mass/volume) 1.71 mg/dL 0.60-1.30 Serum or plasma urea nitrogen/creatinine mass ratio 22 NRG Serum or plasma creatinine measurement w ith calculation of estimated glomerular filtration rate 31 NRG Serum or plasma glucose measurement (mass/volume) 183 mg/dL 70-105 Serum or plasma calcium measurement (mass/volume) 10.1 mg/dL 8.5-10.1 Serum or plasma total bilirubin measurement (mass/volu me) 0.3 mg/dL 0.1-1.0 Serum or plasma alkaline phosphatase liliana surement (enzymatic activity/volume) 59 U/L 40-136 Serum or plasma aspartate aminotransfera se measurement (enzymatic activity/volume) 32 U/L 5-34 Serum or plasma alanine aminotransferase measurement (enzymatic activity/volume) 29 U/L 0-55 Serum or plasma protein measurement (mass/volume) 8.2 g/dL 6.4-8.2 Serum or plasma albumin measurement (mass/volume) 4.8 g/dL 3.2-4.5 Serum or plasma amylase measurement (enz ymatic activity/volume) - 05/03/19 14:35 Serum or plasma amylase measurement (enzymatic activit y/volume) 62 U/L 25-125 Lipase - 05/03/19 14:35 Lipase 28 U/L 8-78 Complete blood count (CBC) with automate d white blood cell (WBC) differential - 05/10/19 19:47 Blood leukocytes automated count (number/volume) 8.4 10*3/uL 4.3-11.0 Blood erythrocytes automated count (number/volume) 3.88 10*6/uL 4.35-5.85 Venous blood hemoglobin measurement (mass/volume) 11.5 g/dL 11.5-16.0 Blood hematocrit (volume fraction) 34 % 35-52 Automated erythrocyte mean corpuscular volume 87 [ foz_us] 80-99 Automated erythrocyte mean corpuscular h emoglobin (mass per erythrocyte) 30 pg 25-34 Automated erythrocyte mean corpuscular h emoglobin concentration measurement (mass/volume) 34 g/dL 32-36 Automated erythrocyte distribution width ratio 12. 4 % 10.0- 14.5 Automated blood platelet count (count/volume) 377 10*3/uL 130-400 Automated blood platelet mean volume measurement 9.1 [foz_us] 7.4-10.4 Automated blood neutrophils/100 leukocytes 51 % 42-75 Automated blood lymphocytes/100 leukocytes 37 % 12-44 Blood monocytes/100 leukocytes 5 % 0-12 Automated blood eosinophils/100 leukocytes 6 % 0-10 Automated blood basophils/100 leukocytes 1 % 0-10 Blood neutrophils automated count (number/volume) 4.2 10*3 1.8-7.8 Blood lymphocytes automated count (number/volume) 3.1 10*3 1.0-4.0 Blood monocytes automated count (number/volume) 0. 5 10*3 0.0-1.0 Automated eosinophil count 0.5 10*3/uL 0 .0-0.3 Automated blood basophil count (count/volume) 0.1 10*3/uL 0.0-0.1 Complete urinalysis with reflex to cultu re - 05/10/19 19:55 Urine color determination DARK YELLOW N RG Urine clarity determination CLEAR NR G Urine pH measurement by test strip 5.0 5-9 Specific gravity of urine by test strip >= 1.016-1.022 Urine protein assay by test strip, semi-quantitative NEGATIVE NEGATIVE Urine glucose detection by automated test strip NE GATIVE NEGATIVE Erythrocytes detection in urine sediment by light micr oscopy NEGATIVE NEGATIVE Urine ketones detection by automated test strip TR MARS NEGATIVE Urine nitrite detection by test strip NEGATIVE NEGATIVE Urine total bilirubin detection by test strip 1+ NEGATIVE Urine urobilinogen measurement by automated test strip (mass/volume) 0.2 mg/dL < = 1.0 Urine leukocyte esterase detection by dipstick NEG ATIVE NEGATIVE Automated urine sediment erythrocyte cou nt by microscopy (number/high power field) [HPF] NRG Automated urine sediment leukocyte count by microscopy (number/high power field) [HPF] NRG Bacteria detection in urine sediment by light microsco py TRACE NRG Squamous epithelial cells detection in u rine sediment by light microscopy 5-10 NRG Crystals detection in urine sediment by light microsco py NONE NRG Casts detection in urine sediment by light microscopy PRESENT NRG Mucus detection in urine sediment by light microscopy SMALL NRG Complete urinalysis with reflex to culture NO NRG Hyaline casts detection in urine sediment by light sterling roscopy 25-50 NRG Encounters ACCT No. Visit Date/Time Discharge Status Pt. Type Provider Facility Loc./Unit Complaint [id number] 05/03/2019 14:00:00 05/03/2019 23:59: 59 CLS Outpatient [facility] [id number] 02/21/2019 10:40:00 Document Registration [id number] 12/05/2018 10:40:00 Document Registration [id number] 12/05/2018 09:30:00 Document Registration [id number] 08/30/2018 09:30:00 Document Registration [id number] 08/28/2018 13:30:00 Document Registration [id number] 05/11/2018 11:45:00 Document Registration [id number] 05/11/2018 11:40:00 Document Registration [id number] 05/11/2018 11:40:00 Document Registration [id number] 12/29/2017 15:00:00 Document Registration [id number] 05/03/2019 14:09:00 23:59:59 CLS Outpatient JES[facility]S [facility] AY[facility] LAB FS [id number] 04/10/2019 00:49:00 03:08:00 DIS Emergency FAROOQ LANGE MD [facility] ER FS DIABETIC [id number] 02/18/2019 19:58:00 21:42:00 DIS Outpatient PRINCESS HERRERA, SUSAN Monge [facility] ER FS HYPOGLYCEMIA [id number] 01/13/2019 00:26:00 00:56:00 DIS Emergency ROVENSTJAREK LUDWIG DO [facility] ER FS LOW BACK PAIN [id number] 12/02/2018 22:51:00 00:50:00 DIS Emergency SANDRA BRADLEY DO [facility] ER N,V,ABD PAIN [id number] 12/02/2018 06:56:00 09:50:00 DIS Emergency ELAINA COREY DO [facility] ER FS N,V,ABD PAIN [id number] 10/30/2018 20:46:00 22:28:00 DIS Emergency FAROOQ LANGE MD [facility] ER FS UPPER BACK PAIN, RT ARM PAIN [id number] 10/03/2018 03:38:00 06:29:00 DIS Emergency NAZARIO HERRERA, FAROOQ Patterson [facility] ER FS COMPLICATIONS WITH SURG ICAL INCISION [id number] 09/24/2018 14:02:00 17:47:00 DIS Emergency NATALEE HERRERA, ASHUTOSH Mathur [facility] ER FS PT IS 2 WKS POST OP - I NCISION PAIN ON UPPER ABD [id number] 09/07/2018 07:08:00 12:40:00 DIS Outpatient RAMIREZ WALTERS DO [facility] SDC INCISIONAL/VENTRAL ANGELITA IA [id number] 09/05/2018 07:15:00 10:29:00 DIS Outpatient RAMIREZ WALTERS DO [facility] PREOP INCISIONAL/VENTRAL ANGELITA IA [id number] 08/15/2018 23:23:00 01:15:00 DIS Emergency DARIUS DEL CASTILLO DO [facility] ER FS DIABETIC ISSUES [id number] 05/10/2019 20:09:00 Document Registration [id number] 05/01/2019 15:32:00 Document Registration [id number] 08/31/2018 15:09:00 Document Registration
--- NOTE | 2019-05-10 21:26 | Diagnostic Imaging Report ---
PROCEDURE: CT abdomen and pelvis without contrast. TECHNIQUE: Multiple contiguous axial images were obtained through the abdomen and pelvis without the use of intravenous contrast. Auto Exposure Controls were utilized during the CT exam to meet ALARA standards for radiation dose reduction. INDICATION: Nausea, vomiting and right upper quadrant pain. COMPARISON: Prior CT study from 12/02/2018. FINDINGS: Lung bases demonstrate some mild dependent atelectasis. There is no pleural effusion. There is no significant pericardial effusion. The liver demonstrates diffuse hepatic steatosis without focal abnormality. There is some fatty sparing along the gallbladder fossa. The gallbladder is not distended. There is no radiodense gallstones or findings of biliary dilatation. The pancreas demonstrates no focal abnormality. The spleen is normal in size. There is no adrenal mass. Kidneys appear nonobstructed without evidence of urolithiasis. Stomach is nondistended. The duodenal sweep is appropriately positioned. There are no findings of abnormal small bowel dilation. There is a large degree of stool present within the right colon and the transverse colon. There is no abnormal colonic thickening or abnormal pericolonic fat stranding. The appendix appears normal. Urinary bladder nondistended. Patient is status post hysterectomy. There is no pelvic mass. There is no free air, free fluid or abscess. No pathologically enlarged abdominal or pelvic lymph nodes demonstrated. The patient is status post previous anterior abdominal wall hernia repair. IMPRESSION: 1. No CT evidence of an acute inflammatory obstructive process within the abdomen or pelvis. 2. Diffuse hepatic steatosis. 3. No findings of radiodense gallstone or biliary dilatation. 4. There is no bowel obstruction. There is a large degree of stool within the colon without evidence of focal inflammatory changes. 5. No findings of free fluid or abscess. 6. No evidence of adenopathy. 7. The appendix is normal. Dictated by: Dictated on workstation # [id number]
--- OUTSIDE RECORDS SUMMARY | 2019-05-10 23:18 | XMS REPORT | Continuity of Care Document ---
Author Organization Unknown Address Unknown Phone Unavailable Allergies Active Description Code Type Severity Reaction Onset Reported/Identified Relationship to Patient Clinical Status Yes No Known Drug Allergies [id number] Drug Allergy Unknown N/A 08/16/2018 Yes adhesive tape [id number] Joel g Allergy Unknown Hives 09/05/2018 Yes bupropion [id number] Drug Allergy Unknown sucidial 09/05/2018 Yes carisoprodol [id number] Drug Allergy Unknown heart palpatati 09/05/2018 Yes quetiapine [id number] Drug Allerg y Unknown suicidal 09/05/2018 Yes Sulfa (Sulfonamide Antibiotics) [id number] Drug Allergy Unknown abd pain 09/05/2018 [...] 09/07/2018 RAMIREZ WALTERS DO Ot Z79.8 4 JAIL (CURRENT) USE OF ORAL HYPOGLYC 09/07/2018 RAMIREZ WALTERS DO Ot Z79.8 99 OTHER ENGINEER OPERATIONS AND MAINTENANCE (CURRENT) DRUG THERAPY 09/07/2018 RAMIREZ WALTERS DO [...] RAMIREZ WALTERS DO B Ot Z79.8 4 ENGINEER OPERATIONS AND MAINTENANCE (CURRENT) USE OF ORAL HYPOGLYC 09/17/2018 RAMIREZ WALTERS DO Ot Z79.8 99 OTHER ENGINEER OPERATIONS AND MAINTENANCE (CURRENT) DRUG THERAPY 09/17/2018 RAMIREZ WALTERS DO [...] 09/24/2018 ASHUTOSH ALBRIGHT MD Ot Z79. 52 JAIL (CURRENT) USE OF SYSTEMIC STER 09/24/2018 ASHUTOSH ALBRIGHT MD Ot Z79. 84 ENGINEER OPERATIONS AND MAINTENANCE (CURRENT) USE OF ORAL HYPOGLYC 09/24/2018 ASHUTOSH ABLRIGHT MD Ot Z85. 41 PERSONAL HISTORY OF [...] 10/03/2018 FAROOQ LANGE MD Ot Z79.5 2 ENGINEER OPERATIONS AND MAINTENANCE (CURRENT) USE OF SYSTEMIC STER 10/03/2018 FAROOQ LANGE MD Ot Z79.8 4 JAIL (CURRENT) USE OF ORAL HYPOGLYC 10/03/2018 AFROOQ LANGE MD Ot Z85.4 1 PERSONAL HISTORY [...] TYPE 2 DIABETES MELLITUS WITHOUT COMPLIC 10/05/2018 FRAOOQ LANGE MD, Ot E78.0 0 PURE HYPERCHOLESTEROLEMIA, [...] 10/05/2018 FAROOQ LANGE MD, Ot Z79.5 2 JAIL (CURRENT) USE OF SYSTEMIC STER 10/05/2018 FAROOQ LANGE MD, Ot Z79.8 4 JAIL (CURRENT) USE OF ORAL HYPOGLYC 10/05/2018 FAROOQ [...] 10/30/2018 FAROOQ LANGE MD, Ot Z79.8 4 JAIL (CURRENT) USE OF ORAL HYPOGLYC 10/30/2018 FAROOQ [...] ELAINA Ot F31.9 BIPOLAR DISORDER, UNSPECIFIED 12/02/2018 [place] DO, ELAINA Ot K21.9 GASTRO-ESOPHAGEAL REFLUX DISEASE WITHOUT [facility]/02[facility] IRRITABLE BOWEL SYNDROME WITH DIARRHEA 12/02/2018 [place] DO, ELAINA Ot R10.84 GENERALIZED ABDOMINAL PAIN 12/02/2018 [place] DO, ELAINA Ot R11.2 NAUSEA WITH VOMITING, UNSPECIFIED 12/02/2018 [facility], ELAINA Ot Z79.84 ENGINEER OPERATIONS AND MAINTENANCE (CURRENT) USE OF ORAL HYPOGLYC 12/02/2018 [place] DO, ELAINA Ot Z85.41 PERSONAL HISTORY OF MALIGNANT NEOPLASM O 12/02/2018 [place] DO, ELAINA Ot Z88.2 ALLERGY STATUS TO SULFONAMIDES STATUS 12/02/2018 [facility], ELAINA Ot Z88.8 ALLERGY STATUS TO OTH DRUG/MEDS/BIOL SUB 12/02/2018 [facility] Ot Z90.710 ACQUIRED ABSENCE OF BOTH CERVIX AND UTER 12/02/2018 [facility], ELAINA Ot Z98.51 TUBAL LIGATION STATUS 12/03/2018 KIRK DOSANDRA Ot E03.9 HYPOTHYROIDISM, UNSPECIFIED 12/03/2018 [place] DO SANDRA K Ot E11.9 TYPE 2 DIABETES MELLITUS WITHOUT COMPLIC 12/03/2018 [facility]IRK DOYUSUFA K Ot E78.00 PURE HYPERCHOLESTEROLEMIA, UNSPECIFIED 12/03/2018 [place] DO SANDRA Nichelle Ot F31.9 BIPOLAR DISORDER, UNSPECIFIED 12/03/2018 [place] DO SANDRA K Ot K21.9 GASTRO-ESOPHAGEAL REFLUX DISEASE WITHOUT 12/03/2018 [facility] DOYUSUFA Nichelle Ot K52.9 NONINFECTIVE GASTROENTERITIS AND COLITIS 12/03/2018 [place] DO SANDRA K Ot K58.9 IRRITABLE BOWEL SYNDROME WITHOUT DIARRHE 12/03/2018 [place] DO SANDRA K Ot R11.2 NAUSEA WITH VOMITING, UNSPECIFIED 12/03/2018 [facility] DOYUSUFA Nichelle Ot Z79.51 JAIL (CURRENT) USE OF INHALED STERO 12/03/2018 [place] DOYUSUFA Nichelle Ot Z79.84 JAIL (CURRENT) USE OF ORAL HYPOGLYC 12/03/2018 [facility] DOYUSUFA Nichelle Ot Z85.41 PERSONAL HISTORY OF MALIGNANT NEOPLASM O 12/03/2018 [place] DOYUSUFA Nichelle Ot Z88.2 ALLERGY STATUS TO SULFONAMIDES STATUS 12/03/2018 [place] DO, SANDRA K Ot Z88.8 ALLERGY STATUS TO OTH DRUG/MEDS/BIOL SUB 12/03/2018 [place] DO, SANDRA K Ot Z90.710 ACQUIRED ABSENCE OF BOTH CERVIX AND UTER 12/03/2018 [place] DO, SANDRA K Ot Z98.51 TUBAL LIGATION STATUS 12/05/2018 [place] DO, ELAINA Ot 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 12/05/2018 [place] DO, ELAINA Ot E03.9 HYPOTHYROIDISM, UNSPECIFIED 12/05/2018 [place] DO, ELAINA Ot E11.9 TYPE 2 DIABETES MELLITUS WITHOUT COMPLIC 12/05/2018 [place] DO, ELAINA Ot E78.00 PURE HYPERCHOLESTEROLEMIA, UNSPECIFIED 12/05/2018 [place] DO, ELAINA Ot F31.9 BIPOLAR DISORDER, UNSPECIFIED 12/05/2018 [place] DO, ELAINA Ot K21.9 GASTRO-ESOPHAGEAL REFLUX DISEASE WITHOUT 12/05/2018 [facility], ELAINA Ot K58.0 IRRITABLE BOWEL SYNDROME WITH DIARRHEA 12/05/2018 [facility], ELAINA Ot R10.84 GENERALIZED ABDOMINAL PAIN 12/05/2018 [facility], ELAINA Ot R11.2 NAUSEA WITH VOMITING, UNSPECIFIED 12/05/2018 [facility], ELAINA Ot Z79.84 JAIL (CURRENT) USE OF ORAL HYPOGLYC 12/05/2018 [facility], ELAINA Ot Z85.41 PERSONAL HISTORY OF MALIGNANT NEOPLASM O 12/05/2018 [facility], ELAINA Ot Z88.2 ALLERGY STATUS TO SULFONAMIDES STATUS 12/05/2018 [place] DO, ELAINA Ot Z88.8 ALLERGY STATUS TO OTH DRUG/MEDS/BIOL SUB 12/05/2018 [place] DO, ELAINA Ot Z90.710 ACQUIRED ABSENCE OF [...] VOMITING, UNSPECIFIED 12/06/2018 KIRK GUTIERREZSANDRA Ot Z79.51 ENGINEER OPERATIONS AND MAINTENANCE (CURRENT) USE OF INHALED STERO 12/06/2018 [facility] SANDRA Ot Z79.84 ENGINEER OPERATIONS AND MAINTENANCE (CURRENT) USE OF ORAL HYPOGLYC 12/06/2018 KIRK [...] 01/13/2019 [place] DO, JAREK L Ot Z79.51 ENGINEER OPERATIONS AND MAINTENANCE (CURRENT) USE OF INHALED STERO 01/13/2019 [place] DO, JAREK Monge Ot Z79.84 ENGINEER OPERATIONS AND MAINTENANCE (CURRENT) USE OF ORAL HYPOGLYC 01/13/2019 [place]ST[place] DO, JAREK Monge Ot Z85.41 PERSONAL HISTORY OF MALIGNANT NEOPLASM O 01/13/2019 [place]ST[place] DO, JAREK Monge Ot Z88.2 ALLERGY STATUS TO SULFONAMIDES STATUS 01/13/2019 [place] DO, AJREK Monge Ot Z88.5 ALLERGY STATUS TO NARCOTIC [...] 01/17/2019 ROVENSTINE DO, JAREK Monge Ot Z79.51 ENGINEER OPERATIONS AND MAINTENANCE (CURRENT) USE OF INHALED STERO 01/17/2019 ROVENSTINE DOJAREK Ot Z79.84 ENGINEER OPERATIONS AND MAINTENANCE (CURRENT) USE OF ORAL HYPOGLYC 01/17/2019 ROVENSTINE [...] FATIGUE 02/23/2019 SUSAN SÁNCHEZ MD Ot Z79.51 ENGINEER OPERATIONS AND MAINTENANCE (CURRENT) USE OF INHALED STERO 02/23/2019 SUSAN SÁNCHEZ MD Ot Z79.84 JAIL (CURRENT) USE OF ORAL HYPOGLYC 02/23/2019 SUSAN [...] 7-25 CREATININE 0.88 mg/dL 0.50-1.05 eGFR NON-AFR. BRUNEIAN 77 mL/min/1.73m2 > OR = 60 eGFR [...] mg/dL 0.1-1.0 Serum or plasma alkaline phosphatase liilana surement (enzymatic activity/volume) 51 U/L 40-136 Serum [...] microcytes detection by light microscopy MOD [facility] Blood blood smear finding identification by light [...] - 04/29/19 16:5 0 Bacterial throat culture [facility] Comprehensive metabolic panel - 05/03/19 14:35 Serum [...] 0.1 10*3/uL 0.0-0.1 Comprehensive metabolic panel - 05/10/19 19:47 Serum or plasma sodium measurement (moles/volume) 137 mmol/L 135-145 Serum or plasma potassium measurement (moles/volume) 4.4 mmol/L 3.6-5.0 Serum or plasma chloride measurement (moles/volume) 99 mmol/L 98-107 Carbon dioxide 20 mmol/L 21-32 Serum or plasma anion gap determination (moles/volume) 18 mmol/L 5-14 Serum or plasma urea nitrogen measurement (mass/volume ) 30 mg/dL 7-18 Serum or plasma creatinine measurement (mass/volume) 3.42 mg/dL 0.60-1.30 Serum or plasma urea nitrogen/creatinine mass ratio 9 NRG Serum or plasma creatinine measurement w ith calculation of estimated glomerular filtration rate 14 NRG Serum or plasma glucose measurement (mass/volume) 117 mg/dL 70-105 Serum or plasma calcium measurement (mass/volume) 9.0 mg/dL 8.5-10.1 Serum or plasma total bilirubin measurement (mass/volu me) 0.2 mg/dL 0.1-1.0 Serum or plasma alkaline phosphatase liliana surement (enzymatic activity/volume) 54 U/L 40-136 Serum or plasma aspartate aminotransfera se measurement (enzymatic activity/volume) 35 U/L 5-34 Serum or plasma alanine aminotransferase measurement (enzymatic activity/volume) 24 U/L 0-55 Serum or plasma protein measurement (mass/volume) 7.2 g/dL 6.4-8.2 Serum or plasma albumin measurement (mass/volume) 4.2 g/dL 3.2-4.5 CALCIUM CORRECTED 8.8 mg/dL 8.5-10.1 Serum or plasma amylase measurement (enz ymatic activity/volume) - 05/10/19 19:47 Serum or plasma amylase measurement (enzymatic activit y/volume) 74 U/L 25-125 Lipase - 05/10/19 19:47 Lipase 29 U/L 8-78 Complete urinalysis with reflex to [...] Status Pt. Type Provider Facility Loc./Unit Complaint [id number] 05/03/2019 14:00:00 05/03/2019 23:59: 59 [id number] 02/21/2019 10:40:00 Document Registration [id number] 12/05/2018 10:40:00 Document Registration [id number] 12/05/2018 09:30:00 Document Registration [id number] 08/30/2018 09:30:00 Document Registration [id number] 08/28/2018 13:30:00 Document Registration [id number] 05/11/2018 11:45:00 Document Registration [id number] 05/11/2018 11:40:00 Document Registration [id number] 05/11/2018 11:40:00 Document Registration [id number] 12/29/2017 15:00:00 Document Registration [id number] 05/03/2019 14:09:00 23:59:59 CLS Outpatient JESÚS WHITE APRN [facility] LAB FS [id number] 04/10/2019 00:49:00 03:08:00 DIS Emergency NAZARIO HERRERA, FAROOQ Patterson [facility] ER FS DIABETIC [id number] 02/18/2019 19:58:00 21:42:00 DIS Outpatient PRINCESS HERRERA, SUSAN Monge [facility] ER FS HYPOGLYCEMIA [id number] 01/13/2019 00:26:00 00:56:00 DIS Emergency ROVENSTJAREK LUDWIG DO [facility] ER FS LOW BACK PAIN [id number] 12/02/2018 22:51:00 00:50:00 DIS Emergency SANDRA BRADLEY DO [facility] ER N,V,ABD PAIN [id number] 12/02/2018 06:56:00 09:50:00 DIS Emergency ELAINA COREY DO [facility] ER FS N,V,ABD PAIN [id number] 10/30/2018 20:46:00 22:28:00 DIS Emergency FAROOQ LANGE MD [facility] ER FS UPPER BACK PAIN, RT ARM PAIN [id number] 10/03/2018 03:38:00 06:29:00 DIS Emergency FAROOQ LANGE MD [facility] ER FS COMPLICATIONS WITH SURG ICAL INCISION [id number] 09/24/2018 14:02:00 17:47:00 DIS Emergency ASHUTOSH ALBRGIHT MD [facility] ER FS PT IS 2 WKS POST OP - I NCISION PAIN ON UPPER ABD [id number] 09/07/2018 07:08:00 019 12:40:00 DIS Outpatient RAMIREZ WALTERS DO [facility] INCISIONAL/VENTRAL ANGELITA IA [id number] 09/05/2018 07:15:00 019 10:29:00 DIS Outpatient RAMIREZ WALTERS DO [facility] PREOP INCISIONAL/VENTRAL ANGELITA IA [id number] 08/15/2018 23:23:00 019 01:15:00 DIS Emergency DARIUS DEL CASTILLO DO [facility] ER FS DIABETIC ISSUES [id number] 05/10/2019 20:09:00 Document Registration [id number] 05/01/2019 15:32:00 Document Registration [id number] 08/31/2018 15:09:00 Document Registration
--- NOTE | 2019-05-10 23:42 | NUR ---
TELEPHONE REPORT RECEIVED FROM ESTER HARDEN AT [facility].
[2019-05-11] MEDS ORDERED: LACTATED RINGERS 1,000 ML IV ONE (00:09)
[2019-05-11 00:25] VITALS: BP 138/89
--- NOTE | 2019-05-11 00:25 | NUR ---
ZOE RIVERA admitted to room 407-1, with an admitting diagnosis of SENIA, N/V, and DEHYDRATION, on 05/10/19 from [place] [facility], accompanied by EMS.ZOE RIVERA introduced to surroundings, call light, bed controls, phone, TV, temperature control, lights, meal times, smoking policy, visitor policy, side rail policy, bathrooms and showers. Patient Rights given to patient in the handbook. ZOE RIVERA verbalizes understanding that [facility] is not responsible for the loss or damage to any personal effects or valuables that are kept in the patients posession during their hospitalization. ZOE RIVERA verbalizes understanding of Interdisciplinary Patient Education. Patient and/or family were informed about the Rapid Response Team and its purpose.
[2019-05-11] MEDS ORDERED: ONDANSETRON 4 MG/2 ML (SDV) Z0FRAN IV PRN (00:30)
[2019-05-11] MEDS: LACTATED RINGERS 1,000 ML IV SCH ×2 (00:55→07:41)
--- NOTE | 2019-05-11 03:50 | NUR ---
THIS RN WAS NOTIFIED BY THE KRAFT DIGESTER OPERATOR Flaquito SINGH RN THAT THIS PT WAS SPOTTED DOWN BY THE ED EXIT. THIS RN AND [employer] HEAD FORMER WENT TO FIND PT. PT WAS FOUND WALKING AROUND THE SIDEWALK NEAR THE ED ENTRANCE. PT STATES, "I JUST WANTED TO GO FOR A WALK." EDUCATION PROVIDED ON PATIENT SAFETY AND HOSPITAL POLICY. REINFORCED THAT PT SHOULD NOT LEAVE THE HOSPITAL FLOOR WITHOUT ACCOMPANIED BY STAFF FOR SAFETY. PT APOLOGIZES AND VERBALIZES UNDERSTANDING. PT ESCORTED BACK TO ROOM SAFELY. NO HARM NOTED ON RETURN.
[2019-05-11 04:30] VITALS: BP 112/56
[2019-05-11] MEDS ORDERED: FLU QUADRIvalent (5+ YOA) 2019-2020 (AFLURIA) 0.5 ML IM ONE (07:15)
[2019-05-11 08:04] VITALS: BP 133/86
--- NOTE | 2019-05-11 11:33 | NUR ---
"RD ASSESSMENT PMHx: COPD; hypercholesterolemia; GERD; chronic diarrhea; hypothyroidism; DM; CA(cervical) PT INTERACTION: Pt was semi-awake and pleasant during consult for MST score. Pt states current appetite is getting better. Note PO intake of 100% x1meal, per chart review. Pt states following a regular diet at home, and has no issues with chewing/swallowing food. Pt state recent issues with nausea/vomiting occurring for approximately 3weeks. Pt states no recent issues with constipation/diarrhea, and that her last BM was 05/09. Note pt not currently on bowel regimen per chart review. Pt states recent 14# wt loss x1mon. Note recent 4# wt loss x1mon, per chart review. Pt states current DM management is pretty good. Note unable to determine recent HbA1c, per chart review. Given pt's PO intake and wt hx, pt does not meet criteria for malnutrition per ASPEN guidelines. ABNORMAL NUTRITION-RELATED LAB VALUES LOW: HIGH: BUN 30; cr 3.42; glu 117; AST 35 Est. kcal needs: 2760-0331 kcal | 25-30 kcal/kg Est. Pro needs: 54-68 g Pro | 0.8-1.0 g Pro/kg PES STATEMENT: Inadequate oral intake (NI-2.1) related to loss of appetite | nausea | vomiting as evidenced by pt interview INTERVENTION: Advance diet to Regular diet. Pt may benefit from consistent CHO diet, if blood glucose levels become elevated. Discontinue current supplementation order of Ensure Enlive with meals TID. Will continue to follow and reassess as pt needs, intake, and status change. MONITOR/EVALUATE: PO Intake; Plan of Care; Hydration Status; Weight Status; Lab Values Adriana Chisholm, , RD, LD"
[2019-05-11 11:53] VITALS: BP 118/69
--- NOTE | 2019-05-11 12:09 | Short Stay Summary-Hospitalist ---
History of Present Illness HPI/Chief Complaint CC: ARF HPI: This is a 49yoWF clinic patient of [facility] who presented to the ER with N/V and diarrhea for the past 3 weeks and became weaker and weaker and was found to have ARF in the ER prompting admit for IVF. She leaves her room every 20 minutes to go downstairs to smoke and I had to wait for her to be found in order to assess her and update her on the dc plan as long as kidneys are stable and she is able to eat and drink. Source: patient, RN/MD Exam Limitations: no limitations Date Seen 05/11/19 Time Seen by a Provider: 11:00 Attending Physician Gurdeep Layton MD PCP Tatianna Gray Aprn Referring Physician Date of Admission May 10, 2019 at 21:35 Home Medications & Allergies Home Medications Reviewed patient Home Medication Reconciliation performed by pharmacy medication reconciliations body and frame technician and/or nursing. Patients Allergies have been reviewed. Allergies Allergies Coded Allergies Sulfa (Sulfonamide Antibiotics) (Verified Allergy, Unknown, abd pain, 09/05/18) adhesive tape (Verified Allergy, Unknown, Hives, 09/05/18) bupropion (Verified Allergy, Unknown, sucidial, 09/05/18) carisoprodol (Verified Allergy, Unknown, heart palpatations, 09/05/18) quetiapine (Verified Allergy, Unknown, suicidal, 09/05/18) Past Hpbrsxq-Kgpnow-Emhwmc Hx Past Med/Social Hx: Reviewed Nursing Past Med/Soc Hx, Reviewed and Corrections made Patient Social History Marrital Status: single Alcohol Use: Denies Use Recreational Drug Use: No Smoking Status: Current Everyday Smoker Type Used: Cigarettes 2nd Hand Smoke Exposure: No Recent Foreign Travel: No Contact w/other who traveled: No Recent Hopitalizations: No Recent Infectious Disease Expo: No Immunizations Up To Date Date of Pneumonia Vaccine: Apr 14, 2016 Seasonal Allergies Seasonal Allergies: Yes Past Medical History Surgeries: Abdominal, Section, Hysterectomy, Oophorectomy, 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 Cardiac: High Cholesterol : No 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: Yes 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 Disorders: Ovarian Cyst Hysterectomy, 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, Menopausal Genitourinary: Bladder Infection Gastrointestinal: Gastroesophageal Reflux, Chronic Diarrhea, Irritable Bowel Musculoskeletal: Degenerate Disk Disease, Scoliosis, Chronic Back Pain Endocrine: Hypothyroidsim, Diabetes, Non-Insulin dep Cancer: Cervical Did You Recieve Any Treatments: Yes What Type of Treatment Did You: Surgical Intervention Psychosocial: Anxiety, Bipolar, Depression History of Blood Disorders: No Review of Systems Constitutional: see HPI, malaise, weakness Gastrointestinal: abdominal pain, diarrhea, nausea, vomiting Physical Exam Physical Exam Vital Signs Vital Signs - First Documented 05/10/19 19:40 Temp 36.0 Pulse 97 Resp 18 B/P (MAP) 122/74 (90) Pulse Ox 98 O2 Delivery Room Air Capillary Refill : Less Than 3 Seconds Height, Weight, BMI Height: 5'4.00" Weight: 142lbs. 0oz. 64.074133ax; 26.56 BMI Method:Stated General Appearance: No Apparent Distress, WD/WN, Chronically ill Eyes: Bilateral Eye Normal Inspection, Bilateral Eye PERRL HEENT: PERRL/EOMI, Normal ENT Inspection, Pharynx Normal Neck: Full Range of Motion, Normal Inspection, Non Tender, Supple, Carotid Bruit Respiratory: Chest Non Tender, Lungs Clear, Normal Breath Sounds, No Accessory Muscle Use, No Respiratory Distress Cardiovascular: Regular Rate, Rhythm, No Edema, No Gallop, No JVD, No Murmur, Normal Peripheral Pulses Gastrointestinal: Normal Bowel Sounds, No Organomegaly, No Pulsatile Mass, Non Tender, Soft Back: Normal Inspection, No CVA Tenderness, No Vertebral Tenderness Extremity: Normal Capillary Refill, Normal Inspection, Normal Range of Motion, Non Tender, No Calf Tenderness, No Pedal Edema Neurologic/Psychiatric: Alert, Oriented x3, No Motor/Sensory Deficits, Normal Mood/Affect Skin: Normal Color, Warm/Dry Lymphatic: No Adenopathy Results Results/Procedures Labs Laboratory Tests 05/10/19 19:47 05/11/19 12:05 Patient resulted labs reviewed. Short Stay Diagnosis Discharge Diagnosis-Short Stay Admission Diagnosis Assessment: ARF N/V/D Dehydration Smoker Final Discharge Diagnosis Assessment: ARF N/V/D Dehydration Smoker Conclusion Plan DC home Increase fluid intake Hold some meds, designated such on list on DC DC smoking Diagnosis/Problems Diagnosis/Problems (1) Acute kidney injury Status: Acute (2) Dehydration Status: Acute (3) Nausea & vomiting Status: Acute Clinical Quality Measures DVT/VTE Risk/Contraindication: Risk Factor Score Per Nursin RFS Level Per Nursing on Admit: 3=High REMY REYNOLDS DO May 11, 2019 12:09
[2019-05-11 12:21] LABS: BASOPHILS # (AUTO) 0.1 10^3/uL (0.0-0.1); BASOPHILS % (AUTO) 1 % (0-10); EOSINOPHILS # (AUTO) 0.3 10^3/uL (0.0-0.3); EOSINOPHILS % (AUTO) 6 % (0-10); HEMATOCRIT 32 % (35-52); HEMOGLOBIN 10.5 G/DL (11.5-16.0); LYMPHOCYTES # (AUTO) 2.3 X 10^3 (1.0-4.0); LYMPHOCYTES % (AUTO) 41 % (12-44); MEAN CORPUSCULAR HEMOGLOBIN 29 PG (25-34); MEAN CORPUSCULAR HGB CONC 33 G/DL (32-36); MEAN CORPUSCULAR VOLUME 88 FL (80-99); MEAN PLATELET VOLUME 8.9 FL (7.4-10.4); MONOCYTES # (AUTO) 0.4 X 10^3 (0.0-1.0); MONOCYTES % (AUTO) 7 % (0-12); NEUTROPHILS # (AUTO) 2.5 X 10^3 (1.8-7.8); NEUTROPHILS % (AUTO) 45 % (42-75); PLATELET COUNT 346 10^3/uL (130-400); RED CELL DISTRIBUTION WIDTH 12.7 % (10.0-14.5); WHITE BLOOD COUNT 5.6 10^3/uL (4.3-11.0)
[2019-05-11 12:32] LABS: CALCIUM 8.6 MG/DL (8.5-10.1); CREATININE SERUM 1.84 MG/DL (0.60-1.30); POTASSIUM 4.3 MMOL/L (3.6-5.0)
== END 2019-05-11 13:24 | disposition home or self-care (01) | DRG 684 ==
LOC: EDUNIT# 19:30 → ER FS 19:31 → 4TH 21:35
PROVIDERS: ADMIT Internal Medicine; ATTEND Internal Medicine
DX: N17.9 Acute kidney failure, unspecified (principal); E86.0 Dehydration; J44.9 Chronic obstructive pulmonary disease, unspecified; E78.00 Pure hypercholesterolemia, unspecified; K52.9 Noninfective gastroenteritis and colitis, unspecified; K58.9 Irritable bowel syndrome, unspecified; M54.9 Dorsalgia, unspecified; G89.29 Other chronic pain; E11.9 Type 2 diabetes mellitus without complications; F41.9 Anxiety disorder, unspecified; E03.9 Hypothyroidism, unspecified; F31.9 Bipolar disorder, unspecified; K21.9 Gastro-esophageal reflux disease without esophagitis; F17.210 Nicotine dependence, cigarettes, uncomplicated; Z90.710 Acquired absence of both cervix and uterus; Z98.51 Tubal ligation status; Z87.440 Personal history of urinary (tract) infections; Z85.41 Personal history of malignant neoplasm of cervix uteri
CPT/HCPCS: 36415; 74176; 80048; 80053; 81000; 82150; 83690; 85025; G0378

== ENCOUNTER 2019-07-26 05:36 | Outpatient (RCR) | payer MEDICAID ==
[~2019-07-26] VITALS: Ht 162.6 cm; Wt 65.5 kg
== END 2019-07-26 10:21 | disposition home or self-care (01) ==
LOC: PREOP 05:36
PROVIDERS: ATTEND Surgery
DX: Z01.818 Encounter for other preprocedural examination (principal)

== ENCOUNTER → 2019-07-26 | Outpatient (CLI) | payer MEDICAID ==
[~2019-07-26] MED LIST changes: +DICL75TA2 PO; +FAMO20TA5 PO; +HYDR50TA76 PO; +LORA10TA7 PO; +SITA50TA PO; +SOLI10TA7 PO
== END ==
LOC: LAB FS 11:04
PROVIDERS: ATTEND Surgery
DX: Z20.828 Contact with and (suspected) exposure to other viral communicable diseases (principal)
CPT/HCPCS: 87635

== ENCOUNTER 2019-07-30 08:08 | Day surgery (SDC) | payer MEDICAID ==
[~2019-07-30] VITALS: Ht 162.6 cm; Wt 65.5 kg
[2019-07-30] VITALS (8 sets, daily range): BP systolic 123–150; BP diastolic 75–92
--- NOTE | 2019-07-30 08:19 | Progress Note-Pre Operative ---
Pre-Operative Progress Note H&P Reviewed The H&P was reviewed, patient examined and no changes noted. Time Seen by Provider: 08:13 Date H&P Reviewed: Jul 30, 2019 Time H&P Reviewed: 08:13 Pre-Operative Diagnosis: RAMIREZ HOWE DO Jul 30, 2019 08:19
[2019-07-30] MEDS ORDERED: LACTATED RINGERS 1,000 ML IV ONE (08:22)
[2019-07-30] MEDS ORDERED: LACTATED RINGERS 1,000 ML IV STA (08:25)
[2019-07-30] MEDS ORDERED: HURRICAINE EXT TUBE (BENZOCAINE) XX PRN (08:30)
--- OUTSIDE RECORDS SUMMARY | 2019-07-30 08:51 | XMS REPORT ---
Author Author Angella Griffith Organization [facility] Address [address] [place] [address] Care Team Providers Care Election Watcher Name Role Phone GUILLE Griffith Unavailable PROBLEMS Type Condition ICD9-CM Code TJF42-US Code Onset Dates Condition S tatus SNOMED Code Problem Gastroesophageal reflux disease with esophagitis K 21.0 Active 883472559 Problem Neuropathy G62.9 Active 952810999 Problem Controlled type 2 diabetes m ellitus without complication, without long- term current use of insulin E11.9 Active 786385189 Problem Other idiopathic scoliosis, thoracic region M41.24 Active 510687977 Problem Anxiety F41.9 Active 20064944 Problem Lumbago with sciatica, right side M54.41 Active [id number] Problem Non-seasonal allergic rhinitis, unspecified trigger J30.89 Active 59283606 Problem Acquired hypothyroidism E03.9 Active 980895392 Problem Sinusitis J32.9 Active 71311732 Problem Lumbago with sciatica, left side M54.42 Active 976091488 Problem Hypoglycemia E16.2 Active 8292122 03 Problem Other chronic pain G89.29 Active 8 7052218 Problem Urinary incontinence R32 Active 145469011 Problem Insomnia G47.00 Active 400610433 Problem IBS (irritable bowel syndrome) K58.9 Active 57651222 Problem Chronic bronchitis J42 Active 6 [id number] ALLERGIES No Information ENCOUNTERS Encounter Location Date Diagnosis [facility] [address] [facility] [address] [id number], [place] [address] 08 May, 2019 Right shoulder pain M25.511 [facility] [address] [facility] [id number] [address] [place] [address] Apr, [facility] [address] [facility] [address] [id number], [place] [address] Apr, [facility] [address] [facility] [id number] [address] [place] [address] Apr, [address] 340 [id number], [place] [address] Apr, [facility] [address] [facility] [id number] [address] [place] [address] Apr, [facility] [address] [facility] [id number] [address] [place] [address] Apr, [address] 340[address] [id number], [place] [address] Apr, Abdominal pain R10.9 ; Proje ctile vomiting R11.12 and Controlled type 2 diabetes mellitus without complication, without long-term current use of insulin E11.[address] [id number], [place] [address] Apr, [place] [address] [id number], [place] [address] Apr, Urinary incontinence R32 ; B ronchitis J40 and Lumbago with sciatica, right side M54.41 [facility] [address] [facility] [id number] [address] [place] [address] Mar, [facility] [address] [facility] [id number] [address] [place] [address] Mar, [address] [id number], [place] [address] Mar, Right shoulder pain M25.511 ; Gastroesophageal reflux disease with esophagitis K21.0 and Controlled type 2 diabetes mellitus without complication, without long-term current use of insulin E11.9 [place] [address] [id number], [place] [address] Feb, Anxiety F41.9 and Gastroesop hageal reflux disease with esophagitis K21.[address] [id number], [place] [address] Feb, [address] [id number] [place] [address] Feb, Spinal stenosis M48.[address] [id number] [place] [address] Feb, Anxiety F41.9 ; Gastroesopha geal reflux disease with esophagitis K21.0 and Spinal stenosis M48.00 [facility] [address] [id number] [address] [place] [address] Feb, [address] 340[address] [id number], [place] [address] Feb, Controlled type 2 diabetes m ellitus without complication, without long-term current use of insulin E11.[address] 340[address] [id number], [place] [address] Feb, Controlled type 2 diabetes m ellitus without complication, without long-term current use of insulin E11.9 ; Hypoglycemia E16.2 and Urinary incontinence R32 [address] 340[address] [id number], [place] [address] Feb, Spinal stenosis M48.00 [facility] [address] [id number] 5[address] [place] [address] Feb, [address] 340[address] [id number], [place] [address] Jan, Spinal stenosis M48.[address] 340[address] [id number], [place] [address] Jan, Chronic bronchitis J42 and S inusitis J32.[address] 340[address] [id number], [place] [address] Jan, [address] 340B [id number], [place] [address] Jan, Gastroesophageal reflux dise ase with esophagitis K21.[address] 340[address] [id number], [place] [address] Jan, [address] [id number] [place] [address] Jan, Spinal stenosis M48.00 [facility] [address] [facility] [id number] [place] [address] Dec, Non-seasonal allergic rhinit is, unspecified trigger J30.89 [facility] [address] 340 [id number] [place] [address] Dec, Right foot pain M79.[address] 340[address] [id number], [place] [address] Nov, Controlled type 2 diabetes m nevinitus without complication, without long-term current use of insulin E11.9 [facility] [address] [facility] [id number] [address] [place] [address] Nov, Controlled type 2 diabetes m nevinitus without complication, without long-term current use of insulin E11.[address] 340 [id number], [place] [address] Nov, Gastroesophageal reflux dise ase with esophagitis K21.[address] [id number], [place] [address] Nov, LUQ pain R10.12 ; Dysuria R3 0.0 ; IBS (irritable bowel syndrome) K58.9 ; Gastroesophageal reflux disease with esophagitis K21.0 and Spinal stenosis M48.[address] [id number], [place] [address] Nov, Acquired hypothyroidism E03. 9 and Controlled type 2 diabetes mellitus without complication, without long-term current use of insulin E11.[address] 340[address] [id number], [place] [address] Nov, Lumbago with sciatica, right side M54.[address] [id number], [place] [address] Nov, Cellulitis L03.90 and Dog bi te W54.0XXA [address] 340B [id number] [place] [address] Nov, Controlled type 2 diabetes m nevinitus without complication, without long-term current use of insulin E11.9 and Acquired hypothyroidism E03.[address] 340B [id number], [place] [address] Nov, Controlled type 2 diabetes m nevinitus without complication, without long-term current use of insulin E11.[address] 340[address] [id number] [place] [address] Nov, [facility] [address] [facility] [id number] [address] [place] [address] Oct, [address] 340[address] [id number], [place] [address] Oct, [address] 340B [id number], [place] [address] Oct, Nasopharyngitis acute J00 [address] 340 [id number], [place] [address] Sep, Lumbago with sciatica, right side M54.[address] 340B [id number], [place] [address] Sep, [address] [id number], [place] [address] Sep, Abnormal mammogram R92.[address] 340[address] [id number], [place] [address] Sep, Abnormal mammogram R92.[address] 340B [id number], [place] [address] Sep, Vaginitis N76.0 ; Anxiety F4 1.9 and Insomnia G47.00 [facility] [address] [facility] [id number] [address] [place] [address] Sep, [address] [id number] [place] [address] Sep, Fever R50.9 and Urinary inco ntinence R32 [facility] [address] 340B [id number] [place] [address] Sep, Abnormal mammogram R92.8 [facility] [address] 340B [id number] [place] [address] Sep, Controlled type 2 diabetes m ellitus without complication, without long-term current use of insulin E11.9 [facility] [address] 340B [id number] [place] [address] Aug, Lumbago with sciatica, right side M54.41 [facility] [address] 340[address] [id number] [place] [address] Aug, [facility] TANYA [address] 340B [id number] [place] [address] Aug, Screening mammogram, encount er for Z12.31 [facility] [address] 340B [id number] [place] [address] Aug, Controlled type 2 diabetes m ellitus without complication, without long-term current use of insulin E11.9 and Acquired hypothyroidism E03.9 [facility] TANYA PEARSON [address] 340B [id number] [place] [address] Aug, Screening mammogram, encount er for Z12.31 ; Encounter for therapeutic drug monitoring Z51.81 ; Controlled type 2 diabetes mellitus without complication, without long-term current use of insulin E11.9 and Acquired hypothyroidism E03.9 [facility] [address] [id number] [place] S [id number] Aug, [facility] TANYA [address] [id number] [place] [address] Aug, [facility] TANYA PEARSON [address] 340B [id number] [place] [address] Aug, [facility] TANYA [address] 340B [id number] [place] [address] Aug, [facility] TANYA [address] 340B [id number] [place] [address] Aug, [facility] [address] [id number] [address] [place] [address] Aug, [address] 340[address] [id number] [place] [address] Aug, [facility] [address] [facility] [id number] [place] [address] Jul, Neuropathy G62.9 [facility] TANYA [facility] [address] [id number] [place] [address] Jul, Dermatitis L30.9 [facility] TANYA [address] 340B [id number], [place] [address] June, Gastroesophageal reflux dise ase with esophagitis K21.0 ; Lumbago with sciatica, right side M54.41 ; Non-seasonal allergic rhinitis, unspecified trigger J30.89 and Controlled type 2 diabetes mellitus without complication, without long-term current use of insulin E11.9 [facility] TANYA PEARSON [address] 340B [id number] [place] [address] May, [facility] TANYA PEARSON [address] 340B [id number] [place] [address] May, Neuropathy G62.9 ; Controlle d type 2 diabetes mellitus without complication, without long-term current use of insulin E11.9 and Bronchitis J40 [facility] TANYA PEARSON [address] 340B [id number] [place] [address] May, [facility] TANYA PEARSON [address] 340B [id number] [place] [address] Apr, [facility] TANYA PEARSON [address] 340B [id number] [place] [address] Apr, Controlled type 2 diabetes m ellitus [...] or gangrene K43.2 and Acquired hypothyroidism E03.9 [place] [address] [place] [address] Apr, [place] [address] [place] [id number] [address] [place] [address] Mar, Controlled type 2 diabetes arianna stuart without complication, without long-term current use of insulin E11.9 [place] [address] [place] [address] Feb, Bronchitis J40 [place] [address] [address] Feb, [place] [address] [place] [id number] [address] [place] [address] Jan, Bronchitis J40 ; Lumbago wit h sciatica, left side M54.42 ; Lumbago with sciatica, right side M54.41 and Other chronic pain G89.29 [place] [address] [place] [id number] [address] [place] [address] Dec, Controlled type 2 diabetes arianna stuart without complication, without long-term current use of [...] SOCIAL HISTORY Never Assessed REASON FOR VISIT New Refill Request PLAN OF CARE VITAL SIGNS MEDICATIONS Unknown Medications RESULTS No Results PROCEDURES No Known procedures INSTRUCTIONS MEDICATIONS ADMINISTERED No Known Medications MEDICAL (GENERAL) HISTORY Type Description Date Medical History Controlled type 2 diabetes m sade without complication, without long-term current use of [...]
--- OUTSIDE RECORDS SUMMARY | 2019-07-30 08:51 | XMS REPORT ---
Author Author Angella Griffith Organization [facility] Address [address] [place] [address] Care Team Providers Care Internal Grinder Name Role Phone GUILLE Griffith Unavailable PROBLEMS Type Condition ICD9-CM Code KMK36-AF Code Onset Dates Condition S tatus SNOMED Code Problem Gastroesophageal reflux disease with esophagitis K 21.0 Active 495274929 Problem Neuropathy G62.9 Active 396069082 Problem Controlled type 2 diabetes m ellitus without complication, without long- term current use of insulin E11.9 Active 019025185 Problem Other idiopathic scoliosis, thoracic region M41.24 Active 349677627 Problem Anxiety F41.9 Active 36439212 Problem Lumbago with sciatica, right side M54.41 Active [id number] Problem Non-seasonal allergic rhinitis, unspecified trigger J30.89 Active 56305069 Problem Acquired hypothyroidism E03.9 Active 560965905 Problem Sinusitis J32.9 Active 27803390 Problem Lumbago with sciatica, left side M54.42 Active 982348359 Problem Hypoglycemia E16.2 Active 8654349 03 Problem Other chronic pain G89.29 Active 8 6675719 Problem Urinary incontinence R32 Active 977611437 Problem Insomnia G47.00 Active 827217653 Problem IBS (irritable bowel syndrome) K58.9 Active 66179847 Problem Chronic bronchitis J42 Active 6 2777288 ALLERGIES No Information ENCOUNTERS Encounter Location Date Diagnosis [facility] [address] [facility] [address] [id number] [address] 08 May, 2019 Right shoulder pain M25.511 [facility] [address] [facility] [id number] [address] [place] [address] Apr, [facility] [address] [facility] [address] [id number] [address] Apr, [facility] [address] [facility] [id number] [address] [place] [address] Apr, [address] [id number], [place] [address] Apr, [facility] [address] [facility] [id number] [address] [place] [address] Apr, [facility] [address] [facility] [id number] [address] [place] [address] Apr, [address] [id number] [address] Apr, Abdominal pain R10.9 ; Proje ctile vomiting R11.12 and Controlled type 2 diabetes mellitus without complication, without long-term current use of insulin E11.[address] [id number] [address] Apr, [place] [address] [id number] [address] Apr, Urinary incontinence R32 ; B ronchitis J40 and Lumbago with sciatica, right side M54.41 [facility] [address] [facility] [id number] [address] [place] [address] Mar, [facility] [address] [facility] [id number] [address] [place] [address] Mar, [address] [id number] [address] Mar, Right shoulder pain M25.511 ; Gastroesophageal reflux disease with esophagitis K21.0 and Controlled type 2 diabetes mellitus without complication, without long-term current use of insulin E11.9 [place] [address] [id number] [address] Feb, Anxiety F41.9 and Gastroesop hageal reflux disease with esophagitis K21.[address] [id number], [place] [address] Feb, [address] 340[address] [id number] [place] [address] Feb, Spinal stenosis M48.[address] 340[address] [id number] [place] [address] Feb, Anxiety F41.9 ; Gastroesopha geal reflux disease with esophagitis K21.0 and Spinal stenosis M48.00 [facility] [address] [id number] [address] [place] [address] Feb, [address] [id number], [place] [address] Feb, Controlled type 2 diabetes m ellitus without complication, without long-term current use of insulin E11.[address] 340[address] [id number], [place] [address] Feb, Controlled type 2 diabetes m ellitus without complication, without long-term current use of insulin E11.9 ; Hypoglycemia E16.2 and Urinary incontinence R32 [address] [id number] [address] Feb, Spinal stenosis M48.00 [facility] [address] [id number] [address] [address] Feb, [address] [id number], [place] [address] Jan, Spinal stenosis M48.[address] 340[address] [id number] [address] Jan, Chronic bronchitis J42 and S inusitis J32.[address] 340[address] [id number], [place] [address] Jan, [address] [id number], [place] [address] Jan, Gastroesophageal reflux dise ase with esophagitis K21.[address] 340[address] [id number], [place] [address] Jan, [address] 340[address] [id number] [place] [address] Jan, Spinal stenosis M48.00 [facility] [address] [facility] [id number] [place] [address] Dec, Non-seasonal allergic rhinit is, unspecified trigger J30.89 [facility] [address] [id number] [place] [address] Dec, Right foot pain M79.[address] [id number] [address] Nov, Controlled type 2 diabetes m nevinitus without complication, without long-term current use of insulin E11.9 [facility] [address] [facility] [id number] [address] [place] [address] Nov, Controlled type 2 diabetes m nevinitus without complication, without long-term current use of insulin E11.[address] [id number], [place] [address] Nov, Gastroesophageal reflux dise ase with esophagitis K21.[address] [id number] [address] Nov, LUQ pain R10.12 ; Dysuria R3 0.0 ; IBS (irritable bowel syndrome) K58.9 ; Gastroesophageal reflux disease with esophagitis K21.0 and Spinal stenosis M48.[address] [id number] [address] Nov, Acquired hypothyroidism E03. 9 and Controlled type 2 diabetes mellitus without complication, without long-term current use of insulin E11.[address] 340[address] [id number], [place] [address] Nov, Lumbago with sciatica, right side M54.[address] [id number] [address] Nov, Cellulitis L03.90 and Dog bi te W54.0XXA [address] 340B [id number] [place] [address] Nov, Controlled type 2 diabetes m nevinitus without complication, without long-term current use of insulin E11.9 and Acquired hypothyroidism E03.[address] 340[place] 15[place]103[place], [place] [address] Nov, Controlled type 2 diabetes m nevinitus without complication, without long-term current use of insulin E11.[address] 340[address] [id number] [place] [address] Nov, [facility] [address] [facility] [id number] [address] [place] [address] Oct, [address] 340[place] [id number], [place] [address] Oct, [address] 340[place] [id number], [place] [address] Oct, Nasopharyngitis acute J00 [address] 340 [id number], [place] [address] Sep, Lumbago with sciatica, right side M54.[address] 340[place] [id number], [place] [address] Sep, [address] [id number], [place] [address] Sep, Abnormal mammogram R92.[address] 340[place] [id number], [place] [address] Sep, Abnormal mammogram R92.[address] 340[place] [id number], [place] [address] Sep, Vaginitis N76.0 ; Anxiety F4 1.9 and Insomnia G47.00 [facility] [address] [facility] [id number] [address] [place] [address] Sep, [address] [id number] [place] [address] Sep, Fever R50.9 and Urinary inco ntinence R32 [facility] [address] 340B [id number] [place] [address] Sep, Abnormal mammogram R92.8 [facility] PEARSON [address] 340B [id number] [place] [address] Sep, Controlled type 2 diabetes m ellitus without complication, without long-term current use of insulin E11.9 [facility] PEAR[facility] [address] 340B [id number] [place] [address] Aug, Lumbago with sciatica, right side M54.41 [facility] PEAR[facility] [address] 340B [id number] [place] [address] Aug, [facility] TANYA [address] 340B [id number] [place] [address] Aug, Screening mammogram, encount er for Z12.31 [facility] PEAR[facility] [address] 340B [id number] [place] [address] Aug, Controlled type 2 diabetes m ellitus without complication, without long-term current use of insulin E11.9 and Acquired hypothyroidism E03.9 [facility] TANYA PEARSON [address] 340B [id number] [place] [address] Aug, Screening mammogram, encount er for Z12.31 ; Encounter for therapeutic drug monitoring Z51.81 ; Controlled type 2 diabetes mellitus without complication, without long-term current use of insulin E11.9 and Acquired hypothyroidism E03.9 [facility] [address] [id number] [place] S [id number] Aug, [facility] TANYA [address] [id number] [place] [address] Aug, [facility] TANYA PEARSON [address] 340B [id number] [place] [address] Aug, [facility] TANYA [address] 340B [id number] [place] [address] Aug, [facility] TANYA [address] 340B [id number] [place] [address] Aug, [facility] [address] [id number] [address] [address] Aug, [address] 340B [id number] [place] [address] Aug, [facility] [address] [facility] [id number] [place] [address] Jul, Neuropathy G62.9 [facility] TANYA [facility] [address] [id number] [place] [address] Jul, Dermatitis L30.9 [facility] TANYA [address] 340[place] [id number] [address] June, Gastroesophageal reflux dise ase with esophagitis K21.0 ; Lumbago with sciatica, right side M54.41 ; Non-seasonal allergic rhinitis, unspecified trigger J30.89 and Controlled type 2 diabetes mellitus without complication, without long-term current use of insulin E11.9 [facility] TANYA PEARSON [address] 340B [id number] [place] [address] May, [facility] TANYA PEARSON [address] 340B [id number] [place] [address] May, Neuropathy G62.9 ; Controlle d type 2 diabetes mellitus without complication, without long-term current use of insulin E11.9 and Bronchitis J40 [facility] TANYA PEARSON [address] 340B [id number] [place] [address] May, [facility] TANYA PEARSON [address] 340B [id number] [place] [address] Apr, [facility] TANYA PEARSON [address] 340B [id number] [place] [address] Apr, Controlled type 2 diabetes m ellitus [...] or gangrene K43.2 and Acquired hypothyroidism E03.9 [place] [address] [place] [id number] [address] [place] [address] Apr, [place] [address] [place] [id number] [address] [place] [address] Mar, Controlled type 2 diabetes m sade without complication, without long-term current use of insulin E11.9 [place] [address] [place] [address] Feb, Bronchitis J40 [place] [address] [place] [id number] [address] [place] [address] Feb, [place] [address] [place] [address] Jan, Bronchitis J40 ; Lumbago wit h sciatica, left side M54.42 ; Lumbago with sciatica, right side M54.41 and Other chronic pain G89.29 [place] [address] [place] [address] Dec, Controlled type 2 diabetes m sade without [...] Request PLAN OF CARE VITAL SIGNS MEDICATIONS Medication Instructions Dosage Frequency Start Date End Date Duration S tatus Farxiga 5 mg Orally Once a day 1 tablet 24h 30 day(s ) Active Tylenol with Codeine #3 300-30 MG Orally every 6 hrs 1 tablet as ne eded 6h Dec, 28 days Active VESIcare 5 mg Orally Once a day 1 tablet 24h 30 day( s) Active Gabapentin 300 MG Orally Three times a day 1 capsule 8h 30 day(s) Active Aspir-81 81 MG Orally Once a day 1 tablet 24h 30 day (s) Active Citalopram Hydrobromide 20 mg Orally Once a day 1 tablet 24h Dec, 30 day(s) Active Levothyroxine Sodium 112 mcg Orally Once a day 1 tablet on an empty stomach in the morning 24h 30 days Active Metformin HCl 1000 mg Orally 2 times a day 1 tablet with a meal 12h 30 day(s) Active Pantoprazole Sodium 40 mg Orally Once a day 1 tablet 24h 30 day(s) Active Cyclobenzaprine HCl 10 mg Orally Three times a day 1 tablet as needed 8h 28 days Active Loratadine 10 mg Orally Once a day 1 tablet 24h 30 d ay(s) Active RESULTS No Results PROCEDURES No Known [...]
--- OUTSIDE RECORDS SUMMARY | 2019-07-30 08:52 | XMS REPORT | Continuity of Care Document ---
Author Organization Unknown Address Unknown Phone Unavailable Allergies Active Description Code Type Severity Reaction Onset Reported/Identified Relationship to Patient Clinical Status Yes No Known Drug Allergies [id number] Drug Allergy Unknown N/A 08/16/2018 Yes adhesive tape [id number] Joel g Allergy Unknown Hives 09/05/2018 Yes bupropion [id number] Drug Allergy Unknown sucidial 09/05/2018 Yes carisoprodol [id number] Drug Allergy Unknown heart palpatati 09/05/2018 Yes quetiapine [id number] Drug Allerg y Unknown suicidal 09/05/2018 Yes Sulfa (Sulfonamide Antibiotics) [id number] Drug Allergy Unknown abd pain 09/05/2018 Medications There is no data. 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 52 SENIOR LIVING (CURRENT) USE OF SYSTEMIC STER 09/24/2018 ASHUTOSH ALBRIGHT MD Ot Z79. 84 OYSTER BED WORKER (CURRENT) USE OF ORAL HYPOGLYC 09/24/2018 ASHUTOSH [...] 10/03/2018 FAROOQ LANGE MD Ot Z79.5 2 OYSTER BED WORKER (CURRENT) USE OF SYSTEMIC STER 10/03/2018 FAROOQ LANGE MD Ot Z79.8 4 SENIOR LIVING (CURRENT) USE OF ORAL HYPOGLYC 10/03/2018 FAROOQ [...] 10/05/2018 FAROOQ LANGE MD, Ot Z79.5 2 SENIOR LIVING (CURRENT) USE OF SYSTEMIC STER 10/05/2018 FAROOQ LANGE MD, Ot Z79.8 4 SENIOR LIVING (CURRENT) USE OF ORAL HYPOGLYC 10/05/2018 FAROOQ [...] 10/30/2018 FAROOQ LANGE MD, Ot Z79.8 4 SENIOR LIVING (CURRENT) USE OF ORAL HYPOGLYC 10/30/2018 FAROOQ [...] ELAINA Ot F31.9 BIPOLAR DISORDER, UNSPECIFIED 12/02/2018 PALO VERDE DO, ELAINA Ot K21.9 GASTRO-ESOPHAGEAL REFLUX DISEASE WITHOUT 12/02/2018 [facility] Ot K58.0 IRRITABLE BOWEL SYNDROME WITH DIARRHEA 12/02/2018 COREY DO, ELAINA Ot R10.84 GENERALIZED ABDOMINAL PAIN 12/02/2018 PALO VERDE DO, ELAINA Ot R11.2 NAUSEA WITH VOMITING, UNSPECIFIED 12/02/2018 [facility], ELAINA Ot Z79.84 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 BED WORKER (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) USE OF ORAL HYPOGLYC 12/02/2018 PALO VERDE DO, ELAINA Ot Z85.41 PERSONAL HISTORY OF MALIGNANT NEOPLASM O 12/02/2018 PALO VERDE DO, ELAINA Ot Z88.2 ALLERGY STATUS TO SULFONAMIDES STATUS 12/02/2018 [facility], ELAINA Ot Z88.8 ALLERGY STATUS TO OTH DRUG/MEDS/BIOL SUB 12/02/2018 [facility] Ot Z90.710 ACQUIRED ABSENCE OF BOTH CERVIX AND UTER 12/02/2018 [facility], ELAINA Ot Z98.51 TUBAL LIGATION STATUS 12/03/2018 KIRK DOSANDRA Ot E03.9 HYPOTHYROIDISM, UNSPECIFIED 12/03/2018 DECATUR DO SANDRA K Ot E11.9 TYPE 2 DIABETES MELLITUS WITHOUT COMPLIC 12/03/2018 KIRK DOYUSUFA K Ot E78.00 PURE HYPERCHOLESTEROLEMIA, UNSPECIFIED 12/03/2018 DECATUR DO SANDRA Nichelle Ot F31.9 BIPOLAR DISORDER, UNSPECIFIED 12/03/2018 KIRK DO SANDRA K Ot K21.9 GASTRO-ESOPHAGEAL REFLUX DISEASE WITHOUT 12/03/2018 KIRK DOYUSUFA Nichelle Ot K52.9 NONINFECTIVE GASTROENTERITIS AND COLITIS 12/03/2018 DECATUR DO SANDRA K Ot K58.9 IRRITABLE BOWEL SYNDROME WITHOUT DIARRHE 12/03/2018 KIRK DO SANDRA K Ot R11.2 NAUSEA WITH VOMITING, UNSPECIFIED 12/03/2018 KIRK DOYUSUFA Nichelle Ot Z79.51 SENIOR LIVING (CURRENT) USE OF INHALED STERO 12/03/2018 DECATUR DOYUSUFA Nichelle Ot Z79.84 SENIOR LIVING (CURRENT) USE OF ORAL HYPOGLYC 12/03/2018 KIRK DOYUSUFA Nichelle Ot Z85.41 PERSONAL HISTORY OF MALIGNANT NEOPLASM O 12/03/2018 DECATUR DOYUSUFA Nichelle Ot Z88.2 ALLERGY STATUS TO SULFONAMIDES STATUS 12/03/2018 KIRK DO, SANDRA K Ot Z88.8 ALLERGY STATUS TO OTH DRUG/MEDS/BIOL SUB 12/03/2018 KIRK DO, SANDRA K Ot Z90.710 ACQUIRED ABSENCE OF BOTH CERVIX AND UTER 12/03/2018 KIRK DO, SANDRA K Ot Z98.51 TUBAL LIGATION STATUS 12/05/2018 PALO VERDE DO, ELAINA Ot 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 12/05/2018 COREY DO, ELAINA Ot E03.9 HYPOTHYROIDISM, UNSPECIFIED 12/05/2018 PALO VERDE DO, ELAINA Ot E11.9 TYPE 2 DIABETES MELLITUS WITHOUT COMPLIC 12/05/2018 PALO VERDE DO, ELAINA Ot E78.00 PURE HYPERCHOLESTEROLEMIA, UNSPECIFIED 12/05/2018 PALO VERDE DO, ELAINA Ot F31.9 BIPOLAR DISORDER, UNSPECIFIED 12/05/2018 PALO VERDE DO, ELAINA Ot K21.9 GASTRO-ESOPHAGEAL REFLUX DISEASE WITHOUT 12/05/2018 [facility], ELAINA Ot K58.0 IRRITABLE BOWEL SYNDROME WITH DIARRHEA 12/05/2018 [facility], ELAINA Ot R10.84 GENERALIZED ABDOMINAL PAIN 12/05/2018 [facility], ELAINA Ot R11.2 NAUSEA WITH VOMITING, UNSPECIFIED 12/05/2018 [facility], ELAINA Ot Z79.84 SENIOR LIVING (CURRENT) USE OF ORAL HYPOGLYC 12/05/2018 [facility], ELAINA Ot Z85.41 PERSONAL HISTORY OF MALIGNANT NEOPLASM O 12/05/2018 [facility], ELAINA Ot Z88.2 ALLERGY STATUS TO SULFONAMIDES STATUS 12/05/2018 PALO VERDE DO, ELAINA Ot Z88.8 ALLERGY STATUS TO OTH DRUG/MEDS/BIOL SUB 12/05/2018 PALO VERDE DO, ELAINA Ot Z90.710 ACQUIRED ABSENCE OF [...] VOMITING, UNSPECIFIED 12/06/2018 KIRK GUTIERREZSANDRA Ot Z79.51 OYSTER BED WORKER (CURRENT) USE OF INHALED STERO 12/06/2018 KIRK SANDRA Ot Z79.84 OYSTER BED WORKER (CURRENT) USE OF ORAL HYPOGLYC 12/06/2018 KIRK [...] 01/13/2019 ROVENSTINE DO, JAREK L Ot Z79.51 OYSTER BED WORKER (CURRENT) USE OF INHALED STERO 01/13/2019 ROVENSTINE DO, JAREK Monge Ot Z79.84 OYSTER BED WORKER (CURRENT) USE OF ORAL HYPOGLYC 01/13/2019 ROVENSTINE [...] 01/17/2019 ROVENSTINE DO, JAREK Monge Ot Z79.51 OYSTER BED WORKER (CURRENT) USE OF INHALED STERO 01/17/2019 ROVENSTINE DOJAREK Ot Z79.84 OYSTER BED WORKER (CURRENT) USE OF ORAL HYPOGLYC 01/17/2019 ROVENSTINE [...] FATIGUE 02/23/2019 SUSAN SÁNCHEZ MD Ot Z79.51 OYSTER BED WORKER (CURRENT) USE OF INHALED STERO 02/23/2019 SUSAN SÁNCHEZ MD Ot Z79.84 SENIOR LIVING (CURRENT) USE OF ORAL HYPOGLYC 02/23/2019 SUSAN SÁNCHEZ MD Ot Z85.41 PERSONAL HISTORY OF MALIGNANT NEOPLASM O 02/23/2019 SUSAN SÁNCHEZ MD Ot Z88.2 ALLERGY STATUS TO SULFONAMIDES STATUS 02/23/2019 SUSAN SÁNCHEZ MD Ot Z88.8 ALLERGY STATUS TO OTH DRUG/MEDS/BIOL SUB 02/23/2019 SUSAN SÁNCHEZ MD Ot Z90.710 ACQUIRED ABSENCE OF BOTH CERVIX AND UTER 02/23/2019 SUSAN SÁNCHEZ MD Ot Z98.51 TUBAL LIGATION STATUS 04/10/2019 FAROOQ LANGE MD Ot E03.9 HYPOTHYROIDISM, UNSPECIFIED 04/10/2019 FAROOQ LANGE MD Ot E09.6 5 DRUG OR CHEMICAL INDUCED DIABETES MELLIT 04/10/2019 FAROOQ LANGE MD Ot F31.9 BIPOLAR DISORDER, UNSPECIFIED 04/10/2019 FAROOQ LANGE MD, Ot F41.9 ANXIETY DISORDER, UNSPECIFIED 04/10/2019 FAROOQ LANGE MD Ot K21.9 GASTRO-ESOPHAGEAL REFLUX DISEASE WITHOUT 04/10/2019 FAROOQ LANGE MD Ot R73.9 HYPERGLYCEMIA, UNSPECIFIED 04/10/2019 FAROOQ LANGE MD Ot Z79.5 1 OYSTER BED WORKER (CURRENT) USE OF INHALED STERO 04/10/2019 FAROOQ LANGE MD Ot Z79.8 4 SENIOR LIVING (CURRENT) USE OF ORAL HYPOGLYC 04/10/2019 FAROOQ LANGE MD Ot Z85.4 1 PERSONAL HISTORY OF MALIGNANT NEOPLASM O 04/10/2019 FAROOQ LANGE MD Ot Z88.2 ALLERGY STATUS TO SULFONAMIDES STATUS 04/10/2019 FAROOQ LANGE MD Ot Z88.8 ALLERGY STATUS TO OTH DRUG/MEDS/BIOL SUB 04/29/2019 Ot E03.9 HYPO THYROIDISM, UNSPECIFIED 04/29/2019 Ot E11.9 TYPE 2 DIABETES MELLITUS WITHOUT COMPLIC 04/29/2019 Ot E78.00 PUR E HYPERCHOLESTEROLEMIA, UNSPECIFIED 04/29/2019 Ot F17.210 NI COTINE DEPENDENCE, CIGARETTES, UNCOMPL 04/29/2019 Ot F31.9 BIPO LAR DISORDER, UNSPECIFIED 04/29/2019 Ot F41.9 ANXI ETY DISORDER, UNSPECIFIED 04/29/2019 Ot J44.9 OVERNIGHT BABYSITTER MARC OBSTRUCTIVE PULMONARY DISEASE, U 04/29/2019 Ot K21.9 FELICIANO RO-ESOPHAGEAL REFLUX DISEASE WITHOUT 04/29/2019 Ot R05 COUGH 04/29/2019 Ot R09.1 PLEU RISY 04/29/2019 Ot Z79.51 LEXA G TERM (CURRENT) USE OF INHALED STERO 04/29/2019 Ot Z79.84 LEXA G TERM (CURRENT) USE OF ORAL HYPOGLYC 04/29/2019 Ot Z85.41 PER MERT HISTORY OF MALIGNANT NEOPLASM O 04/29/2019 Ot Z88.2 AYAZ RGY STATUS TO SULFONAMIDES STATUS 04/29/2019 Ot Z88.8 AYAZ RGY STATUS TO OTH DRUG/MEDS/BIOL SUB 05/09/2019 JESÚS WHITE CUSHION MAT MAKER Ot R10.9 UNSPECIFIED ABDOMINAL PAIN 05/09/2019 JESÚS WHITE CUSHION MAT MAKER Ot R11.12 PROJECTILE VOMITING 05/11/2019 GERONIMO HERRERA, ROSANNE Crawford Ot E03. 9 HYPOTHYROIDISM, UNSPECIFIED 05/11/2019 GERONIMO HERRERA, ROSANNE Crawford Ot E11. 9 TYPE 2 DIABETES MELLITUS WITHOUT COMPLIC 05/11/2019 GERONIMO HERRERA, ROSANNE Crawford Ot E78. 00 PURE HYPERCHOLESTEROLEMIA, UNSPECIFIED 05/11/2019 ROSANNE MELTON MD Ot E86. 0 DEHYDRATION 05/11/2019 ROSANNE MELTON MD Ot F17.210 NICOTINE DEPENDENCE, CIGARETTES, UNCOMPL 05/11/2019 ROSANNE MELTON MD Ot F31. 9 BIPOLAR DISORDER, UNSPECIFIED 05/11/2019 ROSANNE MELTON MD Ot F41. 9 ANXIETY DISORDER, UNSPECIFIED 05/11/2019 ROSANNE MELTON MD Ot G89. 29 OTHER CHRONIC PAIN 05/11/2019 ROSANNE MELTON MD Ot J44. 9 CHRONIC OBSTRUCTIVE PULMONARY DISEASE, U 05/11/2019 ROSANNE MELTON MD Ot K21. 9 GASTRO-ESOPHAGEAL REFLUX DISEASE WITHOUT 05/11/2019 ROSANNE MELTON MD Ot K52. 9 NONINFECTIVE GASTROENTERITIS AND COLITIS 05/11/2019 ROSANNE MELTON MD Ot K58. 9 IRRITABLE BOWEL SYNDROME WITHOUT DIARRHE 05/11/2019 ROSANNE MELTON MD Ot M54. 9 DORSALGIA, UNSPECIFIED 05/11/2019 ROSANNE MELTON MD Ot N17. 9 ACUTE KIDNEY FAILURE, UNSPECIFIED 05/11/2019 ROSANNE MELTON MD Ot Z85. 41 PERSONAL HISTORY OF MALIGNANT NEOPLASM O 05/11/2019 GERONIMO HERRERA, ROSANNE Crawford Ot Z87.440 PERSONAL HISTORY OF URINARY (TRACT) INFE 05/11/2019 ROSANNE MELTON MD Ot Z90.710 ACQUIRED ABSENCE OF BOTH CERVIX AND UTER 05/11/2019 ROSANNE MELTON MD Ot Z98. 51 TUBAL LIGATION STATUS 05/11/2019 ROSANNE MELTON MD Ot E03. 9 HYPOTHYROIDISM, UNSPECIFIED 05/11/2019 GERONIMO HERRERA, ROSANNE Crawford Ot E11. 9 TYPE 2 DIABETES MELLITUS WITHOUT COMPLIC 05/11/2019 GERONIMO HERRERA, ROSANNE Crawford Ot E78. 00 PURE HYPERCHOLESTEROLEMIA, UNSPECIFIED 05/11/2019 GERONIMO HERRERA, ROSANNE Crawford Ot E86. 0 DEHYDRATION 05/11/2019 GERONIMO HERRERA, ROSANNE Crawford Ot F17.210 NICOTINE DEPENDENCE, CIGARETTES, UNCOMPL 05/11/2019 GERONIMO HERRERA, ROSANNE Crawford Ot F31. 9 BIPOLAR DISORDER, UNSPECIFIED 05/11/2019 GERONIMO HERRERA, ROSANNE Crawford Ot F41. 9 ANXIETY DISORDER, UNSPECIFIED 05/11/2019 GERONIMO HERRERA, ROSANNE Crawford Ot G89. 29 OTHER CHRONIC PAIN 05/11/2019 GERONIMO HERRERA, ROSANNE Crawford Ot J44. 9 CHRONIC OBSTRUCTIVE PULMONARY DISEASE, U 05/11/2019 GERONIMO HERRERA, ROSANNE Crawford Ot K21. 9 GASTRO-ESOPHAGEAL REFLUX DISEASE WITHOUT 05/11/2019 GERONIMO HERRERA, ROSANNE Crawford Ot K52. 9 NONINFECTIVE GASTROENTERITIS AND COLITIS 05/11/2019 GERONIMO HERRERA, ROSANNE Crawford Ot K58. 9 IRRITABLE BOWEL SYNDROME WITHOUT DIARRHE 05/11/2019 GERONIMO HERRERA, ROSANNE Crawford Ot M54. 9 DORSALGIA, UNSPECIFIED 05/11/2019 GERONIMO HERRERA, ROSANNE Crawford Ot N17. 9 ACUTE KIDNEY FAILURE, UNSPECIFIED 05/11/2019 GERONIMO HERRERA, ROSANNE Crawford Ot Z85. 41 PERSONAL HISTORY OF MALIGNANT NEOPLASM O 05/11/2019 ROSANNE MELTON MD Ot Z87.440 PERSONAL HISTORY OF URINARY (TRACT) INFE 05/11/2019 ROSANNE MELTON MD Ot Z90.710 ACQUIRED ABSENCE OF BOTH CERVIX AND UTER 05/11/2019 GERONIMO HERRERA, ROSANNE Crawford Ot Z98. 51 TUBAL LIGATION STATUS 05/22/2019 JESÚS WHITE APRN Ot R10.9 UNSPECIFIED ABDOMINAL PAIN 05/22/2019 JESÚS WHITE APRN Ot R11.12 PROJECTILE VOMITING Procedures There is [...] 7-25 CREATININE 0.88 mg/dL 0.50-1.05 eGFR NON-AFR. IRISH 77 mL/min/1.73m2 > OR = 60 eGFR [...] 10-35 ALT 19 U/L 6-29 TSH - 07/17/19 09:20 TSH 0.74 mIU/L NRG A1C - [...] NRG Blood erythrocyte morphology finding identification NORMAL NR Comprehensive metabolic panel - 12/02/18 22:10 Serum [...] in u rine sediment by light microscopy 10- NRG Crystals detection in urine sediment by [...] microcytes detection by light microscopy MOD ERATE NRG Blood blood smear finding identification by light micr oscopy 0.09 NRG Serum or plasma ethanol measurement (mas s/volume) [...] - 04/29/19 16:5 0 Bacterial throat culture [facility] Comprehensive metabolic panel - 05/03/19 [...] or plasma urea nitrogen/creatinine mass ratio 22 [facility] Serum or plasma creatinine measurement w ith calculation of estimated glomerular filtration rate 31 [facility] Serum or plasma glucose measurement (mass/volume) 183 [...] sediment by light sterling roscopy 25-50 NRG Complete blood count (CBC) with automate d white blood cell (WBC) differential - 05/11/19 12:05 Blood leukocytes automated count (number/volume) 5.6 10*3/uL 4.3-11.0 Blood erythrocytes automated count (number/volume) 3.61 10*6/uL 4.35-5.85 Venous blood hemoglobin measurement (mass/volume) 10.5 g/dL 11.5-16.0 Blood hematocrit (volume fraction) 32 % 35-52 Automated erythrocyte mean corpuscular volume 88 [ foz_us] 80-99 Automated erythrocyte mean corpuscular h emoglobin (mass per erythrocyte) 29 pg 25-34 Automated erythrocyte mean corpuscular h emoglobin concentration measurement (mass/volume) 33 g/dL 32-36 Automated erythrocyte distribution width ratio 12. 7 % 10.0- 14.5 Automated blood platelet count (count/volume) 346 10*3/uL 130-400 Automated blood platelet mean volume measurement 8.9 [foz_us] 7.4-10.4 Automated blood neutrophils/100 leukocytes 45 % 42-75 Automated blood lymphocytes/100 leukocytes 41 % 12-44 Blood monocytes/100 leukocytes 7 % 0-12 Automated blood eosinophils/100 leukocytes 6 % 0-10 Automated blood basophils/100 leukocytes 1 % 0-10 Blood neutrophils automated count (number/volume) 2.5 10*3 1.8-7.8 Blood lymphocytes automated count (number/volume) 2.3 10*3 1.0-4.0 Blood monocytes automated count (number/volume) 0. 4 10*3 0.0-1.0 Automated eosinophil count 0.3 10*3/uL 0 .0-0.3 Automated blood basophil count (count/volume) 0.1 10*3/uL 0.0-0.1 Whole blood basic metabolic panel - 04/15 09/02 12:05 Serum or plasma sodium measurement (moles/volume) 137 mmol/L 135-145 Serum or plasma potassium measurement (moles/volume) 4.3 mmol/L 3.6-5.0 Serum or plasma chloride measurement (moles/volume) 107 mmol/L 98-107 Carbon dioxide 22 mmol/L 21-32 Serum or plasma anion gap determination (moles/volume) 8 mmol/L 5-14 Serum or plasma urea nitrogen measurement (mass/volume ) 20 mg/dL 7-18 Serum or plasma creatinine measurement (mass/volume) 1.84 mg/dL 0.60-1.30 Serum or plasma urea nitrogen/creatinine mass ratio 11 NRG Serum or plasma creatinine measurement w ith calculation of estimated glomerular filtration rate 29 NRG Serum or plasma glucose measurement (mass/volume) 134 mg/dL 70-105 Serum or plasma calcium measurement (mass/volume) 8.6 mg/dL 8.5-10.1 Coronavirus SARS-CoV-2 SO 2018 - 0 11:11 Coronavirus Ab [Units/volume] in Serum Negative Negative Encounters ACCT No. Visit Date/Time Discharge Status Pt. Type Provider Facility Loc./Unit Complaint [id number] 05/03/2019 14:00:00 05/03/2019 23:59: 59 [facility] Outpatient JESÚS WHITE [facility] [id number] 02/21/2019 10:40:00 Document Registration [id number] 12/05/2018 10:40:00 Document Registration [id number] 12/05/2018 09:30:00 Document Registration [id number] 08/30/2018 09:30:00 Document Registration [id number] 08/28/2018 13:30:00 Document Registration [id number] 05/11/2018 11:45:00 Document Registration [id number] 05/11/2018 11:40:00 Document Registration [id number] 05/11/2018 11:40:00 Document Registration [id number] 12/29/2017 15:00:00 Document Registration [id number] 07/26/2019 11:04:00 23:59:59 CLS Outpatient RAMIREZ WALTERS DO [facility] LAB FS PRE OP REQUIREMENT [id number] 07/26/2019 05:36:00 10:21:00 DIS Outpatient RAMIREZ WALTERS DO [facility] PREOP EGD [id number] 05/10/2019 21:35:00 12:37:00 DIS Outpatient GERONIMO HERRERA, ROSANNE Crawford [facility] 4TH SENIA,N/V,DEHYDRATION [id number] 05/03/2019 14:09:00 23:59:59 CLS Outpatient JESÚS WHITE APRN [facility] LAB FS [id number] 04/10/2019 00:49:00 03:08:00 DIS Emergency NAZARIO HERRERA, FAROOQ Patterson [facility] ER FS DIABETIC [id number] 02/18/2019 19:58:00 21:42:00 DIS Outpatient SUSAN SÁNCHEZ MD [facility] ER FS HYPOGLYCEMIA [id number] 01/13/2019 00:26:00 00:56:00 DIS Emergency ROVENSTINE JAREK GUTIERREZ [facility] ER FS LOW BACK PAIN [id number] 12/02/2018 22:51:00 00:50:00 DIS Emergency KIRK DOSANDRA [facility] ER N,V,ABD PAIN [id number] 12/02/2018 06:56:00 09:50:00 DIS Emergency ELAINA COREY DO [facility] ER FS N,V,ABD PAIN [id number] 10/30/2018 20:46:00 22:28:00 DIS Emergency FAROOQ LANGE MD [facility] ER FS UPPER BACK PAIN, RT ARM PAIN [id number] 10/03/2018 03:38:00 06:29:00 DIS Emergency FAROOQ LANGE MD [facility] ER FS COMPLICATIONS WITH SURG ICAL INCISION [id number] 09/24/2018 14:02:00 17:47:00 DIS Emergency ASHUTOSH ALBRIGHT MD [facility] ER FS PT IS 2 WKS POST OP - I NCISION PAIN ON UPPER ABD [id number] 09/07/2018 07:08:00 12:40:00 DIS [facility]VEN[facility]AL [facility]ITA [facility] [id number] 09/05/2018 07:15:00 10:29:00 DIS Outpatient RAMIREZ WALTERS DO [facility] PREOP INCISIONAL/VENTRAL ANGELITA IA [id number] 08/15/2018 23:23:00 01:15:00 DIS Emergency DARIUS DEL CASTILLO DO [facility] ER FS DIABETIC ISSUES [id number] 07/30/2019 09:50:00 P EN Preadmit RAMIREZ WALTERS DO [facility] ENDO GERD [id number] 05/01/2019 15:32:00 Document Registration [id number] 08/31/2018 15:09:00 Document Registration
[2019-07-30] MEDS ORDERED: PROPOFOL INJECTION 50 ML IV ONE (09:17)
[2019-07-30] MEDS ORDERED: MIDAZOLAM 2 MG/2 ML (VERSED) VIAL ONE (09:17)
--- NOTE | 2019-07-30 09:34 | Progress Note-Post Operative ---
Post-Operative Progess Note Surgeon (s)/Rheumatologist (s) Surgeon RAMIREZ WALTERS DO Rheumatologist: none Pre-Operative Diagnosis GERD Post-Operative Diagnosis ??Gastroparesis Esophagitis Procedure & Operative Findings Date of Procedure 07/30/19 Procedure Performed/Findings EGD with bx Anesthesia Type IV sedation by TABLE KEEPER Estimated Blood Loss Estimated blood loss (mL): scant Specimens/Packing Specimens Removed antral bx body of stomach bx GE jxn bx RAMIREZ WALTERS DO Jul 30, 2019 09:34
--- NOTE | 2019-07-30 09:35 | Endoscopy Discharge Instruct ---
Endo Procedure/Findings Findings 1.: Other Findings (??Gastroparesis) 2.: Other Findings (Esophagitis) Discharge Instructions - Activity: You might feel a little sleepy until tomorrow. This is due to the medicine you received to relax you. Until tomorrow, you should: NOT drive a car, operate machinery or power tools. NOT drink any alcoholic beverages. NOT make any important decisions or sign importortant papers. Do not return to work until tomorrow, unless otherwise instructed. Resume previous activities tomorrow. Diet: Start by taking liquids. If you tolerate liquids, advance to solid food. make appt for 2 weeks 1.: EGD in 3 years Notify Physician - If you experience excessive bleeding, unusual abdominal pain, fever, or chest pain, contact your doctor immediately. RAMIREZ WALTERS DO Jul 30, 2019 09:35
--- NOTE | 2019-07-30 11:08 | Anesthesia-General Post-Op ---
MAC Patient Condition Mental Status/LOC: Same as Preop Cardiovascular: Satisfactory Nausea/Vomiting: Absent Respiratory: Satisfactory Pain: Controlled Complications: Absent Post Op Complications Complications None Follow Up Care/Instructions Patient Instructions None needed. Anesthesiology Discharge Order Discharge Order Patient is doing well, no complaints, stable vital signs, no apparent adverse anesthesia problems. No complications reported per nursing. CHYNA BLAKE CRNA Jul 30, 2019 11:07
--- NOTE | 2019-07-31 01:09 | OPERATIVE REPORT ---
DATE OF SERVICE: 07/30/2019 PREOPERATIVE DIAGNOSIS: Gastroesophageal reflux disease. POSTOPERATIVE DIAGNOSES: Gastroparesis, esophagitis, hiatal hernia. PROCEDURE: EGD with biopsy. SURGEON: Moi Bruno DO INDUSTRIAL CLEANER: None. ANESTHESIA: IV sedation by the PUTTY WORKER. SPECIMEN: Biopsy of the antrum, biopsy of body of stomach and biopsy from the GE junction. BLOOD LOSS: Scant. FLUIDS: Per anesthesia. POSTOPERATIVE CONDITION: Stable. INDICATION FOR PROCEDURE: The patient is a 49-year-old female who has been having some GERD and needed a workup. FINDINGS: The patient had some mild gastritis. She had retained food in the stomach, which possibly is from yesterday evening, which may indicate gastroparesis. She also had a small hiatal hernia and she had mild esophagitis. PROCEDURE NOTE: After informed consent was obtained, the patient was brought to the endoscopy suite, placed in bed in left lateral decubitus position. She was administered IV sedation by the PUTTY WORKER, who then monitored her vitals the entire time, heart rate, blood pressure and pulse ox. Inserted the scope down the mouth through the esophagus into the stomach. Upon entering the stomach, noted retained food. Pushed towards the antrum, there was some mild inflammation, pushed through the duodenum. Duodenum looked fine. Pulled back and did a biopsy of the antrum and then retroflexed the scope, saw again the retained food and did a biopsy of body of stomach, could see a small hiatal hernia and then pulled the scope into the GE junction, looked like some mild esophagitis, took a picture here and then did a biopsy and then pushed the scope into the stomach, suctioned all the air out and then pulled the scope up the esophagus and out the mouth. The patient tolerated the procedure, recovered in endoscopy suite. Job ID: [id number] DocumentID: [id number] Dictated Date: 07/30/2019 16:29:05 Defense Analyst Date: 07/31/2019 01:07:53 Dictated By: MOI BRUNO DO
== END 2019-07-30 10:20 | disposition home or self-care (01) ==
LOC: ENDO 08:08
PROVIDERS: ATTEND Surgery
DX: K21.0 Gastro-esophageal reflux disease with esophagitis (principal); K22.70 Barrett's esophagus without dysplasia; K44.9 Diaphragmatic hernia without obstruction or gangrene; Z88.8 Allergy status to other drugs, medicaments and biological substances; Z79.84 Long term (current) use of oral hypoglycemic drugs; Z91.048 Other nonmedicinal substance allergy status; Z88.2 Allergy status to sulfonamides; F17.210 Nicotine dependence, cigarettes, uncomplicated; J44.9 Chronic obstructive pulmonary disease, unspecified; E11.43 Type 2 diabetes mellitus with diabetic autonomic (poly)neuropathy; K31.84 Gastroparesis; G89.29 Other chronic pain; M54.9 Dorsalgia, unspecified; F41.9 Anxiety disorder, unspecified; F32.9 Major depressive disorder, single episode, unspecified; Z85.41 Personal history of malignant neoplasm of cervix uteri; Z79.899 Other long term (current) drug therapy; Z79.891 Long term (current) use of opiate analgesic; Z90.49 Acquired absence of other specified parts of digestive tract; Z90.721 Acquired absence of ovaries, unilateral; Z90.710 Acquired absence of both cervix and uterus
CPT/HCPCS: 88305

== ENCOUNTER 2020-01-15 19:42 | Observation (INO) | payer MEDICAID ==
[~2020-01-15] VITALS: Ht 160 cm; Wt 68.2 kg
[~2020-01-15 19:42] MED LIST changes: -PANT40TA3 PO; +PANT40TA52 PO
[2020-01-15 20:26] LABS: BACTERIA,URINE NEGATIVE /HPF; BILIRUBIN,URINE NEGATIVE (NEGATIVE); CLARITY,URINE CLEAR; COLOR,URINE PALE YELLOW; GLUCOSE, URINE (UA) 3+ (NEGATIVE); KETONES,URINE NEGATIVE (NEGATIVE); LEUKOCYTE ESTERASE ,URINE NEGATIVE (NEGATIVE); NITRITE,URINE NEGATIVE (NEGATIVE); PH,URINE 5.5 (5-9); PROTEIN,URINE NEGATIVE (NEGATIVE); SQUAMOUS EPITHELIAL CELL,UR 0-2 /HPF; WBC,URINE 0-2 /HPF
[2020-01-15] MEDS ORDERED: NITROGLYCERIN 0.4 MG SL TABS BTL 25'S SL PRN (20:30)
[2020-01-15 20:37] LABS: EOSINOPHILS % (AUTO) 5 % (0-10); HEMATOCRIT 36 % (35-52); HEMOGLOBIN 11.9 G/DL (11.5-16.0); LYMPHOCYTES % (AUTO) 27 % (12-44); MEAN CORPUSCULAR HEMOGLOBIN 28 PG (25-34); MEAN CORPUSCULAR HGB CONC 33 G/DL (32-36); MEAN CORPUSCULAR VOLUME 86 FL (80-99); MEAN PLATELET VOLUME 9.2 FL (7.4-10.4); MONOCYTES % (AUTO) 5 % (0-12); NEUTROPHILS % (AUTO) 62 % (42-75); PLATELET COUNT 379 10^3/uL (130-400)
--- NOTE | 2020-01-15 20:37 | ED General ---
General Chief Complaint: Cardiac/General Problems Stated Complaint: CHEST PAIN,HIGH BLOOD SUGAR Nursing Triage Note: Pt c/o X1 hour sitting watching TV c/o CP, rated as pressure 3-10, Headache 7-10, states she has ulcers and acid reflux. Nursing Sepsis Screen: No Definite Risk History of Present Illness Date Seen by Provider: Jan 15, 2020 Time Seen by Provider: 19:30 Initial Comments Patient is a 49-year-old female who presents with complaints of epigastric chest pain radiating to neck and bilateral jaws starting 1 hour ago. Pain comes in waves or episodes and last for 10 minutes at a time. Medications or therapies taken prior to arrival. Patient also reports headache. Reports history of acid reflux and ulcers. Denies hematemesis coffee-ground emesis, abdominal tenderness, melena and hematochezia. No fevers chills, nausea vomiting or s weats. No flank or shoulder pain. Denies dyspnea on exertion. No leg pain or swelling. No history of CAD, CHF, DVT or PE. Patient is a current smoker. Timing/Duration: 1-3 Hours Severity: Moderate Associated Systoms: Chest Pain Allergies and Home Medications Allergies Coded Allergies: Sulfa (Sulfonamide Antibiotics) (Verified Allergy, Unknown, abd pain, 09/05/18) adhesive tape (Verified Allergy, Unknown, Hives, 09/05/18) bupropion (Verified Allergy, Unknown, sucidial, 09/05/18) carisoprodol (Verified Allergy, Unknown, heart palpatations, 09/05/18) quetiapine (Verified Allergy, Unknown, suicidal, 09/05/18) Home Medications Citalopram Hydrobromide 20 Mg Tablet, 10 MG PO HS, (Reported) Cyclobenzaprine HCl 10 Mg Tablet, 10 MG PO TID PRN for MUSCLE SPASMS, (Reported) Diclofenac Sodium 75 Mg Tablet.dr, 75 MG PO BID, (Reported) Famotidine 20 Mg Tablet, 20 MG PO HS, (Reported) Fenofibrate Nanocrystallized 145 Mg Tablet, 145 MG PO DAILY, (Reported) Hydroxyzine HCl 50 Mg Tablet, 25-50 MG PO Q8H PRN for ANXIETY, (Reported) Levothyroxine Sodium 112 Mcg Tablet, 112 MCG PO DAILY, (Reported) Loratadine 10 Mg Tablet, 10 MG PO DAILY, (Reported) Metformin HCl 1,000 Mg Tablet, 1,000 MG PO BID, (Reported) Pantoprazole Sodium 40 Mg Tablet.dr, 40 MG PO DAILY, (Reported) Sitagliptin Phosphate 50 Mg Tablet, 50 MG PO DAILY, (Reported) Solifenacin Succinate 10 Mg Tablet, 10 MG PO DAILY, (Reported) Patient Home Medication List Home Medication List Reviewed: Yes Review of Systems Review of Systems Constitutional: see HPI EENTM: no symptoms reported Respiratory: no symptoms reported Gastrointestinal: no symptoms reported Genitourinary: no symptoms reported Musculoskeletal: no symptoms reported Skin: no symptoms reported Psychiatric/Neurological: No Symptoms Reported Hematologic/Lymphatic: No Symptoms Reported Immunological/Allergic: no symptoms reported All Other Systems Reviewed Negative Unless Noted: Yes Past Jmenvew-Ktadey-Rgyeym Hx Past Med/Social Hx: Reviewed Nursing Past Med/Soc Hx Patient Social History Type Used: Cigarettes 2nd Hand Smoke Exposure: No Recent Foreign Travel: No Contact w/Someone Who Travel: No Recent Infectious Disease Expo: No Recent Hopitalizations: No Physical Abuse: No Sexual Abuse: No Mistreated: No Immunizations Up To Date Date of Pneumonia Vaccine: Apr 14, 2016 Date of Influenza Vaccine: Feb 14, 2018 Seasonal Allergies Seasonal Allergies: Yes Past Medical History Surgeries: Yes (C/S X2, HERNIA X3, ) Abdominal, Section, Hysterectomy, Oophorectomy, 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 Respiratory: Yes Asthma, COPD Cardiac: Yes High Cholesterol Neurological: No : No 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 Disorders: Yes 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 Disorders: Ovarian Cyst [employer]AL [employer]GE History: Hysterectomy, 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, Menopausal Genitourinary: Yes Bladder Infection Gastrointestinal: Yes Gastroesophageal Reflux, Chronic Diarrhea, Irritable Bowel Musculoskeletal: Yes Degenerate Disk Disease, Scoliosis, Chronic Back Pain Endocrine: Yes Hypothyroidsim, Diabetes, Non-Insulin dep HEENT: Yes (chronic sinusitis) Cancer: Yes Cervical Did You Recieve Any Treatments: Yes What Type of Treatment Did You: Surgical Intervention Psychosocial: Yes Anxiety, Bipolar, Depression Integumentary: No Blood Disorders: No Physical Exam Vital Signs Vital Signs - First Documented 01/15/20 19:45 Temp 36.2 Pulse 101 Resp 15 B/P (MAP) 139/101 (114) O2 Delivery Room Air Capillary Refill : Less Than 3 Seconds Height, Weight, BMI Height: 5'4.00" Weight: 142lbs. 0oz. [id number]; 25.00 BMI Method:Stated General Appearance: Anxious Eyes: Bilateral Eye Normal Inspection, Bilateral Eye PERRL, Bilateral Eye EOMI HEENT: PERRL/EOMI, Normal ENT Inspection, Pharynx Normal, Moist Mucous Membranes Neck: Non Tender, Supple Respiratory: Chest Non Tender, Lungs Clear Cardiovascular: Regular Rate, Rhythm, No Edema, No Murmur Gastrointestinal: Non Tender, Soft Back: Normal Inspection, No CVA Tenderness Extremity: Normal Capillary Refill Neurologic/Psychiatric: Alert, Oriented x3, No Motor/Sensory Deficits Focused Exam Sepsis Stage: Ruled Out Progress/Results/Core Measures Suspected Sepsis Recent Fever Within 48 Hours: No Infection Criteria Present: Suspected New Infection New/Unexplained Altered Menta: No Sepsis Screen: No Definite Risk SIRS Temperature: Pulse: 101 Respiratory Rate: 15 Laboratory Tests 01/15/20 19:47: White Blood Count 12.0H Blood Pressure 139 /101 Mean: 114 Laboratory Tests 01/15/20 19:47: Creatinine 1.29, Platelet Count 379, Total Bilirubin 0.2 Results/Orders Lab Results Laboratory Tests Test 01/15/20 19:47 01/15/20 19:55 Range/Units White Blood Count 12.0 H 4.3-11.0 10^3/uL Red Blood Count 4.21 L 4.35-5.85 10^6/uL Hemoglobin 11.9 11.5-16.0 G/DL Hematocrit 36 35-52 % Mean Corpuscular Volume 86 80-99 FL Mean Corpuscular Hemoglobin 28 25-34 PG Mean Corpuscular Hemoglobin Concent 33 32-36 G/DL Red Cell Distribution Width 13.4 10.0-14.5 % Platelet Count 379 130-400 10^3/uL Mean Platelet Volume 9.2 7.4-10.4 FL Immature Granulocyte % (Auto) 0 % Neutrophils (%) (Auto) 62 42-75 % Lymphocytes (%) (Auto) 27 12-44 % Monocytes (%) (Auto) 5 0-12 % Eosinophils (%) (Auto) 5 0-10 % Basophils (%) (Auto) 1 0-10 % Neutrophils # (Auto) 7.5 1.8-7.8 X 10^3 Lymphocytes # (Auto) 3.3 1.0-4.0 X 10^3 Monocytes # (Auto) 0.6 0.0-1.0 X 10^3 Eosinophils # (Auto) 0.6 H 0.0-0.3 10^3/uL Basophils # (Auto) 0.1 0.0-0.1 10^3/uL Immature Granulocyte # (Auto) 0.0 0.0-0.1 10^3/uL Sodium Level 130 L 135-145 MMOL/L Potassium Level 3.7 3.6-5.0 MMOL/L Chloride Level 94 L 98-107 MMOL/L Carbon Dioxide Level 25 21-32 MMOL/L Anion Gap 11 5-14 MMOL/L Blood Urea Nitrogen 12 7-18 MG/DL Creatinine 1.29 0.60-1.30 MG/DL Estimat Glomerular Filtration Rate 44 BUN/Creatinine Ratio 9 Glucose Level 313 H 70-105 MG/DL Calcium Level 9.9 8.5-10.1 MG/DL Corrected Calcium 9.7 8.5-10.1 MG/DL Total Bilirubin 0.2 0.1-1.0 MG/DL Aspartate Amino Transf (AST/SGOT) 16 5-34 U/L Alanine Aminotransferase (ALT/SGPT) 9 0-55 U/L Alkaline Phosphatase 64 40-136 U/L Troponin I < 0.30 <0.30 NG/ML Total Protein 7.5 6.4-8.2 GM/DL Albumin 4.2 3.2-4.5 GM/DL Urine Color PALE YELLOW Urine Clarity CLEAR Urine pH 5.5 5-9 Urine Specific [place] <=1.005 1.016-1.022 Urine Protein NEGATIVE NEGATIVE Urine Glucose (UA) 3+ H NEGATIVE Urine Ketones NEGATIVE NEGATIVE Urine Nitrite NEGATIVE NEGATIVE Urine Bilirubin NEGATIVE NEGATIVE Urine Urobilinogen 0.2 < = 1.0 MG/DL Urine Leukocyte Esterase NEGATIVE NEGATIVE Urine RBC (Auto) NEGATIVE NEGATIVE Urine RBC NONE /HPF Urine WBC 0-2 /HPF Urine Squamous Epithelial Cells 0-2 /HPF Urine Crystals NONE /LPF Urine Bacteria NEGATIVE /HPF Urine Casts NONE /LPF Urine Mucus NEGATIVE /LPF Urine Culture Indicated NO My Orders Orders - ELAINA COREY DO Urinalysis (01/15/20 20:11) Ekg Tracing (01/15/20 20:11) Continuous Ekg Monitoring (01/15/20 20:11) Cbc With Automated Diff (01/15/20 20:22) Comprehensive Metabolic Panel (01/15/20 20:22) Troponin I Fs (01/15/20 20:22) Chest 1 View Ap/Pa Only (01/15/20 20:22) Nitroglycerin 0.4 Mg Btl 25's (Nitrostat (01/15/20 20:30) Vital Signs/I&O 01/15/20 19:45 Temp 36.2 Pulse 101 Resp 15 B/P (MAP) 139/101 (114) O2 Delivery Room Air Capillary Refill : Less Than 3 Seconds Blood Pressure Mean: 114 Departure Communication (Admissions) Chest x-ray: No acute cardiopulmonary disease. EKG: No acute ST segment elevations. Patient with atypical chest pain. EKG, cardiac back biomarkers negative. Symptoms resolved in the ED prior to nitroglycerin been given. Patient with moderate to high risk for coronary disease. Will admit to the [facility] hospitalist service for further evaluation and treatment. Dr. Denson to admit. Impression Primary Impression: Chest pain Disposition: ADMITTED INPATIENT Condition: Stable Admissions Decision to Admit Reason: Admit from ER (General) Decision to Admit/Date: Jan 15, 2020 Time/Decision to Admit Time: 21:27 Departure-Patient Inst. Decision time for Depature: 21:26 Referrals: [facility] (PCP) Primary Care Physician JESÚS WHITE APRN (Family) Primary Care Physician Patient Instructions: Chest Pain (DC) ELAINA COREY DO Jan 15, 2020 20:37
[2020-01-15 20:38] LABS: BASOPHILS # (AUTO) 0.1 10^3/uL (0.0-0.1); BASOPHILS % (AUTO) 1 % (0-10); EOSINOPHILS # (AUTO) 0.6 10^3/uL (0.0-0.3); LYMPHOCYTES # (AUTO) 3.3 X 10^3 (1.0-4.0); MONOCYTES # (AUTO) 0.6 X 10^3 (0.0-1.0); NEUTROPHILS # (AUTO) 7.5 X 10^3 (1.8-7.8)
[2020-01-15 20:54] LABS: POTASSIUM 3.7 MMOL/L (3.6-5.0); SODIUM 130 MMOL/L (135-145)
[2020-01-15 20:55] LABS: ALANINE AMINOTRANSFERASE 9 U/L (0-55); ALKALINE PHOSPHATASE 64 U/L (40-136); BILIRUBIN,TOTAL 0.2 MG/DL (0.1-1.0); BUN/CREATININE RATIO 9; CALCIUM 9.9 MG/DL (8.5-10.1); CARBON DIOXIDE 25 MMOL/L (21-32); CHLORIDE 94 MMOL/L (98-107); CREATININE SERUM 1.29 MG/DL (0.60-1.30); GFR ESTIMATED 44; GLUCOSE 313 MG/DL (70-105); TOTAL PROTEIN 7.5 GM/DL (6.4-8.2)
[2020-01-15 20:56] LABS: ALBUMIN 4.2 GM/DL (3.2-4.5)
--- NOTE | 2020-01-15 21:04 | Diagnostic Imaging Report ---
EXAMINATION: Chest 1 view HISTORY: SOA COMPARISON: Chest radiograph 04/29/2019 FINDINGS: Heart size and pulmonary vasculature are normal. The lungs are clear without consolidation, pleural effusion, or pneumothorax. The osseous structures are intact. IMPRESSION: 1. No acute radiographic abnormality in the chest. Dictated by: Dictated on workstation # [id number]
[2020-01-16] VITALS (7 sets, daily range): BP systolic 104–138; BP diastolic 62–83
[2020-01-16] MEDS ORDERED: diphenhydrAMINE 25 MG TAB (BENADRYL) PO PRN
[2020-01-16] MEDS ORDERED: IBUPROFEN TABLET 200 MG TAB PO PRN
[2020-01-16] MEDS ORDERED: polyethylene glycoL POWDER 17 GM (MIRALAX) PACK PO PRN
[2020-01-16] MEDS ORDERED: fentaNYL INJECTION 100 MCG/2 ML AMP IVP PRN
[2020-01-16] MEDS ORDERED: DOCUSATE SODIUM 100 MG (COLACE) CAP PO PRN
[2020-01-16] MEDS ORDERED: ACETAMINOPHEN 325 MG TABLET PO PRN
[2020-01-16] MEDS ORDERED: ONDANSETRON 4 MG/2 ML (SDV) Z0FRAN IVP PRN
[2020-01-16] MEDS ORDERED: MELATONIN 3 MG TABLET PO PRN
[2020-01-16] MEDS ORDERED: ALPRAZolam 0.25 MG (XANAX) TAB PO PRN
[2020-01-16] MEDS ORDERED: guaiFENesin/DM (ROBITUSSIN DM) 10 ML UDC PO PRN
[2020-01-16] MEDS ORDERED: CATHETER FLUSH 10 ML SYR IV PRN (00:45)
[2020-01-16] MEDS ORDERED: NITROGLYCERIN 0.4 MG SL TABS BTL 25'S SL PRN ×2 (00:45)
--- NOTE | 2020-01-16 05:42 | Short Stay Summary-Hospitalist ---
History of Present Illness HPI/Chief Complaint CC: Chest pain HPI: This is a 49yoWF history of DM and heavy smoking who presented to the Er with chest pain undergoing echocardiogram and cardiology was consulted. Will evaluate the next step in her care depending on cardiology opinion. Source: patient Exam Limitations: no limitations Date Seen 01/16/20 Time Seen by a Provider: 10:00 Attending Physician Lizbeth Denson DO [facility] Referring Physician Date of Admission Jan 15, 2020 at 21:30 Home Medications & Allergies Home Medications Reviewed patient Home Medication Reconciliation performed by pharmacy medication reconciliations electronic engineering technician and/or nursing. Patients Allergies have been reviewed. Allergies Allergies Coded Allergies Sulfa (Sulfonamide Antibiotics) (Verified Allergy, Unknown, abd pain, 09/05/18) adhesive tape (Verified Allergy, Unknown, Hives, 09/05/18) bupropion (Verified Allergy, Unknown, sucidial, 09/05/18) carisoprodol (Verified Allergy, Unknown, heart palpatations, 09/05/18) quetiapine (Verified Allergy, Unknown, suicidal, 09/05/18) Past Sfaqmzc-Wzbxvo-Migswu Hx Past Med/Social Hx: Reviewed Nursing Past Med/Soc Hx, Reviewed and Corrections made Patient Social History Marrital Status: single Employed/Student: unemployed Alcohol Use: Denies Use Smoking Status: Current Everyday Smoker Type Used: Cigarettes 2nd Hand Smoke Exposure: No Recent Foreign Travel: No Contact w/other who traveled: No Recent Hopitalizations: No Recent Infectious Disease Expo: No Immunizations Up To Date Date of Pneumonia Vaccine: Apr 15, 1999 Date of Influenza Vaccine: Dec 16, 2019 Seasonal Allergies Seasonal Allergies: Yes Past Medical History Surgeries: Abdominal, Section, Hysterectomy, Oophorectomy, 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 Cardiac: High Cholesterol : No 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: Yes 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 Disorders: Ovarian Cyst Hysterectomy, 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, Menopausal Genitourinary: Bladder Infection Gastrointestinal: Gastroesophageal Reflux, Chronic Diarrhea, Irritable Bowel Musculoskeletal: Degenerate Disk Disease, Scoliosis, Chronic Back Pain Endocrine: Hypothyroidsim, Diabetes, Non-Insulin dep Cancer: Cervical Did You Recieve Any Treatments: Yes What Type of Treatment Did You: Surgical Intervention Psychosocial: Anxiety, Bipolar, Depression History of Blood Disorders: No Review of Systems Constitutional: see HPI, malaise, weakness Cardiovascular: chest pain Physical Exam Physical Exam Vital Signs Vital Signs - First Documented 01/15/20 01/15/20 19:45 20:15 Temp 36.2 Pulse 101 Resp 15 B/P (MAP) 139/101 (114) Pulse Ox 98 O2 Delivery Room Air Capillary Refill : Less Than 3 Seconds Height, Weight, BMI Height: 5'4.00" Weight: 142lbs. 0oz. 64.337814em; 26.64 BMI Method:Stated General Appearance: No Apparent Distress, Anxious, Chronically ill Eyes: Bilateral Eye Normal Inspection, Bilateral Eye PERRL, Bilateral Eye EOMI HEENT: PERRL/EOMI, Normal ENT Inspection, Pharynx Normal, Moist Mucous Membranes Neck: Non Tender, Supple Respiratory: Chest Non Tender, Lungs Clear Cardiovascular: Regular Rate, Rhythm, No Edema, No Murmur Gastrointestinal: Non Tender, Soft Back: Normal Inspection, No CVA Tenderness Extremity: Normal Capillary Refill Neurologic/Psychiatric: Alert, Oriented x3, No Motor/Sensory Deficits Results Results/Procedures Labs Laboratory Tests 01/15/20 19:47 01/16/20 06:46 Patient resulted labs reviewed. Short Stay Diagnosis Discharge Diagnosis-Short Stay Admission Diagnosis Chest pain DM Smoker Final Discharge Diagnosis Chest pain DM Smoker Conclusion Plan Cardiology management ECHO EST Home meds Diagnosis/Problems Diagnosis/Problems (1) Chest pain Status: Acute Clinical Quality Measures DVT/VTE Risk/Contraindication: Risk Factor Score Per Nursin RFS Level Per Nursing on Admit: 2=Moderate LIZBETH DENSON DO Jan 16, 2020 05:42
[2020-01-16 07:08] LABS: BASOPHILS # (AUTO) 0.1 10^3/uL (0.0-0.1); BASOPHILS % (AUTO) 1 % (0-10); EOSINOPHILS # (AUTO) 0.6 10^3/uL (0.0-0.3); EOSINOPHILS % (AUTO) 8 % (0-10); HEMATOCRIT 38 % (35-52); HEMOGLOBIN 12.5 g/dL (11.5-16.0); LYMPHOCYTES # (AUTO) 2.8 10^3/uL (1.0-4.0); LYMPHOCYTES % (AUTO) 34 % (12-44); MEAN CORPUSCULAR HEMOGLOBIN 28 pg (25-34); MEAN CORPUSCULAR HGB CONC 33 g/dL (32-36); MEAN CORPUSCULAR VOLUME 85 fL (80-99); MEAN PLATELET VOLUME 8.9 fL (9.0-12.2); MONOCYTES # (AUTO) 0.4 10^3/uL (0.0-1.0); MONOCYTES % (AUTO) 5 % (0-12); NEUTROPHILS # (AUTO) 4.4 10^3/uL (1.8-7.8); NEUTROPHILS % (AUTO) 52 % (42-75); PLATELET COUNT 343 10^3/uL (130-400); WHITE BLOOD COUNT 8.3 10^3/uL (4.3-11.0)
[2020-01-16 07:18] LABS: ALBUMIN 4.3 GM/DL (3.2-4.5); CHLORIDE 99 MMOL/L (98-107); POTASSIUM 3.9 MMOL/L (3.6-5.0); SODIUM 135 MMOL/L (135-145)
[2020-01-16 07:19] LABS: CALCIUM 9.7 MG/DL (8.5-10.1)
[2020-01-16 07:20] LABS: GLUCOSE 249 MG/DL (70-105); TOTAL PROTEIN 7.8 GM/DL (6.4-8.2)
[2020-01-16 07:21] LABS: CARBON DIOXIDE 23 MMOL/L (21-32)
[2020-01-16 07:22] LABS: BILIRUBIN,TOTAL 0.2 MG/DL (0.1-1.0)
[2020-01-16 07:24] LABS: ALKALINE PHOSPHATASE 60 U/L (40-136); CREATININE SERUM 1.43 MG/DL (0.60-1.30); GFR ESTIMATED 39
[2020-01-16 07:25] LABS: BUN/CREATININE RATIO 9
[2020-01-16 07:27] LABS: ALANINE AMINOTRANSFERASE 12 U/L (0-55)
--- NOTE | 2020-01-16 08:09 | NUR ---
PAGED DR RETANA TO NOTIFY HIM OF CONSULT
[2020-01-16] MEDS ORDERED: ASPIRIN 81 MG CHEW (CHILDREN'S ASA) PO SCH (09:00)
[2020-01-16] MEDS ORDERED: ENOXAPARIN 40 MG/0.4 ML (LOVENOX) SYR SC SCH (09:00)
--- NOTE | 2020-01-16 11:06 | Consultation-Cardiology ---
HPI-Cardiology Cardiology Consultation: Date of Consultation 01/16/20 Time Seen by a Provider: 10:45 Date of Admission 01-15-2020 Attending Physician Lizbeth Denson DO Admitting Physician [place] Consulting Physician Jayjay Hunter MD HPI: Chief Complaint: Chest pain Ms. Rivera is a 49 year old female admitted to 412 from the ED with c/o CP. She reports she was sitting yesterday when she had a sudden onset of sharp, stabbing chest pain in between her breasts. She reports it radiated up up chest and into her jaws then resolved after a few seconds. She then had another episode of chest pain which also was mid-sternal and radiated through to in between her shoulder blades. She reports the discomfort would ease up and then return lasting for a total of 30-45 minutes. No c/o diaphoresis, dyspnea, palpitations, syncope, nausea or near syncope. She reports no further episodes since last evening and that it had resolved before she came to the ED. She denies any LE swelling. She smokes approx 1 PPD of cigs. She is reporting epigastric tenderness. Review of Systems-Cardiology Review of Systems Constitutional: No chills, No fever, No malaise Eyes: No vision change Ears/Nose/Throat: No epistaxis, No recent hearing loss Respiratory: As described under HPI Cardiovascular: As described under HPI Gastrointestinal: No constipation, No diarrhea, No nausea, No vomiting Genitourinary: No dysuria, No hematuria Musculoskeletal: joint pain (chronic) Skin: No rash on exposed areas, No ulcerations on exposed areas Psychiatric/Neurological: No anxiety, No depression, No seizure, No focal weakness, No syncope Hematologic: No bleeding abnormalities All Other Systems Reviewed Negative Unless Noted: Yes YXZ-Xonmdr-Pgrnuu Hx Patient Social History Type Used: Cigarettes 2nd Hand Smoke Exposure: No Recent Foreign Travel: No Recent Infectious Disease Expo: No Hospitalization with Isolation: Denies Immunizations Up To Date Date of Pneumonia Vaccine: Apr 15, 1999 Date of Influenza Vaccine: Dec 16, 2019 Past Medical History PMH As described under Assessment. Family Medical History Family Medical History: She reports she was adopted. She does know her older biological brother had CAD. Allergies and Home Medications Allergies Coded Allergies: Sulfa (Sulfonamide Antibiotics) (Verified Allergy, Unknown, abd pain, 09/05/18) adhesive tape (Verified Allergy, Unknown, Hives, 09/05/18) bupropion (Verified Allergy, Unknown, sucidial, 09/05/18) carisoprodol (Verified Allergy, Unknown, heart palpatations, 09/05/18) quetiapine (Verified Allergy, Unknown, suicidal, 09/05/18) Home Medications Acetaminophen with Codeine 1 Each Tablet, 1 EA PO BID PRN for PAIN-MODERATE (5- 7), (Reported) Albuterol Sulfate 18 Gm Hfa.aer.ad, 2 PUFF INH Q6H PRN for SHORTNESS OF BREATH, (Reported) Albuterol Sulfate 2.5 Mg/3 Ml Vial.neb, 3 ML NEB Q6H PRN for SHORTNESS OF BREATH, (Reported) Aspirin 81 Mg Tablet.dr, 81 MG PO HS, (Reported) Citalopram Hydrobromide 20 Mg Tablet, 20 MG PO HS, (Reported) Cyclobenzaprine HCl 10 Mg Tablet, 10 MG PO BID PRN for MUSCLE SPASMS, (Reported) Cyclobenzaprine HCl 10 Mg Tablet, 10 MG PO HS, (Reported) Fenofibrate Nanocrystallized 145 Mg Tablet, 145 MG PO DAILY, (Reported) Gabapentin 300 Mg Capsule, 300 MG PO TID, (Reported) Levothyroxine Sodium 112 Mcg Tablet, 112 MCG PO DAILY, (Reported) Loratadine 10 Mg Tablet, 10 MG PO DAILY, (Reported) Pantoprazole Sodium 40 Mg Tablet.dr, 40 MG PO DAILY, (Reported) Promethazine HCl 25 Mg Tablet, 25 MG PO BID PRN for NAUSEA/VOMITING-2ND LINE, (Reported) Rosuvastatin Calcium 10 Mg Tablet, 10 MG PO HS, (Reported) Sitagliptin Phosphate 50 Mg Tablet, 50 MG PO DAILY, (Reported) Solifenacin Succinate 10 Mg Tablet, 10 MG PO DAILY, (Reported) Physical Exam-Cardiology Physical Exam Vital Signs/I&O 01/16/20 01/17/20 01/17/20 23:41 01:00 08:00 Temp 36.2 Pulse 107 90 91 Resp 18 14 B/P (MAP) 118/79 (92) 135/89 (104) Pulse Ox 95 97 O2 Delivery Room Air Room Air 01/17/20 00:00 Intake Total 1500 ml Balance 1500 ml Capillary Refill : Less Than 3 Seconds Constitutional: AAO x 3, well-developed, well-nourished HEENT: PERRL, hearing is well preserved, oral hygience is good Neck: No carotid bruit; carotid pulses are 2 + bilaterally Respiratory: No accessory muscle use, No respiratory distress; chest expansion is symmetric, chest is bilaterally symmetric, lungs clear to auscultation, other (prolonged expiratory phase) Cardiovascular: regular rate-rhythm; No JVD; S1 and S2 Gastrointestinal: tender (epigastric tenderness), soft, round, audible bowel sounds Extremities: no lower extremity edema bilateral Neurologic/Psychiatric: grossly intact (moves all extremities) Skin: No rash on exposed areas, No ulcerations on exposed areas Data Review Labs Laboratory Tests 01/17/20 04:35: White Blood Count 8.1, Red Blood Count 4.14, Hemoglobin 11.7, Hematocrit 37, Mean Corpuscular Volume 89, Mean Corpuscular Hemoglobin 28, Mean Corpuscular Hemoglobin Concent 32, Red Cell Distribution Width 13.2, Platelet Count 313, Mean Platelet Volume 9.1, Immature Granulocyte % (Auto) 0, Neutrophils (%) (Auto) 50, Lymphocytes (%) (Auto) 36, Monocytes (%) (Auto) 6, Eosinophils (%) (Auto) 7, Basophils (%) (Auto) 1, Neutrophils # (Auto) 4.1, Lymphocytes # (Auto) 2.9, Monocytes # (Auto) 0.5, Eosinophils # (Auto) 0.6H, Basophils # (Auto) 0.1, Immature Granulocyte # (Auto) 0.0, Sodium Level 134L, Potassium Level 3.8, Chloride Level 97L, Carbon Dioxide Level 22, Anion Gap 15H, Blood Urea Nitrogen 20H, Creatinine 1.63H, Estimat Glomerular Filtration Rate 33, BUN/Creatinine Ratio 12, Glucose Level 262H, Calcium Level 9.3, Corrected Calcium 9.3, Total Bilirubin 0.2, Aspartate Amino Transf (AST/SGOT) 14, Alanine Aminotransferase (ALT/SGPT) 12, Alkaline Phosphatase 59, Total Protein 7.4, Albumin 4.0 Radiology NAME: ZOE RIVERA [facility] REC#: [id number] PT STATUS: REG ER : 1970 PHYSICIAN: ELAINA COREY DO ADMIT DATE: 01/15/20/ER FS Signed Date of Exam:01/15/20 CHEST 1 VIEW AP/PA ONLY EXAMINATION: Chest 1 view HISTORY: SOA COMPARISON: Chest radiograph 04/29/2019 FINDINGS: Heart size and pulmonary vasculature are normal. The lungs are clear without consolidation, pleural effusion, or pneumothorax. The osseous structures are intact. IMPRESSION: 1. No acute radiographic abnormality in the chest. Dictated by: Dictated on workstation # [id number] Dict: 01/15/202048 Trans: 01/15/202151 [facility] [id number] Interpreted by: JULIENNE JARQUIN DO Electronically signed by: JULIENNE JARQUIN DO 01/15/202151 ECG Impression ECG Initial ECG Rhythm: Normal Sinus A/P-Cardiology Assessment/Admission Diagnosis Chest pain of undetermined etiology HLD - statin tx CKD - diabetic nephropathy GERD and PUD COPD Tobaccoism - 1 PPD x 35 years - cessation advised H/o cervical cancer with hysterectomy DM 2 Arthritis Spinal stenosis, DDD, sciatica Discussion and Recomendations Chest pain of undetermined etiology - no evidence of ACS - no further c/o Echocardiogram to eval structure and function Has several risk factors for coronary artery dz - advise MPI which could be pursued as an outpt - she wishes to think about it Continue home medications Mangement of GERD is with medical services Management of DM2 with with medical services Further recs will be based on her hospital course We would like to thank medical services for this consult Clinical Quality Measures DVT/VTE Risk/Contraindication: Risk Factor Score Per Nursin RFS Level Per Nursing on Admit: 2=Moderate IKER VELASCO Jan 16, 2020 11:06
[2020-01-16] MEDS ORDERED: CYCL10TA9 PO (11:36)
[2020-01-16] MEDS ORDERED: GABA300C PO (11:36)
[2020-01-16] MEDS ORDERED: ASPI-1238 PO (11:36)
[2020-01-16] MEDS ORDERED: ROSU10TA28 PO (11:36)
[2020-01-16] MEDS ORDERED: ALBU2.5V4 NEB (11:36)
[2020-01-16] MEDS ORDERED: ACET1TAB43 PO (11:36)
[2020-01-16] MEDS ORDERED: PROM25TA14 PO (11:36)
[2020-01-16] MEDS ORDERED: ALBU18HF2 INH (11:36)
--- NOTE | 2020-01-16 11:38 | NUR ---
SPOKE WITH PT (SHE HAD A MED LIST) AND WENT THRU THE EXT MED HISTORY TO COMPLETE THE MED REC MEDICATIONS THAT HAVE BEEN FILLED AND ARE ON THE PTS MED LIST- HOWEVER PT SAYS SHE IS NO LONGER TAKING: DICLOFENAC 75MG FAMOTIDINE 20MG METFORMIN 500MG OTC MEDS: NONE
[2020-01-16] MEDS ORDERED: REGADENOSON 0.4 MG/5 ML SYR (LEXISCAN) IV ONE (12:30)
--- NOTE | 2020-01-16 15:25 | NUR ---
RD ASSESSMENT PMHx: COPD; hypercholesterolemia; GERD; chronic diarrhea; irritable bowel; hypothyroidism; DM; PT INTERACTION: Pt was awake and pleasant during nutrition assessment. Pt states current appetite is good. Note no meals have been recorded per chart review. Pt states following a "no added salt" diet at home, and has no issues with chewing food, despite having no teeth. Pt states some issues with swallowing if she had a dry mouth. Pt states chronic issues with diarrhea, and that her last BM was 01/14. Note pt currently on bowel regimen of colace PRN, and miralax PRN, per chart review. Pt states recent 10# wt loss, followed by 5-10# wt gain. Note recent 6# wt gain x5mon, per chart review. Pt states current DM management is "okay, but I recently had my metformin stopped as it was damaging my kidneys." Note unable to determine recent HbA1c, per chart review. ABNORMAL NUTRITION-RELATED LAB VALUES LOW: HIGH: cr 1.43; glu 249 Est. kcal needs: 4664-8282 kcal | 20-25 kcal/kg Est. Pro needs: 55-68 g Pro | 0.8-1.0 g Pro/kg PES STATEMENT: Given current appetite, no nutrition diagnosis at this time (NO-1.1). INTERVENTION: Continue with current diet order of 2000mg Na diet. Pt may benefit from consistent CHO restriction if blood glucose levels become elevated. Pt may benefit from nutrition supplementation if PO intake declines. Offered diet education on DM management, but pt declined at this time. May attempt to offer again prior to discharge. Will continue to follow and reassess as pt needs, intake, and status change. Adriana Chisholm MS RD LD [phone] cell
--- NOTE | 2020-01-16 16:34 | Consultation-Cardiology ---
HPI-Cardiology Cardiology Consultation: Date of Consultation 01/16/20 Time Seen by a Provider: 13:20 Date of Admission Attending Physician Lizbeth Denson DO Admitting Physician [facility] Consulting Physician ALISTAIR RETANA MD, MA, FACP, FACC, [facility], CCDS HPI: Chief Complaint: Chest pain Ms. Rivera is a 49 year old female admitted to [facility] from the ED with c/o CP. She reports she was sitting yesterday when she had a sudden onset of sharp, stabbing chest pain in between her breasts. She reports it radiated up up chest and into her jaws then resolved after a few seconds. She then had another episode of chest pain which also was mid-sternal and radiated through to in between her shoulder blades. She reports the discomfort would ease up and then return lasting for a total of 30-45 minutes. No c/o diaphoresis, dyspnea, palpitations, syncope, nausea or near syncope. She reports no further episodes since last evening and that it had resolved before she came to the ED. She denies any LE swelling. She smokes approx 1 PPD of cigs. She is reporting epigastric tenderness. Review of Systems-Cardiology Review of Systems Constitutional: No chills, No fever, No malaise Eyes: No vision change Ears/Nose/Throat: No epistaxis, No recent hearing loss Respiratory: As described under HPI Cardiovascular: As described under HPI Gastrointestinal: No constipation, No diarrhea, No nausea, No vomiting Genitourinary: No dysuria, No hematuria Musculoskeletal: joint pain (chronic) Skin: No rash on exposed areas, No ulcerations on exposed areas Psychiatric/Neurological: No anxiety, No depression, No seizure, No focal weakness, No syncope Hematologic: No bleeding abnormalities All Other Systems Reviewed Negative Unless Noted: Yes [id number] Hx Patient Social History Type Used: Cigarettes 2nd Hand Smoke Exposure: No Recent Foreign Travel: No Recent Infectious Disease Expo: No Hospitalization with Isolation: Denies Immunizations Up To Date Date of Pneumonia Vaccine: Apr 15, 1999 Date of Influenza Vaccine: Dec 16, 2019 Past Medical History PMH As described under Assessment. Family Medical History Family Medical History: She reports she was adopted. She does know her older biological brother had CAD. Allergies and Home Medications Allergies Coded Allergies: Sulfa (Sulfonamide Antibiotics) (Verified Allergy, Unknown, abd pain, 09/05/18) adhesive tape (Verified Allergy, Unknown, Hives, 09/05/18) bupropion (Verified Allergy, Unknown, sucidial, 09/05/18) carisoprodol (Verified Allergy, Unknown, heart palpatations, 09/05/18) quetiapine (Verified Allergy, Unknown, suicidal, 09/05/18) Home Medications Acetaminophen with Codeine 1 Each Tablet, 1 EA PO BID PRN for PAIN-MODERATE (5- 7), (Reported) Albuterol Sulfate 18 Gm Hfa.aer.ad, 2 PUFF INH Q6H PRN for SHORTNESS OF BREATH, (Reported) Albuterol Sulfate 2.5 Mg/3 Ml Vial.neb, 3 ML NEB Q6H PRN for SHORTNESS OF BR EATH, (Reported) Aspirin 81 Mg Tablet.dr, 81 MG PO HS, (Reported) Citalopram Hydrobromide 20 Mg Tablet, 20 MG PO HS, (Reported) Cyclobenzaprine HCl 10 Mg Tablet, 10 MG PO BID PRN for MUSCLE SPASMS, (Reported) Cyclobenzaprine HCl 10 Mg Tablet, 10 MG PO HS, (Reported) Fenofibrate Nanocrystallized 145 Mg Tablet, 145 MG PO DAILY, (Reported) Gabapentin 300 Mg Capsule, 300 MG PO TID, (Reported) Levothyroxine Sodium 112 Mcg Tablet, 112 MCG PO DAILY, (Reported) Loratadine 10 Mg Tablet, 10 MG PO DAILY, (Reported) Pantoprazole Sodium 40 Mg Tablet.dr, 40 MG PO DAILY, (Reported) Promethazine HCl 25 Mg Tablet, 25 MG PO BID PRN for NAUSEA/VOMITING-2ND LINE, (Reported) Rosuvastatin Calcium 10 Mg Tablet, 10 MG PO HS, (Reported) Sitagliptin Phosphate 50 Mg Tablet, 50 MG PO DAILY, (Reported) Solifenacin Succinate 10 Mg Tablet, 10 MG PO DAILY, (Reported) Patient Home Medication List Home Medication List Reviewed: Yes Physical Exam-Cardiology Physical Exam Vital Signs/I&O 01/16/20 01/16/20 01/16/20 01/16/20 04:46 06:50 07:30 08:00 Temp 36.1 36.2 Pulse 99 93 91 Resp 18 16 B/P (MAP) 138/83 (101) 111/66 (81) Pulse Ox 98 97 97 O2 Delivery Room Air Room Air Room Air 01/16/20 01/16/20 11:41 12:31 Temp 35.8 Pulse 93 97 Resp 20 B/P (MAP) 104/64 (77) Pulse Ox 99 O2 Delivery Room Air Capillary Refill : Less Than 3 Seconds Constitutional: AAO x 3, well-developed, well-nourished HEENT: PERRL, hearing is well preserved, oral hygience is good Neck: No carotid bruit; carotid pulses are 2 + bilaterally Respiratory: No accessory muscle use, No respiratory distress; chest expansion is symmetric, chest is bilaterally symmetric, lungs clear to auscultation, other (prolonged expiratory phase) Cardiovascular: regular rate-rhythm; No JVD; S1 and S2 Gastrointestinal: tender (epigastric tenderness), soft, round, audible bowel sounds Extremities: no lower extremity edema bilateral Neurologic/Psychiatric: grossly intact (moves all extremities) Skin: No rash on exposed areas, No ulcerations on exposed areas Data Review Labs Laboratory Tests 01/15/20 19:47: White Blood Count 12.0H, Red Blood Count 4.21L, Hemoglobin 11.9, Hematocrit 36, Mean Corpuscular Volume 86, Mean Corpuscular Hemoglobin 28, Mean Corpuscular Hemoglobin Concent 33, Red Cell Distribution Width 13.4, Platelet Count 379, Mean Platelet Volume 9.2, Immature Granulocyte % (Auto) 0, Neutrophils (%) (Auto) 62, Lymphocytes (%) (Auto) 27, Monocytes (%) (Auto) 5, Eosinophils (%) (Auto) 5, Basophils (%) (Auto) 1, Neutrophils # (Auto) 7.5, Lymphocytes # (Auto) 3.3, Monocytes # (Auto) 0.6, Eosinophils # (Auto) 0.6H, Basophils # (Auto) 0.1, Immature Granulocyte # (Auto) 0.0, Sodium Level 130L, Potassium Level 3.7, Chloride Level 94L, Carbon Dioxide Level 25, Anion Gap 11, Blood Urea Nitrogen 12, Creatinine 1.29, Estimat Glomerular Filtration Rate 44, BUN/Creatinine Ratio 9, Glucose Level 313H, Calcium Level 9.9, Corrected Calcium 9.7, Total Bilirubin 0.2, Aspartate Amino Transf (AST/SGOT) 16, Alanine Aminotransferase (ALT/SGPT) 9, Alkaline Phosphatase 64, Troponin I < 0.30, Total Protein 7.5, Albumin 4.2 12/1/20 19:55: Urine Color PALE YELLOW, Urine Clarity CLEAR, Urine pH 5.5, Urine Specific [place] <=1.005, Urine Protein NEGATIVE, Urine Glucose (UA) 3+H, Urine Ketones NEGATIVE, Urine Nitrite NEGATIVE, Urine Bilirubin NEGATIVE, Urine Urobilinogen 0.2, Urine Leukocyte Esterase NEGATIVE, Urine RBC (Auto) NEGATIVE, Urine RBC NONE, Urine WBC 0-2, Urine Squamous Epithelial Cells 0-2, Urine Crystals NONE, Urine Bacteria NEGATIVE, Urine Casts NONE, Urine Mucus NEGATIVE, Urine Culture Indicated NO 01/16/20 01:14: Troponin I < 0.028 01/16/20 06:46: White Blood Count 8.3, Red Blood Count 4.42, Hemoglobin 12.5, Hematocrit 38, Mean Corpuscular Volume 85, Mean Corpuscular Hemoglobin 28, Mean Corpuscular Hemoglobin Concent 33, Red Cell Distribution Width 13.2, Platelet Count 343, Mean Platelet Volume 8.9L, Immature Granulocyte % (Auto) 0, Neutrophils (%) (Auto) 52, Lymphocytes (%) (Auto) 34, Monocytes (%) (Auto) 5, Eosinophils (%) (Auto) 8, Basophils (%) (Auto) 1, Neutrophils # (Auto) 4.4, Lymphocytes # (Auto) 2.8, Monocytes # (Auto) 0.4, Eosinophils # (Auto) 0.6H, Basophils # (Auto) 0.1, Immature Granulocyte # (Auto) 0.0, Sodium Level 135, Potassium Level 3.9, Chloride Level 99, Carbon Dioxide Level 23, Anion Gap 13, Blood Urea Nitrogen 13, Creatinine 1.43H, Estimat Glomerular Filtration Rate 39, BUN/Creatinine Ratio 9, Glucose Level 249H, Calcium Level 9.7, Corrected Calcium 9.5, Total Bilirubin 0.2, Aspartate Amino Transf (AST/SGOT) 15, Alanine Aminotransferase (ALT/SGPT) 12, Alkaline Phosphatase 60, Troponin I < 0.028, Total Protein 7.8, Albumin 4.3 Laboratory Tests 01/15/20 19:47 01/16/20 06:46 A/P-Cardiology Assessment/Admission Diagnosis Chest pain of undetermined etiology HLD - statin tx CKD - diabetic nephropathy GERD and PUD COPD Tobaccoism - 1 PPD x 35 years - cessation advised H/o cervical cancer with hysterectomy DM 2 Arthritis Spinal stenosis, DDD, sciatica Discussion and Recomendations Given nonspecific symptoms in the setting of multiple cor risk factors, we recommend MPI for cor eval Continue home medications Mangement of GERD is with medical services Management of DM2 with with medical services Further recs will be based on her hospital course We would like to thank Medical services for this consult Clinical Quality Measures DVT/VTE Risk/Contraindication: Risk Factor Score Per Nursin RFS Level Per Nursing on Admit: 2=Moderate ALISTAIR RETANA MD FACP FACC CCDS Jan 16, 2020 16:34
[2020-01-16] MEDS ORDERED: RT-ALBUTEROL SULF 2.5 MG/3 ML PRE-MIX VIAL INH PRN (19:30)
[2020-01-16] MEDS ORDERED: CYCLOBENZAPRINE 10 MG (FLEXERIL) TAB PO PRN (19:30)
[2020-01-16] MEDS ORDERED: RT-ALBUTEROL SULF 2.5 MG/3 ML PRE-MIX VIAL IH PRN (19:30)
[2020-01-16] MEDS ORDERED: PROMETHAZINE 25 MG (PHENERGAN) TAB PO PRN (19:30)
[2020-01-16] MEDS ORDERED: RX-ACETAMINOPHEN/CODEINE TAB PPK #4 PO PRN (19:30)
[2020-01-16] MEDS ORDERED: APAP 300 MG/CODEINE 30 MG (TYLENOL #3) TAB PO PRN (19:45)
[2020-01-16] MEDS ORDERED: GABAPENTIN 300 MG (NEURONTIN) CAP PO SCH (21:00)
[2020-01-16] MEDS ORDERED: CYCLOBENZAPRINE 10 MG (FLEXERIL) TAB PO SCH (21:00)
[2020-01-16] MEDS ORDERED: ROSUVASTATIN 10 MG (CRESTOR) TABLET PO SCH (21:00)
[2020-01-16] MEDS ORDERED: ASPIRIN E.C. 81 MG (ECOTRIN) TAB PO SCH (21:00)
--- NOTE | 2020-01-17 02:00 | NUR ---
DOWN TIME SEE CHART.
[2020-01-17 04:47] LABS: BASOPHILS # (AUTO) 0.1 10^3/uL (0.0-0.1); BASOPHILS % (AUTO) 1 % (0-10); EOSINOPHILS # (AUTO) 0.6 10^3/uL (0.0-0.3); EOSINOPHILS % (AUTO) 7 % (0-10); HEMATOCRIT 37 % (35-52); HEMOGLOBIN 11.7 g/dL (11.5-16.0); LYMPHOCYTES # (AUTO) 2.9 10^3/uL (1.0-4.0); LYMPHOCYTES % (AUTO) 36 % (12-44); MEAN CORPUSCULAR HEMOGLOBIN 28 pg (25-34); MEAN CORPUSCULAR HGB CONC 32 g/dL (32-36); MEAN CORPUSCULAR VOLUME 89 fL (80-99); MEAN PLATELET VOLUME 9.1 fL (9.0-12.2); MONOCYTES # (AUTO) 0.5 10^3/uL (0.0-1.0); MONOCYTES % (AUTO) 6 % (0-12); NEUTROPHILS # (AUTO) 4.1 10^3/uL (1.8-7.8); NEUTROPHILS % (AUTO) 50 % (42-75); PLATELET COUNT 313 10^3/uL (130-400); WHITE BLOOD COUNT 8.1 10^3/uL (4.3-11.0)
[2020-01-17 05:18] LABS: POTASSIUM 3.8 MMOL/L (3.6-5.0)
[2020-01-17 05:19] LABS: CALCIUM 9.3 MG/DL (8.5-10.1)
[2020-01-17 05:20] LABS: TOTAL PROTEIN 7.4 GM/DL (6.4-8.2)
[2020-01-17 05:22] LABS: BILIRUBIN,TOTAL 0.2 MG/DL (0.1-1.0)
[2020-01-17 05:24] LABS: CREATININE SERUM 1.63 MG/DL (0.60-1.30)
[2020-01-17] MEDS ORDERED: LEVOTHYROXINE 112 MCG (LEVOTHROID) TAB PO SCH (06:30)
[2020-01-17] MEDS ORDERED: REGADENOSON 0.4 MG/5 ML SYR (LEXISCAN) IV ONE (07:53)
[2020-01-17 08:00] VITALS: BP 135/89
[2020-01-17] MEDS ORDERED: PANTOPRAZOLE 40 MG (PROTONIX) TAB PO SCH (09:00)
[2020-01-17] MEDS ORDERED: NON-FORMULARY MEDICATION 1 EA EA (Fenofibrate Nanocrystallized (Fenofibrate) 145 MG) PO SCH (09:00)
[2020-01-17] MEDS ORDERED: NON-FORMULARY MEDICATION 1 EA EA (Sitagliptin Phosphate (Januvia) 50 MG) PO SCH (09:00)
[2020-01-17] MEDS ORDERED: LINAGLIPTIN (TRADJENTA) 5 MG TABLET PO SCH (09:00)
[2020-01-17] MEDS ORDERED: FENOFIBRATE 134 MG (LOFIBRA) CAPSULE PO SCH (09:00)
[2020-01-17] MEDS ORDERED: LORATADINE (CLARITIN) 10 MG TAB PO SCH (09:00)
[2020-01-17] MEDS ORDERED: TROSPIUM 20 MG (SANCTURA) TAB PO SCH (09:00)
[2020-01-17] MEDS ORDERED: NON-FORMULARY MEDICATION 1 EA EA (Solifenacin Succinate 10 MG) PO SCH (09:00)
--- NOTE | 2020-01-17 09:23 | Progress Note - Cardiology ---
Cardiology SOAP Progress Note Subjective: No further c/o CP. No c/o palpitations. Chronic mild to mod dyspnea which is unchanged. Objective: I&O/Vital Signs 01/16/20 01/17/20 01/17/20 23:41 01:00 08:00 Temp 36.2 Pulse 107 90 91 Resp 18 14 B/P (MAP) 118/79 (92) 135/89 (104) Pulse Ox 95 97 O2 Delivery Room Air Room Air 01/17/20 00:00 Intake Total 1500 ml Balance 1500 ml Weight (Pounds): 142 Weight (Ounces): 0 Weight (Calculated Kilograms): 64.050319 Constitutional: AAO x 3, well-developed, well-nourished Respiratory: No accessory muscle use, No respiratory distress; chest expansion is symmetric, chest is bilaterally symmetric, lungs clear to auscultation, other (prolonged expiratory phase) Cardiovascular: regular rate-rhythm; No JVD; S1 and S2 Gastrointestional: tender (epigastric tenderness), soft, round, audible bowel sounds Extremities: no lower extremity edema bilateral Neurologic/Psychiatric: grossly intact (moves all extremities) Skin: No rash on exposed areas, No ulcerations on exposed areas Results/Procedures: Labs Laboratory Tests 01/17/20 04:35: White Blood Count 8.1, Red Blood Count 4.14, Hemoglobin 11.7, Hematocrit 37, Mean Corpuscular Volume 89, Mean Corpuscular Hemoglobin 28, Mean Corpuscular Hemoglobin Concent 32, Red Cell Distribution Width 13.2, Platelet Count 313, Mean Platelet Volume 9.1, Immature Granulocyte % (Auto) 0, Neutrophils (%) (Auto) 50, Lymphocytes (%) (Auto) 36, Monocytes (%) (Auto) 6, Eosinophils (%) (Auto) 7, Basophils (%) (Auto) 1, Neutrophils # (Auto) 4.1, Lymphocytes # (Auto) 2.9, Monocytes # (Auto) 0.5, Eosinophils # (Auto) 0.6H, Basophils # (Auto) 0.1, Immature Granulocyte # (Auto) 0.0, Sodium Level 134L, Potassium Level 3.8, Chl oride Level 97L, Carbon Dioxide Level 22, Anion Gap 15H, Blood Urea Nitrogen 20H , Creatinine 1.63H, Estimat Glomerular Filtration Rate 33, BUN/Creatinine Ratio 12, Glucose Level 262H, Calcium Level 9.3, Corrected Calcium 9.3, Total Bilirubin 0.2, Aspartate Amino Transf (AST/SGOT) 14, Alanine Aminotransferase (ALT/SGPT) 12, Alkaline Phosphatase 59, Total Protein 7.4, Albumin 4.0 Laboratory Tests 01/15/20 19:47 01/16/20 06:46 01/17/20 04:35 A/P: Assessment: Chest pain of undetermined etiology HLD - statin tx CKD - diabetic nephropathy GERD and PUD COPD Tobaccoism - 1 PPD x 35 years - cessation advised H/o cervical cancer with hysterectomy DM 2 Arthritis Spinal stenosis, DDD, sciatica Plan: Given nonspecific symptoms in the setting of multiple cor risk factors, we recommend MPI for cor eval - s/p MPI Continue current medication regimen Mangement of GERD is with medical services Management of DM2 with with medical services IKER VELASCO Jan 17, 2020 09:23
--- NOTE | 2020-01-17 10:33 | STRESS TEST ---
DATE OF SERVICE: 01/17/2020 RESTING AND POST REGADENOSON TECHNETIUM-99M TETROFOSMIN SPECT CT IMAGING ORDERING PHYSICIAN: Cathie Gooden APRN PRIMARY PHYSICIAN: Dr. Farmer. CLINICAL DIAGNOSIS: Chest discomfort. Baseline images were carried out after injection of 10.67 mCi of technetium-99m Tetrofosmin. This was followed by 0.4 mg Regadenoson and 30.5 mCi of technetium-99m Tetrofosmin for stress imaging. The electrocardiogram showed sinus rhythm at baseline. The electrocardiogram did not change significantly with the Regadenoson infusion. The patient tolerated the procedure well. Review of images at rest and following stress does not indicate any distinct perfusion defects consistent with significant myocardial ischemia or infarction. Gated images show normal global left ventricular systolic function with normal regional wall motion. Left ventricular ejection fraction is calculated to be 64%. Left ventricular end diastolic volume is 32 mL. CONCLUSIONS: 1. No evidence of any significant myocardial ischemia or infarction on this study. 2. Normal regional wall motion. 3. Normal global left ventricular systolic function with a calculated ejection fraction of 64%. Job ID: [id number] DocumentID: [id number] Dictated Date: 01/17/2020 09:47:25 Supervisor [place] Department Date: 01/17/2020 10:32:46 Dictated By: ALISTAIR RETANA MD, MA, FACP, FACC,
--- NOTE | 2020-01-17 11:23 | Discharge Summary ---
Discharge Summary Hospital Course Hospital Course Date of Admission: Jan 15, 2020 at 21:30 Admission Diagnosis : Family Physician/Provider: Tatianna Gray Aprn Date of Discharge: 01/17/20 Discharge Diagnosis: Chest pain Normal stress test DMII Hospital Course: Pt admitted with chest pain and seen by Cardiology, stress test tameraay and CP resolved. Labs and Pending Lab Test: Laboratory Tests 01/17/20 04:35: White Blood Count 8.1, Red Blood Count 4.14, Hemoglobin 11.7, Hematocrit 37, Mean Corpuscular Volume 89, Mean Corpuscular Hemoglobin 28, Mean Corpuscular Hemoglobin Concent 32, Red Cell Distribution Width 13.2, Platelet Count 313, Mean Platelet Volume 9.1, Immature Granulocyte % (Auto) 0, Neutrophils (%) (Auto) 50, Lymphocytes (%) (Auto) 36, Monocytes (%) (Auto) 6, Eosinophils (%) (Auto) 7, Basophils (%) (Auto) 1, Neutrophils # (Auto) 4.1, Lymphocytes # (Auto) 2.9, Monocytes # (Auto) 0.5, Eosinophils # (Auto) 0.6H, Basophils # (Auto) 0.1, Immature Granulocyte # (Auto) 0.0, Sodium Level 134L, Potassium Level 3.8, Chloride Level 97L, Carbon Dioxide Level 22, Anion Gap 15H, Blood Urea Nitrogen 20H, Creatinine 1.63H, Estimat Glomerular Filtration Rate 33, BUN/Creatinine Ratio 12, Glucose Level 262H, Calcium Level 9.3, Corrected Calcium 9.3, Total Bilirubin 0.2, Aspartate Amino Transf (AST/SGOT) 14, Alanine Aminotransferase (ALT/SGPT) 12, Alkaline Phosphatase 59, Total Protein 7.4, Albumin 4.0 Home Meds Active Reported Albuterol Sulfate 2.5 Mg/3 Ml Vial.neb 3 Ml NEB Q6H PRN Ventolin Hfa (Albuterol Sulfate) 18 Gm Hfa.aer.ad 2 Puff INH Q6H PRN Promethazine Tablet (Promethazine HCl) 25 Mg Tablet 25 Mg PO BID PRN Acetaminophen-Cod #3 Tablet (Acetaminophen with Codeine) 1 Each Tablet 1 Ea PO BID PRN Cyclobenzaprine HCl 10 Mg Tablet 10 Mg PO HS Aspirin EC (Aspirin) 81 Mg Tablet.dr 81 Mg PO HS Rosuvastatin Calcium 10 Mg Tablet 10 Mg PO HS Neurontin (Gabapentin) 300 Mg Capsule 300 Mg PO TID Loratadine 10 Mg Tablet 10 Mg PO DAILY Solifenacin Succinate 10 Mg Tablet 10 Mg PO DAILY Januvia (Sitagliptin Phosphate) 50 Mg Tablet 50 Mg PO DAILY Cyclobenzaprine HCl 10 Mg Tablet 10 Mg PO BID PRN Citalopram HBr (Citalopram Hydrobromide) 20 Mg Tablet 20 Mg PO HS Pantoprazole Sodium 40 Mg Tablet.dr 40 Mg PO DAILY Fenofibrate (Fenofibrate Nanocrystallized) 145 Mg Tablet 145 Mg PO DAILY Levothyroxine Sodium 112 Mcg Tablet 112 Mcg PO DAILY Assessment/Pt DC Instructions Follow up with Tatianna Gray on 01/21 at 10 am. Discharge Diet: ADA Diet Activity as Tolerated: Yes Orders-Post D/C & Referrals Pneu Vac Indicated: Yes Discharge Physical Examination Allergies: Coded Allergies: Sulfa (Sulfonamide Antibiotics) (Verified Allergy, Unknown, abd pain, 09/05/18) adhesive tape (Verified Allergy, Unknown, Hives, 09/05/18) bupropion (Verified Allergy, Unknown, sucidial, 09/05/18) carisoprodol (Verified Allergy, Unknown, heart palpatations, 09/05/18) quetiapine (Verified Allergy, Unknown, suicidal, 09/05/18) General Appearance: No Apparent Distress, WD/WN Respiratory: Lungs Clear Cardiovascular: Regular Rate, Rhythm, No Murmur Extremity: No Pedal Edema Skin: Normal Color, Warm/Dry Neurologic/Psychiatric: Alert, Normal Mood/Affect Copy Copies To 1: Tatianna Gray APRN Clinical Quality Measures DVT/VTE Risk/Contraindication: Risk Factor Score Per Nursin RFS Level Per Nursing on Admit: 2=Moderate KATHY EDWARD MD Jan 17, 2020 11:23
[2020-01-17 11:35] VITALS: BP 135/89
--- NOTE | 2020-01-17 18:23 | Progress Note - Cardiology ---
Cardiology SOAP Progress Note Subjective: No cp or palp or syncope or shortness of breath No n/v/d No focal weakness Objective: I&O/Vital Signs 01/17/20 01/17/20 01/17/20 01/17/20 06:47 08:00 08:00 11:35 Temp 36.2 Pulse 85 91 91 Resp 14 14 B/P (MAP) 135/89 (104) 135/89 Pulse Ox 97 97 97 O2 Delivery Room Air Room Air Room Air 01/17/20 00:00 Intake Total 1500 ml Balance 1500 ml Weight (Pounds): 142 Weight (Ounces): 0 Weight (Calculated Kilograms): 64.988919 Constitutional: AAO x 3, well-developed, well-nourished Respiratory: No accessory muscle use, No respiratory distress; chest expansion is symmetric, chest is bilaterally symmetric, lungs clear to auscultation, other (prolonged expiratory phase) Cardiovascular: regular rate-rhythm; No JVD; S1 and S2 Gastrointestional: tender (epigastric tenderness), soft, round, audible bowel sounds Extremities: no lower extremity edema bilateral Neurologic/Psychiatric: grossly intact (moves all extremities) Skin: No rash on exposed areas, No ulcerations on exposed areas Results/Procedures: Labs Laboratory Tests 01/17/20 04:35: White Blood Count 8.1, Red Blood Count 4.14, Hemoglobin 11.7, Hematocrit 37, Mean Corpuscular Volume 89, Mean Corpuscular Hemoglobin 28, Mean Corpuscular Hemoglobin Concent 32, Red Cell Distribution Width 13.2, Platelet Count 313, Mean Platelet Volume 9.1, Immature Granulocyte % (Auto) 0, Neutrophils (%) (Auto) 50, Lymphocytes (%) (Auto) 36, Monocytes (%) (Auto) 6, Eosinophils (%) (Auto) 7, Basophils (%) (Auto) 1, Neutrophils # (Auto) 4.1, Lymphocytes # (Auto) 2.9, Monocytes # (Auto) 0.5, Eosinophils # (Auto) 0.6H, Basophils # (Auto) 0.1, Immature Granulocyte # (Auto) 0.0, Sodium Level 134L, Potassium Level 3.8, Chloride Level 97L, Carbon Dioxide Level 22, Anion Gap 15H, Blood Urea Nitrogen 20H, Creatinine 1.63H, Estimat Glomerular Filtration Rate 33, BUN/Creatinine Ratio 12, Glucose Level 262H, Calcium Level 9.3, Corrected Calcium 9.3, Total Bilirubin 0.2, Aspartate Amino Transf (AST/SGOT) 14, Alanine Aminotransferase (ALT/SGPT) 12, Alkaline Phosphatase 59, Total Protein 7.4, Albumin 4.0 A/P: Assessment: Chest pain, likely noncardiac, undetermined etiology MPI of 01/17/20: No evidence of any significant myocardial ischemia or infarction. Normal regional wall motion. Normal global left ventricular systolic function with a calculated ejection fraction of 64%. Echo 01/15/30: LVEF 60-65%, grade 1 brown dysfunction HLD - statin tx CKD - diabetic nephropathy GERD and PUD COPD Tobaccoism - 1 PPD x 35 years - cessation advised H/o cervical cancer with hysterectomy DM 2 Arthritis Spinal stenosis, DDD, sciatica Plan: We discussed the results of her cardiac w/u We discussed cor risk factor mod Questions answered Outpt f/u advised ALISTAIR RETANA MD FACP [facility] Jan 17, 2020 18:23
== END 2020-01-17 11:35 | disposition home or self-care (01) ==
LOC: EDUNIT# 19:42 → ER FS 19:43 → INTOOBSV 21:30 → 4TH 21:30
PROVIDERS: ADMIT Internal Medicine; ATTEND Family Medicine
DX: R07.9 Chest pain, unspecified (principal); E11.9 Type 2 diabetes mellitus without complications; E78.00 Pure hypercholesterolemia, unspecified; K21.9 Gastro-esophageal reflux disease without esophagitis; G89.29 Other chronic pain; M54.5 Low back pain; E03.9 Hypothyroidism, unspecified; F41.9 Anxiety disorder, unspecified; F32.9 Major depressive disorder, single episode, unspecified; K52.9 Noninfective gastroenteritis and colitis, unspecified; F17.210 Nicotine dependence, cigarettes, uncomplicated; Z79.51 Long term (current) use of inhaled steroids; Z79.82 Long term (current) use of aspirin; Z79.899 Other long term (current) drug therapy; Z88.2 Allergy status to sulfonamides; Z91.048 Other nonmedicinal substance allergy status; Z88.8 Allergy status to other drugs, medicaments and biological substances; Z90.710 Acquired absence of both cervix and uterus; Z90.722 Acquired absence of ovaries, bilateral
CPT/HCPCS: 36415; 71045; 78452; 80053 ×3; 81000; 84484 ×2; 85025 ×3; 93005 ×2; 93017; 93306; 99284; A9502; G0378

== ENCOUNTER 2020-04-17 20:26 | Emergency (ER) | payer MEDICAID ==
[~2020-04-17] VITALS: Ht 160 cm; Wt 63.9 kg
[~2020-04-17 20:26] MED LIST changes: +ACET1TAB43 PO; +ALBU18HF2 INH; +ALBU2.5V4 NEB; +ASPI-1238 PO; +GABA300C PO; +PROM25TA14 PO; +ROSU10TA28 PO
[2020-04-17 20:53] LABS: HEMATOCRIT 31 % (35-52); HEMOGLOBIN 10.9 G/DL (11.5-16.0); MEAN CORPUSCULAR HEMOGLOBIN 29 PG (25-34); MEAN CORPUSCULAR HGB CONC 35 G/DL (32-36); MEAN CORPUSCULAR VOLUME 83 FL (80-99); PLATELET COUNT 457 10^3/uL (130-400); WHITE BLOOD COUNT 12.2 10^3/uL (4.3-11.0)
[2020-04-17 20:54] LABS: BASOPHILS % (AUTO) 0 % (0-10); EOSINOPHILS % (AUTO) 0 % (0-10); LYMPHOCYTES # (AUTO) 1.7 X 10^3 (1.0-4.0); LYMPHOCYTES % (AUTO) 14 % (12-44); MEAN PLATELET VOLUME 8.8 FL (7.4-10.4); MONOCYTES # (AUTO) 0.4 X 10^3 (0.0-1.0); MONOCYTES % (AUTO) 3 % (0-12); NEUTROPHILS # (AUTO) 9.9 X 10^3 (1.8-7.8); NEUTROPHILS % (AUTO) 81 % (42-75)
[2020-04-17 20:57] LABS: BILIRUBIN,URINE NEGATIVE (NEGATIVE); CLARITY,URINE CLEAR; COLOR,URINE YELLOW; GLUCOSE, URINE (UA) 3+ (NEGATIVE); KETONES,URINE NEGATIVE (NEGATIVE); LEUKOCYTE ESTERASE ,URINE NEGATIVE (NEGATIVE); NITRITE,URINE NEGATIVE (NEGATIVE); PROTEIN,URINE NEGATIVE (NEGATIVE)
[2020-04-17] MEDS ORDERED: ONDANSETRON 4 MG/2 ML (SDV) Z0FRAN IVP ONE (21:00)
[2020-04-17] MEDS ORDERED: NS IV 1000 ML 1,000 ML IV SCH (21:00)
[2020-04-17] MEDS ORDERED: FAMOTIDINE 20MG/2ML IV (PEPCID) IVP ONE (21:00)
[2020-04-17 21:02] LABS: BACTERIA,URINE NEGATIVE /HPF; WBC,URINE RARE /HPF; YEAST,URINE FEW /HPF
[2020-04-17 21:14] LABS: BUN/CREATININE RATIO 13; CALCIUM 8.4 MG/DL (8.5-10.1); CARBON DIOXIDE 20 MMOL/L (21-32); CHLORIDE 92 MMOL/L (98-107); CREATININE SERUM 1.09 MG/DL (0.60-1.30); GFR ESTIMATED 53
[2020-04-17 21:15] LABS: ALANINE AMINOTRANSFERASE 8 U/L (0-55); ALBUMIN 3.7 GM/DL (3.2-4.5); ALKALINE PHOSPHATASE 80 U/L (40-136); BILIRUBIN,TOTAL 0.2 MG/DL (0.1-1.0); MAGNESIUM 1.5 MG/DL (1.6-2.4); TOTAL PROTEIN 6.5 GM/DL (6.4-8.2)
[2020-04-17 21:17] LABS: GLUCOSE 498 MG/DL (70-105); SODIUM 124 MMOL/L (135-145)
--- NOTE | 2020-04-17 21:54 | Diagnostic Imaging Report ---
PATIENT HISTORY: COUGH. TECHNIQUE: Single frontal view of the chest. COMPARISON: 01/15/2020 FINDINGS: The lung volumes are normal. No focal consolidation is seen. No large pleural effusion or pneumothorax is seen. The cardiomediastinal silhouette is normal in size and contour. No acute osseous abnormality is seen. IMPRESSION: No acute pulmonary abnormality seen. Dictated by: Dictated on workstation # [id number]
[2020-04-17] MEDS ORDERED: IOHEXOL 350 MG/ML 100 ML (OMNIPAQUE 350) VIAL IV ONE (22:15)
[2020-04-17] MEDS ORDERED: HOLD METFORMIN - RECEIVED CONTRAST 20 ML VIAL IV SCH (22:15)
[2020-04-17] MEDS ORDERED: NS 100 ML (IVPB) BAG IV ONE (22:15)
--- NOTE | 2020-04-17 23:44 | ED General ---
General Chief Complaint: Glucose Problems Stated Complaint: HYPERGLYCEMIC Nursing Triage Note: pt in per [facility] with c/o hyperglycemia type II. reports greater than 600 and EMS with 558 on arrival. 18 gauge left AC with NS wide open. 168/104, 112, ST, 97% RA per EMS. Nursing Sepsis Screen: No Definite Risk Source of Information: Patient Exam Limitations: No Limitations History of Present Illness Date Seen by Provider: Apr 17, 2020 Time Seen by Provider: 21:00 Initial Comments Patient is a 50-year-old female with history of dyspepsia ddm-abhkcxa-pkxhpkkil diabetes who presents with elevated blood sugars. Patient states blood sugars typically run greater than 250 and his sugars have been over 400 the past several days. She reports nausea, epigastric pain, with belching. Denies chest pain palpitations, shortness of breath. No fever chills, vomiting, sweats. No flank pain. No urinary frequency urgency and burning. No leg pain or swelling. Denies headaches, dizziness lightheadedness, extremity weakness or loss of sensation. No neurologic deficits. No other acute symptoms or complaints Timing/Duration: 1 Hour Severity: Moderate Modifying Factors: improves with Other Allergies and Home Medications Allergies Coded Allergies: Sulfa (Sulfonamide Antibiotics) (Verified Allergy, Unknown, abd pain, 09/05) adhesive tape (Verified Allergy, Unknown, Hives, 09/05/18) bupropion (Verified Allergy, Unknown, sucidial, 09/05/18) carisoprodol (Verified Allergy, Unknown, heart palpatations, 09/05/18) quetiapine (Verified Allergy, Unknown, suicidal, 09/05/18) Home Medications Acetaminophen with Codeine 1 Each Tablet, 1 EA PO BID PRN for PAIN-MODERATE (5- 7), (Reported) Albuterol Sulfate 18 Gm Hfa.aer.ad, 2 PUFF INH Q6H PRN for SHORTNESS OF BREATH, (Reported) Albuterol Sulfate 2.5 Mg/3 Ml Vial.neb, 3 ML NEB Q6H PRN for SHORTNESS OF BREATH, (Reported) Aspirin 81 Mg Tablet.dr, 81 MG PO HS, (Reported) Citalopram Hydrobromide 20 Mg Tablet, 20 MG PO HS, (Reported) Cyclobenzaprine HCl 10 Mg Tablet, 10 MG PO BID PRN for MUSCLE SPASMS, (Reported) Cyclobenzaprine HCl 10 Mg Tablet, 10 MG PO HS, (Reported) Fenofibrate Nanocrystallized 145 Mg Tablet, 145 MG PO DAILY, (Reported) Gabapentin 300 Mg Capsule, 300 MG PO TID, (Reported) Levothyroxine Sodium 112 Mcg Tablet, 112 MCG PO DAILY, (Reported) Loratadine 10 Mg Tablet, 10 MG PO DAILY, (Reported) Pantoprazole Sodium 40 Mg Tablet.dr, 40 MG PO DAILY, (Reported) Promethazine HCl 25 Mg Tablet, 25 MG PO BID PRN for NAUSEA/VOMITING-2ND LINE, (Reported) Rosuvastatin Calcium 10 Mg Tablet, 10 MG PO HS, (Reported) Sitagliptin Phosphate 50 Mg Tablet, 50 MG PO DAILY, (Reported) Solifenacin Succinate 10 Mg Tablet, 10 MG PO DAILY, (Reported) Patient Home Medication List Home Medication List Reviewed: Yes Review of Systems Review of Systems Constitutional: see HPI EENTM: see HPI Respiratory: see HPI Cardiovascular: see HPI Gastrointestinal: see HPI Genitourinary: see HPI Musculoskeletal: see HPI Skin: see HPI Psychiatric/Neurological: See HPI Hematologic/Lymphatic: See HPI Immunological/Allergic: see HPI All Other Systems Reviewed Negative Unless Noted: Yes Past Igoqdho-Wjwvdi-Xogxbc Hx Past Med/Social Hx: Reviewed Nursing Past Med/Soc Hx Patient Social History Alcohol Use: Rarely Uses Smoking Status: Current Everyday Smoker Type Used: Cigarettes 2nd Hand Smoke Exposure: No Recent Infectious Disease Expo: No Recent Hopitalizations: No Immunizations Up To Date Date of Pneumonia Vaccine: Apr 15, 1999 Date of Influenza Vaccine: Dec 16, 2019 Seasonal Allergies Seasonal Allergies: Yes Past Medical History Surgeries: Yes (C/S X2, HERNIA X3, ) Abdominal, Section, Hysterectomy, Oophorectomy, 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 Respiratory: Yes Asthma, COPD Cardiac: Yes High Cholesterol Neurological: No : No 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 Disorders: Yes 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 Disorders: Ovarian Cyst 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 Genitourinary: Yes Bladder Infection Gastrointestinal: Yes Gastroesophageal Reflux, Chronic Diarrhea, Irritable Bowel Musculoskeletal: Yes Degenerate Disk Disease, Scoliosis, Chronic Back Pain Endocrine: Yes Hypothyroidsim, Diabetes, Non-Insulin dep HEENT: Yes (chronic sinusitis) Cancer: Yes Cervical Did You Recieve Any Treatments: Yes What Type of Treatment Did You: Surgical Intervention Psychosocial: Yes Anxiety, Bipolar, Depression Integumentary: No Blood Disorders: No Physical Exam Vital Signs Vital Signs - First Documented 3/4/21 20:28 Temp 36.9 Pulse 113 Resp 16 B/P (MAP) 150/84 (106) Pulse Ox 99 O2 Delivery Room Air Capillary Refill : Less Than 3 Seconds Height, Weight, BMI Height: 5'4.00" Weight: 142lbs. 0oz. [id number]; 24.00 BMI Method:Stated General Appearance: Other Eyes: Bilateral Eye Normal Inspection, Bilateral Eye PERRL, Bilateral Eye EOMI HEENT: PERRL/EOMI, Normal ENT Inspection, Pharynx Normal Neck: Non Tender, Supple Respiratory: Chest Non Tender, Lungs Clear Cardiovascular: Regular Rate, Rhythm Gastrointestinal: Soft, Tenderness (Mild diffuse epigastric pain/tenderness) Back: Normal Inspection, No CVA Tenderness Neurologic/Psychiatric: Alert, Oriented x3 Skin: Normal Color Focused Exam Sepsis Stage: Ruled Out Progress/Results/Core Measures Suspected Sepsis Recent Fever Within 48 Hours: No Infection Criteria Present: None New/Unexplained Altered Menta: No Sepsis Screen: No Definite Risk SIRS Temperature: Pulse: 113 Respiratory Rate: 16 Laboratory Tests 04/17/20 20:34: White Blood Count 12.2H Blood Pressure 150 /84 Mean: 106 Laboratory Tests 04/17/20 20:34: Creatinine 1.09, Platelet Count 457H, Total Bilirubin 0.2 Results/Orders Lab Results Laboratory Tests Test 04/17/20 20:34 04/17/20 20:37 04/17/20 20:47 04/17/20 22:09 Range/Units White Blood Count 12.2 H 4.3-11.0 10^3/uL Red Blood Count 3.76 L 4.35-5.85 10^6/uL Hemoglobin 10.9 L 11.5-16.0 G/DL Hematocrit 31 L 35-52 % Mean Corpuscular Volume 83 80-99 FL Mean Corpuscular Hemoglobin 29 25-34 PG Mean Corpuscular Hemoglobin Concent 35 32-36 G/DL Red Cell Distribution Width 12.6 10.0-14.5 % Platelet Count 457 H 130-400 10^3/uL Mean Platelet Volume 8.8 7.4-10.4 FL Immature Granulocyte % (Auto) 2 % Neutrophils (%) (Auto) 81 H 42-75 % Lymphocytes (%) (Auto) 14 12-44 % Monocytes (%) (Auto) 3 0-12 % Eosinophils (%) (Auto) 0 0-10 % Basophils (%) (Auto) 0 0-10 % Neutrophils # (Auto) 9.9 H 1.8-7.8 X 10^3 Lymphocytes # (Auto) 1.7 1.0-4.0 X 10^3 Monocytes # (Auto) 0.4 0.0-1.0 X 10^3 Eosinophils # (Auto) 0.0 0.0-0.3 10^3/uL Basophils # (Auto) 0.0 0.0-0.1 10^3/uL Immature Granulocyte # (Auto) 0.2 H 0.0-0.1 10^3/uL Sodium Level 124 *L 135-145 MMOL/L Potassium Level 4.0 3.6-5.0 MMOL/L Chloride Level 92 L 98-107 MMOL/L Carbon Dioxide Level 20 L 21-32 MMOL/L Anion Gap 12 5-14 MMOL/L Blood Urea Nitrogen 14 7-18 MG/DL Creatinine 1.09 0.60-1.30 MG/DL Estimat Glomerular Filtration Rate 53 BUN/Creatinine Ratio 13 Glucose Level 498 *H 70-105 MG/DL Calcium Level 8.4 L 8.5-10.1 MG/DL Corrected Calcium 8.6 8.5-10.1 MG/DL Magnesium Level 1.5 L 1.6-2.4 MG/DL Total Bilirubin 0.2 0.1-1.0 MG/DL Aspartate Amino Transf (AST/SGOT) 8 5-34 U/L Alanine Aminotransferase (ALT/SGPT) 8 0-55 U/L Alkaline Phosphatase 80 40-136 U/L Troponin I < 0.30 <0.30 NG/ML Total Protein 6.5 6.4-8.2 GM/DL Albumin 3.7 3.2-4.5 GM/DL Lipase 125 H 8-78 U/L Glucometer 469 *H 277 H 70-110 MG/DL Urine Color YELLOW Urine Clarity CLEAR Urine pH 6.0 5-9 Urine Specific [place] <=1.005 1.016-1.022 Urine Protein NEGATIVE NEGATIVE Urine Glucose (UA) 3+ H NEGATIVE Urine Ketones NEGATIVE NEGATIVE Urine Nitrite NEGATIVE NEGATIVE Urine Bilirubin NEGATIVE NEGATIVE Urine Urobilinogen 0.2 < = 1.0 MG/DL Urine Leukocyte Esterase NEGATIVE NEGATIVE Urine RBC (Auto) NEGATIVE NEGATIVE Urine RBC NONE /HPF Urine WBC RARE /HPF Urine Squamous Epithelial Cells 2-5 /HPF Urine Crystals NONE /LPF Urine Bacteria NEGATIVE /HPF Urine Casts NONE /LPF Urine Mucus NEGATIVE /LPF Urine Yeast FEW H /HPF Urine Culture Indicated NO My Orders Orders - ELAINA COREY DO Cbc With Automated Diff (04/17/20 20:45) Comprehensive Metabolic Panel (04/17/20 20:45) Urinalysis (04/17/20 20:45) Troponin I Fs (04/17/20 20:45) Chest 1 View Ap/Pa Only (04/17/20 20:45) Ekg Tracing (04/17/20 20:45) Magnesium (04/17/20 20:45) Ns Iv 1000 Ml (Sodium Chloride 0.9%) (04/17/20 21:00) Famotidine Injection (Pepcid Injection) (04/17/20 21:00) Ondansetron Injection (Zofran Injectio (04/17/20 21:00) Lipase (04/17/20 21:00) Ct Abdomen/Pelvis W (04/17/20 22:06) Iohexol Injection (Omnipaque 350 Mg/Ml 1 (04/17/20 22:15) Received Contrast (Hold Metformin- Contr (04/17/20 22:15) Ns (Ivpb) (Sodium Chloride 0.9% Ivpb Bag (04/17/20 22:15) Medications Given in ED Current Medications Medications Dose Ordered Sig/Francis Route Start Time Stop Time Status Last Admin Dose Admin Famotidine 20 mg ONCE ONCE IVP 04/17/20 21:00 04/17/20 21:01 DC 04/17/20 21:13 20 MG Iohexol 100 ml ONCE ONCE IV 04/17/20 22:15 04/17/20 22:16 DC 04/17/20 22:26 100 ML Ondansetron HCl 4 mg ONCE ONCE IVP 04/17/20 21:00 04/17/20 21:01 DC 04/17/20 21:13 4 MG Sodium Chloride 100 ml ONCE ONCE IV 04/17/20 22:15 04/17/20 22:16 DC 04/17/20 22:26 100 ML Vital Signs/I&O 04/17/20 20:28 Temp 36.9 Pulse 113 Resp 16 B/P (MAP) 150/84 (106) Pulse Ox 99 O2 Delivery Room Air Capillary Refill : Less Than 3 Seconds Blood Pressure Mean: 106 Departure Communication (Admissions) CT abdomen pelvis: No acute cardiopulmonary disease. EKG: Normal sinus rhythm, no acute ST-T wave changes. Patient with elevated blood sugars. No finding of DKA or hyperosmolar state. Patient presents symptoms improved with treatment. Suspect chronic gastritis versus peptic ulcer disease versus gastroparesis versus unknown cause. Recommendations are supportive care and PCP follow-up for further evaluation and management. Return precautions reviewed. Patient verbalizes understanding agreement with discharge instructions prior to departure Impression Primary Impression: Abdominal pain Additional Impressions: GERD Hyperglycemia Disposition: HOME, SELF-CARE Condition: Stable Departure-Patient Inst. Referrals: [facility]/ (PCP) Primary Care Physician JESÚS WHITE APRN (Family) Primary Care Physician Patient Instructions: Abdominal Pain, Adult ED, Hyperglycemia, Adult (DC) Add. Discharge Instructions: Please continue daily antacids and diabetic medications and follow-up with your PCP for further review of all ED lab and imaging studies and for further evaluation and management of blood sugar and abdominal pain. In the meantime if you develop new or worsening symptoms, return to the emergency department. All discharge instructions reviewed with patient and/or family. Voiced understanding. ELAINA COREY DO Apr 17, 2020 23:44
[2020-04-17 23:58] VITALS: BP 160/101
--- NOTE | 2020-04-18 07:16 | Diagnostic Imaging Report ---
PROCEDURE: CT abdomen and pelvis with contrast. TECHNIQUE: Multiple contiguous axial images were obtained through the abdomen and pelvis after administration of intravenous contrast. Auto Exposure Controls were utilized during the CT exam to meet ALARA standards for radiation dose reduction. All CT scans use one or more of the following dose optimizing techniques: automated exposure control, MA and/or KvP adjustment based on patient size and exam type or iterative reconstruction. INDICATION: Abdominal pain. COMPARISON: 05/10/2019 FINDINGS: Lung bases are clear. The gallbladder is contracted likely from the postprandial state. Solid organs, vascular structures and bowel are stable. There is some moderate atherosclerotic change involving the abdominal aorta. No solid organ or bowel ischemia is identified. The abdominal wall is intact. Mesh material is seen anteriorly. There is some slight constipation without obstruction. The appendix is normal. Small bowel is unremarkable. The urinary bladder is moderately distended. Uterus is surgically absent. Osseous structures are age-appropriate. IMPRESSION: 1. Advanced atherosclerotic disease of the abdominal aorta without evidence of aneurysm. No solid organ or bowel ischemia. Mid abdominal aortic stenosis is suspected. 2. Contracted gallbladder likely from a postprandial state. 3. Normal appendix. 4. Constipation. 5. Distended urinary bladder without obstructive uropathy. 6. Surgically absent uterus, stable anterior abdominal wall hernia repair. Dictated by: Dictated on workstation # [id number]
== END 2020-04-17 23:58 | disposition home or self-care (01) ==
LOC: EDUNIT# 20:26 → ER FS 20:26
DX: R10.13 Epigastric pain (principal); K21.9 Gastro-esophageal reflux disease without esophagitis; E11.65 Type 2 diabetes mellitus with hyperglycemia; J44.9 Chronic obstructive pulmonary disease, unspecified; E78.00 Pure hypercholesterolemia, unspecified; E03.9 Hypothyroidism, unspecified; F32.9 Major depressive disorder, single episode, unspecified; F17.210 Nicotine dependence, cigarettes, uncomplicated; Z88.2 Allergy status to sulfonamides; Z88.8 Allergy status to other drugs, medicaments and biological substances; Z85.41 Personal history of malignant neoplasm of cervix uteri; Z79.890 Hormone replacement therapy; Z79.82 Long term (current) use of aspirin
CPT/HCPCS: 36415; 71045; 74177; 80053; 81000; 82962; 83690; 83735; 84484; 85025

== ENCOUNTER 2020-04-24 13:58 | Emergency (ER) | payer MEDICAID ==
[~2020-04-24] VITALS: Ht 160 cm; Wt 67.2 kg
[2020-04-24] MEDS ORDERED: NS IV 1000 ML 1,000 ML ONE (14:11)
--- NOTE | 2020-04-24 14:18 | ED General ---
General Chief Complaint: Glucose Problems Stated Complaint: HYPERGLYCEMIA History of Present Illness Date Seen by Provider: Apr 24, 2020 Time Seen by Provider: 14:17 Initial Comments 50-year-old nhe-gqhbnwa-gffuznrvn type II diabetic presents with high blood sugar. Last reading at home was "too high". Patient taken off her Metformin a few weeks ago according to her because of "poor kidney function". Was started on a new diabetic medication and states that her primary care provider was considering starting her on insulin. Patient denies any recent illness fever chills. She admits to not being able to keep her blood sugars under control need to frequently run 3-400. Admits to drinking 2 L of regular Coke daily. Allergies and Home Medications Allergies Coded Allergies: Sulfa (Sulfonamide Antibiotics) (Verified Allergy, Unknown, abd pain, 09/05/18) adhesive tape (Verified Allergy, Unknown, Hives, 09/05/18) bupropion (Verified Allergy, Unknown, sucidial, 09/05/18) carisoprodol (Verified Allergy, Unknown, heart palpatations, 09/05/18) quetiapine (Verified Allergy, Unknown, suicidal, 09/05/18) Home Medications Acetaminophen with Codeine 1 Each Tablet, 1 EA PO BID PRN for PAIN-MODERATE (5- 7), (Reported) Albuterol Sulfate 18 Gm Hfa.aer.ad, 2 PUFF INH Q6H PRN for SHORTNESS OF BREATH, (Reported) Albuterol Sulfate 2.5 Mg/3 Ml Vial.neb, 3 ML NEB Q6H PRN for SHORTNESS OF BREATH, (Reported) Aspirin 81 Mg Tablet.dr, 81 MG PO HS, (Reported) Citalopram Hydrobromide 20 Mg Tablet, 20 MG PO HS, (Reported) Cyclobenzaprine HCl 10 Mg Tablet, 10 MG PO BID PRN for MUSCLE SPASMS, (Reported) Cyclobenzaprine HCl 10 Mg Tablet, 10 MG PO HS, (Reported) Fenofibrate Nanocrystallized 145 Mg Tablet, 145 MG PO DAILY, (Reported) Gabapentin 300 Mg Capsule, 300 MG PO TID, (Reported) Levothyroxine Sodium 112 Mcg Tablet, 112 MCG PO DAILY, (Reported) Loratadine 10 Mg Tablet, 10 MG PO DAILY, (Reported) Pantoprazole Sodium 40 Mg Tablet.dr, 40 MG PO DAILY, (Reported) Promethazine HCl 25 Mg Tablet, 25 MG PO BID PRN for NAUSEA/VOMITING-2ND LINE, (Reported) Rosuvastatin Calcium 10 Mg Tablet, 10 MG PO HS, (Reported) Sitagliptin Phosphate 50 Mg Tablet, 50 MG PO DAILY, (Reported) Solifenacin Succinate 10 Mg Tablet, 10 MG PO DAILY, (Reported) Patient Home Medication List Home Medication List Reviewed: Yes Review of Systems Review of Systems Constitutional: No dizziness, No fever, No malaise, No weakness Respiratory: No cough, No short of breath Cardiovascular: No chest pain, No edema Gastrointestinal: No abdominal pain, No nausea, No vomiting Musculoskeletal: No back pain, No muscle pain Past Lhqslcv-Jtljiq-Cilexj Hx Past Med/Social Hx: Reviewed Nursing Past Med/Soc Hx Patient Social History Type Used: Cigarettes 2nd Hand Smoke Exposure: No Recent Hopitalizations: No Immunizations Up To Date Date of Pneumonia Vaccine: Apr 15, 1999 Date of Influenza Vaccine: Dec 16, 2019 Seasonal Allergies Seasonal Allergies: Yes Past Medical History Surgeries: Yes (C/S X2, HERNIA X3, ) Abdominal, Section, Hysterectomy, Oophorectomy, 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 Respiratory: Yes Asthma, COPD Cardiac: Yes High Cholesterol Neurological: No 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 Disorders: Yes 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 Genitourinary: Yes Bladder Infection Gastrointestinal: Yes Gastroesophageal Reflux, Chronic Diarrhea, Irritable Bowel Musculoskeletal: Yes Degenerate Disk Disease, Scoliosis, Chronic Back Pain Endocrine: Yes Hypothyroidsim, Diabetes, Non-Insulin dep HEENT: Yes (chronic sinusitis) Cancer: Yes Cervical Did You Recieve Any Treatments: Yes What Type of Treatment Did You: Surgical Intervention Psychosocial: Yes Anxiety, Bipolar, Depression Integumentary: No Blood Disorders: No Physical Exam Vital Signs Vital Signs - First Documented 04/24/20 14:00 Temp 36.8 Pulse 107 Resp 20 B/P (MAP) 140/92 (108) Pulse Ox 100 O2 Delivery Room Air Capillary Refill : Height, Weight, BMI Height: 5'4.00" Weight: 142lbs. 0oz. 64.681277fx; 24.00 BMI Method:Stated General Appearance: No Apparent Distress, WD/WN HEENT: PERRL/EOMI, Normal ENT Inspection Neck: Normal Inspection, Non Tender Respiratory: Chest Non Tender, Lungs Clear Cardiovascular: Regular Rate, Rhythm, No Edema Gastrointestinal: Non Tender, Soft Back: Normal Inspection, No CVA Tenderness Extremity: Normal Capillary Refill, Normal Inspection, Non Tender Neurologic/Psychiatric: Alert, Oriented x3, Normal Mood/Affect Focused Exam Lactate Level 04/24/20 14:08: Lactic Acid Level 1.96 Lactic Acid Level Laboratory Tests Test 04/24/20 14:08 Lactic Acid Level 1.96 MMOL/L (0.50-2.00) Progress/Results/Core Measures Suspected Sepsis SIRS Temperature: Pulse: Respiratory Rate: Laboratory Tests 04/24/20 14:08: White Blood Count 11.8H Blood Pressure / Mean: 04/24/20 14:08: Lactic Acid Level 1.96 Laboratory Tests 04/24/20 14:08: Creatinine 1.09, Platelet Count 405H, Total Bilirubin 0.3 Results/Orders Lab Results Laboratory Tests Test 04/24/20 14:02 04/24/20 14:08 04/24/20 14:11 04/24/20 15:44 Range/Units Urine Color PALE YELLOW Urine Clarity CLEAR Urine pH 5.5 5-9 Urine Specific [place] <=1.005 1.016-1.022 Urine Protein NEGATIVE NEGATIVE Urine Glucose (UA) 3+ H NEGATIVE Urine Ketones NEGATIVE NEGATIVE Urine Nitrite NEGATIVE NEGATIVE Urine Bilirubin NEGATIVE NEGATIVE Urine Urobilinogen 0.2 < = 1.0 MG/DL Urine Leukocyte Esterase NEGATIVE NEGATIVE Urine RBC (Auto) NEGATIVE NEGATIVE Urine RBC NONE /HPF Urine WBC RARE /HPF Urine Squamous Epithelial Cells 5-10 /HPF Urine Crystals NONE /LPF Urine Bacteria TRACE /HPF Urine Casts NONE /LPF Urine Mucus NEGATIVE /LPF Urine Yeast FEW H /HPF Urine Culture Indicated NO White Blood Count 11.8 H 4.3-11.0 10^3/uL Red Blood Count 4.00 L 4.35-5.85 10^6/uL Hemoglobin 11.7 11.5-16.0 G/DL Hematocrit 34 L 35-52 % Mean Corpuscular Volume 85 80-99 FL Mean Corpuscular Hemoglobin 29 25-34 PG Mean Corpuscular Hemoglobin Concent 35 32-36 G/DL Red Cell Distribution Width 13.2 10.0-14.5 % Platelet Count 405 H 130-400 10^3/uL Mean Platelet Volume 9.0 7.4-10.4 FL Immature Granulocyte % (Auto) 1 % Neutrophils (%) (Auto) 71 42-75 % Lymphocytes (%) (Auto) 21 12-44 % Monocytes (%) (Auto) 5 0-12 % Eosinophils (%) (Auto) 2 0-10 % Basophils (%) (Auto) 1 0-10 % Neutrophils # (Auto) 8.4 H 1.8-7.8 X 10^3 Lymphocytes # (Auto) 2.5 1.0-4.0 X 10^3 Monocytes # (Auto) 0.5 0.0-1.0 X 10^3 Eosinophils # (Auto) 0.3 0.0-0.3 10^3/uL Basophils # (Auto) 0.1 0.0-0.1 10^3/uL Immature Granulocyte # (Auto) 0.1 0.0-0.1 10^3/uL Sodium Level 123 *L 135-145 MMOL/L Potassium Level 3.9 3.6-5.0 MMOL/L Chloride Level 85 L 98-107 MMOL/L Carbon Dioxide Level 22 21-32 MMOL/L Anion Gap 16 H 5-14 MMOL/L Blood Urea Nitrogen 19 H 7-18 MG/DL Creatinine 1.09 0.60-1.30 MG/DL Estimat Glomerular Filtration Rate 53 BUN/Creatinine Ratio 17 Glucose Level 662 *H 70-105 MG/DL Lactic Acid Level 1.96 0.50-2.00 MMOL/L Calcium Level 9.6 8.5-10.1 MG/DL Corrected Calcium 8.5-10.1 MG/DL Total Bilirubin 0.3 0.1-1.0 MG/DL Aspartate Amino Transf (AST/SGOT) 9 5-34 U/L Alanine Aminotransferase (ALT/SGPT) 8 0-55 U/L Alkaline Phosphatase 81 40-136 U/L Total Protein 7.7 6.4-8.2 GM/DL Albumin 4.6 H 3.2-4.5 GM/DL Glucometer > 600 *H 306 H 70-110 MG/DL My Orders Orders - IONASTJAREK LUDWIG DO Ns Iv 1000 Ml (Sodium Chloride 0.9%) (04/24/20 14:11) Ed Iv/Invasive Line Start (04/24/20 14:18) Cbc With Automated Diff (04/24/20 14:18) Comprehensive Metabolic Panel (04/24/20 14:18) Lactic Acid Analyzer (04/24/20 14:18) Urinalysis (04/24/20 14:18) Ns Iv 1000 Ml (Sodium Chloride 0.9%) (04/24/20 14:30) Insulin (Regular) Human (Novolin R (Per (04/24/20 15:00) Ns Iv 1000 Ml (Sodium Chloride 0.9%) (04/24/20 15:00) Medications Given in ED Current Medications Medications Dose Ordered Sig/Francis Route Start Time Stop Time Status Last Admin Dose Admin Insulin Human Regular 10 unit ONCE ONCE SC 04/24/20 15:00 04/24/20 15:01 DC 04/24/20 14:59 10 UNIT Vital Signs/I&O 04/24/20 14:00 Temp 36.8 Pulse 107 Resp 20 B/P (MAP) 140/92 (108) Pulse Ox 100 O2 Delivery Room Air Capillary Refill : Progress Note : Progress Note Corrected sodium (w glucose > 600) = 134 Recheck sugar p 10 units Reg insulin SQ and 2 liters NS. Patient well and wants to eat. Nursing spent great deal of time counseling regarding DM and managing her sugars and diet. Long Hx of non-compliance, does not take meds regularly, does not check sugar even daily, but occasionally. Departure Impression Primary Impression: Hyperglycemia Additional Impressions: Type 2 diabetes mellitus Qualified Codes: E11.69 - Type 2 diabetes mellitus with other specified complication Medical non-compliance Disposition: HOME, SELF-CARE Condition: Improved Departure-Patient Inst. Decision time for Depature: 15:47 Referrals: [facility] (PCP) Primary Care Physician JESÚS WHITE APRN (Family) Primary Care Physician Patient Instructions: Hyperglycemia, Adult, Diabetes and Diet Add. Discharge Instructions: Call your Primary Care provider tomorrow to schedule a follow up appointment. It is also advised you see a Radioisotope Technician for Diabetic education. Please STOP drinking regular Coke! This is literally the worst thing you could be doing right now and will prevent you from getting your diabetes under control and achieving better health. It is "poison" for your body, especially as a diabetic. All discharge instructions reviewed with patient and/or family. Voiced understanding. JAREK ADAME DO Apr 24, 2020 14:17
[2020-04-24 14:28] LABS: BASOPHILS # (AUTO) 0.1 10^3/uL (0.0-0.1); BASOPHILS % (AUTO) 1 % (0-10); EOSINOPHILS # (AUTO) 0.3 10^3/uL (0.0-0.3); EOSINOPHILS % (AUTO) 2 % (0-10); HEMATOCRIT 34 % (35-52); HEMOGLOBIN 11.7 G/DL (11.5-16.0); LYMPHOCYTES # (AUTO) 2.5 X 10^3 (1.0-4.0); LYMPHOCYTES % (AUTO) 21 % (12-44); MEAN CORPUSCULAR HEMOGLOBIN 29 PG (25-34); MEAN CORPUSCULAR HGB CONC 35 G/DL (32-36); MEAN CORPUSCULAR VOLUME 85 FL (80-99); MONOCYTES # (AUTO) 0.5 X 10^3 (0.0-1.0); MONOCYTES % (AUTO) 5 % (0-12); NEUTROPHILS # (AUTO) 8.4 X 10^3 (1.8-7.8); NEUTROPHILS % (AUTO) 71 % (42-75); PLATELET COUNT 405 10^3/uL (130-400); WHITE BLOOD COUNT 11.8 10^3/uL (4.3-11.0)
[2020-04-24] MEDS ORDERED: NS IV 1000 ML 1,000 ML IV SCH ×2 (14:30→15:00)
[2020-04-24 14:38] LABS: BILIRUBIN,URINE NEGATIVE (NEGATIVE); CLARITY,URINE CLEAR; COLOR,URINE PALE YELLOW; GLUCOSE, URINE (UA) 3+ (NEGATIVE); KETONES,URINE NEGATIVE (NEGATIVE); LEUKOCYTE ESTERASE ,URINE NEGATIVE (NEGATIVE); NITRITE,URINE NEGATIVE (NEGATIVE); PH,URINE 5.5 (5-9); PROTEIN,URINE NEGATIVE (NEGATIVE); WBC,URINE RARE /HPF
[2020-04-24 14:39] LABS: BACTERIA,URINE TRACE /HPF; YEAST,URINE FEW /HPF
[2020-04-24 14:40] LABS: BILIRUBIN,TOTAL 0.3 MG/DL (0.1-1.0); BUN/CREATININE RATIO 17; CALCIUM 9.6 MG/DL (8.5-10.1); CARBON DIOXIDE 22 MMOL/L (21-32); CHLORIDE 85 MMOL/L (98-107); CREATININE SERUM 1.09 MG/DL (0.60-1.30); GFR ESTIMATED 53; POTASSIUM 3.9 MMOL/L (3.6-5.0)
[2020-04-24 14:41] LABS: ALANINE AMINOTRANSFERASE 8 U/L (0-55); ALBUMIN 4.6 GM/DL (3.2-4.5); ALKALINE PHOSPHATASE 81 U/L (40-136); TOTAL PROTEIN 7.7 GM/DL (6.4-8.2)
[2020-04-24 14:42] LABS: GLUCOSE 662 MG/DL (70-105); SODIUM 123 MMOL/L (135-145)
[2020-04-24] MEDS ORDERED: inSUlin (REGULAR) HUMAN 1 UNIT/0.01 ML (CHARGE PER UNIT) SC ONE (15:00)
[2020-04-24] MEDS ORDERED: Farxiga (15:15)
[2020-04-24] MEDS ORDERED: Glipizide (15:15)
[2020-04-24 16:06] VITALS: BP 125/75
== END 2020-04-24 16:06 | disposition home or self-care (01) ==
LOC: EDUNIT# 13:58 → ER FS 14:01
DX: E11.65 Type 2 diabetes mellitus with hyperglycemia (principal); T38.3X6A Underdosing of insulin and oral hypoglycemic [antidiabetic] drugs, initial encounter; E78.00 Pure hypercholesterolemia, unspecified; E03.9 Hypothyroidism, unspecified; F41.9 Anxiety disorder, unspecified; F31.9 Bipolar disorder, unspecified; K21.9 Gastro-esophageal reflux disease without esophagitis; J44.9 Chronic obstructive pulmonary disease, unspecified; Z91.128 Patient's intentional underdosing of medication regimen for other reason; Z79.84 Long term (current) use of oral hypoglycemic drugs; Z85.41 Personal history of malignant neoplasm of cervix uteri; Z79.82 Long term (current) use of aspirin; Z79.890 Hormone replacement therapy; Z88.2 Allergy status to sulfonamides; Z88.8 Allergy status to other drugs, medicaments and biological substances; Z91.048 Other nonmedicinal substance allergy status
CPT/HCPCS: 36415; 80053; 81000; 82962; 83605; 85025

== ENCOUNTER 2020-11-12 01:34 | Inpatient (IN) | payer MEDICAID ==
[2020-11-12] VITALS (10 sets, daily range): BP systolic 96–129; BP diastolic 62–77
[~2020-11-12] VITALS: Ht 160 cm; Wt 63.3 kg
[~2020-11-12 01:34] MED LIST changes: +Farxiga; +Glipizide
--- NOTE | 2020-11-12 01:51 | ED Cough/URI ---
General Stated Complaint: BARKING COUGH Source: patient, EMS Exam Limitations: no limitations History of Present Illness Date Seen by Provider: Nov 12, 2020 Time Seen by Provider: 01:40 Initial Comments 50-year-old female with past medical history of diabetes, COPD, hypertension, and recent Covid last month coming in due to continued cough that really has not gone away since Covid now with some worsening shortness of breath with exertion. She denies gaining any weight, and actually states she is lost weight. Denies any hemoptysis, fever, vomiting, chest pain, weakness, numbness, or any other concerns. The cough is constant, dry, and nothing seems to make it better or worse. Got worse in the middle the night and woke her up again and that is why she called EMS. Prior to arrival she says she was using her albuterol frequently. Of note, the patient was diagnosed with oral thrush a week ago and has been taking nystatin. Allergies and Home Medications Allergies Coded Allergies: Sulfa (Sulfonamide Antibiotics) (Verified Allergy, Unknown, abd pain, 09/05/18) adhesive tape (Verified Allergy, Unknown, Hives, 09/05/18) bupropion (Verified Allergy, Unknown, sucidial, 09/05/18) carisoprodol (Verified Allergy, Unknown, heart palpatations, 09/05/18) quetiapine (Verified Allergy, Unknown, suicidal, 09/05/18) Patient Home Medication List Home Medication List Reviewed: Yes Acetaminophen with Codeine (Acetaminophen-Cod #3 Tablet) 1 Each Tablet, 1 EA PO BID PRN for PAIN-MODERATE (5-7), (Reported) Entered as Reported by: HAYDEN QUEZADA on 01/16/20 1136 Albuterol Sulfate (Ventolin Hfa) 18 Gm Hfa.aer.ad, 2 PUFF INH Q6H PRN for SHORTNESS OF BREATH, (Reported) Entered as Reported by: HAYDEN QUEZADA on 01/16/20 113 Albuterol Sulfate (Albuterol Sulfate) 2.5 Mg/3 Ml Vial.neb, 3 ML NEB Q6H PRN for SHORTNESS OF BREATH, (Reported) Entered as Reported by: HADYEN QUEZADA on 01/16/20 113 Aspirin (Aspirin EC) 81 Mg Tablet.dr, 81 MG PO HS, (Reported) Entered as Reported by: HAYDEN QUEZADA on 01/16/20 1136 Citalopram Hydrobromide (Citalopram HBr) 20 Mg Tablet, 20 MG PO HS, (Reported) Entered as Reported by: JOCELYN ROSA on 09/05/18 1028 Cyclobenzaprine HCl (Cyclobenzaprine HCl) 10 Mg Tablet, 10 MG PO BID PRN for MUSCLE SPASMS, (Reported) Entered as Reported by: JOCELYN ROSA on 09/05/18 1028 Cyclobenzaprine HCl (Cyclobenzaprine HCl) 10 Mg Tablet, 10 MG PO HS, (Reported) Entered as Reported by: HAYDEN QUEZADA on 01/16/20 1136 Fenofibrate Nanocrystallized (Fenofibrate) 145 Mg Tablet, 145 MG PO DAILY, (Reported) Entered as Reported by: JOCELYN ROSA on 09/05/18 1028 Gabapentin (Neurontin) 300 Mg Capsule, 300 MG PO TID, (Reported) Entered as Reported by: HAYDEN QUEZADA on 01/16/20 1136 Levothyroxine Sodium (Levothyroxine Sodium) 112 Mcg Tablet, 112 MCG PO DAILY, (Reported) Entered as Reported by: JOCELYN ROSA on 09/05/18 1028 Loratadine (Loratadine) 10 Mg Tablet, 10 MG PO DAILY, (Reported) Entered as Reported by: JOCELYN ROSA on 07/24/19 1200 Pantoprazole Sodium (Pantoprazole Sodium) 40 Mg Tablet.dr, 40 MG PO DAILY, (Reported) Entered as Reported by: JOCELYN ROSA on 09/05/18 1028 Promethazine HCl (Promethazine Tablet) 25 Mg Tablet, 25 MG PO BID PRN for NAUSEA/VOMITING-2ND LINE, (Reported) Entered as Reported by: HAYDEN QUEZADA on 01/16/20 1136 Rosuvastatin Calcium (Rosuvastatin Calcium) 10 Mg Tablet, 10 MG PO HS, (Reported) Entered as Reported by: HAYDEN QUEZADA on 01/16/20 1136 Sitagliptin Phosphate (Januvia) 50 Mg Tablet, 50 MG PO DAILY, (Reported) Entered as Reported by: JOCELYN ROSA on 07/24/19 1200 Solifenacin Succinate (Solifenacin Succinate) 10 Mg Tablet, 10 MG PO DAILY, (Reported) Entered as Reported by: JOCELYN ROSA on 07/24/19 1200 [Farxiga] , (Reported) Entered as Reported by: AMARILYS BATES on 04/24/20 151 [Glipizide] , (Reported) Entered as Reported by: AMARILYS BATES on 04/24/201514 Review of Systems Review of Systems Constitutional: No chills, No fever EENTM: mouth pain Respiratory: cough, short of breath Cardiovascular: No chest pain, No edema, No syncope Gastrointestinal: No abdominal pain, No diarrhea, No nausea, No vomiting Genitourinary: No dysuria Musculoskeletal: no symptoms reported Skin: no symptoms reported Psychiatric/Neurological: No Symptoms Reported Hematologic/Lymphatic: No Symptoms Reported Immunological/Allergic: no symptoms reported All Other Systems Reviewed Negative Unless Noted: Yes Past Myobohh-[id number]-[id number] Hx Patient Social History Tobacco Use?: Yes Seasonal Allergies Seasonal Allergies: Yes Past Medical History Surgeries: Yes (C/S X2, HERNIA X3, ) Abdominal, Section, Hysterectomy, Oophorectomy, 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 Respiratory: Yes Asthma, COPD Cardiac: Yes High Cholesterol Neurological: No 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 Disorders: Yes 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 Disorders: Ovarian Cyst 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 Genitourinary: Yes Bladder Infection Gastrointestinal: Yes Gastroesophageal Reflux, Chronic Diarrhea, Irritable Bowel Musculoskeletal: Yes Degenerate Disk Disease, Scoliosis, Chronic Back Pain Endocrine: Yes Hypothyroidsim, Diabetes, Non-Insulin dep HEENT: Yes (chronic sinusitis) Cancer: Yes Cervical Did You Recieve Any Treatments: Yes What Type of Treatment Did You: Surgical Intervention Psychosocial: Yes Anxiety, Bipolar, Depression Integumentary: No Blood Disorders: No Physical Exam Vital Signs - First Documented 11/12/20 01:39 Temp 36.9 Pulse 119 Resp 22 B/P (MAP) 95/77 (83) O2 Delivery Room Air Capillary Refill : Height: 5'4.00" Weight: 142lbs. 0oz. 64.921934yz; 26.00 BMI Method:Stated General Appearance: WD/WN, no apparent distress HEENT: PERRL/EOMI, normal ENT inspection, pharynx normal Neck: non-tender, full range of motion, supple, normal inspection Respiratory: chest non-tender, lungs clear, no respiratory distress, no accessory muscle use, crackles Cardiovascular: regular rate, rhythm, no edema, no murmur Gastrointestinal: normal bowel sounds, non tender, soft; No distended, No guarding, No rebound Extremities: normal range of motion, non-tender, normal inspection, no pedal edema, no calf tenderness, normal capillary refill Neurologic/Psychiatric: no motor/sensory deficits, alert, normal mood/affect Skin: normal color, warm/dry Lymphatic: no adenopathy Focused Exam Lactate Level 11/12/20 04:14: Lactic Acid Level Laboratory Tests Test 11/12/20 04:14 Progress/Results/Core Measures Suspected Sepsis SIRS Temperature: Pulse: Respiratory Rate: Laboratory Tests 11/12/20 01:54: White Blood Count 13.7H Blood Pressure / Mean: 11/12/20 04:14: Laboratory Tests 11/12/20 01:54: Creatinine 1.34H, INR Comment 1.0, Platelet Count 203, Total Bilirubin 0.4 Results/Orders Lab Results Laboratory Tests Test 11/12/20 01:54 11/12/20 04:14 Range/Units White Blood Count 13.7 H 4.3-11.0 10^3/uL Red Blood Count 3.86 3.80-5.11 10^6/uL Hemoglobin 11.0 L 11.5-16.0 g/dL Hematocrit 33 L 35-52 % Mean Corpuscular Volume 86 80-99 fL Mean Corpuscular Hemoglobin 28 25-34 pg Mean Corpuscular Hemoglobin Concent 33 32-36 g/dL Red Cell Distribution Width 13.7 10.0-14.5 % Platelet Count 203 130-400 10^3/uL Mean Platelet Volume 9.5 9.0-12.2 fL Immature Granulocyte % (Auto) 2 % Neutrophils (%) (Auto) 79 H 42-75 % Lymphocytes (%) (Auto) 14 12-44 % Monocytes (%) (Auto) 5 0-12 % Eosinophils (%) (Auto) 1 0-10 % Basophils (%) (Auto) 0 0-10 % Neutrophils # (Auto) 10.8 H 1.8-7.8 X 10^3 Lymphocytes # (Auto) 1.9 1.0-4.0 X 10^3 Monocytes # (Auto) 0.7 0.0-1.0 X 10^3 Eosinophils # (Auto) 0.1 0.0-0.3 10^3/uL Basophils # (Auto) 0.0 0.0-0.1 10^3/uL Immature Granulocyte # (Auto) 0.3 H 0.0-0.1 10^3/uL Neutrophils % (Manual) 50 % Lymphocytes % (Manual) 12 % Monocytes % (Manual) 4 % Myelocytes % 1 % Band Neutrophils 31 % Atypical Lymphocytes 2 % Platelet Estimate NORMAL Blood Morphology Comment NORMAL Prothrombin Time 13.7 12.2-14.7 SEC INR Comment 1.0 0.8-1.4 Activated Partial Thromboplast Time 37 H 24-35 SEC D-Dimer 0.99 H 0.00-0.49 UG/ML Sodium Level 134 L 135-145 MMOL/L Potassium Level 3.0 L 3.6-5.0 MMOL/L Chloride Level 98 98-107 MMOL/L Carbon Dioxide Level 20 L 21-32 MMOL/L Anion Gap 16 H 5-14 MMOL/L Blood Urea Nitrogen 10 7-18 MG/DL Creatinine 1.34 H 0.60-1.30 MG/DL Estimat Glomerular Filtration Rate 42 BUN/Creatinine Ratio 7 Glucose Level 314 H 70-105 MG/DL Calcium Level 8.5 8.5-10.1 MG/DL Corrected Calcium 9.0 8.5-10.1 MG/DL Total Bilirubin 0.4 0.1-1.0 MG/DL Aspartate Amino Transf (AST/SGOT) 28 5-34 U/L Alanine Aminotransferase (ALT/SGPT) 33 0-55 U/L Alkaline Phosphatase 92 40-136 U/L Troponin I < 0.30 <0.30 NG/ML Pro-B-Type Natriuretic Peptide 769.2 H <75.0 PG/ML Total Protein 6.7 6.4-8.2 GM/DL Albumin 3.4 3.2-4.5 GM/DL My Orders Orders - NAVID DOMINGUEZ MD Chest 1 View Ap/Pa Only (11/12/20 01:45) Cbc With Automated Diff (11/12/20 01:45) Comprehensive Metabolic Panel (11/12/20 01:45) Fibrin Degradation Products (11/12/20 01:45) Protime With Inr (11/12/20 01:45) Partial Thromboplastin Time (11/12/20 01:45) Probnp Fs (11/12/20 01:45) Troponin I Fs (11/12/20 01:45) Albuterol Inhaler (Albuterol) (11/12/20 02:00) Ekg Tracing (11/12/20 01:51) Ed Iv/Invasive Line Start (11/12/20 02:32) Lactated Ringers (Lr 1000 Ml Iv Solution (11/12/20 02:45) Manual Differential (11/12/20 01:54) Ct Angio Chest W (11/12/20 02:51) Iohexol Injection (Omnipaque 350 Mg/Ml 1 (11/12/20 03:00) Received Contrast (Hold Metformin- Contr (11/12/20 03:00) Ns (Ivpb) (Sodium Chloride 0.9% Ivpb Bag (11/12/20 03:00) Lactated Ringers (Lr 1000 Ml Iv Solution (11/12/20 02:34) Blood Culture (11/12/20 04:09) Lactic Acid Analyzer (11/12/20 04:09) Lactated Ringers (Lr 1000 Ml Iv Solution (11/12/20 04:15) Ceftriaxone (Rocephin) (11/12/20 04:15) Azithromycin Injection (Zithromax Inject (11/12/20 04:15) Medications Given in ED Current Medications Medications Dose Ordered Sig/Francis Route Start Time Stop Time Status Last Admin Dose Admin Azithromycin 500 mg/Sodium Chloride 255 ml @ 250 mls/hr ONCE ONCE IV 11/12/20 04:15 11/12/20 05:16 11/12/20 04:40 250 MLS/HR Ceftriaxone Sodium 1000 mg/ Sterile Water 10 ml @ 200 mls/hr ONCE ONCE IV 11/12/20 04:15 11/12/20 04:17 DC 11/12/20 04:40 200 MLS/HR Iohexol 100 ml ONCE ONCE IV 11/12/20 03:00 11/12/20 03:01 DC 11/12/20 03:40 60 ML Lactated Ringer's 1,000 ml @ 0 mls/hr Q0M ONCE IV 11/12/20 02:45 11/12/20 02:46 DC 11/12/20 02:36 999 MLS/HR Sodium Chloride 100 ml ONCE ONCE IV 11/12/20 03:00 11/12/20 03:01 DC 11/12/20 03:40 80 ML Vital Signs/I&O 11/12/20 01:39 Temp 36.9 Pulse 119 Resp 22 B/P (MAP) 95/77 (83) O2 Delivery Room Air Capillary Refill : Progress Note : Progress Note 50-year-old female with above history coming in due to worsening cough and now some shortness of breath with exertion in the setting of having Covid just a month ago but symptoms never really fully improving. ABCs were intact and vitals were stable on presentation although she is tachycardic which I mostly attribute to her using albuterol [id number] just prior to arrival. I unfortunately did not notice prior to giving her albuterol here, but she is saying it does make her feel better. She does have crackles in her lung bases. Given that she is feeling short of br eath will obtain basic labs including cardiac biomarkers and obtain a chest x- ray. D-dimer is elevated and therefore a CT PE protocol ordered. Her blood pressure has also been lower than it has historically been. Her map continues to be greater than sixty-five, but her systolic pressure has been in the 80s to 90s. She was given a liter bolus of IV fluids initially. CT imaging consistent with Covid pneumonia despite her infection being more than a month ago. Given the low blood pressure and concerns for pneumonia on CT, she was given ceftriaxone and azithromycin one time in the emergency department. Given another bolus of IV fluids as well. Blood pressure did improve to around 100/70. Called and discussed the case with Dr. Ferreira and she will admit the patient to her service for further evaluation management for her severe sepsis and pneumonia. She would be admitted under inpatient status. ECG Initial ECG Impression Date: Nov 12, 2020 Initial ECG Impression Time: 01:44 Initial ECG Rate: 110 Initial ECG Rhythm: S.Tach Comment Narrow QRS, normal axis, no significant ST changes or T wave inversions, baseline wander Diagnostic Imaging Diagonstic Imaging: Xray Plain Films/CT/US/NM/MRI: chest Comments X-ray chest ordered and interpreted by me showing no acute abnormalities including no obvious pneumothorax, pneumonia, or hemothorax Departure Impression Primary Impression: Pneumonia Qualified Codes: J18.9 - Pneumonia, unspecified organism Additional Impression: Hypotension Qualified Codes: I95.9 - Hypotension, unspecified Disposition: 30 STILL A PATIENT Condition: Stable Transfer Transfer Reason: Exceeds level of care Time Spoke to Accepting Phy: 04:[address] Ferreira accepted to [facility]. Method of Transfer: EMS Departure-Patient Inst. Referrals: [facility] [place] Primary Care Physician JESÚS WHITE APRN (Family) Primary Care Physician NAVID DOMIGNUEZ MD Nov 12, 2020 01:50
[2020-11-12] MEDS ORDERED: RT-ALBUTEROL HFA 8.5 GM INHALER IH SCH (02:00)
[2020-11-12 02:19] LABS: HEMATOCRIT 33 % (35-52); MEAN CORPUSCULAR HEMOGLOBIN 28 pg (25-34); MEAN CORPUSCULAR HGB CONC 33 g/dL (32-36); MEAN CORPUSCULAR VOLUME 86 fL (80-99); MEAN PLATELET VOLUME 9.5 fL (9.0-12.2); PLATELET COUNT 203 10^3/uL (130-400); WHITE BLOOD COUNT 13.7 10^3/uL (4.3-11.0)
[2020-11-12 02:22] LABS: BASOPHILS % (AUTO) 0 % (0-10); EOSINOPHILS # (AUTO) 0.1 10^3/uL (0.0-0.3); EOSINOPHILS % (AUTO) 1 % (0-10); LYMPHOCYTES # (AUTO) 1.9 X 10^3 (1.0-4.0); LYMPHOCYTES % (AUTO) 14 % (12-44); MONOCYTES # (AUTO) 0.7 X 10^3 (0.0-1.0); MONOCYTES % (AUTO) 5 % (0-12); NEUTROPHILS # (AUTO) 10.8 X 10^3 (1.8-7.8); NEUTROPHILS % (AUTO) 79 % (42-75)
[2020-11-12] MEDS ORDERED: LACTATED RINGERS 1,000 ML IV ONE ×3 (02:34→04:15)
[2020-11-12 02:37] LABS: ATYPICAL LYMPHOCYTES 2 %; BAND NEUTROPHILS 31 %; LYMPHOCYTES % (MANUAL) 12 %; MONOCYTES % (MANUAL) 4 %; MYELOCYTES % 1 %; NEUTROPHILS % (MANUAL) 50 %
[2020-11-12 02:38] LABS: PLATELET ESTIMATE NORMAL; RBC MORPH NORMAL
[2020-11-12 02:42] LABS: PROTHROMBIN TIME PATIENT 13.7 SEC (12.2-14.7)
[2020-11-12 02:43] LABS: FIBRIN DEGRADATION PRODUCTS 0.99 UG/ML (0.00-0.49)
[2020-11-12 02:47] LABS: CARBON DIOXIDE 20 MMOL/L (21-32); CHLORIDE 98 MMOL/L (98-107); SODIUM 134 MMOL/L (135-145)
[2020-11-12 02:48] LABS: ALANINE AMINOTRANSFERASE 33 U/L (0-55); ALBUMIN 3.4 GM/DL (3.2-4.5); ALKALINE PHOSPHATASE 92 U/L (40-136); BILIRUBIN,TOTAL 0.4 MG/DL (0.1-1.0); BUN/CREATININE RATIO 7; CALCIUM 8.5 MG/DL (8.5-10.1); CREATININE SERUM 1.34 MG/DL (0.60-1.30); GFR ESTIMATED 42; GLUCOSE 314 MG/DL (70-105); TOTAL PROTEIN 6.7 GM/DL (6.4-8.2)
[2020-11-12] MEDS ORDERED: IOHEXOL 350 MG/ML 100 ML (OMNIPAQUE 350) VIAL IV ONE (03:00)
[2020-11-12] MEDS ORDERED: NS 100 ML (IVPB) BAG IV ONE (03:00)
[2020-11-12] MEDS ORDERED: HOLD METFORMIN - RECEIVED CONTRAST 20 ML VIAL IV SCH (03:00)
[2020-11-12] MEDS ORDERED: cefTRIAXone 1,000 MG in WATER (STERILE) FOR INJECTION 10 ML IV ONE (04:15)
[2020-11-12] MEDS ORDERED: AZITHROMYCIN INJECTION 500 MG in NS (IVPB) 250 ML IV ONE (04:15)
--- NOTE | 2020-11-12 06:46 | Diagnostic Imaging Report ---
INDICATION: Cough with shortness of breath. Comparison with 04/17/2020. FINDINGS: Portable chest shows lungs to be well aerated and clear. Heart is not enlarged. No pulmonary edema or hilar adenopathy. No pneumothorax or pleural effusion. No bony abnormalities. IMPRESSION: Normal portable chest. Dictated by: Dictated on workstation # [id number]
--- NOTE | 2020-11-12 06:55 | Diagnostic Imaging Report ---
PROCEDURE: CT angiography of the chest with contrast. TECHNIQUE: Multiple contiguous axial images were obtained through the chest after uneventful bolus administration of intravenous contrast. 3D reconstructed CTA MIP acquisitions were also performed. Auto Exposure Controls were utilized during the CT exam to meet ALARA standards for radiation dose reduction. INDICATION: COVID pneumonia with cough and shortness of breath. FINDINGS: Good opacification of the aorta and pulmonary arteries. No evidence of aortic aneurysm or dissection. The pulmonary arteries are well opacified. There are no filling defects that would indicate pulmonary emboli. There are scattered 5 lobe groundglass and alveolar infiltrates consistent with COVID pneumonia. Most severe infiltrates are present in the right lower lobe. No pleural effusion or pericardial effusion. IMPRESSION: 1. No evidence of pulmonary emboli. 2. There is a 5 lobe infiltrate consistent with COVID pneumonia. These findings are concordant with the preliminary report. Dictated by: Dictated on workstation # [id number]
[2020-11-12] MEDS ORDERED: FLU QUADRIvalent (3YOA+) 60 mcg/0.5 ml 2021-22(AFLURIA) IM ONE (07:00)
[2020-11-12] MEDS ORDERED: RT-ALBUTEROL HFA 8.5 GM INHALER IH PRN ×2 (07:00→10:30)
[2020-11-12] MEDS ORDERED: RT-ALBUTEROL/IPRATROPIUM 3 ML (DUONEB) VIAL INH PRN (07:45)
[2020-11-12 07:55] LABS: POTASSIUM 3.2 MMOL/L (3.6-5.0)
[2020-11-12 07:56] LABS: CALCIUM 8.5 MG/DL (8.5-10.1)
[2020-11-12] MEDS ORDERED: RT-ALBUTEROL/IPRATROPIUM 3 ML (DUONEB) VIAL INH SCH (08:00)
[2020-11-12 08:01] LABS: CREATININE SERUM 1.47 MG/DL (0.60-1.30)
--- NOTE | 2020-11-12 11:46 | History & Physical ---
HPI History of Present Illness: 50 yo F with h/o DM/COPD that had covid-19 last month and has continued to have increasing dry cough and shortness of breath. Denies any fever or chills. States that she has had low appetite and has lost weight since having covid. States that she has not been able to take all her medications due to being so tired. She has been taking her inhalers and breathing treatments. Source: patient Exam Limitations: no limitations Date seen by provider: Nov 12, 2020 Time Seen by Provider: 09:05 Attending Physician Lindsay Ferreira MD PCP [place] Consult Date of Admission Nov 12, 2020 at 06:15 Home Medications Home Medications Reviewed patient Home Medication Reconciliation performed by pharmacy medication reconciliations lead maintenance technician and/or nursing. Patients Allergies have been reviewed. Allergies Coded Allergies: Sulfa (Sulfonamide Antibiotics) (Verified Allergy, Unknown, abd pain, 09/05/18) adhesive tape (Verified Allergy, Unknown, Hives, 09/05/18) bupropion (Verified Allergy, Unknown, sucidial, 09/05/18) carisoprodol (Verified Allergy, Unknown, heart palpatations, 09/05/18) quetiapine (Verified Allergy, Unknown, suicidal, 09/05/18) EYL-[id number]-[id number] Hx Patient Social History Smoking Status: Current Everyday Smoker 2nd Hand Smoke Exposure: No Recent Hopitalizations: No Alcohol Use?: No Tobacco type used: Cigarettes Have you traveled recently?: No Immunizations Up To Date Date of Pneumonia Vaccine: Apr 15, 1999 Date of Influenza Vaccine: Feb 15, 2020 Past Medical History COPD HTN DM Hypothyroidism Family Medical History Significant Family History: No Pertinent Family Hx Review of Systems ([facility]) Constitutional: No chills, No fever; malaise, weakness EENTM: hoarseness, mouth pain, nose congestion Respiratory: cough, dyspnea on exertion, short of breath Cardiovascular: no symptoms reported; No chest pain, No edema, No palpitations Gastrointestinal: No abdominal pain, No constipation; loss of appetite; No nausea, No vomiting Genitourinary: no symptoms reported; No dysuria, No frequency, No hematuria : No Musculoskeletal: no symptoms reported; No back pain, No joint pain, No muscle pain Skin: no symptoms reported; No lesions, No rash Psychiatric/Neurological: Weakness Reviewed Test Results Reviewed Test Results Lab Laboratory Tests Test 11/12/20 01:54 11/12/20 04:14 11/12/20 06:20 11/12/20 06:37 Range/Units White Blood Count 13.7 H 4.3-11.0 10^3/uL Red Blood Count 3.86 3.80-5.11 10^6/uL Hemoglobin 11.0 L 11.5-16.0 g/dL Hematocrit 33 L 35-52 % Mean Corpuscular Volume 86 80-99 fL Mean Corpuscular Hemoglobin 28 25-34 pg Mean Corpuscular Hemoglobin Concent 33 32-36 g/dL Red Cell Distribution Width 13.7 10.0-14.5 % Platelet Count 203 130-400 10^3/uL Mean Platelet Volume 9.5 9.0-12.2 fL Immature Granulocyte % (Auto) 2 % Neutrophils (%) (Auto) 79 H 42-75 % Lymphocytes (%) (Auto) 14 12-44 % Monocytes (%) (Auto) 5 0-12 % Eosinophils (%) (Auto) 1 0-10 % Basophils (%) (Auto) 0 0-10 % Neutrophils # (Auto) 10.8 H 1.8-7.8 X 10^3 Lymphocytes # (Auto) 1.9 1.0-4.0 X 10^3 Monocytes # (Auto) 0.7 0.0-1.0 X 10^3 Eosinophils # (Auto) 0.1 0.0-0.3 10^3/uL Basophils # (Auto) 0.0 0.0-0.1 10^3/uL Immature Granulocyte # (Auto) 0.3 H 0.0-0.1 10^3/uL Neutrophils % (Manual) 50 % Lymphocytes % (Manual) 12 % Monocytes % (Manual) 4 % Myelocytes % 1 % Band Neutrophils 31 % Atypical Lymphocytes 2 % Platelet Estimate NORMAL Blood Morphology Comment NORMAL Prothrombin Time 13.7 12.2-14.7 SEC INR Comment 1.0 0.8-1.4 Activated Partial Thromboplast Time 37 H 24-35 SEC D-Dimer 0.99 H 0.00-0.49 UG/ML Sodium Level 134 L 135-145 MMOL/L Potassium Level 3.0 L 3.6-5.0 MMOL/L Chloride Level 98 98-107 MMOL/L Carbon Dioxide Level 20 L 21-32 MMOL/L Anion Gap 16 H 5-14 MMOL/L Blood Urea Nitrogen 10 7-18 MG/DL Creatinine 1.34 H 0.60-1.30 MG/DL Estimat Glomerular Filtration Rate 42 BUN/Creatinine Ratio 7 Glucose Level 314 H 70-105 MG/DL Calcium Level 8.5 8.5-10.1 MG/DL Corrected Calcium 9.0 8.5-10.1 MG/DL Total Bilirubin 0.4 0.1-1.0 MG/DL Aspartate Amino Transf (AST/SGOT) 28 5-34 U/L Alanine Aminotransferase (ALT/SGPT) 33 0-55 U/L Alkaline Phosphatase 92 40-136 U/L Troponin I < 0.30 <0.30 NG/ML Pro-B-Type Natriuretic Peptide 769.2 H <75.0 PG/ML Total Protein 6.7 6.4-8.2 GM/DL Albumin 3.4 3.2-4.5 GM/DL Lactic Acid Level 2.26 *H 1.66 0.50-2.00 MMOL/L SARS-CoV-2 RNA (RT-PCR) Detected H Not Detecte Test 11/12/20 06:45 11/12/20 12:23 11/12/20 15:45 Range/Units Sodium Level 137 135-145 MMOL/L Potassium Level 3.2 L 3.6-5.0 MMOL/L Chloride Level 102 98-107 MMOL/L Carbon Dioxide Level 20 L 21-32 MMOL/L Anion Gap 15 H 5-14 MMOL/L Blood Urea Nitrogen 11 7-18 MG/DL Creatinine 1.47 H 0.60-1.30 MG/DL Estimat Glomerular Filtration Rate 37 BUN/Creatinine Ratio 7 Glucose Level 217 H 70-105 MG/DL Calcium Level 8.5 8.5-10.1 MG/DL Glucometer 229 H 235 H 70-110 MG/DL Physical Exam-([facility]) Physical Exam Vital Signs VS - Last 72 Hours, by Label 11/12/20 11/12/20 11/12/20 11/12/20 01:39 05:13 06:15 06:30 Temp 36.9 36.6 Pulse 119 112 100 103 Resp 22 22 B/P (MAP) 95/77 (83) 106/62 97/73 (80) 105/64 (73) Pulse Ox 97 96 95 O2 Delivery Room Air Room Air Room Air Room Air 11/12/20 11/12/20 11/12/20 11/12/20 06:45 06:49 07:31 08:00 Temp 36.6 Pulse 101 100 B/P (MAP) 98/64 (73) Pulse Ox 95 95 96 O2 Delivery Room Air Room Air Room Air FiO2 21 11/12/20 11/12/20 08:23 13:11 Temp 36.3 36.1 Pulse 97 109 Resp 18 18 B/P (MAP) 98/62 (74) 96/62 (73) Pulse Ox 95 94 O2 Delivery Nasal Cannula Room Air Capillary Refill : Less Than 3 Seconds General Appearance: WD/WN, no apparent distress, other (Sleepy but easy to awake) Neck: non-tender, full range of motion Respiratory: chest non-tender, no respiratory distress, no accessory muscle use, wheezing Cardiovascular: normal peripheral pulses, regular rate, rhythm, no edema, no murmur Gastrointestinal: normal bowel sounds, non tender, soft Back: no CVA tenderness, no vertebral tenderness Extremities: normal range of motion, non-tender, normal inspection, no pedal edema, no calf tenderness, normal capillary refill Neurologic/Psychiatric: solid waste landfill technician II-XII nml as tested, no motor/sensory deficits, alert, normal mood/affect, oriented x 3 Skin: normal color, warm/dry Lymphatic: no adenopathy Assessment/Plan Assessment/Plan Admission Status: Inpatient Order (span 2 midnights) Reason for Inpatient Admission: Patient at high risk of decompensation, needs close monitoring (1) Sepsis Status: Acute Assessment & Plan: - IVFs and IV antibiotics started, HDS Qualifiers: Qualified Codes: A41.9 - Sepsis, unspecified organism; R65.20 - Severe sepsis without septic shock; N17.9 - Acute kidney failure, unspecified (2) Pneumonia due to COVID-19 virus Status: Acute (3) Acute renal failure Status: Acute Assessment & Plan: - Likely prerenal given decreased PO intake, IVFs, monitor urine outpatient and BMP Qualifiers: Qualified Codes: N17.9 - Acute kidney failure, unspecified (4) Hypercoagulable state associated with COVID-19 Status: Acute Assessment & Plan: - Lovenox (5) Non-insulin dependent diabetes mellitus Status: Chronic Assessment & Plan: - Started on SSI, will monitor blood sugars due to high dose steroids (6) Hypothyroidism Status: Chronic Assessment & Plan: - Continue home meds Qualifiers: Qualified Codes: E03.9 - Hypothyroidism, unspecified (7) Hypokalemia Status: Acute Assessment & Plan: - Replace and repeat BMP/Mag in AM LINDSAY FERREIRA MD Nov 12, 2020 11:46
[2020-11-12] MEDS ORDERED: KCL 20 MEQ TAB (K-DUR) PO ONE (12:00)
[2020-11-12] MEDS: AZITHROMYCIN 250 MG TAB (ZITHROMAX) PO SCH (12:24)
[2020-11-12] MEDS: cefTRIAXone 1,000 MG in WATER (STERILE) FOR INJECTION 10 ML IV SCH (12:24)
[2020-11-12] MEDS: NS IV 1000 ML 1,000 ML IV SCH ×2 (12:25→21:38)
[2020-11-12] MEDS ORDERED: inSUlin ASPART (NovoLOG) 1 UNIT/0.01 ML (CHARGE PER UNIT) ONE (12:55)
[2020-11-12] MEDS: inSUlin ASPART (NovoLOG) 1 UNIT/0.01 ML (CHARGE PER UNIT) SC SCH ×3 (13:03→21:39)
[2020-11-12] MEDS ORDERED: ENOXAPARIN 40 MG/0.4 ML (LOVENOX) SYR SQ SCH (15:00)
[2020-11-12] MEDS ORDERED: RT-ALBUINH INH (15:39)
[2020-11-12] MEDS ORDERED: FAMO20TA5 PO (15:39)
[2020-11-12] MEDS ORDERED: CELE100C84 PO (15:39)
[2020-11-12] MEDS ORDERED: CITA40TA11 PO (15:39)
[2020-11-12] MEDS ORDERED: INSU100I10 SC (15:39)
[2020-11-12] MEDS ORDERED: TMSL.4C PO (15:39)
[2020-11-12] MEDS ORDERED: DAPA10TA PO (15:39)
[2020-11-12] MEDS ORDERED: NYST1000 PO (15:39)
[2020-11-12] MEDS ORDERED: FLUT1BLS12 INH (15:39)
[2020-11-12] MEDS ORDERED: DULA0.75 SC (15:39)
[2020-11-12] MEDS: guaiFENesin/DM (ROBITUSSIN DM) 10 ML UDC PO PRN ×3 (16:40→23:32)
[2020-11-12] MEDS ORDERED: BENZONATATE 100 MG (TESSALON) CAPSULE PO PRN (18:30)
[2020-11-12] MEDS ORDERED: PROMETHAZINE/ CODEINE SYRUP 5 ML UDC PO PRN (18:30)
[2020-11-12] MEDS: RT-ALBUTEROL HFA 8.5 GM INHALER IH SCH (19:21)
[2020-11-13 04:00] VITALS: BP 136/80
[2020-11-13] MEDS: inSUlin ASPART (NovoLOG) 1 UNIT/0.01 ML (CHARGE PER UNIT) SC SCH ×3 (05:03→11:36)
[2020-11-13] MEDS: guaiFENesin/DM (ROBITUSSIN DM) 10 ML UDC PO PRN (05:50)
[2020-11-13 05:54] LABS: BASOPHILS % (AUTO) 0 % (0-10); EOSINOPHILS % (AUTO) 0 % (0-10); HEMATOCRIT 31 % (35-52); LYMPHOCYTES # (AUTO) 1.3 10^3/uL (1.0-4.0); LYMPHOCYTES % (AUTO) 14 % (12-44); MEAN CORPUSCULAR HEMOGLOBIN 28 pg (25-34); MEAN CORPUSCULAR HGB CONC 32 g/dL (32-36); MEAN CORPUSCULAR VOLUME 88 fL (80-99); MEAN PLATELET VOLUME 9.7 fL (9.0-12.2); MONOCYTES # (AUTO) 0.4 10^3/uL (0.0-1.0); MONOCYTES % (AUTO) 4 % (0-12); NEUTROPHILS # (AUTO) 7.5 10^3/uL (1.8-7.8); NEUTROPHILS % (AUTO) 81 % (42-75); PLATELET COUNT 208 10^3/uL (130-400); WHITE BLOOD COUNT 9.2 10^3/uL (4.3-11.0)
[2020-11-13 06:08] LABS: ALBUMIN 3.1 GM/DL (3.2-4.5); POTASSIUM 3.9 MMOL/L (3.6-5.0)
[2020-11-13 06:09] LABS: CALCIUM 8.8 MG/DL (8.5-10.1)
[2020-11-13 06:10] LABS: TOTAL PROTEIN 6.4 GM/DL (6.4-8.2)
[2020-11-13 06:12] LABS: BILIRUBIN,TOTAL 0.3 MG/DL (0.1-1.0)
[2020-11-13 06:14] LABS: CREATININE SERUM 1.11 MG/DL (0.60-1.30)
[2020-11-13 06:17] LABS: MAGNESIUM 1.8 MG/DL (1.6-2.4)
[2020-11-13] MEDS: RT-ALBUTEROL HFA 8.5 GM INHALER IH SCH (07:57)
[2020-11-13 08:00] VITALS: BP 118/72
[2020-11-13] MEDS: NS IV 1000 ML 1,000 ML IV SCH (08:06)
[2020-11-13] MEDS: AZITHROMYCIN 250 MG TAB (ZITHROMAX) PO SCH (08:25)
[2020-11-13] MEDS ORDERED: inSUlin ASPART (NovoLOG) 1 UNIT/0.01 ML (CHARGE PER UNIT) SC ONE (11:30)
[2020-11-13] MEDS: cefTRIAXone 1,000 MG in WATER (STERILE) FOR INJECTION 10 ML IV SCH (11:35)
[2020-11-13 12:00] VITALS: BP 137/88
--- NOTE | 2020-11-13 13:30 | Discharge Summary ---
Diagnosis/Chief Complaint Date of Admission Nov 12, 2020 at 06:15 Date of Discharge Discharge Diagnosis Problems/Diagnosis: (1) Sepsis Assessment & Plan: - IVFs and IV antibiotics started, HDS Qualifiers: Qualified Codes: A41.9 - Sepsis, unspecified organism; R65.20 - Severe sepsis without septic shock; N17.9 - Acute kidney failure, unspecified Status: Acute (2) Pneumonia due to COVID-19 virus Status: Acute (3) Acute renal failure Assessment & Plan: - Likely prerenal given decreased PO intake, IVFs, monitor urine outpatient and BMP Qualifiers: Qualified Codes: N17.9 - Acute kidney failure, unspecified Status: Acute (4) Hypercoagulable state associated with COVID-19 Assessment & Plan: - Lovenox Status: Acute (5) Non-insulin dependent diabetes mellitus Assessment & Plan: - Started on SSI, will monitor blood sugars due to high dose steroids Status: Chronic (6) Hypothyroidism Assessment & Plan: - Continue home meds Qualifiers: Qualified Codes: E03.9 - Hypothyroidism, unspecified Status: Chronic (7) Hypokalemia Assessment & Plan: - Replace and repeat BMP/Mag in AM Status: Acute Chief Complaint/HPI Chief Complaint/HPI 50 yo F with h/o DM/COPD that had covid-19 last month and has continued to have increasing dry cough and shortness of breath. Denies any fever or chills. States that she has had low appetite and has lost weight since having covid. States th at she has not been able to take all her medications due to being so tired. She has been taking her inhalers and breathing treatments. Discharge Summary-Simple/Stand Consultations Discharge Physical Examination Allergies: Coded Allergies: Sulfa (Sulfonamide Antibiotics) (Verified Allergy, Unknown, abd pain, 09/05/18) adhesive tape (Verified Allergy, Unknown, Hives, 09/05/18) bupropion (Verified Allergy, Unknown, sucidial, 09/05/18) carisoprodol (Verified Allergy, Unknown, heart palpatations, 09/05/18) quetiapine (Verified Allergy, Unknown, suicidal, 09/05/18) Vitals & I&Os Vital Sign - Last 12Hours Date Time Temp Pulse Resp B/P (MAP) Pulse Ox O2 Delivery O2 Flow Rate FiO2 11/13/20 12:00 37.2 106 18 137/88 (104) 95 Room Air 11/12/20 07:31 21 Intake and Output 11/13/20 00:00 Intake Total 2405 ml Balance 2405 ml Hospital Course See final discharge diagnosis. Discharge Instructions to patient/family Please see electronic discharge instructions given to patient. Discharge Medications Reviewed and agree with Discharge Medication list on patient's Discharge Instruction sheet LINDSAY MAZA MD Nov 13, 2020 13:30
[2020-11-13] MEDS ORDERED: CEFD300C3 PO (13:34)
[2020-11-13] MEDS ORDERED: DEXA4TAB PO (13:34)
[2020-11-13] MEDS ORDERED: AZIT250T12 PO (13:34)
--- NOTE | 2020-11-13 13:35 | Discharge Summary ---
Discharge [facility] Reconcile Patient Problems Problems Reviewed?: Yes Discharge Medications New, Converted or Re-Newed RX: Transmitted to Pharmacy New Medications: Cefdinir (Cefdinir) 300 Mg Capsule 300 MG PO BID, #8 CAP Azithromycin (Azithromycin) 250 Mg Tablet 250 MG PO DAILY, #4 TAB Dexamethasone (Dexamethasone) 4 Mg Tablet 2 MG PO DAILY for 5 Days, #5 TAB Continued Medications: Albuterol Sulfate (Albuterol Sulfate) 2.5 Mg/3 Ml Vial.neb 3 ML NEB Q6H PRN for SHORTNESS OF BREATH, ML Albuterol Sulfate (Proventil Hfa) 6.7 Gm Hfa.aer.ad 2 PUFF INH Q6H PRN for SHORTNESS OF BREATH, EA Aspirin (Aspirin EC) 81 Mg Tablet.dr 81 MG PO DAILY, TAB Citalopram Hydrobromide (Citalopram HBr) 40 Mg Tablet 40 MG PO DAILY, TAB Cyclobenzaprine HCl (Cyclobenzaprine HCl) 10 Mg Tablet 10 MG PO TID PRN for MUSCLE SPASMS, TAB Dapagliflozin Propanediol (Farxiga) 10 Mg Tablet 10 MG PO DAILY, EA Dulaglutide (Trulicity) 0.75 Mg/0.5 Ml Pen.injctr 0.75 MG SC THUR, EA Famotidine (Famotidine) 20 Mg Tablet 20 MG PO BID, TAB Fenofibrate Nanocrystallized (Fenofibrate) 145 Mg Tablet 145 MG PO DAILY, TAB Fluticasone Propion/Salmeterol (Fluticasone-Salmeterol 250-50) 1 Each Blst.w.dev 1 PUFF INH BID, EA Gabapentin (Neurontin) 300 Mg Capsule 300 MG PO TID, CAP Insulin Glargine,Hum.rec.anlog (Lantus Solostar) 100 Unit/1 Ml Insuln.pen 12 UNITS SC HS, UNITS Levothyroxine Sodium (Levothyroxine Sodium) 112 Mcg Tablet 112 MCG PO DAILY, TAB Loratadine (Loratadine) 10 Mg Tablet 10 MG PO DAILY Nystatin (Nystatin) 100,000 Unit/1 Ml Oral.susp 5 ML PO Q8H PRN for THURSH, ML Pantoprazole Sodium (Pantoprazole Sodium) 40 Mg Tablet.dr 40 MG PO BID, TAB Rosuvastatin Calcium (Rosuvastatin Calcium) 10 Mg Tablet 10 MG PO HS, TAB Tamsulosin HCl (Flomax) 0.4 Mg Cap 0.4 MG PO DAILY, CAP Discontinued Medications: Celecoxib (Celecoxib) 100 Mg Capsule 100 MG PO BID, CAP Patient Instructions Goal/Follow Up Appt: F/u PCP 1 week Patient Instructions: - Make sure you complete your antibiotics Activity & Diet Discharge Diet: ADA Diet Activity as Tolerated: Yes LINDSAY MAZA MD Nov 13, 2020 13:35
[2020-11-13 15:30] VITALS: BP 135/82
== END 2020-11-13 15:40 | disposition home or self-care (01) | DRG 871 ==
LOC: EDUNIT# 01:34 → ER FS 01:36 → CSD 06:15 → 4TH 17:37
PROVIDERS: ADMIT Family Medicine; ATTEND Family Medicine
DX: A41.9 Sepsis, unspecified organism (principal); U07.1 COVID-19; J12.82 Pneumonia due to coronavirus disease 2019; N17.9 Acute kidney failure, unspecified; J44.0 Chronic obstructive pulmonary disease with (acute) lower respiratory infection; B37.0 Candidal stomatitis; D68.69 Other thrombophilia; R65.20 Severe sepsis without septic shock; E03.9 Hypothyroidism, unspecified; E11.9 Type 2 diabetes mellitus without complications; E87.6 Hypokalemia; I10 Essential (primary) hypertension; E78.00 Pure hypercholesterolemia, unspecified; K58.0 Irritable bowel syndrome with diarrhea; K21.9 Gastro-esophageal reflux disease without esophagitis; F41.9 Anxiety disorder, unspecified; F31.9 Bipolar disorder, unspecified; F17.210 Nicotine dependence, cigarettes, uncomplicated; Z79.899 Other long term (current) drug therapy; Z79.82 Long term (current) use of aspirin; Z79.890 Hormone replacement therapy; Z79.4 Long term (current) use of insulin; Z85.41 Personal history of malignant neoplasm of cervix uteri; Z91.048 Other nonmedicinal substance allergy status; Z88.2 Allergy status to sulfonamides; Z88.8 Allergy status to other drugs, medicaments and biological substances
CPT/HCPCS: 36415; 71045; 71275; 80048; 80053; 82947; 83605; 83735; 83880; 84484; 85007; 85025; 85027; 85379; 85610; 85730; 87040; 87636; 93005; 94640; 94760

== ENCOUNTER 2021-01-29 14:38 | Emergency (ER) | payer MEDICAID ==
[~2021-01-29] VITALS: Ht 160 cm; Wt 61.7 kg
[~2021-01-29 14:38] MED LIST changes: +CEFD300C3 PO; +CELE100C84 PO; +CITA40TA13 PO; +CYCL10TA25 PO; -CYCL10TA9 PO; +DAPA10TA PO; +DEXA4TAB PO; +DULA0.75 SC; +FLUT1BLS12 INH; +INSU100I10 SC; -LEVO500T80 PO; +LEVO500T81 PO; +NYST1000 PO; +TMSL.4C PO
--- NOTE | 2021-01-29 14:53 | ED Fall/Injury ---
General Stated Complaint: DIZZINESS Source: patient, EMS Exam Limitations: no limitations History of Present Illness Date Seen by Provider: Jan 29, 2021 Time Seen by Provider: 14:36 Initial Comments 50-year-old female with past medical history of diabetes, asthma, HLD coming in via EMS from the urgent care due to a fall. Last night around 11 PM she was us ing her walker, her walker gave out and she fell hitting her left eye on the hinge of the door. She says she did not pass out but did feel dazed afterwards. She then went to bed because she knew she has an appointment already with [facility] this morning. The original appointment was for chronic right shoulder pain. Unfortunately, she landed on her left shoulder as well and now her left shoulder hurts. [facility] referred her to the urgent care which got skull x-rays as well as left shoulder x-rays and reportedly these were normal. She was referred to the emergency department via EMS because of the nature of the incident hitting her head, and they were concerned that she may have more than a concussion. The patient says her left shoulder pain is her main issue, she is having constant moderate sharp pain in that area which is worse with movement. She has an arm sling which helps. She has not taken any medications for this as of this morning. She does not take any blood thinners. She denies any new weakness or numbness and has been ambulatory all morning. Allergies and Home Medications Allergies Coded Allergies: Sulfa (Sulfonamide Antibiotics) (Verified Allergy, Unknown, abd pain, 09/05/18) adhesive tape (Verified Allergy, Unknown, Hives, 09/05/18) bupropion (Verified Allergy, Unknown, sucidial, 09/05/18) carisoprodol (Verified Allergy, Unknown, heart palpatations, 09/05/18) quetiapine (Verified Allergy, Unknown, suicidal, 09/05/18) Patient Home Medication List Home Medication List Reviewed: Yes Albuterol Sulfate (Albuterol Sulfate) 2.5 Mg/3 Ml Vial.neb, 3 ML NEB Q6H PRN for SHORTNESS OF BREATH, (Reported) Entered as Reported by: HAYDEN QUEZADA on 01/16/20 1136 Albuterol Sulfate (Proventil Hfa) 6.7 Gm Hfa.aer.ad, 2 PUFF INH Q6H PRN for SHORTNESS OF BREATH, (Reported) Entered as Reported by: HAYDEN QUEZADA on 11/12/20 153 Aspirin (Aspirin EC) 81 Mg Tablet.dr, 81 MG PO DAILY, (Reported) Entered as Reported by: HAYDEN QUEZADA on 01/16/20 1136 Azithromycin (Azithromycin) 250 Mg Tablet, 250 MG PO DAILY Prescribed by: LINDSAY MAZA on 11/13/20 133 Cefdinir (Cefdinir) 300 Mg Capsule, 300 MG PO BID Prescribed by: LINDSAY MAZA on 11/13/20 133 Citalopram Hydrobromide (Citalopram HBr) 40 Mg Tablet, 40 MG PO DAILY, (Reported) Entered as Reported by: HAYDEN QUEZADA on 11/12/20 153 Cyclobenzaprine HCl (Cyclobenzaprine HCl) 10 Mg Tablet, 10 MG PO TID PRN for MUSCLE SPASMS, (Reported) Entered as Reported by: JOCELYN ROSA on 09/05/18 1028 Dapagliflozin Propanediol (Farxiga) 10 Mg Tablet, 10 MG PO DAILY, (Reported) Entered as Reported by: HAYDEN QUEZADA on 11/12/20 153 Dexamethasone (Dexamethasone) 4 Mg Tablet, 2 MG PO DAILY Prescribed by: LINDSAY MAZA on 11/13/201333 Dulaglutide (Trulicity) 0.75 Mg/0.5 Ml Pen.injctr, 0.75 MG SC THUR, (Reported) Entered as Reported by: HAYDEN QUEZADA on 11/12/20 153 Famotidine (Famotidine) 20 Mg Tablet, 20 MG PO BID, (Reported) Entered as Reported by: HAYDEN QUEZADA on 11/12/20 153 Fenofibrate Nanocrystallized (Fenofibrate) 145 Mg Tablet, 145 MG PO DAILY, (Reported) Entered as Reported by: JOCELYN ROSA on 09/05/18 1028 Fluticasone Propion/Salmeterol (Fluticasone-Salmeterol 250-50) 1 Each Bls t.w.dev, 1 PUFF INH BID, (Reported) Entered as Reported by: HAYDEN QUEZADA on 11/12/20 153 Gabapentin (Neurontin) 300 Mg Capsule, 300 MG PO TID, (Reported) Entered as Reported by: HAYDEN QUEZADA on 01/16/20 1136 Insulin Glargine,Hum.rec.anlog (Lantus Solostar) 100 Unit/1 Ml Insuln.pen, 12 UNITS SC HS, (Reported) Entered as Reported by: HAYDEN QUEZADA on 11/12/20 1539 Levothyroxine Sodium (Levothyroxine Sodium) 112 Mcg Tablet, 112 MCG PO DAILY, (Reported) Entered as Reported by: JOCELYN ROSA on 09/05/18 1028 Loratadine (Loratadine) 10 Mg Tablet, 10 MG PO DAILY, (Reported) Entered as Reported by: JOCELYN ROSA on 07/24/19 1200 Nystatin (Nystatin) 100,000 Unit/1 Ml Oral.susp, 5 ML PO Q8H PRN for THURSH, (Reported) Entered as Reported by: HAYDEN QUEZADA on 11/12/20 1539 Pantoprazole Sodium (Pantoprazole Sodium) 40 Mg Tablet.dr, 40 MG PO BID, (Reported) Entered as Reported by: JOCELYN ROSA on 09/05/18 1028 Rosuvastatin Calcium (Rosuvastatin Calcium) 10 Mg Tablet, 10 MG PO HS, (Reported) Entered as Reported by: HAYDEN QUEZADA on 01/16/20 1136 Tamsulosin HCl (Flomax) 0.4 Mg Cap, 0.4 MG PO DAILY, (Reported) Entered as Reported by: HAYDEN QUEZADA on 11/12/20 1539 Review of Systems Review of Systems Constitutional: No chills, No fever Eyes: Denies Blurred Vision Ears, Nose, Mouth, Throat: denies ear pain Respiratory: No cough Cardiovascular: No chest pain Gastrointestinal: No abdominal pain, No nausea, No vomiting Genitourinary: no symptoms reported Musculoskeletal: joint pain Skin: no symptoms reported Psychiatric/Neurological: No Symptoms Reported All Other Systems Reviewed Negative Unless Noted: Yes Past Ljdaubb-Gnxuim-Kipuxk Hx Patient Social History Tobacco Use?: Yes Substance use?: No Alcohol Use?: No Seasonal Allergies Seasonal Allergies: Yes Past Medical History Surgery/Hospitalization HX: COPD Surgeries: Yes (C/S X2, HERNIA X3, ) Abdominal, Section, Hysterectomy, Oophorectomy, 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 Respiratory: Yes Asthma, COPD Cardiac: Yes High Cholesterol Neurological: No 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 Disorders: Yes 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 Disorders: Ovarian Cyst 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 Genitourinary: Yes Bladder Infection Gastrointestinal: Yes Gastroesophageal Reflux, Chronic Diarrhea, Irritable Bowel Musculoskeletal: Yes Degenerate Disk Disease, Scoliosis, Chronic Back Pain Endocrine: Yes Hypothyroidsim, Diabetes, Non-Insulin dep HEENT: Yes (chronic sinusitis) Cancer: Yes Cervical Did You Recieve Any Treatments: Yes What Type of Treatment Did You: Surgical Intervention Psychosocial: Yes Anxiety, Bipolar, Depression Integumentary: No Blood Disorders: No Family Medical History No Pertinent Family Hx Physical Exam Vital Signs Vital Signs - First Documented 01/29/21 14:38 Temp 36.7 Pulse 98 Resp 18 B/P (MAP) 128/79 (95) O2 Delivery Room Air Capillary Refill : Height, Weight, BMI Height: 5'4.00" Weight: 142lbs. 0oz. 64.234992zm; 24.72 BMI Method:Stated General Appearance: WD/WN, no apparent distress HEENT: PERRL/EOMI, normal ENT inspection, TMs normal, pharynx normal, other (Ecchymosis surrounding the left eye, no proptosis, normal visual acuity, normal pupil, normal extraocular movements, no diplopia even with upward gaze, no septal hematoma) Neck: non-tender, full range of motion, supple, normal inspection Cardiovascular: regular rate, rhythm, no edema, no murmur Respiratory: chest non-tender, lungs clear, normal breath sounds, no respiratory distress, no accessory muscle use Gastrointestinal: normal bowel sounds, non tender, soft; No distended, No guarding, No rebound Back: normal inspection, no CVA tenderness, no vertebral tenderness Extremities: normal range of motion, non-tender, normal inspection, no pedal edema, no calf tenderness, normal capillary refill 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, no motor/sensory deficits, alert, normal mood/affect, oriented x 3 Skin: normal color, warm/dry Lymphatic: no adenopathy [place] Coma Score Best Eye Response: (4) Open Spontaneously Best Verbal Response: (5) Oriented Best Motor Response: (6) Obeys Commands Progress/Results/Core Measures Results/Orders My Orders Orders - NAVID DOMINGUEZ MD Ct Head/Face/Cervical Wo (01/29/21 14:47) Acetaminophen Tablet (Tylenol Tablet) (01/29/21 15:00) Vital Signs/I&O 01/29/21 14:38 Temp 36.7 Pulse 98 Resp 18 B/P (MAP) 128/79 (95) O2 Delivery Room Air Progress Progress Note : Progress Note 50-year-old female coming in delayed after a fall yesterday that was mechanical in nature. ABCs intact, GCS 15, vital stable on presentation. Physical exam reassuring with no focal neuro deficits. Only notable finding is ecchymosis surrounding her left eye without any signs of increased intraocular pressure or hematoma behind the eye clinically. She has normal visual acuity. CT head, max face, cervical spine ordered. She was given Tylenol for pain control. Patient did come with a disc with the skull x-ray and shoulder x-ray. I have opened up this and interpreted the three-view shoulder x-ray showing no fracture or dislocation. She does have some degenerative changes in her AC and glenohumeral joint. CT imaging was negative for anything acute. I believe the patient is stable for discharge with outpatient follow-up. She was sent home with strict return precautions peer Diagnostic Imaging Diagonstic Imaging: CT (head/cspine/face) Comments NAME: ZOE RIVERA [facility] REC#: [id number] PT STATUS: REG ER : 1970 PHYSICIAN: NAVID DOMINGUEZ MD ADMIT DATE: 01/29/21/ER FS Draft Date of Exam:01/29/21 CT HEAD/FACE/CERVICAL WO PROCEDURE: CT head, face, and cervical spine without contrast. TECHNIQUE: Multiple contiguous axial images were obtained through the head, neck, and facial bones without the use of intravenous contrast. Sagittal and coronal reformations through the cervical spine and facial bones were also performed. Auto Exposure Controls were utilized during the CT exam to meet ALARA standards for radiation dose reduction. INDICATION: Fall with trauma to the head, face, and neck. COMPARISON: No prior studies are available for comparison. CT HEAD: Ventricles and sulci are within normal limits. There is no sulcal effacement or midline shift. No acute intra-axial or extra-axial hemorrhage is detected. Cisterns are patent. IMPRESSION: No acute intracranial process is detected. CT CERVICAL SPINE: There is straightening of the normal cervical lordotic curvature. There is significant degenerative disc disease at the C5-C6 level with disc space narrowing and marginal spurring. No fractures are identified. Prevertebral tissues are within normal limits. Odontoid is intact. IMPRESSION: Cervical spondylosis. No acute bony abnormality is detected. CT FACE: Mandible is intact. Zygomatic arches are intact. There is some mucosal thickening of the maxillary sinuses. Maxillary sinus king are intact. No definite nasal bone fracture is seen. The orbital king appear intact. There is some mucosal thickening of the ethmoid air cells. There appears to be some soft tissue swelling in the left periorbital location. Both globes are intact. IMPRESSION: Left periorbital soft tissue swelling. No acute bony abnormality is detected. Dictated on workstation # [id number] Dict: 01/29/21 1517 Trans: 01/29/21 1525 [id number] Interpreted by: ROBERT BARLOW MD Electronically signed by: Departure Impression Primary Impression: Closed head injury Qualified Codes: S09.90XA - Unspecified injury of head, initial encounter Additional Impressions: Concussion Qualified Codes: S06.0X0A - Concussion without loss of consciousness, initial encounter Left shoulder pain Qualified Codes: M25.512 - Pain in left shoulder Disposition: 01 HOME, SELF-CARE Condition: Stable Departure-Patient Inst. Decision time for Depature: 15:28 Referrals: [facility]/ (PCP) Primary Care Physician JESÚS WHITE APRN (Family) Primary Care Physician Patient Instructions: Concussion, Adult ED, Shoulder Pain (DC) Add. Discharge Instructions: You were seen in the emergency department after you fell and hit your head and left shoulder. We did a CT of your head, face, and neck. All of these were normal without anything broken or bleeding. Your left shoulder x-rays was also normal but you do have arthritis. Take Tylenol 1000 mg every 6 hours as needed for pain. If you continue to have pain you can take naproxen 250 mg every 12 hours. Please follow-up with your regular doctor especially if you continue to have pain. You do have a concussion, and symptoms of this can include headaches, nausea, difficulty concentrating, blurry vision, and other symptoms. Everybody reacts differently, but it typically does take at least a couple weeks to fully recover. If you have trouble recovering please schedule an appointment with your regular doctor Work/School Note: Work Release Form Date Seen in the Emergency Department: Jan 29, 2021 Return to Work: Jan 30, 2021 Restrictions: No Restrictions NAVID DOMINGUEZ MD Jan 29, 2021 14:53
[2021-01-29] MEDS ORDERED: ACETAMINOPHEN 500 MG TAB (TYLENOL) PO ONE (15:00)
--- NOTE | 2021-01-29 15:25 | Diagnostic Imaging Report ---
PROCEDURE: CT head, face, and cervical spine without contrast. TECHNIQUE: Multiple contiguous axial images were obtained through the head, neck, and facial bones without the use of intravenous contrast. Sagittal and coronal reformations through the cervical spine and facial bones were also performed. Auto Exposure Controls were utilized during the CT exam to meet ALARA standards for radiation dose reduction. INDICATION: Fall with trauma to the head, face, and neck. COMPARISON: No prior studies are available for comparison. CT HEAD: Ventricles and sulci are within normal limits. There is no sulcal effacement or midline shift. No acute intra-axial or extra-axial hemorrhage is detected. Cisterns are patent. IMPRESSION: No acute intracranial process is detected. CT CERVICAL SPINE: There is straightening of the normal cervical lordotic curvature. There is significant degenerative disc disease at the C5-C6 level with disc space narrowing and marginal spurring. No fractures are identified. Prevertebral tissues are within normal limits. Odontoid is intact. IMPRESSION: Cervical spondylosis. No acute bony abnormality is detected. CT FACE: Mandible is intact. Zygomatic arches are intact. There is some mucosal thickening of the maxillary sinuses. Maxillary sinus king are intact. No definite nasal bone fracture is seen. The orbital king appear intact. There is some mucosal thickening of the ethmoid air cells. There appears to be some soft tissue swelling in the left periorbital location. Both globes are intact. IMPRESSION: Left periorbital soft tissue swelling. No acute bony abnormality is detected. Dictated by: Dictated on workstation # [id number]
[2021-01-29 15:39] VITALS: BP 131/86
== END 2021-01-29 15:39 | disposition home or self-care (01) ==
LOC: EDUNIT# 14:38 → ER FS 14:40
DX: S06.0X0A Concussion without loss of consciousness, initial encounter (principal); S00.12XA Contusion of left eyelid and periocular area, initial encounter; M25.512 Pain in left shoulder; J44.9 Chronic obstructive pulmonary disease, unspecified; E78.00 Pure hypercholesterolemia, unspecified; K21.9 Gastro-esophageal reflux disease without esophagitis; E11.9 Type 2 diabetes mellitus without complications; F41.9 Anxiety disorder, unspecified; F32.9 Major depressive disorder, single episode, unspecified; E03.9 Hypothyroidism, unspecified; Z72.0 Tobacco use; Z79.82 Long term (current) use of aspirin; Z79.899 Other long term (current) drug therapy; Z79.890 Hormone replacement therapy; W22.8XXA Striking against or struck by other objects, initial encounter
CPT/HCPCS: 70450; 70486; 72125

== ENCOUNTER 2021-04-17 17:36 | Emergency (ER) | payer MEDICAID ==
[~2021-04-17] VITALS: Ht 63 cm; Wt 60.4 kg
--- NOTE | 2021-04-17 17:43 | ED Upper Extremity ---
General Stated Complaint: L SHOULDER PAIN History of Present Illness Date Seen by Provider: Apr 17, 2021 Time Seen by Provider: 17:38 Initial Comments 51-year-old female presents with left posterior shoulder pain. She reports that she awoke with it after landing on it. She states that she has a history of shoulder dislocation and was concerned that she possibly dislocated. Patient was brought in by EMS due to pain and concern for possible dislocation. Patient had no acute injury. Allergies and Home Medications Allergies Coded Allergies: Sulfa (Sulfonamide Antibiotics) (Verified Allergy, Unknown, abd pain, 09/05/18) adhesive tape (Verified Allergy, Unknown, Hives, 09/05/18) bupropion (Verified Allergy, Unknown, sucidial, 09/05/18) carisoprodol (Verified Allergy, Unknown, heart palpatations, 09/05/18) quetiapine (Verified Allergy, Unknown, suicidal, 09/05/18) Patient Home Medication List Home Medication List Reviewed: Yes Albuterol Sulfate (Albuterol Sulfate) 2.5 Mg/3 Ml Vial.neb, 3 ML NEB Q6H PRN for SHORTNESS OF BREATH, (Reported) Entered as Reported by: HAYDEN QUEZADA on 01/16/20 1136 Albuterol Sulfate (Proventil Hfa) 6.7 Gm Hfa.aer.ad, 2 PUFF INH Q6H PRN for SHORTNESS OF BREATH, (Reported) Entered as Reported by: HAYDEN QUEZADA on 11/12/20 1539 Aspirin (Aspirin EC) 81 Mg Tablet.dr, 81 MG PO DAILY, (Reported) Entered as Reported by: HAYDEN QUEZADA on 01/16/20 1136 Azithromycin (Azithromycin) 250 Mg Tablet, 250 MG PO DAILY Prescribed by: LINDSAY MAZA on 11/13/20 1334 Cefdinir (Cefdinir) 300 Mg Capsule, 300 MG PO BID Prescribed by: LINDSAY MAZA on 11/13/20 1334 Citalopram Hydrobromide (Citalopram HBr) 40 Mg Tablet, 40 MG PO DAILY, (Reported) Entered as Reported by: HAYDEN QUEZADA on 11/12/20 1539 Cyclobenzaprine HCl (Cyclobenzaprine HCl) 10 Mg Tablet, 10 MG PO TID PRN for MUSCLE SPASMS, (Reported) Entered as Reported by: JOCELYN ROSA on 09/05/18 1028 Dapagliflozin Propanediol (Farxiga) 10 Mg Tablet, 10 MG PO DAILY, (Reported) Entered as Reported by: HAYDEN QUEZADA on 11/12/20 153 Dexamethasone (Dexamethasone) 4 Mg Tablet, 2 MG PO DAILY Prescribed by: LINDSAY MAZA on 11/13/20 1334 Dulaglutide (Trulicity) 0.75 Mg/0.5 Ml Pen.injctr, 0.75 MG SC THUR, (Reported) Entered as Reported by: HAYDEN QUEZADA on 11/12/20 153 Famotidine (Famotidine) 20 Mg Tablet, 20 MG PO BID, (Reported) Entered as Reported by: HAYDEN QUEZADA on 11/12/20 153 Fenofibrate Nanocrystallized (Fenofibrate) 145 Mg Tablet, 145 MG PO DAILY, (Reported) Entered as Reported by: JOCELYN ROSA on 09/05/18 102 Fluticasone Propion/Salmeterol (Fluticasone-Salmeterol 250-50) 1 Each Blst.w.dev, 1 PUFF INH BID, (Reported) Entered as Reported by: HAYDEN QUEZADA on 11/12/20 153 Gabapentin (Neurontin) 300 Mg Capsule, 300 MG PO TID, (Reported) Entered as Reported by: HAYDEN QUEZADA on 01/16/20 1136 Insulin Glargine,Hum.rec.anlog (Lantus Solostar) 100 Unit/1 Ml Insuln.pen, 12 UNITS SC HS, (Reported) Entered as Reported by: HAYDEN QUEZADA on 11/12/20 153 Levothyroxine Sodium (Levothyroxine Sodium) 112 Mcg Tablet, 112 MCG PO DAILY, (Reported) Entered as Reported by: JOCELYN ROSA on 09/05/18 1028 Loratadine (Loratadine) 10 Mg Tablet, 10 MG PO DAILY, (Reported) Entered as Reported by: JOCELYN ROSA on 07/24/19 1200 Nystatin (Nystatin) 100,000 Unit/1 Ml Oral.susp, 5 ML PO Q8H PRN for THURSH, (Reported) Entered as Reported by: HAYDEN QUEZADA on 11/12/20 1539 Pantoprazole Sodium (Pantoprazole Sodium) 40 Mg Tablet.dr, 40 MG PO BID, (Reported) Entered as Reported by: JOCELYN ROSA on 09/05/18 1028 Rosuvastatin Calcium (Rosuvastatin Calcium) 10 Mg Tablet, 10 MG PO HS, (Reported) Entered as Reported by: HAYDEN QUEZADA on 01/16/20 1136 Tamsulosin HCl (Flomax) 0.4 Mg Cap, 0.4 MG PO DAILY, (Reported) Entered as Reported by: HAYDEN QUEZADA on 11/12/20 1539 Review of Systems Constitutional: No chills, No fever Respiratory: No cough, No short of breath Gastrointestinal: No nausea, No vomiting Musculoskeletal: see HPI Skin: no symptoms reported Psychiatric/Neurological: No Symptoms Reported Past Dlzmkqd-Xdrtqa-Cceali Hx Seasonal Allergies Seasonal Allergies: Yes Past Medical History Surgery/Hospitalization HX: COPD Surgeries: Yes (C/S X2, HERNIA X3, ) Abdominal, Section, Hysterectomy, Oophorectomy, 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 Respiratory: Yes Asthma, COPD Cardiac: Yes High Cholesterol Neurological: No 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 Disorders: Yes 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 Disorders: Ovarian Cyst 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 Genitourinary: Yes Bladder Infection Gastrointestinal: Yes Gastroesophageal Reflux, Chronic Diarrhea, Irritable Bowel Musculoskeletal: Yes Degenerate Disk Disease, Scoliosis, Chronic Back Pain Endocrine: Yes Hypothyroidsim, Diabetes, Non-Insulin dep HEENT: Yes (chronic sinusitis) Cancer: Yes Cervical Did You Recieve Any Treatments: Yes What Type of Treatment Did You: Surgical Intervention Psychosocial: Yes Anxiety, Bipolar, Depression Integumentary: No Blood Disorders: No Family Medical History No Pertinent Family Hx Physical Exam Vital Signs Vital Signs - First Documented 04/17/21 17:44 Temp 36.9 Pulse 88 Resp 18 B/P (MAP) 137/81 (99) Pulse Ox 96 O2 Delivery Room Air Capillary Refill : Height, Weight, BMI Height: 5'4.00" Weight: 142lbs. 0oz. 64.222616gt; 24.00 BMI Method:Stated General Appearance: WD/WN, no apparent distress Cardiovascular: normal peripheral pulses, regular rate, rhythm Respiratory: lungs clear, normal breath sounds Gastrointestinal: non tender, soft Shoulder: No deformity (No signs of dislocation or other bony injury); limited ROM, pain Elbow/Forearm: normal inspection Wrist: Yes normal inspection Hand: normal inspection Neurologic/Tendon: normal sensation Neurologic/Psychiatric: alert, normal mood/affect, oriented x 3 Skin: normal color, warm/dry Progress/Results/Core Measures Results/Orders My Orders Orders - VIVIAN DASILVA DO Shoulder 3 View Left (04/17/21 17:43) Ed Ortho/Other Supplies Order (04/17/21 17:47) Vital Signs/I&O Progress Progress Note : Progress Note Patient with a negative x-ray of shoulder and no acute deformity or signs of dislocation on exam. Patient does have pain movement in the posterior shoulder. I discussed with her the need to follow-up with her primary care provider and planning specialist for further outpatient evaluation if symptoms or not improving over the next few days. We did provide her a shoulder sling for comfort. She can use Tylenol, ibuprofen and topical lidocaine for pain control along with any pain medication prescribed by her primary care provider. Patient was stable and discharged Diagnostic Imaging Diagonstic Imaging: Xray Comments Date of Exam:04/17/21 SHOULDER 3 VIEW LEFT EXAMINATION: Left shoulder radiograph. EXAM DATE: 04/17/2021. COMPARISON: None available. HISTORY: Shoulder pain. TECHNIQUE: 3 views of the left shoulder. FINDINGS: There is no acute fracture, dislocation, or destructive osseous process. The joint spaces are normal. The soft tissues are normal. IMPRESSION: No acute osseous abnormality of the left shoulder. Reviewed: Reviewed by Me, Reviewed/Discussed Departure Impression Primary Impression: Left shoulder pain Qualified Codes: M25.512 - Pain in left shoulder Disposition: 01 HOME, SELF-CARE Condition: Stable Departure-Patient Inst. Referrals: AMINATA ARRIETA APRN (PCP/Family) Primary Care Physician Patient Instructions: How to Use a Shoulder Sling, Shoulder Pain ED Add. Discharge Instructions: 4% topical lidocaine with menthol cream gel or patch as directed on package as needed for pain Tylenol or ibuprofen as needed for pain Warm moist heat to left shoulder for 20 minutes a day 3-4 times daily Follow-up with your primary care provider or planning specialist if you continue to have pain in 7 to 10 days for recheck of your symptoms and further outpatient evaluation VIVIAN DASILVA DO Apr 17, 2021 17:42
[2021-04-17 17:44] VITALS: BP 137/81
[2021-04-17] MEDS ORDERED: NS IV 1000 ML 1,000 ML IV STA (17:48)
--- NOTE | 2021-04-17 18:01 | Diagnostic Imaging Report ---
EXAMINATION: Left shoulder radiograph. EXAM DATE: 04/17/2021. COMPARISON: None available. HISTORY: Shoulder pain. TECHNIQUE: 3 views of the left shoulder. FINDINGS: There is no acute fracture, dislocation, or destructive osseous process. The joint spaces are normal. The soft tissues are normal. IMPRESSION: No acute osseous abnormality of the left shoulder. Dictated by: Dictated on workstation # [id number]
== END 2021-04-17 18:23 | disposition home or self-care (01) ==
LOC: EDUNIT# 17:36 → ER FS 17:37
DX: M25.512 Pain in left shoulder (principal)
CPT/HCPCS: 73030; 99283; A4565

== ENCOUNTER 2021-05-04 05:47 | Outpatient (CLI) | payer MEDICAID ==
[~2021-05-04] VITALS: Ht 160 cm; Wt 61.3 kg
[2021-05-04] MEDS ORDERED: GABA800T10 PO (14:11)
[2021-05-04] MEDS ORDERED: CELE100C PO (14:13)
[2021-05-04] MEDS ORDERED: DIPH25CA79 PO (14:13)
[2021-05-04] MEDS ORDERED: SOLI10TA2 PO (14:13)
[2021-05-04] MEDS ORDERED: AMT10T PO (14:13)
== END 2021-05-04 14:15 | disposition home or self-care (01) ==
LOC: PREOP 05:47
PROVIDERS: ATTEND Surgery
DX: Z01.818 Encounter for other preprocedural examination (principal)

== ENCOUNTER 2021-05-12 07:35 | Day surgery (SDC) | payer MEDICAID ==
[~2021-05-12] VITALS: Ht 160 cm; Wt 61.3 kg
[~2021-05-12 07:35] MED LIST changes: +AMT10T PO; +CELE100C PO; +DIPH25CA79 PO; +GABA800T10 PO; +SOLI10TA2 PO
[2021-05-12] MEDS ORDERED: LACTATED RINGERS 1,000 ML IV ONE (07:41)
[2021-05-12] MEDS ORDERED: LACTATED RINGERS 1,000 ML IV STA (07:43)
[2021-05-12] MEDS ORDERED: HURRICAINE EXT TUBE (BENZOCAINE) XX PRN (07:45)
[2021-05-12 07:50] VITALS: BP 129/77
--- NOTE | 2021-05-12 07:55 | Progress Note-Pre Operative ---
Pre-Operative Progress Note H&P Reviewed The H&P was reviewed, patient examined and no changes noted. Date Seen by Provider: May 12, 2021 Time Seen by Provider: 07:55 Date H&P Reviewed: May 12, 2021 Time H&P Reviewed: 07:55 Pre-Operative Diagnosis: gerd, change in bowel habits EULOGIO MORALES DO May 12, 2021 07:55
[2021-05-12] MEDS ORDERED: PROPOFOL INJECTION 50 ML IV ONE (08:09)
[2021-05-12] MEDS ORDERED: proPOfol 200 MG/20 ML (DIPRIVAN) VIAL IV ONE (08:55)
[2021-05-12 09:15] VITALS: BP 134/70
--- NOTE | 2021-05-12 09:18 | Progress Note-Post Operative ---
Post-Operative Progess Note Surgeon (s)/Binding Bench Worker (s) Surgeon EULOGIO MORALES DO Binding Bench Worker: na Pre-Operative Diagnosis gerd, change in bowel habits Post-Operative Diagnosis normal egd, colon polyps Procedure & Operative Findings Date of Procedure 05/12/21 Procedure Performed/Findings egd c biopsies, colonoscopy with hot bx polypectomy x 3 Anesthesia Type per weigh tank operator Estimated Blood Loss Estimated blood loss (mL): none Specimens/Packing Specimens Removed antrum, ge, colon polyps EULOGIO MORALES DO May 12, 2021 09:18
[2021-05-12 09:20] VITALS: BP_SYST 131; BP_SYST 141; BP_DIAS 69; BP_DIAS 74
--- NOTE | 2021-05-12 09:20 | Discharge Inst-Simple/Standard ---
Discharge Inst-Standard Patient Instructions/Follow Up Plan of Care/Instructions/FU: 2 weeks Kimberly Activity as Tolerated: Yes Discharge Diet: Regular Diet (high fiber) EULOGIO MORALES DO May 12, 2021 09:20
[2021-05-12 09:52] VITALS: BP 129/77
--- NOTE | 2021-05-12 13:20 | Anesthesia-General Post-Op ---
MAC Patient Condition Mental Status/LOC: Same as Preop Cardiovascular: Satisfactory Nausea/Vomiting: Absent Respiratory: Satisfactory Pain: Controlled Complications: Absent Post Op Complications Complications None Follow Up Care/Instructions Patient Instructions None needed. Anesthesiology Discharge Order Discharge Order Patient is doing well, no complaints, stable vital signs, no apparent adverse anesthesia problems. No complications reported per nursing. KERRIE PERSAUD CRNA May 12, 2021 13:20
--- NOTE | 2021-05-12 13:49 | OPERATIVE REPORT ---
DATE OF SERVICE: 05/12/2021 PREOPERATIVE DIAGNOSES: Gastroesophageal reflux disease, change in bowel habits. POSTOPERATIVE DIAGNOSES: Normal EGD, colon polyps. PROCEDURE: EGD with biopsies, colonoscopy with hot biopsy polypectomy x3. SURGEON: Eulogio Harris DO ANESTHESIA: Per LITIGATION SERVICES MANAGER. ESTIMATED BLOOD LOSS: None. COMPLICATIONS: None. INDICATIONS: The patient is a 51-year-old female needing EGD and colonoscopy for GERD and change in bowel habits. She understands risks and benefits of procedure and wishes to proceed. Consent was signed and on the chart. DESCRIPTION OF PROCEDURE: The patient was taken to the endoscopy suite, placed in left lateral recumbent position. Timeout was performed. Scope was inserted in mouth, down the esophagus, stomach and into the duodenum without difficulty. No polyps, masses or ulcerations within the duodenum. Scope was slowly retracted back to stomach where it was further insufflated. No polyps, masses or ulcerations. Maybe a little bit of erythematous changes in the antrum. Biopsy was obtained. Scope was retroflexed noting no other pathology. Scope was returned to its normal position, slowly withdrawn to distal esophagus. Biopsy of the GE junction was obtained. Scope was slowly retracted back to completely remove noting no other pathology. Digital rectal exam was performed. No palpable polyps, masses, or ulcerations. Scope was inserted in the rectum, advanced all the way to cecum with minimal difficulty. Lots of irrigation and suction to be used for visualization because there was a lot of liquid stool. A minimal amount of particulate. Scope was then slowly retracted back. No polyps, masses or ulcerations visualized within the cecum, ascending, transverse, descending and sigmoid colon. In the rectum, 3 polyps were present, which hot biopsy polypectomy was performed. Scope was then retroflexed as well, noting no other pathology. Scope was returned to its normal position, slowly withdrawn until completely removed. The patient tolerated the procedure well without any complications. She was taken to recovery room in stable condition. RECOMMENDATIONS: The patient will recommend high fiber diet due to change in bowel habits, feel this is probably dietary. The patient with polyps. She will follow up on pathology. Due to the prep, repeat colonoscopy in one year. lots of irrigation and suction. Nothing grossly visible. Job ID: [id number] DocumentID: [id number] Dictated Date: 05/12/2021 09:23:15 Link And Link Knitting Machine Operator Date: 05/12/2021 13:48:30 Dictated By: EULOGIO HARRIS DO
== END 2021-05-12 10:04 | disposition home or self-care (01) ==
LOC: ENDO 07:35
PROVIDERS: ATTEND Surgery
DX: D12.8 Benign neoplasm of rectum (principal); K21.00 Gastro-esophageal reflux disease with esophagitis, without bleeding; Z87.891 Personal history of nicotine dependence; Z85.038 Personal history of other malignant neoplasm of large intestine

== ENCOUNTER 2021-06-21 22:48 | Emergency (ER) | payer MEDICAID ==
[~2021-06-21] VITALS: Ht 160 cm; Wt 61.6 kg
[~2021-06-21 22:48] MED LIST changes: +ACET-11 PO; -ACET1TAB43 PO
--- NOTE | 2021-06-21 23:09 | ED Integumentary General ---
General Stated Complaint: LEFT LEG PAIN History of Present Illness Date Seen by Provider: June 21, 2021 Time Seen by Provider: 23:09 Initial Comments 51-year-old female presents with what appears to be a ingrown hair on her left inner thigh. She reports is been there for about 3 days. That the pain got worse. That she is try to get it to open up but nothing well. This can affirm and she feels like there is a "being in it" there is some very mild surrounding erythema. She has no systemic complaints such as fever, chills, nausea or vomiting Allergies and Home Medications Allergies Coded Allergies: Sulfa (Sulfonamide Antibiotics) (Verified Allergy, Unknown, abd pain, 09/05/18) adhesive tape (Verified Allergy, Unknown, Hives, 09/05/18) bupropion (Verified Allergy, Unknown, sucidial, 09/05/18) carisoprodol (Verified Allergy, Unknown, heart palpatations, 09/05/18) quetiapine (Verified Allergy, Unknown, suicidal, 09/05/18) Patient Home Medication List Home Medication List Reviewed: Yes Albuterol Sulfate (Albuterol Sulfate) 2.5 Mg/3 Ml Vial.neb, 3 ML NEB Q6H PRN for SHORTNESS OF BREATH, (Reported) Entered as Reported by: HAYDEN QUEZADA on 01/16/20 1136 Albuterol Sulfate (Proventil Hfa) 6.7 Gm Hfa.aer.ad, 2 PUFF INH Q6H PRN for SHORTNESS OF BREATH, (Reported) Entered as Reported by: HAYDEN QUEZADA on 11/12/20 1539 Amitriptyline HCl (Amitriptyline HCl) 10 Mg Tablet, 10 MG PO HS, (Reported) Entered as Reported by: JOCELYN ROSA on 05/04/21 1413 Aspirin (Aspirin EC) 81 Mg Tablet.dr, 81 MG PO DAILY, (Reported) Entered as Reported by: HAYDEN QUEZADA on 01/16/20 1136 Celecoxib (Celebrex) 100 Mg Capsule, 100 MG PO BID, (Reported) Entered as Reported by: JOCELYN ROSA on 05/04/21 1413 Citalopram Hydrobromide (Citalopram HBr) 40 Mg Tablet, 40 MG PO DAILY, (Reported) Entered as Reported by: HAYDEN QUEZADA on 11/12/20 1539 Cyclobenzaprine HCl (Cyclobenzaprine HCl) 10 Mg Tablet, 10 MG PO TID PRN for MUSCLE SPASMS, (Reported) Entered as Reported by: JOCELYN ROSA on 09/05/18 1028 Dapagliflozin Propanediol (Farxiga) 10 Mg Tablet, 10 MG PO DAILY, (Reported) Entered as Reported by: HAYDEN QUEZADA on 11/12/20 1539 Diphenhydramine HCl (Benadryl) 25 Mg Capsule, 50 MG PO HS, (Reported) Entered as Reported by: JOCELYN ROSA on 05/04/21 1413 Dulaglutide (Trulicity) 0.75 Mg/0.5 Ml Pen.injctr, 0.75 MG SC THUR, (Reported) Entered as Reported by: HAYDEN QUEZADA on 11/12/20 153 Famotidine (Famotidine) 20 Mg Tablet, 20 MG PO BID, (Reported) Entered as Reported by: HAYDEN QUEZADA on 11/12/20 153 Fenofibrate Nanocrystallized (Fenofibrate) 145 Mg Tablet, 145 MG PO DAILY, (Reported) Entered as Reported by: JOCELYN ROSA on 09/05/18 1028 Gabapentin (Gabapentin) 800 Mg Tablet, 800 MG PO TID, (Reported) Entered as Reported by: JOCELYN ROSA on 05/04/21 1411 Insulin Glargine,Hum.rec.anlog (Lantus Solostar) 100 Unit/1 Ml Insuln.pen, 12 UNITS SC HS, (Reported) Entered as Reported by: HAYDEN QUEZADA on 11/12/20 153 Levothyroxine Sodium (Levothyroxine Sodium) 112 Mcg Tablet, 112 MCG PO DAILY, (Reported) Entered as Reported by: JOCELYN ROSA on 09/05/18 1028 Loratadine (Loratadine) 10 Mg Tablet, 10 MG PO DAILY, (Reported) Entered as Reported by: JOCELYN ROSA on 07/24/19 1200 Nystatin (Nystatin) 100,000 Unit/1 Ml Oral.susp, 5 ML PO Q8H PRN for THURSH, (Reported) Entered as Reported by: HAYDEN QUEZADA on 11/12/20 1539 Pantoprazole Sodium (Pantoprazole Sodium) 40 Mg Tablet.dr, 40 MG PO BID, (Reported) Entered as Reported by: JOCELYN ROSA on 09/05/18 1028 Rosuvastatin Calcium (Rosuvastatin Calcium) 10 Mg Tablet, 10 MG PO HS, (Reported) Entered as Reported by: HAYDEN QUEZADA on 01/16/20 1136 Solifenacin Succinate (Vesicare) 10 Mg Tablet, 10 MG PO DAILY, (Reported) Entered as Reported by: JOCELYN ROSA on 05/04/21 1413 Tamsulosin HCl (Flomax) 0.4 Mg Cap, 0.4 MG PO DAILY, (Reported) Entered as Reported by: HAYDEN QUEZADA on 11/12/20 1539 Review of Systems Review of Systems Constitutional: no symptoms reported EENTM: no symptoms reported Respiratory: no symptoms reported Cardiovascular: no symptoms reported Gastrointestinal: no symptoms reported Genitourinary: no symptoms reported Musculoskeletal: see HPI Skin: see HPI Psychiatric/Neurological: No Symptoms Reported Endocrine: No Symptoms Reported Past Syeixok-Boykzi-Qpgpnk Hx Immunizations Up To Date Tetanus Booster (TDap): Unknown First/Initial COVID19 Vaccinat: NO Second COVID19 Vaccination Bienvenido: NO Third COVID19 Vaccination Date: NO Seasonal Allergies Seasonal Allergies: Yes Past Medical History Surgery/Hospitalization HX: COPD Surgeries: Yes (C/S X2, HERNIA X3, ) Abdominal, Section, Hysterectomy, Oophorectomy, 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 Respiratory: Yes (smoker's cough) Asthma, COPD Cardiac: Yes High Cholesterol Neurological: Yes Headaches /Migraines 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 Disorders: Yes 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 Disorders: Ovarian Cyst 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 Genitourinary: No Bladder Infection Gastrointestinal: Yes Gastroesophageal Reflux, Chronic Constipation, Irritable Bowel Musculoskeletal: Yes (bulging disc) Degenerate Disk Disease, Scoliosis, Chronic Back Pain Endocrine: Yes Hypothyroidsim, Diabetes, Non-Insulin dep HEENT: Yes (chronic sinusitis) Cancer: Yes Cervical Did You Recieve Any Treatments: Yes What Type of Treatment Did You: Surgical Intervention Psychosocial: Yes Anxiety, Bipolar, Depression Integumentary: No Blood Disorders: No Family Medical History No Pertinent Family Hx Physical Exam Vital Signs Capillary Refill : General Appearance: no apparent distress Cardiovascular: normal peripheral pulses, regular rate, rhythm Respiratory: lungs clear, normal breath sounds Gastrointestinal: non tender, soft Extremities: normal range of motion Skin: other (This) Skin Problem Location: lower extremities (Left inner thigh) Skin Problem Character: other (What appears to be an infected hair cell but no drainable abscess at this time. It is indurated. Mild surrounding erythema) Progress/Results/Core Measures Progress Progress Note : Progress Note Patient with nondrainable abscess at this time. She does have what appears to be a folliculitis. I will start her on clindamycin based on her allergy. Patient should use a warm compress and follow-up with her primary care provider tomorrow afternoon or the next day to see if there is a drainable abscess. Departure Impression Primary Impression: Folliculitis Disposition: HOME, SELF-CARE Condition: Stable Departure-Patient Inst. Referrals: ABA,LOCAL PHYSICIAN (PCP) Primary Care Physician AMINATA ARRIETA APRN (Family) Primary Care Physician Add. Discharge Instructions: Please follow-up with your primary care provider tomorrow afternoon or Tuesday Warm moist compress to 4-5 times daily Scripts Clindamycin HCl (Clindamycin HCl) 300 Mg Capsule 300 MG PO TID for 7 Days, #21 CAP Prov: VIVIAN DASILVA DO 06/21/21 VIVIAN DASILVA DO June 21, 2021 23:09
[2021-06-21] MEDS ORDERED: CLIN-144 PO (23:25)
[2021-06-21] MEDS ORDERED: KETOROLAC 30 MG/ML VIAL IVP STA (23:26)
[2021-06-21] MEDS ORDERED: CLINDAMYCIN 150 MG (CLEOCIN) CAP PO ONE (23:30)
[2021-06-21 23:40] VITALS: BP 128/76
== END 2021-06-21 23:40 | disposition home or self-care (01) ==
LOC: EDUNIT# 22:48 → ER FS 22:51
DX: L73.9 Follicular disorder, unspecified (principal)
CPT/HCPCS: 99284

== ENCOUNTER → 2021-06-22 | Outpatient (CLI) | payer MEDICAID ==
[~2021-06-22] MED LIST changes: +BARIUM for suspension 96% w/w (Vanilla Silq Medium Density) PO ONE; +BARIUM for suspension 98% w/w (Vanilla Silq High Density) PO ONE; +CLIN-144 PO
--- NOTE | 2021-06-22 17:52 | Diagnostic Imaging Report ---
EXAMINATION: Barium swallow INDICATION: Difficulty swallowing COMPARISON: There are no prior studies available for comparison. TECHNIQUE: A double contrast exam was performed. FINDINGS: The patient was able swallow the contrast material without difficulty. There was no delay or obstruction of the passage of contrast through the esophagus. There is no evidence for a hiatal hernia or for gastroesophageal reflux. There is no mass or stricture identified either. There was a small amount of aspiration of the contrast material. The aspiration did not elicit a cough however. The stomach shows good distensibility and motility. There is no mass or ulceration evident. IMPRESSION: 1. The esophagus shows fairly good distensibility and motility. There is no mass or stricture identified. 2. There is no sign of a hiatal hernia or of gastroesophageal reflux. 3. There was a small amount of the contrast aspirated. The aspiration however did not elicit a cough. Clinical follow-up with a speech pathologist should be considered. 4. The stomach, duodenum and proximal small bowel were unremarkable. Dictated by: Dictated on workstation # [id number]
== END ==
LOC: RAD 09:27
PROVIDERS: ATTEND Surgery
DX: R13.10 Dysphagia, unspecified (principal)
CPT/HCPCS: 74220

== ENCOUNTER 2021-10-12 20:44 | Emergency (ER) | payer MEDICAID ==
[~2021-10-12] VITALS: Ht 160 cm; Wt 61.2 kg
[~2021-10-12 20:44] MED LIST changes: -BARIUM for suspension 96% w/w (Vanilla Silq Medium Density) PO ONE; -BARIUM for suspension 98% w/w (Vanilla Silq High Density) PO ONE
[2021-10-12] MEDS ORDERED: ONDANSETRON 4 MG/2 ML (SDV) Z0FRAN IVP ONE (21:00)
[2021-10-12] MEDS ORDERED: NS IV 1000 ML 1,000 ML IV SCH (21:00)
[2021-10-12 21:06] LABS: BASOPHILS # (AUTO) 0.1 10^3/uL (0.0-0.1); BASOPHILS % (AUTO) 1 % (0-10); EOSINOPHILS # (AUTO) 0.5 10^3/uL (0.0-0.3); EOSINOPHILS % (AUTO) 5 % (0-10); HEMATOCRIT 37 % (35-52); HEMOGLOBIN 12.6 g/dL (11.5-16.0); LYMPHOCYTES # (AUTO) 4.1 10^3/uL (1.0-4.0); LYMPHOCYTES % (AUTO) 42 % (12-44); MEAN CORPUSCULAR HEMOGLOBIN 28 pg (25-34); MEAN CORPUSCULAR HGB CONC 35 g/dL (32-36); MEAN CORPUSCULAR VOLUME 80 fL (80-99); MEAN PLATELET VOLUME 8.7 fL (9.0-12.2); MONOCYTES # (AUTO) 0.5 10^3/uL (0.0-1.0); MONOCYTES % (AUTO) 5 % (0-12); NEUTROPHILS # (AUTO) 4.7 10^3/uL (1.8-7.8); NEUTROPHILS % (AUTO) 47 % (42-75); PLATELET COUNT 344 10^3/uL (130-400); WHITE BLOOD COUNT 9.9 10^3/uL (4.3-11.0)
--- NOTE | 2021-10-12 21:10 | ED Abdominal Pain ---
General Chief Complaint: Abdominal/GI Problems Stated Complaint: VOMITTING,ABD PAIN Nursing Triage Note: Patient states that she has had intermittent abdominal pain for the last 3 weeks. Patient states that it is between her left side and her epigastric area. Patient does have nausea and vomiting intermittently as well. Patient reports normal bowel movements with the exception of yesterday. Yesterday patient reports 1 episode of diarrhea. Source of Information: Patient Exam Limitations: No Limitations History of Present Illness Date Seen by Provider: Oct 12, 2021 Time Seen by Provider: 20:58 Initial Comments 51-year-old patient with a history of diabetes presents to the emergency department with abdominal pain. Patient points to the epigastrium and right and left upper quadrants as the source of her pain. She reports that it is mostly related to eating. She states at the worst her pain is at a "6-8" and currently about a "4-5". She has not really taken anything for the pain. History of GERD on 2 different acid blocking meds. EGD and colonoscopy in the spring. She did have some Phenergan prior to arrival because she was very nauseous. She has had a couple of episodes of vomiting over the last 3 weeks. History of hysterectomy. Still has her gallbladder and appendix. No reported fevers or chills. No black or bloody stools. She had an episode of diarrhea last night. She denies urinary complaints. All other review of systems reviewed and negative except as stated. Timing/Duration: Other (3 weeks) Severity/Quality: Moderate ("6-8"), Aching Location: LUQ, RLQ, Epigastric Radiation: No Radiation Activities at Onset: None Associated Symptoms: Nausea/Vomiting Allergies and Home Medications Allergies Coded Allergies: Sulfa (Sulfonamide Antibiotics) (Verified Allergy, Unknown, abd pain, 09/05/18) adhesive tape (Verified Allergy, Unknown, Hives, 09/05/18) bupropion (Verified Allergy, Unknown, sucidial, 09/05/18) carisoprodol (Verified Allergy, Unknown, heart palpatations, 09/05/18) quetiapine (Verified Allergy, Unknown, suicidal, 09/05/18) Patient Home Medication List Home Medication List Reviewed: Yes Albuterol Sulfate (Albuterol Sulfate) 2.5 Mg/3 Ml Vial.neb, 3 ML NEB Q6H PRN for SHORTNESS OF BREATH, (Reported) Entered as Reported by: HAYDEN QUEZADA on 01/16/20 1136 Albuterol Sulfate (Proventil Hfa) 6.7 Gm Hfa.aer.ad, 2 PUFF INH Q6H PRN for SHORTNESS OF BREATH, (Reported) Entered as Reported by: HAYDEN QUEZADA on 11/12/20 1539 Amitriptyline HCl (Amitriptyline HCl) 10 Mg Tablet, 10 MG PO HS, (Reported) Entered as Reported by: JOCELYN ROSA on 05/04/21 1413 Aspirin (Aspirin EC) 81 Mg Tablet.dr, 81 MG PO DAILY, (Reported) Entered as Reported by: HAYDNE QUEZADA on 01/16/20 113 Celecoxib (Celebrex) 100 Mg Capsule, 100 MG PO BID, (Reported) Entered as Reported by: JOCELYN ROSA on 05/04/21 1413 Citalopram Hydrobromide (Citalopram HBr) 40 Mg Tablet, 40 MG PO DAILY, (Reported) Entered as Reported by: HAYDEN QUEZADA on 11/12/20 153 Clindamycin HCl (Clindamycin HCl) 300 Mg Capsule, 300 MG PO TID Prescribed by: VIVIAN DASILVA on 06/21/21 2325 Cyclobenzaprine HCl (Cyclobenzaprine HCl) 10 Mg Tablet, 10 MG PO TID PRN for MUSCLE SPASMS, (Reported) Entered as Reported by: JOCELYN ROSA on 09/05/18 1028 Dapagliflozin Propanediol (Farxiga) 10 Mg Tablet, 10 MG PO DAILY, (Reported) Entered as Reported by: HAYDEN QUEZADA on 11/12/20 153 Diphenhydramine HCl (Benadryl) 25 Mg Capsule, 50 MG PO HS, (Reported) Entered as Reported by: JOCELYN ROSA on 05/04/21 1413 Dulaglutide (Trulicity) 0.75 Mg/0.5 Ml Pen.injctr, 0.75 MG SC THUR, (Reported) Entered as Reported by: HAYDEN QUEZADA on 11/12/20 1539 Famotidine (Famotidine) 20 Mg Tablet, 20 MG PO BID, (Reported) Entered as Reported by: HAYDEN QUEZADA on 11/12/20 1539 Fenofibrate Nanocrystallized (Fenofibrate) 145 Mg Tablet, 145 MG PO DAILY, (Reported) Entered as Reported by: JOCELYN ROSA on 09/05/18 1028 Gabapentin (Gabapentin) 800 Mg Tablet, 800 MG PO TID, (Reported) Entered as Reported by: JOCELYN ROSA on 05/04/21 1411 Insulin Glargine,Hum.rec.anlog (Lantus Solostar) 100 Unit/1 Ml Insuln.pen, 12 UNITS SC HS, (Reported) Entered as Reported by: HAYDEN QUEZADA on 11/12/20 1539 Levothyroxine Sodium (Levothyroxine Sodium) 112 Mcg Tablet, 112 MCG PO DAILY, (Reported) Entered as Reported by: JOCELYN ROSA on 09/05/18 1028 Loratadine (Loratadine) 10 Mg Tablet, 10 MG PO DAILY, (Reported) Entered as Reported by: JOCELYN ROSA on 07/24/19 1200 Nystatin (Nystatin) 100,000 Unit/1 Ml Oral.susp, 5 ML PO Q8H PRN for THURSH, (Reported) Entered as Reported by: HAYDEN QUEZADA on 11/12/20 153 Pantoprazole Sodium (Pantoprazole Sodium) 40 Mg Tablet.dr, 40 MG PO BID, (Reported) Entered as Reported by: JOCELYN ROSA on 09/05/18 1028 Rosuvastatin Calcium (Rosuvastatin Calcium) 10 Mg Tablet, 10 MG PO HS, (Reported) Entered as Reported by: HAYDEN QUEZADA on 01/16/20 1136 Solifenacin Succinate (Vesicare) 10 Mg Tablet, 10 MG PO DAILY, (Reported) Entered as Reported by: JOCELYN ROSA on 05/04/21 1413 Tamsulosin HCl (Flomax) 0.4 Mg Cap, 0.4 MG PO DAILY, (Reported) Entered as Reported by: HAYDEN QUEZADA on 11/12/20 1539 Review of Systems Review of Systems Constitutional: see HPI EENTM: No Symptoms Reported Respiratory: No Symptoms Reported Cardiovascular: No Symptoms Reported Gastrointestinal: Abdominal Pain, Diarrhea (last night), Nausea, Poor Appetite, Vomiting Genitourinary: No Symptoms Reported Musculoskeletal: no symptoms reported Skin: no symptoms reported All Other Systems Reviewed Negative Unless Noted: Yes Past Jyxlhnf-Rmbsnk-Lvibio Hx Patient Social History Tobacco Use?: Yes Tobacco type used: Cigarettes Smoking Status: Current Everyday Smoker Substance use?: No Alcohol Use?: No Pt feels they are or have been: No Immunizations Up To Date Tetanus Booster (TDap): Unknown First/Initial COVID19 Vaccinat: NO Second COVID19 Vaccination Bienvenido: NO Third COVID19 Vaccination Date: NO Seasonal Allergies Seasonal Allergies: Yes Past Medical History Surgery/Hospitalization HX: COPD Surgeries: Yes (C/S X2, HERNIA X3, ) Abdominal, Section, Hysterectomy, Oophorectomy, 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 Respiratory: Yes (smoker's cough) Asthma, COPD Cardiac: Yes High Cholesterol Neurological: Yes Headaches /Migraines 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 Disorders: Yes 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 Disorders: 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 Genitourinary: No Bladder Infection Gastrointestinal: Yes Gastroesophageal Reflux, Chronic Constipation, Irritable Bowel Musculoskeletal: Yes (bulging disc) Degenerate Disk Disease, Scoliosis, Chronic Back Pain Endocrine: Yes Hypothyroidsim, Diabetes, Non-Insulin dep HEENT: Yes (chronic sinusitis) Cancer: Yes Cervical Did You Recieve Any Treatments: Yes What Type of Treatment Did You: Surgical Intervention Psychosocial: Yes Anxiety, Bipolar, Depression Integumentary: No Blood Disorders: No Family Medical History No Pertinent Family Hx Physical Exam Vital Signs Vital Signs - First Documented 10/12/21 20:45 Temp 36.3 Pulse 105 Resp 18 B/P (MAP) 146/81 (102) Pulse Ox 99 O2 Delivery Room Air Capillary Refill : Less Than 3 Seconds Height/Weight/BMI Height: 5'4.00" Weight: 142lbs. 0oz. [id number]; 23.00 BMI Method:Stated General Appearance: WD/WN, no apparent distress HEENT: PERRL/EOMI Respiratory: lungs clear, normal breath sounds, no respiratory distress, no accessory muscle use Cardiovascular: regular rate, rhythm Gastrointestinal: normal bowel sounds, soft; No guarding, No rebound; tenderness (epigastrum, LUQ and mildly in the RLQ), other (neg Mcburney's point tenderness; neg Tovar's sign) Extremities: normal range of motion, non-tender, normal inspection Neurologic/Psychiatric: alert, normal mood/affect, oriented x 3 Skin: normal color, warm/dry Progress/Results/Core Measures Results/Orders Lab Results Laboratory Tests Test 10/12/21 20:51 Range/Units White Blood Count 9.9 4.3-11.0 10^3/uL Red Blood Count 4.54 3.80-5.11 10^6/uL Hemoglobin 12.6 11.5-16.0 g/dL Hematocrit 37 35-52 % Mean Corpuscular Volume 80 80-99 fL Mean Corpuscular Hemoglobin 28 25-34 pg Mean Corpuscular Hemoglobin Concent 35 32-36 g/dL Red Cell Distribution Width 13.1 10.0-14.5 % Platelet Count 344 130-400 10^3/uL Mean Platelet Volume 8.7 L 9.0-12.2 fL Immature Granulocyte % (Auto) 0 % Neutrophils (%) (Auto) 47 42-75 % Lymphocytes (%) (Auto) 42 12-44 % Monocytes (%) (Auto) 5 0-12 % Eosinophils (%) (Auto) 5 0-10 % Basophils (%) (Auto) 1 0-10 % Neutrophils # (Auto) 4.7 1.8-7.8 10^3/uL Lymphocytes # (Auto) 4.1 H 1.0-4.0 10^3/uL Monocytes # (Auto) 0.5 0.0-1.0 10^3/uL Eosinophils # (Auto) 0.5 H 0.0-0.3 10^3/uL Basophils # (Auto) 0.1 0.0-0.1 10^3/uL Immature Granulocyte # (Auto) 0.0 0.0-0.1 10^3/uL Sodium Level 134 L 135-145 MMOL/L Potassium Level 3.5 L 3.6-5.0 MMOL/L Chloride Level 99 98-107 MMOL/L Carbon Dioxide Level 18 L 21-32 MMOL/L Anion Gap 17 H 5-14 MMOL/L Blood Urea Nitrogen 13 7-18 MG/DL Creatinine 1.06 0.60-1.30 MG/DL Estimat Glomerular Filtration Rate 63 BUN/Creatinine Ratio 12 Glucose Level 317 H 70-105 MG/DL Calcium Level 9.6 8.5-10.1 MG/DL Corrected Calcium 9.3 8.5-10.1 MG/DL Total Bilirubin < 0.2 0.1-1.0 MG/DL Aspartate Amino Transf (AST/SGOT) 12 5-34 U/L Alanine Aminotransferase (ALT/SGPT) 15 0-55 U/L Alkaline Phosphatase 74 40-136 U/L Total Protein 7.2 6.4-8.2 GM/DL Albumin 4.4 3.2-4.5 GM/DL Lipase 71 8-78 U/L My Orders Orders - TY PARRA MD Ed Iv/Invasive Line Start (10/12/21 21:00) Cbc With Automated Diff (10/12/21 21:00) Comprehensive Metabolic Panel (10/12/21 21:00) Lipase (10/12/21 21:00) Ns Iv 1000 Ml (Sodium Chloride 0.9%) (10/12/21 21:00) Ondansetron Injection (Zofran Injectio (10/12/21 21:00) Antacid Suspension (Mylanta Suspension (10/12/21 21:45) Lidocaine 2% Viscous 15 Ml (Xylocaine Vi (10/12/21 21:45) Sucralfate Tablet (Carafate Tablet) (10/12/21 21:45) Dicyclomine Injection (Bentyl Injection) (10/12/21 21:41) Medications Given in ED Current Medications Medications Dose Ordered Sig/Francis Route Start Time Stop Time Status Last Admin Dose Admin Ondansetron HCl 4 mg ONCE ONCE IVP 10/12/21 21:00 10/12/21 21:02 DC 10/12/21 21:06 4 MG Vital Signs/I&O 10/12/21 20:45 Temp 36.3 Pulse 105 Resp 18 B/P (MAP) 146/81 (102) Pulse Ox 99 O2 Delivery Room Air Blood Pressure Mean: 102 Progress Progress Note : Time: 21:45 Progress Note patient still feeling a little nauseated. Mild pain. Labs reviewed - all reassuring. Slightly elevated Glucose and decreased CO2 with slight gap. hydrated with a liter of fluids. Given a GI cocktail and bentyl. Suspect biliary colic/GB. Advised follow up with her PCP to discuss a GB ultrasound. Home with bentyl. Return precautions provided. Also advised to avoid fatty foods while she is awaiting further eval. Patient verbalized understanding and agreement. All questions are sought and answered. Departure Impression Primary Impression: Abdominal pain Qualified Codes: R10.13 - Epigastric pain Disposition: HOME, SELF-CARE Condition: Stable Departure-Patient Inst. Decision time for Depature: 21:49 Referrals: NO,LOCAL PHYSICIAN (PCP) Primary Care Physician AMINATA ARRIETA APRN (Family) Primary Care Physician Patient Instructions: Abdominal Pain, Adult ED, Gallbladder Diet Add. Discharge Instructions: Take the Bentyl (dicyclomine) every 6 hours as needed for pain. Take this medication about 30 minutes prior to eating. Continue you Acid reducing medications as prescribed. Phenergan as needed every 6 hours for nausea. Avoid fatty foods until you have further evaluation of your Gallbladder. Follow up with your family doctor tomorrow for further evaluation and work up of possible gallbladder issues. Return to the Emergency Department for re-evaluation if you have increased pain especially with fever, worsening vomiting or any other emergent, concerning symptoms. Scripts Dicyclomine HCl (Dicyclomine HCl) 20 Mg Tablet 20 MG PO Q6H PRN for abdominal cramping, #60 TAB take 30 minutes before meals Prov: TY PARRA MD 10/12/21 TY PARRA MD Oct 12, 2021 21:09
[2021-10-12 21:26] LABS: ALANINE AMINOTRANSFERASE 15 U/L (0-55); ALKALINE PHOSPHATASE 74 U/L (40-136); BILIRUBIN,TOTAL < 0.2 MG/DL (0.1-1.0); BUN/CREATININE RATIO 12; CALCIUM 9.6 MG/DL (8.5-10.1); CARBON DIOXIDE 18 MMOL/L (21-32); CHLORIDE 99 MMOL/L (98-107); CREATININE SERUM 1.06 MG/DL (0.60-1.30); GFR ESTIMATED 63; GLUCOSE 317 MG/DL (70-105); POTASSIUM 3.5 MMOL/L (3.6-5.0); SODIUM 134 MMOL/L (135-145)
[2021-10-12 21:27] LABS: ALBUMIN 4.4 GM/DL (3.2-4.5); LIPASE 71 U/L (8-78); TOTAL PROTEIN 7.2 GM/DL (6.4-8.2)
[2021-10-12] MEDS ORDERED: DICYCLOMINE 10 MG/ML (BENTYL) 2 ML AMP IM STA (21:41)
[2021-10-12] MEDS ORDERED: ANTACID SUSP 30 ML UDC (MYLANTA) PO ONE (21:45)
[2021-10-12] MEDS ORDERED: LIDOCAINE 2% VISCOUS 15 ML UDC PO ONE (21:45)
[2021-10-12] MEDS ORDERED: SUCRALFATE 1 GM (CARAFATE) TAB PO ONE (21:45)
[2021-10-12 21:47] LABS: BAND NEUTROPHILS 0 %; BASOPHILS % (MANUAL) 0 %; EOSINOPHILS % (MANUAL) 2 %; LYMPHOCYTES % (MANUAL) 37 %; MONOCYTES % (MANUAL) 3 %; NEUTROPHILS % (MANUAL) 50 %
[2021-10-12 21:48] LABS: ATYPICAL LYMPHOCYTES 8 %
[2021-10-12] MEDS ORDERED: DICY20TA PO (21:52)
[2021-10-12 21:53] VITALS: BP 123/64
== END 2021-10-12 21:58 | disposition home or self-care (01) ==
LOC: EDUNIT# 20:44 → ER FS 20:46
DX: R10.13 Epigastric pain (principal); R10.31 Right lower quadrant pain; R10.12 Left upper quadrant pain; R11.2 Nausea with vomiting, unspecified; E11.65 Type 2 diabetes mellitus with hyperglycemia; F17.210 Nicotine dependence, cigarettes, uncomplicated; Z87.19 Personal history of other diseases of the digestive system; Z90.710 Acquired absence of both cervix and uterus; Z28.310 Unvaccinated for COVID-19
CPT/HCPCS: 36415; 80053; 83690; 85007; 85027

== ENCOUNTER 2021-10-15 18:56 | Emergency (ER) | payer MEDICAID ==
[~2021-10-15] VITALS: Ht 162.5 cm; Wt 64.0 kg
[~2021-10-15 18:56] MED LIST changes: +DICY20TA PO; +LEVO-55 PO; -LEVO500T81 PO
[2021-10-15] MEDS ORDERED: ONDANSETRON 4 MG/2 ML (SDV) Z0FRAN IVP STA (19:09)
[2021-10-15] MEDS ORDERED: NS IV 1000 ML 1,000 ML IV STA (19:09)
[2021-10-15] MEDS ORDERED: KETOROLAC 30 MG/ML VIAL IVP STA (19:09)
--- NOTE | 2021-10-15 19:14 | ED GI ---
General Chief Complaint: Abdominal/GI Problems Stated Complaint: ABD PAIN Nursing Triage Note: Pt c/o RUQ abd pain with n/v today. Reports [facility] but has not heard of the results. 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 Source of Information: Patient History of Present Illness Date Seen by Provider: Oct 15, 2021 Time Seen by Provider: 18:57 Initial Comments 51-year-old female presenting by EMS from home due to continued abdominal pain for the last 3 weeks. She also has had nausea and vomiting with subjective fever today. She denies having diarrhea currently but had earlier this week. She was already seen and evaluated on the for the same symptoms. She had an ultrasound done today through the [facility] but does not know the results. Timing/Duration: Other (Over 3 weeks of symptoms but felt it was worsening over last few days and much worse today) Severity/Quality: Severe, Sharp, Stabbing Location: RUQ, RLQ Activities at Onset: None Modifying Factors: Worsens With Eating, Worsens With Movement, Worsens With Palpation Associated Symptoms: No Back Pain, No Chest Pain, No Diaphoresis; Fever/Chills (Subjective), Fatigue; No Headache, No Heartburn; Nausea/Vomiting; No Rash, No Shortness of Air, No Swelling/Mass in Abdomen, No Syncope, No Weakness Allergies and Home Medications Allergies Coded Allergies: Sulfa (Sulfonamide Antibiotics) (Verified Allergy, Unknown, abd pain, 09/05/18) adhesive tape (Verified Allergy, Unknown, Hives, 09/05/18) bupropion (Verified Allergy, Unknown, sucidial, 09/05/18) carisoprodol (Verified Allergy, Unknown, heart palpatations, 09/05/18) quetiapine (Verified Allergy, Unknown, suicidal, 09/05/18) Patient Home Medication List Home Medication List Reviewed: Yes Albuterol Sulfate (Albuterol Sulfate) 2.5 Mg/3 Ml Vial.neb, 3 ML NEB Q6H PRN for SHORTNESS OF BREATH, (Reported) Entered as Reported by: HAYDEN QUEZADA on 01/16/20 1136 Albuterol Sulfate (Proventil Hfa) 6.7 Gm Hfa.aer.ad, 2 PUFF INH Q6H PRN for SHORTNESS OF BREATH, (Reported) Entered as Reported by: HAYDEN QUEZAAD on 11/12/20 1539 Amitriptyline HCl (Amitriptyline HCl) 10 Mg Tablet, 10 MG PO HS, (Reported) Entered as Reported by: JOCELYN ROSA on 05/04/21 1413 Aspirin (Aspirin EC) 81 Mg Tablet.dr, 81 MG PO DAILY, (Reported) Entered as Reported by: HAYDEN QUEZADA on 01/16/20 1136 Celecoxib (Celebrex) 100 Mg Capsule, 100 MG PO BID, (Reported) Entered as Reported by: JOCELYN ROSA on 05/04/21 1413 Citalopram Hydrobromide (Citalopram HBr) 40 Mg Tablet, 40 MG PO DAILY, (Reported) Entered as Reported by: HAYDEN QUEZADA on 11/12/20 153 Clindamycin HCl (Clindamycin HCl) 300 Mg Capsule, 300 MG PO TID Prescribed by: VIVIAN DASILVA on 06/21/21 2325 Cyclobenzaprine HCl (Cyclobenzaprine HCl) 10 Mg Tablet, 10 MG PO TID PRN for MUSCLE SPASMS, (Reported) Entered as Reported by: JOCELYN ROSA on 09/05/18 1028 Dapagliflozin Propanediol (Farxiga) 10 Mg Tablet, 10 MG PO DAILY, (Reported) Entered as Reported by: HAYDEN QUEZADA on 11/12/20 153 Dicyclomine HCl (Dicyclomine HCl) 20 Mg Tablet, 20 MG PO Q6H PRN for abdominal cramping Prescribed by: TY PARRA on 10/12/21 215 Diphenhydramine HCl (Benadryl) 25 Mg Capsule, 50 MG PO HS, (Reported) Entered as Reported by: JOCELYN ROSA on 05/04/21 141 Dulaglutide (Trulicity) 0.75 Mg/0.5 Ml Pen.injctr, 0.75 MG SC THUR, (Reported) Entered as Reported by: HAYDEN QUEZADA on 11/12/20 153 Famotidine (Famotidine) 20 Mg Tablet, 20 MG PO BID, (Reported) Entered as Reported by: HAYDEN QUEZADA on 11/12/20 153 Fenofibrate Nanocrystallized (Fenofibrate) 145 Mg Tablet, 145 MG PO DAILY, (Reported) Entered as Reported by: JOCELYN ROSA on 09/05/18 1028 Gabapentin (Gabapentin) 800 Mg Tablet, 800 MG PO TID, (Reported) Entered as Reported by: JOCELYN ROSA on 05/04/21 1411 Hydrocodone/Acetaminophen (Hydrocodone-Acetamin 5-325 mg) 5 Mg-325 Mg Tablet, 1 TAB PO Q6H PRN for PAIN-SEVERE (8-10) Prescribed by: FAROOQ LANGE on 10/15/21 213 Insulin Glargine,Hum.rec.anlog (Lantus Solostar) 100 Unit/1 Ml Insuln.pen, 12 UNITS SC HS, (Reported) Entered as Reported by: HAYDEN QUEZADA on 11/12/20 153 Levothyroxine Sodium (Levothyroxine Sodium) 112 Mcg Tablet, 112 MCG PO DAILY, (Reported) Entered as Reported by: JOCELYN ROSA on 09/05/18 102 Loratadine (Loratadine) 10 Mg Tablet, 10 MG PO DAILY, (Reported) Entered as Reported by: JOCELYN ROSA on 07/24/19 1200 Nystatin (Nystatin) 100,000 Unit/1 Ml Oral.susp, 5 ML PO Q8H PRN for THURSH, (Reported) Entered as Reported by: HAYDEN QUEZADA on 11/12/20 153 Ondansetron (Ondansetron Odt) 4 Mg Tab.rapdis, 4 MG PO Q6H PRN for NAUSEA/VOMITING Prescribed by: FAROOQ LANGE on 10/15/212131 Pantoprazole Sodium (Pantoprazole Sodium) 40 Mg Tablet.dr, 40 MG PO BID, (Reported) Entered as Reported by: JOCELYN ROSA on 09/05/18 1028 Rosuvastatin Calcium (Rosuvastatin Calcium) 10 Mg Tablet, 10 MG PO HS, (Reported) Entered as Reported by: HAYDEN QUEZADA on 01/16/20 1136 Solifenacin Succinate (Vesicare) 10 Mg Tablet, 10 MG PO DAILY, (Reported) Entered as Reported by: JOCELYN ROSA on 05/04/21 1413 Tamsulosin HCl (Flomax) 0.4 Mg Cap, 0.4 MG PO DAILY, (Reported) Entered as Reported by: HAYDEN QUEZADA on 11/12/20 1539 Review of Systems Review of Systems Constitutional: chills, fever (Subjective) EENTM: No Symptoms Reported Respiratory: No Symptoms Reported Cardiovascular: No Symptoms Reported Gastrointestinal: See HPI Genitourinary: Denies Burning, Denies Frequency Musculoskeletal: no symptoms reported Skin: No rash Psychiatric/Neurological: Anxiety Endocrine: No Symptoms Reported Hematologic/Lymphatic: Denies Blood Clots Past Nivhzjl-Jlxrgl-Nnvzgs Hx Patient Social History Tobacco Use?: Yes Tobacco type used: Cigarettes Smoking Status: Current Everyday Smoker Use of E-Cig and/or Vaping dev: No Substance use?: No Alcohol Use?: No Pt feels they are or have been: No Immunizations Up To Date Tetanus Booster (TDap): Unknown First/Initial COVID19 Vaccinat: denies Second COVID19 Vaccination Bienvenido: NO Third COVID19 Vaccination Date: NO Seasonal Allergies Seasonal Allergies: Yes Past Medical History Surgery/Hospitalization HX: COPD Surgeries: Yes (C/S X2, HERNIA X3, ) Abdominal, Section, Hysterectomy, Oophorectomy, 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 Respiratory: Yes (smoker's cough) Asthma, COPD Cardiac: Yes High Cholesterol Neurological: Yes Headaches /Migraines 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 Disorders: Yes 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 Disorders: Ovarian Cyst 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 Genitourinary: No Bladder Infection Gastrointestinal: Yes Gastroesophageal Reflux, Chronic Constipation, Irritable Bowel Musculoskeletal: Yes (bulging disc) Degenerate Disk Disease, Scoliosis, Chronic Back Pain Endocrine: Yes Hypothyroidsim, Diabetes, Non-Insulin dep HEENT: Yes (chronic sinusitis) Cancer: Yes Cervical Did You Recieve Any Treatments: Yes What Type of Treatment Did You: Surgical Intervention Psychosocial: Yes Anxiety, Bipolar, Depression Integumentary: No Blood Disorders: No Family Medical History No Pertinent Family Hx Physical Exam Vital Signs Vital Signs - First Documented 10/15/21 19:00 Temp 36.7 Pulse 107 Resp 18 B/P (MAP) 123/85 (98) Pulse Ox 100 O2 Delivery Room Air Capillary Refill : Less Than 3 Seconds Height/Weight/BMI Height: 5'4.00" Weight: 142lbs. 0oz. 64.404874ug; 24.00 BMI Method:Stated General Appearance: mild distress HEENT: PERRL/EOMI, pharynx normal Neck: non-tender, full range of motion, supple, normal inspection Respiratory: chest non-tender, lungs clear, normal breath sounds, no respiratory distress, no accessory muscle use Cardiovascular: normal peripheral pulses, regular rate, rhythm Gastrointestinal: soft, no pulsatile mass, abnormal bowel sounds (Hyperactive); No distended, No guarding, No rebound; tenderness (Right upper quadrant tenderness with positive Tovar sign) Rectal: deferred Extremities: normal range of motion, non-tender, normal capillary refill Neurologic/Psychiatric: alert, oriented x 3 Skin: normal color, warm/dry; No rash Focused Exam Lactate Level 10/15/21 19:00: Lactic Acid Level 1.75 Lactic Acid Level Laboratory Tests Test 10/15/21 19:00 Lactic Acid Level 1.75 MMOL/L (0.50-2.00) Progress/Results/Core Measures Results/Orders Lab Results Laboratory Tests Test 10/15/21 19:00 10/15/21 19:07 10/15/21 19:16 Range/Units White Blood Count 10.0 4.3-11.0 10^3/uL Red Blood Count 5.01 3.80-5.11 10^6/uL Hemoglobin 14.0 11.5-16.0 g/dL Hematocrit 40 35-52 % Mean Corpuscular Volume 80 80-99 fL Mean Corpuscular Hemoglobin 28 25-34 pg Mean Corpuscular Hemoglobin Concent 35 32-36 g/dL Red Cell Distribution Width 13.2 10.0-14.5 % Platelet Count 280 130-400 10^3/uL Mean Platelet Volume 9.1 9.0-12.2 fL Immature Granulocyte % (Auto) 1 % Neutrophils (%) (Auto) 56 42-75 % Lymphocytes (%) (Auto) 34 12-44 % Monocytes (%) (Auto) 5 0-12 % Eosinophils (%) (Auto) 4 0-10 % Basophils (%) (Auto) 1 0-10 % Neutrophils # (Auto) 5.6 1.8-7.8 10^3/uL Lymphocytes # (Auto) 3.4 1.0-4.0 10^3/uL Monocytes # (Auto) 0.5 0.0-1.0 10^3/uL Eosinophils # (Auto) 0.4 H 0.0-0.3 10^3/uL Basophils # (Auto) 0.1 0.0-0.1 10^3/uL Immature Granulocyte # (Auto) 0.1 0.0-0.1 10^3/uL Sodium Level 135 135-145 MMOL/L Potassium Level 5.1 H 3.6-5.0 MMOL/L Chloride Level 98 98-107 MMOL/L Carbon Dioxide Level 21 21-32 MMOL/L Anion Gap 16 H 5-14 MMOL/L Blood Urea Nitrogen 9 7-18 MG/DL Creatinine 0.95 0.60-1.30 MG/DL Estimat Glomerular Filtration Rate 72 BUN/Creatinine Ratio 9 Glucose Level 188 H 70-105 MG/DL Lactic Acid Level 1.75 0.50-2.00 MMOL/L Calcium Level 10.1 8.5-10.1 MG/DL Corrected Calcium 8.5-10.1 MG/DL Total Bilirubin 0.2 0.1-1.0 MG/DL Aspartate Amino Transf (AST/SGOT) 32 5-34 U/L Alanine Aminotransferase (ALT/SGPT) 18 0-55 U/L Alkaline Phosphatase 71 40-136 U/L Total Protein 8.2 6.4-8.2 GM/DL Albumin 4.8 H 3.2-4.5 GM/DL Lipase 47 8-78 U/L Influenza Type A (RT-PCR) Not Detected Not Detecte Influenza Type B (RT-PCR) Not Detected Not Detecte SARS-CoV-2 RNA (RT-PCR) Not Detected Not Detecte Urine Color YELLOW Urine Clarity CLEAR Urine pH 5.5 5-9 Urine Specific [place] 1.015 L 1.016-1.022 Urine Protein 1+ H NEGATIVE Urine Glucose (UA) 3+ H NEGATIVE Urine Ketones NEGATIVE NEGATIVE Urine Nitrite NEGATIVE NEGATIVE Urine Bilirubin NEGATIVE NEGATIVE Urine Urobilinogen 0.2 < = 1.0 MG/DL Urine Leukocyte Esterase NEGATIVE NEGATIVE Urine RBC (Auto) TRACE-I H NEGATIVE Urine RBC RARE /HPF Urine WBC 0-2 /HPF Urine Squamous Epithelial Cells 2-5 /HPF Urine Crystals NONE /LPF Urine Bacteria NEGATIVE /HPF Urine Casts NONE /LPF Urine Mucus NEGATIVE /LPF Urine Culture Indicated NO My Orders Orders - FAROOQ LANGE MD Comprehensive Metabolic Panel (10/15/21 19:09) Lipase (10/15/21 19:09) Ua Culture If Indicated (10/15/21 19:09) Ed Iv/Invasive Line Start (10/15/21 19:09) Cbc With Automated Diff (10/15/21 19:09) Ct Abdomen/Pelvis W (10/15/21 19:09) Ns Iv 1000 Ml (Sodium Chloride 0.9%) (10/15/21 19:09) Ondansetron Injection (Zofran Injectio (10/15/21 19:09) Ketorolac Injection (Toradol Injection) (10/15/21 19:09) Covid 19 Inhouse Test (10/15/21 19:09) Influenza A And B By Pcr (10/15/21 19:09) Isolation Central Supply Req (10/15/21 19:09) Blood Culture (10/15/21 19:09) Lactic Acid Analyzer (10/15/21 19:09) Iohexol Injection (Omnipaque 350 Mg/Ml 1 (10/15/21 20:00) Received Contrast (Hold Metformin- Contr (10/15/21 20:00) Sodium Chloride Flush (Catheter Flush Sy (10/15/21 20:00) Ns (Ivpb) (Sodium Chloride 0.9% Ivpb Bag (10/15/21 20:00) Fentanyl Inj (Sublimaze Injection) (10/15/21 21:06) Rx-Hydrocodone/Apap 5-325 Mg (Rx-Vicodin (10/15/21 21:45) Rx-Ondansetron Po (Rx-Zofran Po) (10/15/21 21:45) Medications Given in ED Current Medications Medications Dose Ordered Sig/Francis Route Start Time Stop Time Status Last Admin Dose Admin Acetaminophen/ Hydrocodone Bitart 1 ea Q6H PRN PO 10/15/21 21:45 10/15/21 21:43 DC 10/15/21 21:37 1 EA Iohexol 100 ml ONCE ONCE IV 10/15/21 20:00 10/15/21 20:01 DC 10/15/21 20:30 100 ML Ondansetron HCl 4 mg Q6H PRN PO 10/15/21 21:45 10/15/21 21:43 DC 10/15/21 21:37 4 MG Sodium Chloride 10 ml NEEDED PRN IV 10/15/21 20:00 10/15/21 21:43 DC 10/15/21 20:30 10 ML Sodium Chloride 100 ml ONCE ONCE IV 10/15/21 20:00 10/15/21 20:01 DC 10/15/21 20:30 80 ML Vital Signs/I&O 10/15/21 10/15/21 19:00 20:35 Temp 36.7 Pulse 107 102 Resp 18 17 B/P (MAP) 123/85 (98) 153/82 (105) Pulse Ox 100 100 O2 Delivery Room Air Room Air Blood Pressure Mean: 98 Progress Progress Note #1: Progress Note Obtain basic labs and compare those to once done on the . CT scan of the abdomen pelvis to evaluate for cholecystitis, diverticulitis, colitis, bowel obstruction, bowel mass. Give normal saline 1 L IV fluid bolus for hydration, Toradol 30 mg IV for pain, Zofran 4 mg IV for nausea and vomiting. Progress Note #2: Progress Note Labs appear stable without acute significant abnormality to account for her pain. She does not have elevated white blood cell count, liver enzymes, lipase. Lactic acid is normal. Urinalysis does not show signs of infection. Awaiting CT scan report. Patient states that her symptoms were improved initially with treatment but the pain was starting to come back. We will try dose of fentanyl while waiting on CT scan report. Progress Note #3: Progress Note CT scan does not show any acute significant abnormality to account for her pain and symptoms. She does not have any pericholecystic fluid or signs of obstruction or blockage. With her symptoms today doing a little better will continue pain and nausea medicine at home. However follow-up about the ultrasound that was done today tomorrow with the clinic. Follow a low-fat gallbladder type diet. Encouraged to stay hydrated and be strict with a low-fat gallbladder diet until she can have further evaluation. Diagnostic Imaging Diagonstic Imaging: CT Plain Films/CT/US/NM/MRI: abdomen, pelvis Comments NAME: ZOE RIVERA Yvette [facility] REC#: [id number] PT STATUS: REG ER : 1970 PHYSICIAN: FAROOQ LANGE MD ADMIT DATE: 10/15/21/ER FS Draft Date of Exam:10/15/21 CT ABDOMEN/PELVIS W PROCEDURE: CT abdomen and pelvis with contrast. TECHNIQUE: Multiple contiguous axial images were obtained through the abdomen and pelvis after administration of intravenous contrast. Auto Exposure Controls were utilized during the CT exam to meet ALARA standards for radiation dose reduction. All CT scans use one or more of the following dose optimizing techniques: automated exposure control, MA and/or KvP adjustment based on patient size and exam type or iterative reconstruction. DATE: October 15, 2021. COMPARISON: CT abdomen and pelvis April 17, 2020. INDICATION: 51-year-old female, right upper quadrant abdominal pain. FINDINGS: The visualized portions of the lung bases are clear. The heart is not enlarged. There is no pericardial effusion. The liver is unremarkable in size and contour. There is probable diffuse fatty infiltration of the liver. There is no identified focal liver lesion. The main, right and left portal veins are patent. The gallbladder is unremarkable. There is no biliary ductal dilation. There is conventional pancreatic ductal anatomy. There is unremarkable evaluation of the pancreatic parenchyma. The spleen is normal in size. There is a left adrenal nodule measuring 9 mm in size which is indeterminate. The right adrenal gland is unremarkable. The left adrenal nodule appears unchanged since April 17, 2020. Unremarkable appearance of the renal parenchyma. The urinary collecting systems are not distended. There is no identified renal or ureteral stone. The urinary bladder is unremarkable. The intestinal tract is not distended. There is no evidence to suggest acute appendicitis. There are postoperative changes of the anterior abdominal wall likely reflecting prior hernia repair. There is no free intraperitoneal air. There is no drainable fluid collection. There is no free fluid in the abdomen or pelvis. There are atherosclerotic calcifications. There is ectasia of the infrarenal abdominal aorta measuring up to maximally 2.1 cm in diameter. There is no identified abnormally enlarged lymph node in the abdomen or pelvis which meets CT size criteria for adenopathy. There are multilevel degenerative changes of the spine. There is a disc extrusion at L4-L5. There is no identified acute bony abnormality. IMPRESSION: CT abdomen and pelvis: 1. Diffuse fatty infiltration of the liver. 2. No identified acute abnormality in the abdomen or pelvis. 3. Atherosclerotic disease with focal ectasia of the infrarenal abdominal aorta. Dictated on workstation # [id number] Dict: 10/15/212111 Trans: 10/15/212122 [facility] [id number] Interpreted by: KARLA SINGER MD Electronically signed by: Reviewed: Reviewed by Me Departure Impression Primary Impression: Nausea and vomiting Qualified Codes: R11.14 - Bilious vomiting Additional Impression: Right upper quadrant abdominal pain Disposition: 01 HOME, SELF-CARE Condition: Stable Departure-Patient Inst. Decision time for Depature: 21:29 Referrals: [facility] (PCP) Primary Care Physician AMINATA ARRIETA APRN (Family) Primary Care Physician Patient Instructions: Abdominal Pain, Adult ED, Gallbladder Diet, Nausea and Vomiting, Adult ED Add. Discharge Instructions: Stay well-hydrated and drink plenty of fluids. Follow a strict low-fat bland diet that would not irritate your gallbladder or stomach lining. Follow-up in the morning about the ultrasound results from the test that was done earlier today. Work with your doctor and the clinic about follow-up and further treatment and evaluation for your symptoms. All discharge instructions reviewed with patient and/or family. Voiced understa nding. Scripts Hydrocodone/Acetaminophen (Hydrocodone-Acetamin 5-325 mg) 5 Mg-325 Mg Tablet 1 TAB PO Q6H PRN for PAIN-SEVERE (8-10) for 5 Days, #20 TAB 0 Refills Prov: FAROOQ LANGE MD 10/15/21 Ondansetron (Ondansetron Odt) 4 Mg Tab.rapdis 4 MG PO Q6H PRN for NAUSEA/VOMITING for 5 Days, #20 TAB 0 Refills Prov: FAROOQ LANGE MD 10/15/21 FAROOQ LANGE MD Oct 15, 2021 19:14
[2021-10-15 19:20] LABS: BASOPHILS # (AUTO) 0.1 10^3/uL (0.0-0.1); BASOPHILS % (AUTO) 1 % (0-10); EOSINOPHILS # (AUTO) 0.4 10^3/uL (0.0-0.3); EOSINOPHILS % (AUTO) 4 % (0-10); HEMATOCRIT 40 % (35-52); LYMPHOCYTES # (AUTO) 3.4 10^3/uL (1.0-4.0); LYMPHOCYTES % (AUTO) 34 % (12-44); MEAN CORPUSCULAR HEMOGLOBIN 28 pg (25-34); MEAN CORPUSCULAR HGB CONC 35 g/dL (32-36); MEAN CORPUSCULAR VOLUME 80 fL (80-99); MEAN PLATELET VOLUME 9.1 fL (9.0-12.2); MONOCYTES # (AUTO) 0.5 10^3/uL (0.0-1.0); MONOCYTES % (AUTO) 5 % (0-12); NEUTROPHILS # (AUTO) 5.6 10^3/uL (1.8-7.8); NEUTROPHILS % (AUTO) 56 % (42-75); PLATELET COUNT 280 10^3/uL (130-400)
[2021-10-15 19:21] LABS: BILIRUBIN,URINE NEGATIVE (NEGATIVE); CLARITY,URINE CLEAR; COLOR,URINE YELLOW; GLUCOSE, URINE (UA) 3+ (NEGATIVE); KETONES,URINE NEGATIVE (NEGATIVE); LEUKOCYTE ESTERASE ,URINE NEGATIVE (NEGATIVE); NITRITE,URINE NEGATIVE (NEGATIVE); PH,URINE 5.5 (5-9); PROTEIN,URINE 1+ (NEGATIVE)
[2021-10-15 19:30] LABS: BACTERIA,URINE NEGATIVE /HPF; RBC,URINE RARE /HPF; WBC,URINE 0-2 /HPF
[2021-10-15 19:40] LABS: POTASSIUM 5.1 MMOL/L (3.6-5.0); SODIUM 135 MMOL/L (135-145)
[2021-10-15 19:41] LABS: ALANINE AMINOTRANSFERASE 18 U/L (0-55); ALBUMIN 4.8 GM/DL (3.2-4.5); ALKALINE PHOSPHATASE 71 U/L (40-136); BILIRUBIN,TOTAL 0.2 MG/DL (0.1-1.0); BUN/CREATININE RATIO 9; CALCIUM 10.1 MG/DL (8.5-10.1); CARBON DIOXIDE 21 MMOL/L (21-32); CHLORIDE 98 MMOL/L (98-107); CREATININE SERUM 0.95 MG/DL (0.60-1.30); GFR ESTIMATED 72; GLUCOSE 188 MG/DL (70-105); LIPASE 47 U/L (8-78); TOTAL PROTEIN 8.2 GM/DL (6.4-8.2)
[2021-10-15] MEDS ORDERED: HOLD METFORMIN - RECEIVED CONTRAST 20 ML VIAL IV SCH (20:00)
[2021-10-15] MEDS ORDERED: IOHEXOL 350 MG/ML 100 ML (OMNIPAQUE 350) VIAL IV ONE (20:00)
[2021-10-15] MEDS ORDERED: CATHETER FLUSH 10 ML SYR IV PRN (20:00)
[2021-10-15] MEDS ORDERED: NS 100 ML (IVPB) BAG IV ONE (20:00)
[2021-10-15] MEDS ORDERED: fentaNYL INJ 100 MCG/2 ML AMP IVP STA (21:06)
--- NOTE | 2021-10-15 21:24 | Diagnostic Imaging Report ---
PROCEDURE: CT abdomen and pelvis with contrast. TECHNIQUE: Multiple contiguous axial images were obtained through the abdomen and pelvis after administration of intravenous contrast. Auto Exposure Controls were utilized during the CT exam to meet ALARA standards for radiation dose reduction. All CT scans use one or more of the following dose optimizing techniques: automated exposure control, MA and/or KvP adjustment based on patient size and exam type or iterative reconstruction. DATE: October 15, 2021. COMPARISON: CT abdomen and pelvis April 17, 2020. INDICATION: 51-year-old female, right upper quadrant abdominal pain. FINDINGS: The visualized portions of the lung bases are clear. The heart is not enlarged. There is no pericardial effusion. The liver is unremarkable in size and contour. There is probable diffuse fatty infiltration of the liver. There is no identified focal liver lesion. The main, right and left portal veins are patent. The gallbladder is unremarkable. There is no biliary ductal dilation. There is conventional pancreatic ductal anatomy. There is unremarkable evaluation of the pancreatic parenchyma. The spleen is normal in size. There is a left adrenal nodule measuring 9 mm in size which is indeterminate. The right adrenal gland is unremarkable. The left adrenal nodule appears unchanged since April 17, 2020. Unremarkable appearance of the renal parenchyma. The urinary collecting systems are not distended. There is no identified renal or ureteral stone. The urinary bladder is unremarkable. The intestinal tract is not distended. There is no evidence to suggest acute appendicitis. There are postoperative changes of the anterior abdominal wall likely reflecting prior hernia repair. There is no free intraperitoneal air. There is no drainable fluid collection. There is no free fluid in the abdomen or pelvis. There are atherosclerotic calcifications. There is ectasia of the infrarenal abdominal aorta measuring up to maximally 2.1 cm in diameter. There is no identified abnormally enlarged lymph node in the abdomen or pelvis which meets CT size criteria for adenopathy. There are multilevel degenerative changes of the spine. There is a disc extrusion at L4-L5. There is no identified acute bony abnormality. IMPRESSION: CT abdomen and pelvis: 1. Diffuse fatty infiltration of the liver. 2. No identified acute abnormality in the abdomen or pelvis. 3. Atherosclerotic disease with focal ectasia of the infrarenal abdominal aorta. Dictated by: Dictated on workstation # [id number]
[2021-10-15] MEDS ORDERED: ACHD5005 PO (21:32)
[2021-10-15] MEDS ORDERED: ONDA4TAB11 PO (21:32)
[2021-10-15 21:43] VITALS: BP 139/82
[2021-10-15] MEDS ORDERED: RX-ONDANSETRON 4 MG ODT (ZOFRAN) PPK #4 PO PRN (21:45)
== END 2021-10-15 21:43 | disposition home or self-care (01) ==
LOC: EDUNIT# 18:56 → ER FS 18:57
DX: R10.11 Right upper quadrant pain (principal); R10.31 Right lower quadrant pain; R11.2 Nausea with vomiting, unspecified; F17.210 Nicotine dependence, cigarettes, uncomplicated; Z20.822 Contact with and (suspected) exposure to COVID-19; Z28.310 Unvaccinated for COVID-19
CPT/HCPCS: 36415; 74177; 80053; 81000; 83605; 83690; 85025; 87040; 87636

== ENCOUNTER 2021-11-07 20:33 | Emergency (ER) | payer MEDICAID ==
--- NOTE | 2021-11-07 20:52 | ED Upper Extremity ---
General Chief Complaint: Upper Extremity Stated Complaint: RT WRIST PAIN Nursing Triage Note: Pt complaining of right wrist pain that has been going on for about 8 months. Source: patient Exam Limitations: no limitations History of Present Illness Date Seen by Provider: Nov 07, 2021 Time Seen by Provider: 20:37 Initial Comments 51-year-old female with past medical history of diabetes, asthma, HLD coming in due to chronic right-sided wrist pain. Been going on for roughly 8 months, worsening, sharp pain. Worse when she is lying on her stomach for a long time. It is on the pinky side of her wrist. She denies any trauma to it. She takes hydrocodone every once in a while as well as rubs on Aspercreme which does seem to help. Has not seen anybody for it as of yet. Otherwise denies any fever, joint swelling, falls, or any other concerns Allergies and Home Medications Allergies Coded Allergies: Sulfa (Sulfonamide Antibiotics) (Verified Allergy, Unknown, abd pain, 09/05/18) adhesive tape (Verified Allergy, Unknown, Hives, 09/05/18) bupropion (Verified Allergy, Unknown, sucidial, 09/05/18) carisoprodol (Verified Allergy, Unknown, heart palpatations, 09/05/18) quetiapine (Verified Allergy, Unknown, suicidal, 09/05/18) Patient Home Medication List Home Medication List Reviewed: Yes Albuterol Sulfate (Albuterol Sulfate) 2.5 Mg/3 Ml Vial.neb, 3 ML NEB Q6H PRN for SHORTNESS OF BREATH, (Reported) Entered as Reported by: HAYDEN QUEZADA on 01/16/20 1136 Albuterol Sulfate (Proventil Hfa) 6.7 Gm Hfa.aer.ad, 2 PUFF INH Q6H PRN for SHORTNESS OF BREATH, (Reported) Entered as Reported by: HAYDEN QUEZADA on 11/12/20 1539 Amitriptyline HCl (Amitriptyline HCl) 10 Mg Tablet, 10 MG PO HS, (Reported) Entered as Reported by: JOCELYN ROSA on 05/04/21 1413 Aspirin (Aspirin EC) 81 Mg Tablet.dr, 81 MG PO DAILY, (Reported) Entered as Reported by: HAYDEN QUEZADA on 01/16/20 1136 Celecoxib (Celebrex) 100 Mg Capsule, 100 MG PO BID, (Reported) Entered as Reported by: JOCELYN ROSA on 05/04/21 1413 Citalopram Hydrobromide (Citalopram HBr) 40 Mg Tablet, 40 MG PO DAILY, (Reported) Entered as Reported by: HAYDEN QUEZADA on 11/12/20 1539 Clindamycin HCl (Clindamycin HCl) 300 Mg Capsule, 300 MG PO TID Prescribed by: VIVIAN DASILVA on 06/21/21 2325 Cyclobenzaprine HCl (Cyclobenzaprine HCl) 10 Mg Tablet, 10 MG PO TID PRN for MUSCLE SPASMS, (Reported) Entered as Reported by: JOCELYN ROSA on 09/05/18 1028 Dapagliflozin Propanediol (Farxiga) 10 Mg Tablet, 10 MG PO DAILY, (Reported) Entered as Reported by: HAYDEN QUEZADA on 11/12/20 153 Dicyclomine HCl (Dicyclomine HCl) 20 Mg Tablet, 20 MG PO Q6H PRN for abdominal cramping Prescribed by: TY PARRA on 10/12/21 215 Diphenhydramine HCl (Benadryl) 25 Mg Capsule, 50 MG PO HS, (Reported) Entered as Reported by: JOCELYN ORSA on 05/04/21 141 Dulaglutide (Trulicity) 0.75 Mg/0.5 Ml Pen.injctr, 0.75 MG SC THUR, (Reported) Entered as Reported by: HAYDEN QUEZADA on 11/12/20 1539 Famotidine (Famotidine) 20 Mg Tablet, 20 MG PO BID, (Reported) Entered as Reported by: HAYDEN QUEZADA on 11/12/20 153 Fenofibrate Nanocrystallized (Fenofibrate) 145 Mg Tablet, 145 MG PO DAILY, (Reported) Entered as Reported by: JOCELYN ROSA on 09/05/18 1028 Gabapentin (Gabapentin) 800 Mg Tablet, 800 MG PO TID, (Reported) Entered as Reported by: JOCELYN ROSA on 05/04/21 1411 Hydrocodone/Acetaminophen (Hydrocodone-Acetamin 5-325 mg) 5 Mg-325 Mg Tablet, 1 TAB PO Q6H PRN for PAIN-SEVERE (8-10) Prescribed by: FAROOQ LANGE on 10/15/212131 Insulin Glargine,Hum.rec.anlog (Lantus Solostar) 100 Unit/1 Ml Insuln.pen, 12 UNITS SC HS, (Reported) Entered as Reported by: HAYDEN QUEZADA on 11/12/20 153 Levothyroxine Sodium (Levothyroxine Sodium) 112 Mcg Tablet, 112 MCG PO DAILY, (Reported) Entered as Reported by: JOCELYN ROSA on 09/05/18 1028 Loratadine (Loratadine) 10 Mg Tablet, 10 MG PO DAILY, (Reported) Entered as Reported by: JOCELYN ROSA on 07/24/19 1200 Nystatin (Nystatin) 100,000 Unit/1 Ml Oral.susp, 5 ML PO Q8H PRN for THURSH, (Reported) Entered as Reported by: HAYDEN QUEZADA on 11/12/20 153 Ondansetron (Ondansetron Odt) 4 Mg Tab.rapdis, 4 MG PO Q6H PRN for NAUSEA/VOMITING Prescribed by: FAROOQ LANGE on 10/15/212131 Pantoprazole Sodium (Pantoprazole Sodium) 40 Mg Tablet.dr, 40 MG PO BID, (Reported) Entered as Reported by: JOCELYN ROSA on 09/05/18 1028 Rosuvastatin Calcium (Rosuvastatin Calcium) 10 Mg Tablet, 10 MG PO HS, (Reported) Entered as Reported by: HAYDEN QUEZADA on 01/16/20 1136 Solifenacin Succinate (Vesicare) 10 Mg Tablet, 10 MG PO DAILY, (Reported) Entered as Reported by: JOCELYN ROSA on 05/04/21 1413 Tamsulosin HCl (Flomax) 0.4 Mg Cap, 0.4 MG PO DAILY, (Reported) Entered as Reported by: HAYDEN QUEZADA on 11/12/20 1539 Review of Systems Constitutional: No fever EENTM: no symptoms reported Respiratory: no symptoms reported Cardiovascular: no symptoms reported Gastrointestinal: no symptoms reported Genitourinary: no symptoms reported Musculoskeletal: see HPI Skin: no symptoms reported Psychiatric/Neurological: No Symptoms Reported All Other Systems Reviewed Negative Unless Noted: Yes Past Tkyccna-Aisqcy-Ponnsx Hx Patient Social History Tobacco Use?: Yes Tobacco type used: Cigarettes Immunizations Up To Date Tetanus Booster (TDap): Unknown First/Initial COVID19 Vaccinat: denies Second COVID19 Vaccination Bienvenido: NO Third COVID19 Vaccination Date: NO Seasonal Allergies Seasonal Allergies: Yes Past Medical History Surgery/Hospitalization HX: COPD Surgeries: Yes (C/S X2, HERNIA X3, ) Abdominal, Section, Hysterectomy, Oophorectomy, 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 Respiratory: Yes (smoker's cough) Asthma, COPD Cardiac: Yes High Cholesterol Neurological: Yes Headaches /Migraines 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 Disorders: Yes 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: Hysterectomy Genitourinary: No Bladder Infection Gastrointestinal: Yes Gastroesophageal Reflux, Chronic Constipation, Irritable Bowel Musculoskeletal: Yes (bulging disc) Degenerate Disk Disease, Scoliosis, Chronic Back Pain Endocrine: Yes Hypothyroidsim, Diabetes, Non-Insulin dep HEENT: Yes (chronic sinusitis) Cancer: Yes Cervical Did You Recieve Any Treatments: Yes What Type of Treatment Did You: Surgical Intervention Psychosocial: Yes Anxiety, Bipolar, Depression Integumentary: No Blood Disorders: No Family Medical History No Pertinent Family Hx Physical Exam Vital Signs Vital Signs - First Documented 11/07/21 20:37 Temp 36.2 Pulse 127 Resp 20 B/P (MAP) 148/118 (128) Pulse Ox 99 O2 Delivery Room Air Capillary Refill : Less Than 3 Seconds Height, Weight, BMI Height: 5'4.00" Weight: 142lbs. 0oz. 64.522813tt; 24.00 BMI Method:Stated General Appearance: WD/WN, no apparent distress HEENT: PERRL/EOMI, normal ENT inspection, pharynx normal Neck: non-tender, full range of motion, supple, normal inspection Cardiovascular: regular rate, rhythm, no edema, no murmur Respiratory: chest non-tender, lungs clear, normal breath sounds, no respiratory distress, no accessory muscle use Gastrointestinal: normal bowel sounds, non tender, soft; No guarding, No rebound Back: normal inspection Shoulder: normal inspection, non-tender, no evidence of injury, normal ROM Elbow/Forearm: normal inspection, non-tender, no evidence of injury, normal ROM Wrist: Yes normal inspection, Yes no evidence of injury, Yes normal ROM, Yes bone tenderness (Pain over the ulnar styloid, no TFCC pain) Hand: normal inspection, non-tender, no evidence of injury, normal ROM Neurologic/Tendon: normal sensation, normal motor functions, normal tendon functions Neurologic/Psychiatric: no motor/sensory deficits, alert, normal mood/affect Skin: normal color, warm/dry Lymphatic: no adenopathy Progress/Results/Core Measures Results/Orders My Orders Orders - NAVID DOMINGUEZ MD Wrist 3 View Right (11/07/21 20:38) Vital Signs/I&O 11/07/21 20:37 Temp 36.2 Pulse 127 Resp 20 B/P (MAP) 148/118 (128) Pulse Ox 99 O2 Delivery Room Air Blood Pressure Mean: 128 Progress Progress Note : Progress Note 51-year-old female with above history coming in due to chronic right wrist pain. ABCs were intact and vitals were stable on presentation. Physical exam with no swelling or deformity. She has pain over the ulnar styloid on the right wrist. X-ray obtained and shows no fracture or dislocation. Unclear the etiology of this, but likely some type of overuse injury given this is her dominant hand. We will refer her to orthopedics as an outpatient Diagnostic Imaging Diagonstic Imaging: Xray (right wrist) Comments No fracture or dislocation of the right wrist on my interpretation Departure Impression Primary Impression: Right wrist pain Disposition: 01 HOME, SELF-CARE Condition: Stable Departure-Patient Inst. Decision time for Depature: 20:53 Referrals: [facility] (PCP) Primary Care Physician AMINATA ARRIETA APRN (Family) Primary Care Physician JUANA PARRISH Patient Instructions: Wrist Sprain ED Add. Discharge Instructions: Nothing is broken or dislocated. This is likely some type of overuse injury. Try to use the wrist brace regularly for the next couple weeks to see if that improves. Take naproxen 250 mg which is eevk-vum-drozroy as needed. I also recommend trying to ice it. Follow-up with Alexis Parrish if things are not improving Work/School Note: Work Release Form Date Seen in the Emergency Department: Nov 07, 2021 Return to Work: Nov 08, 2021 Restrictions: No Restrictions NAVID DOMINGUEZ MD Nov 07, 2021 20:52
[2021-11-07 20:55] VITALS: BP 148/118
--- NOTE | 2021-11-07 20:56 | Diagnostic Imaging Report ---
EXAMINATION: Right wrist 3 or more views. REASON FOR EXAM: Right wrist pain for 8 months. No known injury. COMPARISON: None available. FINDINGS: There is no acute fracture or dislocation of the right wrist. There is normal alignment of the wrist and carpel bones. The imaged joint spaces are preserved. No large joint effusion is seen in the right wrist. The surrounding soft tissues are unremarkable. IMPRESSION: No acute fracture or dislocation in the right wrist. Dictated by: Dictated on workstation # [id number]
== END 2021-11-07 20:57 | disposition home or self-care (01) ==
LOC: EDUNIT# 20:33 → ER FS 20:36
DX: G89.29 Other chronic pain (principal); M25.531 Pain in right wrist; Z28.310 Unvaccinated for COVID-19
CPT/HCPCS: 73110

== ENCOUNTER 2022-01-10 17:48 | Emergency (ER) | payer MEDICAID ==
[2022-01-10] MEDS ORDERED: NS IV 1000 ML 1,000 ML IV STA (18:03)
[2022-01-10] MEDS ORDERED: KETOROLAC 15 MG/ML VIAL IVP STA (18:03)
[2022-01-10] MEDS ORDERED: RT-ALBUTEROL/IPRATROPIUM 3 ML (DUONEB) VIAL INH STA (18:05)
--- NOTE | 2022-01-10 18:05 | ED General ---
General Chief Complaint: Cough/Cold/Flu Symptoms Stated Complaint: BODY ACHES, FATIGUE,SOB Nursing Triage Note: Patient presents to the ED via EMS with c/o cough, shortness of breath, body aches, and headache. States her symptoms began 7 days ago. With symptoms not improving. Reports non-productive cough and sinus pressure. Source of Information: Patient, EMS, Old Records History of Present Illness Date Seen by Provider: Jan 10, 2022 Time Seen by Provider: 17:49 Initial Comments 51-year-old female presenting with complaints of over a week of fever, cough, shortness of breath, body aches, headache. She has not been to see anyone over this last week. She denies doing a home COVID testing. She denies any definite ill contacts. She has a nonproductive cough and has a lot of sinus pressure. She states that when she blows her nose it feels like her head is going to explode. She has history of COPD and last used her inhaler around 2 this afternoon. She felt like it was not helping with her shortness of breath. Just before EMS picked her up she had a sudden sharp stabbing pain in the left lower quadrant and flank. She states that she thinks she may have kidney stones but is unsure on labs. She denies having pain like this previously. She had had a bowel movement around 4 PM without any pain. She also denies having any blood in her stools or black tarry stools. Timing/Duration: 1 Week Severity: Severe Modifying Factors: worse with Movement Associated Systoms: No Chest Pain; Cough; No Diaphoresis; Fever/Chills, Headaches, Loss of Appetite, Malaise; No Nausea/Vomiting, No Rash, No Seizure; Shortness of Air; No Syncope; Weakness Allergies and Home Medications Allergies Coded Allergies: Sulfa (Sulfonamide Antibiotics) (Verified Allergy, Unknown, abd pain, 09/05/18) adhesive tape (Verified Allergy, Unknown, Hives, 09/05/18) bupropion (Verified Allergy, Unknown, sucidial, 09/05/18) carisoprodol (Verified Allergy, Unknown, heart palpatations, 09/05/18) quetiapine (Verified Allergy, Unknown, suicidal, 09/05/18) Patient Home Medication List Home Medication List Reviewed: Yes Albuterol Sulfate (Albuterol Sulfate) 2.5 Mg/3 Ml Vial.neb, 3 ML NEB Q6H PRN for SHORTNESS OF BREATH, (Reported) Entered as Reported by: HAYDEN QUEZADA on 01/16/20 1136 Albuterol Sulfate (Proventil Hfa) 6.7 Gm Hfa.aer.ad, 2 PUFF INH Q6H PRN for SHORTNESS OF BREATH, (Reported) Entered as Reported by: HAYDEN QUEZADA on 11/12/20 1539 Amitriptyline HCl (Amitriptyline HCl) 10 Mg Tablet, 10 MG PO HS, (Reported) Entered as Reported by: JOCELYN ROSA on 05/04/21 1413 Amoxicillin/Potassium Clav (Amox Tr-K Clv 875-125 mg Tab) 875 Mg-125 Mg Tablet, 1 EACH PO BID Prescribed by: FAROOQ LANGE on 01/10/22 192 Aspirin (Aspirin EC) 81 Mg Tablet.dr, 81 MG PO DAILY, (Reported) Entered as Reported by: HAYDEN QUEZADA on 01/16/20 1136 Celecoxib (Celebrex) 100 Mg Capsule, 100 MG PO BID, (Reported) Entered as Reported by: JOCELYN ROSA on 05/04/21 1413 Citalopram Hydrobromide (Citalopram HBr) 40 Mg Tablet, 40 MG PO DAILY, (Reported) Entered as Reported by: HAYDEN QUEZADA on 11/12/20 153 Clindamycin HCl (Clindamycin HCl) 300 Mg Capsule, 300 MG PO TID Prescribed by: VIVIAN DASILVA on 06/21/21 2325 Cyclobenzaprine HCl (Cyclobenzaprine HCl) 10 Mg Tablet, 10 MG PO TID PRN for MUSCLE SPASMS, (Reported) Entered as Reported by: JOCELYN ROSA on 09/05/18 1028 Dapagliflozin Propanediol (Farxiga) 10 Mg Tablet, 10 MG PO DAILY, (Reported) Entered as Reported by: HAYDEN QUEZADA on 11/12/20 1539 Dicyclomine HCl (Dicyclomine HCl) 20 Mg Tablet, 20 MG PO Q6H PRN for abdominal cramping Prescribed by: TY PARRA on 10/12/21 215 Diphenhydramine HCl (Benadryl) 25 Mg Capsule, 50 MG PO HS, (Reported) Entered as Reported by: JOCELYN ROSA on 05/04/21 1413 Dulaglutide (Trulicity) 0.75 Mg/0.5 Ml Pen.injctr, 0.75 MG SC THUR, (Reported) Entered as Reported by: HAYDEN QUEZADA on 11/12/20 153 Famotidine (Famotidine) 20 Mg Tablet, 20 MG PO BID, (Reported) Entered as Reported by: HAYDEN QUEZADA on 11/12/20 153 Fenofibrate Nanocrystallized (Fenofibrate) 145 Mg Tablet, 145 MG PO DAILY, (Reported) Entered as Reported by: JOCELYN ROSA on 09/05/18 1028 Gabapentin (Gabapentin) 800 Mg Tablet, 800 MG PO TID, (Reported) Entered as Reported by: JOCELYN ROSA on 05/04/21 1411 Hydrocodone/Acetaminophen (Hydrocodone-Acetamin 5-325 mg) 5 Mg-325 Mg Tablet, 1 TAB PO Q6H PRN for PAIN-SEVERE (8-10) Prescribed by: FAROOQ LANGE on 10/15/212131 Insulin Glargine,Hum.rec.anlog (Lantus Solostar) 100 Unit/1 Ml Insuln.pen, 12 UNITS SC HS, (Reported) Entered as Reported by: HAYDEN QUEZADA on 11/12/20 153 Levothyroxine Sodium (Levothyroxine Sodium) 112 Mcg Tablet, 112 MCG PO DAILY, (Reported) Entered as Reported by: JOCELYN ROSA on 09/05/18 1028 Loratadine (Loratadine) 10 Mg Tablet, 10 MG PO DAILY, (Reported) Entered as Reported by: JOCELYN ROSA on 07/24/19 1200 Nystatin (Nystatin) 100,000 Unit/1 Ml Oral.susp, 5 ML PO Q8H PRN for THURSH, (Reported) Entered as Reported by: HAYDEN QUEZADA on 11/12/20 153 Ondansetron (Ondansetron Odt) 4 Mg Tab.rapdis, 4 MG PO Q6H PRN for NAUSEA/VOMITING Prescribed by: FAROOQ LANGE on 10/15/212131 Pantoprazole Sodium (Pantoprazole Sodium) 40 Mg Tablet.dr, 40 MG PO BID, (Reported) Entered as Reported by: JOCELYN ROSA on 09/05/18 1028 Prednisone (Prednisone) 20 Mg Tab, 40 MG PO DAILY Prescribed by: FAROOQ LANGE on 01/10/22 1928 Rosuvastatin Calcium (Rosuvastatin Calcium) 10 Mg Tablet, 10 MG PO HS, (Reported) Entered as Reported by: HAYDEN QUEZADA on 01/16/20 1136 Solifenacin Succinate (Vesicare) 10 Mg Tablet, 10 MG PO DAILY, (Reported) Entered as Reported by: JOCELYN ROSA on 05/04/21 1413 Tamsulosin HCl (Flomax) 0.4 Mg Cap, 0.4 MG PO DAILY, (Reported) Entered as Reported by: HAYDEN QUEZADA on 11/12/20 1539 Review of Systems Review of Systems Constitutional: chills, fever, malaise EENTM: nose congestion; No ear discharge, No ear pain, No epistaxis Respiratory: cough, short of breath; No stridor Cardiovascular: No chest pain Gastrointestinal: see HPI Genitourinary: No dysuria, No frequency Musculoskeletal: see HPI (generalized body aches for last week with fever, cough) Skin: No rash Psychiatric/Neurological: See HPI, Anxiety Past Idpwcxg-Babjfm-Qargpx Hx Patient Social History Tobacco Use?: Yes Tobacco type used: Cigarettes Smoking Status: Current Everyday Smoker Use of E-Cig and/or Vaping dev: No Substance use?: No Alcohol Use?: No Immunizations Up To Date Tetanus Booster (TDap): Unknown First/Initial COVID19 Vaccinat: denies Second COVID19 Vaccination Bienvenido: denies Third COVID19 Vaccination Date: denies Seasonal Allergies Seasonal Allergies: Yes Past Medical History Surgery/Hospitalization HX: COPD, Bipolar, Anxiety, Hysterectomy, Oopherectomy, Section, Migraine Headaches, Hypercholesterolemia, Hypothyroid Surgeries: Yes (C/S X2, HERNIA X3, ) Abdominal, Section, Hysterectomy, Oophorectomy, 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 Respiratory: Yes (smoker's cough) Asthma, COPD Cardiac: Yes High Cholesterol Neurological: Yes Headaches /Migraines 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 Disorders: Yes 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 Genitourinary: No Bladder Infection Gastrointestinal: Yes Gastroesophageal Reflux, Chronic Constipation, Irritable Bowel Musculoskeletal: Yes (bulging disc) Degenerate Disk Disease, Scoliosis, Chronic Back Pain Endocrine: Yes Hypothyroidsim, Diabetes, Non-Insulin dep HEENT: Yes (chronic sinusitis) Cancer: Yes Cervical Did You Recieve Any Treatments: Yes What Type of Treatment Did You: Surgical Intervention Psychosocial: Yes Anxiety, Bipolar, Depression Integumentary: No Blood Disorders: No Family Medical History No Pertinent Family Hx Physical Exam Vital Signs Vital Signs - First Documented 01/10/22 17:50 Temp 37.3 Pulse 116 Resp 18 B/P (MAP) 126/86 (99) Pulse Ox 96 O2 Delivery Room Air Capillary Refill : Less Than 3 Seconds Height, Weight, BMI Height: 5'4.00" Weight: 142lbs. 0oz. [id number]; 24.00 BMI Method:Stated General Appearance: No Apparent Distress, Chronically ill HEENT: PERRL/EOMI, Normal ENT Inspection, Pharynx Normal, Moist Mucous Membranes; No Photophobia; Other (Tenderness to palpation over the maxillary and frontal sinuses.) Neck: Full Range of Motion, Normal Inspection, Non Tender, Supple Respiratory: Chest Non Tender, No Accessory Muscle Use, No Respiratory Distress, Decreased Breath Sounds, Rhonci Cardiovascular: Normal Peripheral Pulses, Tachycardia Gastrointestinal: Normal Bowel Sounds, No Pulsatile Mass, Soft; No Distended, No Guarding, No Rebound; Tenderness (Left flank and lower quadrant pain with palpation) Rectal: Deferred Back: No CVA Tenderness Extremity: Normal Capillary Refill, Normal Inspection, No Pedal Edema Neurologic/Psychiatric: Alert, Oriented x3, 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 Norm as Tested Skin: Normal Color, Warm/Dry Focused Exam Lactate Level 01/10/22 18:00: Lactic Acid Level 1.59 Lactic Acid Level Laboratory Tests Test 01/10/22 18:00 Lactic Acid Level 1.59 MMOL/L (0.50-2.00) Progress/Results/Core Measures Suspected Sepsis SIRS Temperature: Pulse: 116 Respiratory Rate: 18 Laboratory Tests 01/10/22 18:00: White Blood Count 12.5H Blood Pressure 126 /86 Mean: 99 01/10/22 18:00: Lactic Acid Level 1.59 Laboratory Tests 01/10/22 18:00: Creatinine 0.95, Platelet Count 235, Total Bilirubin 0.2 Results/Orders Lab Results Laboratory Tests Test 01/10/22 17:45 01/10/22 18:00 Range/Units Influenza Type A (RT-PCR) Not Detected Not Detecte Influenza Type B (RT-PCR) Not Detected Not Detecte SARS-CoV-2 RNA (RT-PCR) Not Detected Not Detecte White Blood Count 12.5 H 4.3-11.0 10^3/uL Red Blood Count 4.41 3.80-5.11 10^6/uL Hemoglobin 11.9 11.5-16.0 g/dL Hematocrit 35 35-52 % Mean Corpuscular Volume 79 L 80-99 fL Mean Corpuscular Hemoglobin 27 25-34 pg Mean Corpuscular Hemoglobin Concent 34 32-36 g/dL Red Cell Distribution Width 13.4 10.0-14.5 % Platelet Count 235 130-400 10^3/uL Mean Platelet Volume 8.1 L 9.0-12.2 fL Immature Granulocyte % (Auto) 1 % Neutrophils (%) (Auto) 48 42-75 % Lymphocytes (%) (Auto) 44 12-44 % Monocytes (%) (Auto) 4 0-12 % Eosinophils (%) (Auto) 3 0-10 % Basophils (%) (Auto) 0 0-10 % Neutrophils # (Auto) 6.0 1.8-7.8 10^3/uL Lymphocytes # (Auto) 5.6 H 1.0-4.0 10^3/uL Monocytes # (Auto) 0.4 0.0-1.0 10^3/uL Eosinophils # (Auto) 0.4 H 0.0-0.3 10^3/uL Basophils # (Auto) 0.0 0.0-0.1 10^3/uL Immature Granulocyte # (Auto) 0.2 H 0.0-0.1 10^3/uL Sodium Level 136 135-145 MMOL/L Potassium Level 3.9 3.6-5.0 MMOL/L Chloride Level 100 98-107 MMOL/L Carbon Dioxide Level 21 21-32 MMOL/L Anion Gap 15 H 5-14 MMOL/L Blood Urea Nitrogen 9 7-18 MG/DL Creatinine 0.95 0.60-1.30 MG/DL Estimat Glomerular Filtration Rate 72 BUN/Creatinine Ratio 9 Glucose Level 311 H 70-105 MG/DL Lactic Acid Level 1.59 0.50-2.00 MMOL/L Calcium Level 9.3 8.5-10.1 MG/DL Corrected Calcium 8.9 8.5-10.1 MG/DL Total Bilirubin 0.2 0.1-1.0 MG/DL Aspartate Amino Transf (AST/SGOT) 24 5-34 U/L Alanine Aminotransferase (ALT/SGPT) 23 0-55 U/L Alkaline Phosphatase 118 40-136 U/L C-Reactive Protein 5.23 H <0.50 MG/DL Total Protein 7.5 6.4-8.2 GM/DL Albumin 4.5 3.2-4.5 GM/DL My Orders Orders - FAROOQ LANGE MD Cbc With Automated Diff (01/10/22 18:01) Comprehensive Metabolic Panel (01/10/22 18:01) Blood Culture (01/10/22 18:01) Chest 1 View Ap/Pa Only (01/10/22 18:01) Ed Iv/Invasive Line Start (01/10/22 18:01) Crp Fs (01/10/22 18:01) Lactic Acid Analyzer (01/10/22 18:01) Covid 19 Inhouse Test (01/10/22 18:01) Ct Sinus Complete Wo (01/10/22 18:01) Influenza A And B By Pcr (01/10/22 18:01) Isolation Central Supply Req (01/10/22 18:01) Ns Iv 1000 Ml (Sodium Chloride 0.9%) (01/10/22 18:03) Ketorolac Injection (Toradol Injection) (01/10/22 18:03) Ct Abdomen/Pelvis Wo (01/10/22 18:03) Albuterol/Ipra Inhalation Soln (Duoneb I (01/10/22 18:05) Dexamethasone Injection (Decadron Inje (01/10/22 18:05) Svn Small Volume Nebulizer (01/10/22 18:05) Ceftriaxone 1 Gm Pre-Mix (Rocephin 1 Gm (01/10/22 19:12) Vital Signs/I&O 01/10/22 01/10/22 17:50 18:11 Temp 37.3 37.3 Pulse 116 Resp 18 B/P (MAP) 126/86 (99) Pulse Ox 96 O2 Delivery Room Air Capillary Refill : Less Than 3 Seconds Blood Pressure Mean: 99 Progress Note #1: Progress Note Obtain basic labs to look at her blood counts and electrolytes. With her complaint of fevers at home ordered nasal swab to check for COVID and influenza. Also ordered blood cultures with a lactic acid to look for signs of sepsis. Chest x-ray to look for pneumonia, infiltrate, effusion. CT scan of the head and sinuses to look for sinusitis. CT of the abdomen pelvis to look for kidney stone or pathology in the left lower quadrant and flank. Give IV fluids normal saline 1 L IV fluid bolus for hydration with her tachycardia. Toradol 30 mg IV for pain, DuoNeb breathing treatment to help with her cough and shortness of breath, dexamethasone 10 mg IV to help with cough and COPD. Progress Note #2: Time: 18:40 Progress Note CBC shows elevated white blood cell count of 12.5 without a left shift. Her chemistry panel shows no acute significant abnormality other than she does have elevated glucose to 311. Her lactic acid is normal at 1.59. She does have an elevated CRP level. Test for COVID and influenza were all negative. Awaiting urinalysis and imaging Progress Note #3: Progress Note CT sinuses show findings for sinusitis. CT abd/pelvis no acute finding but has some signs of lung infection. Pt did not provide urine specimen. She was feeling a little better with treatment so will give Rocephin 1 gm IV and then discharge on Augmentin and Prednisone. Counseled on follow up and return precautions. Diagnostic Imaging Diagonstic Imaging: Xray Plain Films/CT/US/NM/MRI: chest Comments NAME: ZOE RIVERA [facility] REC#: [id number] PT STATUS: REG ER : 1970 PHYSICIAN: FAROOQ LANGE MD ADMIT DATE: 01/10/22/ER FS Signed Date of Exam:01/10/22 CHEST 1 VIEW AP/PA ONLY EXAMINATION: Chest 1 view. HISTORY: Cough. Fever. Body aches. COMPARISON: 11/12/2020. FINDINGS: The lung volumes are normal. Scattered mildly prominent interstitial markings are seen in the lungs. No focal consolidation is seen. No large pleural effusion or pneumothorax is seen. The cardiomediastinal silhouette is normal in size and contour. No acute osseous abnormality is seen. IMPRESSION: Scattered mildly prominent interstitial markings in the lungs, which can be seen with inflammatory/infectious process and/or edema. No focal consolidation. Dictated by: Dictated on workstation # [id number] Dict: 01/10/221833 Trans: 01/10/221839 [facility] [id number] Interpreted by: MIKE BARRIOS DO Electronically signed by: MIKE BARRIOS DO 01/10/221839 Reviewed: Reviewed by Me Diagonstic Imaging: CT Plain Films/CT/US/NM/MRI: facial bones (Sinuses) Comments [facility], [place] NAME: ZOE RIVERA [facility] REC#: [id number] PT STATUS: REG ER : 1970 PHYSICIAN: FAROOQ LANGE MD ADMIT DATE: 01/10/22/ER FS Signed Date of Exam:01/10/22 CT SINUS COMPLETE WO PROCEDURE: CT sinus w/o contrast. TECHNIQUE: Multiple contiguous axial images were obtained through the sinuses without the use of intravenous contrast. Coronal reformations were performed. All CT scans use one or more of the following dose optimizing techniques: automated exposure control, MA and/or KvP adjustment based on patient size and exam type or iterative reconstruction. INDICATION: Sinus pain. Congestion. Headache. COMPARISON: 01/29/2021. FINDINGS: Mild mucosal thickening is seen in the bilateral ethmoid sinuses and left frontal sinus. Frothy secretions are visualized in the left sphenoid sinus. No evidence of fluid level in the paranasal sinuses. The ostiomeatal complexes are patent. The sphenoethmoid and frontoethmoid recesses are patent and unremarkable. The mastoid air cells are well pneumatized. The bony nasal septum is deviated to the left. No acute facial fracture. The globes and orbits are symmetric and unremarkable. Included intracranial contents show no acute abnormality. The included soft tissues of the head are normal in appearance. IMPRESSION: 1. Frothy secretions in the left sphenoid sinus, which can be seen with acute sinusitis. Additional mucosal thickening is seen in the bilateral ethmoid and left frontal sinuses. 2. Leftward deviation of the nasal septum. Dictated by: Dictated on workstation # [id number] Dict: 01/10/221848 Trans: 01/10/221853 [facility] [id number] Interpreted by: MIKE BARRIOS DO Electronically signed by: MIKE BARRIOS DO 01/10/221853 Reviewed: Reviewed by Me Diagonstic Imaging: CT Plain Films/CT/US/NM/MRI: abdomen, pelvis Comments [facility], [place] NAME: ZOE RIVERA [facility] REC#: [id number] PT STATUS: REG ER : 1970 PHYSICIAN: FAROOQ ALNGE MD ADMIT DATE: 01/10/22/ER FS Signed Date of Exam:01/10/22 CT ABDOMEN/PELVIS WO PROCEDURE: CT abdomen and pelvis without contrast. TECHNIQUE: Multiple contiguous axial images were obtained through the abdomen and pelvis without the use of intravenous contrast. Auto Exposure Controls were utilized during the CT exam to meet ALARA standards for radiation dose reduction. INDICATION: Left-sided flank pain. Fever. COMPARISON: 10/15/2021. FINDINGS: The heart is unremarkable. Scattered tree-in-bud opacities are seen in the lung bases. There is hepatic steatosis with focal fatty sparing along the gallbladder fossa. The gallbladder is decompressed. The spleen, pancreas, adrenal glands and kidneys have a normal appearance. There is no pathologically enlarged mesenteric or retroperitoneal adenopathy. The bowel loops are nondilated. The appendix is visualized in the right lower quadrant and has a normal appearance. There is no free fluid or free air. No acute osseous abnormality. There is calcified aortic atherosclerotic plaque without aneurysm. Prior hernia repair changes are seen in the ventral abdomen. The urinary bladder is mildly distended. There is no free air, loculated collection or adenopathy in the pelvis. IMPRESSION: 1. No bowel obstruction. No free fluid or free air. Normal appendix. 2. Hepatic steatosis. 3. Scattered tree-in-bud opacities in the lung bases, suggestive of inflammatory/infectious process. Dictated by: Dictated on workstation # [id number] Dict: 01/10/221850 Trans: 01/10/221858 [facility] [id number] Interpreted by: MIKE BARRIOS DO Electronically signed by: MIKE BARRIOS DO 01/10/229 Reviewed: Reviewed by Me Departure Impression Primary Impression: Maxillary sinusitis, acute Qualified Codes: J01.01 - Acute recurrent maxillary sinusitis Additional Impressions: Acute viral syndrome Sinus pressure Acute left flank pain Upper respiratory infection with cough and congestion Disposition: HOME, SELF-CARE Condition: Stable Departure-Patient Inst. Decision time for Depature: 19:27 Referrals: [facility] (PCP) Primary Care Physician AMINATA ARRIETA APRN (Family) Primary Care Physician Patient Instructions: Flank Pain ED, Upper Respiratory Infection ED, Sinusitis, Adult ED, Cough, Adult ED Add. Discharge Instructions: Stay well hydrated and drink plenty of fluids. Take the antibiotics to help with sinusitis and if there is any bacterial infection contributing to cough and fevers. Check with clinic for continued concerns. Alternate ibuprofen with acetaminophen as needed for fever and body aches. All discharge instructions reviewed with patient and/or family. Voiced understanding. Scripts Prednisone (Prednisone) 20 Mg Tab 40 MG PO DAILY for Sinusitis/COPD for 5 Days, #10 TAB 0 Refills Prov: FAROOQ LANGE MD 01/10/22 Amoxicillin/Potassium Clav (Amox Tr-K Clv 875-125 mg Tab) 875 Mg-125 Mg Tablet 1 EACH PO BID for Sinusitis for 10 Days, #20 TAB 0 Refills Prov: FAROOQ LANGE MD 01/10/22 FAROOQ LANGE MD Jan 10, 2022 18:05
[2022-01-10 18:15] LABS: BASOPHILS % (AUTO) 0 % (0-10); EOSINOPHILS # (AUTO) 0.4 10^3/uL (0.0-0.3); EOSINOPHILS % (AUTO) 3 % (0-10); HEMATOCRIT 35 % (35-52); HEMOGLOBIN 11.9 g/dL (11.5-16.0); LYMPHOCYTES # (AUTO) 5.6 10^3/uL (1.0-4.0); LYMPHOCYTES % (AUTO) 44 % (12-44); MEAN CORPUSCULAR HEMOGLOBIN 27 pg (25-34); MEAN CORPUSCULAR HGB CONC 34 g/dL (32-36); MEAN CORPUSCULAR VOLUME 79 fL (80-99); MEAN PLATELET VOLUME 8.1 fL (9.0-12.2); MONOCYTES # (AUTO) 0.4 10^3/uL (0.0-1.0); MONOCYTES % (AUTO) 4 % (0-12); NEUTROPHILS % (AUTO) 48 % (42-75); PLATELET COUNT 235 10^3/uL (130-400); WHITE BLOOD COUNT 12.5 10^3/uL (4.3-11.0)
[2022-01-10 18:35] LABS: ALBUMIN 4.5 GM/DL (3.2-4.5); BILIRUBIN,TOTAL 0.2 MG/DL (0.1-1.0); CALCIUM 9.3 MG/DL (8.5-10.1); CREATININE SERUM 0.95 MG/DL (0.60-1.30); POTASSIUM 3.9 MMOL/L (3.6-5.0); TOTAL PROTEIN 7.5 GM/DL (6.4-8.2)
--- NOTE | 2022-01-10 18:40 | Diagnostic Imaging Report ---
EXAMINATION: Chest 1 view. HISTORY: Cough. Fever. Body aches. COMPARISON: 11/12/2020. FINDINGS: The lung volumes are normal. Scattered mildly prominent interstitial markings are seen in the lungs. No focal consolidation is seen. No large pleural effusion or pneumothorax is seen. The cardiomediastinal silhouette is normal in size and contour. No acute osseous abnormality is seen. IMPRESSION: Scattered mildly prominent interstitial markings in the lungs, which can be seen with inflammatory/infectious process and/or edema. No focal consolidation. Dictated by: Dictated on workstation # [id number]
--- NOTE | 2022-01-10 18:53 | Diagnostic Imaging Report ---
PROCEDURE: CT sinus w/o contrast. TECHNIQUE: Multiple contiguous axial images were obtained through the sinuses without the use of intravenous contrast. Coronal reformations were performed. All CT scans use one or more of the following dose optimizing techniques: automated exposure control, MA and/or KvP adjustment based on patient size and exam type or iterative reconstruction. INDICATION: Sinus pain. Congestion. Headache. COMPARISON: 01/29/2021. FINDINGS: Mild mucosal thickening is seen in the bilateral ethmoid sinuses and left frontal sinus. Frothy secretions are visualized in the left sphenoid sinus. No evidence of fluid level in the paranasal sinuses. The ostiomeatal complexes are patent. The sphenoethmoid and frontoethmoid recesses are patent and unremarkable. The mastoid air cells are well pneumatized. The bony nasal septum is deviated to the left. No acute facial fracture. The globes and orbits are symmetric and unremarkable. Included intracranial contents show no acute abnormality. The included soft tissues of the head are normal in appearance. IMPRESSION: 1. Frothy secretions in the left sphenoid sinus, which can be seen with acute sinusitis. Additional mucosal thickening is seen in the bilateral ethmoid and left frontal sinuses. 2. Leftward deviation of the nasal septum. Dictated by: Dictated on workstation # [id number]
--- NOTE | 2022-01-10 18:56 | Diagnostic Imaging Report ---
PROCEDURE: CT abdomen and pelvis without contrast. TECHNIQUE: Multiple contiguous axial images were obtained through the abdomen and pelvis without the use of intravenous contrast. Auto Exposure Controls were utilized during the CT exam to meet ALARA standards for radiation dose reduction. INDICATION: Left-sided flank pain. Fever. COMPARISON: 10/15/2021. FINDINGS: The heart is unremarkable. Scattered tree-in-bud opacities are seen in the lung bases. There is hepatic steatosis with focal fatty sparing along the gallbladder fossa. The gallbladder is decompressed. The spleen, pancreas, adrenal glands and kidneys have a normal appearance. There is no pathologically enlarged mesenteric or retroperitoneal adenopathy. The bowel loops are nondilated. The appendix is visualized in the right lower quadrant and has a normal appearance. There is no free fluid or free air. No acute osseous abnormality. There is calcified aortic atherosclerotic plaque without aneurysm. Prior hernia repair changes are seen in the ventral abdomen. The urinary bladder is mildly distended. There is no free air, loculated collection or adenopathy in the pelvis. IMPRESSION: 1. No bowel obstruction. No free fluid or free air. Normal appendix. 2. Hepatic steatosis. 3. Scattered tree-in-bud opacities in the lung bases, suggestive of inflammatory/infectious process. Dictated by: Dictated on workstation # [id number]
[2022-01-10] MEDS ORDERED: cefTRIAXone 1 GM PRE-MIX 50 ML IV STA (19:12)
[2022-01-10] MEDS ORDERED: PRD20T PO (19:28)
[2022-01-10] MEDS ORDERED: AMOX1TAB12 PO (19:28)
[2022-01-10 19:45] VITALS: BP 123/74
== END 2022-01-10 19:45 | disposition home or self-care (01) ==
LOC: EDUNIT# 17:48 → ER FS 17:49
DX: J01.00 Acute maxillary sinusitis, unspecified (principal); J06.9 Acute upper respiratory infection, unspecified; R10.32 Left lower quadrant pain; B34.9 Viral infection, unspecified; J44.9 Chronic obstructive pulmonary disease, unspecified; E11.65 Type 2 diabetes mellitus with hyperglycemia; F17.210 Nicotine dependence, cigarettes, uncomplicated; Z88.0 Allergy status to penicillin; Z20.822 Contact with and (suspected) exposure to COVID-19; Z28.310 Unvaccinated for COVID-19
CPT/HCPCS: 36415; 70486; 71045; 74176; 80053; 83605; 85025; 86141; 87040; 87636; 94640

== ENCOUNTER 2022-06-25 18:37 | Emergency (ER) | payer MEDICAID ==
[~2022-06-25] VITALS: Ht 160 cm; Wt 55.8 kg
[~2022-06-25 18:37] MED LIST changes: +AMOX1TAB12 PO; +PRD20T PO
[2022-06-25] MEDS ORDERED: ONDANSETRON 4 MG/2 ML (SDV) Z0FRAN IVP STA (18:53)
[2022-06-25] MEDS ORDERED: NS IV 1000 ML 1,000 ML IV STA (18:53)
[2022-06-25 18:58] LABS: BASOPHILS # (AUTO) 0.1 10^3/uL (0.0-0.1); BASOPHILS % (AUTO) 1 % (0-10); EOSINOPHILS # (AUTO) 0.3 10^3/uL (0.0-0.3); EOSINOPHILS % (AUTO) 3 % (0-10); HEMATOCRIT 41 % (35-52); LYMPHOCYTES # (AUTO) 3.6 10^3/uL (1.0-4.0); LYMPHOCYTES % (AUTO) 36 % (12-44); MEAN CORPUSCULAR HEMOGLOBIN 27 pg (25-34); MEAN CORPUSCULAR HGB CONC 34 g/dL (32-36); MEAN CORPUSCULAR VOLUME 80 fL (80-99); MEAN PLATELET VOLUME 8.2 fL (9.0-12.2); MONOCYTES # (AUTO) 0.6 10^3/uL (0.0-1.0); MONOCYTES % (AUTO) 6 % (0-12); NEUTROPHILS # (AUTO) 5.3 10^3/uL (1.8-7.8); NEUTROPHILS % (AUTO) 54 % (42-75); PLATELET COUNT 317 10^3/uL (130-400); WHITE BLOOD COUNT 9.8 10^3/uL (4.3-11.0)
[2022-06-25 19:13] LABS: BILIRUBIN,TOTAL 0.3 MG/DL (0.1-1.0); CREATININE SERUM 0.87 MG/DL (0.60-1.30); POTASSIUM 4.2 MMOL/L (3.6-5.0)
[2022-06-25 19:14] LABS: ALBUMIN 4.3 GM/DL (3.2-4.5); TOTAL PROTEIN 7.1 GM/DL (6.4-8.2)
--- NOTE | 2022-06-25 19:23 | ED Abdominal Pain ---
General Chief Complaint: Abdominal/GI Problems Stated Complaint: L FLANK PAIN Nursing Triage Note: PT TO ROOMF S05 [facility]IA [facility] WITH C/O N/V, ABD PAIN X1 WEEK. Source of Information: Patient, EMS History of Present Illness Date Seen by Provider: June 25, 2022 Time Seen by Provider: 18:41 Initial Comments 52-year-old female presenting with complaints of left flank pain for the last week. She states that the pain is wrapped around her abdomen and now she has diffuse abdominal pain. She was worried about her gallbladder. She also states she has been constipated. She also states that she had blood coming from her right ear a few nights ago so she was concerned about an ear infection. She had an appointment to see the [facility] yesterday but overslept. She has not tried taking anything for the pain. She states her pain is currently 3 out of 10. However her pain was so bad that she called EMS to be transported to the emergency department. She states that she does have a roommate she can call for a ride home provided the test looked okay and she was able to be discharged. She did not feel like she could wait for her roommate to get home and bring her to the emergency department because her symptoms were so severe tonight after the last week of her feeling this way. She has a aching or sharp pain when she urinates it feels like she is scratched herself. She denies seeing any blood in her urine. She has had nausea and vomited at least once a day for the last week. Timing/Duration: 1 Week Severity/Quality: Mild, Aching, Cramping Location: Generalized Abdomen Activities at Onset: None Modifying Factors: Worsens With Palpation Associated Symptoms: No Back Pain, No Chest Pain, No Diaphoresis, No Fever/Chills, No Fatigue, No Headache, No Heartburn; Nausea/Vomiting; No Rash, No Shortness of Air, No Swelling/Mass in Abdomen, No Syncope, No Weakness Allergies and Home Medications Allergies Coded Allergies: Sulfa (Sulfonamide Antibiotics) (Verified Allergy, Unknown, abd pain, 09/05/18) adhesive tape (Verified Allergy, Unknown, Hives, 09/05/18) bupropion (Verified Allergy, Unknown, sucidial, 09/05/18) carisoprodol (Verified Allergy, Unknown, heart palpatations, 09/05/18) quetiapine (Verified Allergy, Unknown, suicidal, 09/05/18) Patient Home Medication List Home Medication List Reviewed: Yes Albuterol Sulfate (Albuterol Sulfate) 2.5 Mg/3 Ml Vial.neb, 3 ML NEB Q6H PRN for SHORTNESS OF BREATH, (Reported) Entered as Reported by: HAYDEN QUEZADA on 01/16/20 1136 Albuterol Sulfate (Proventil Hfa) 6.7 Gm Hfa.aer.ad, 2 PUFF INH Q6H PRN for SHORTNESS OF BREATH, (Reported) Entered as Reported by: HAYDEN QUEZADA on 11/12/20 1539 Amitriptyline HCl (Amitriptyline HCl) 10 Mg Tablet, 10 MG PO HS, (Reported) Entered as Reported by: JOCELYN ROSA on 05/04/21 1413 Amoxicillin/Potassium Clav (Amox Tr-K Clv 875-125 mg Tab) 875 Mg-125 Mg Tablet, 1 EACH PO BID Prescribed by: FAROOQ LANGE on 01/10/22 192 Aspirin (Aspirin EC) 81 Mg Tablet.dr, 81 MG PO DAILY, (Reported) Entered as Reported by: HAYDEN QUEZADA on 01/16/20 1136 Celecoxib (Celebrex) 100 Mg Capsule, 100 MG PO BID, (Reported) Entered as Reported by: JOCELYN ROSA on 05/04/21 1413 Citalopram Hydrobromide (Citalopram HBr) 40 Mg Tablet, 40 MG PO DAILY, (Reported) Entered as Reported by: HAYDEN QUEZADA on 11/12/20 1539 Clindamycin HCl (Clindamycin HCl) 300 Mg Capsule, 300 MG PO TID Prescribed by: VIVIAN DASILVA on 06/21/21 2325 Cyclobenzaprine HCl (Cyclobenzaprine HCl) 10 Mg Tablet, 10 MG PO TID PRN for MUSCLE SPASMS, (Reported) Entered as Reported by: JOCELYN ROSA on 09/05/18 1028 Dapagliflozin Propanediol (Farxiga) 10 Mg Tablet, 10 MG PO DAILY, (Reported) Entered as Reported by: HAYDEN QUEZADA on 11/12/20 1539 Dicyclomine HCl (Dicyclomine HCl) 20 Mg Tablet, 20 MG PO Q6H PRN for abdominal cramping Prescribed by: TY PARRA on 10/12/21 215 Dicyclomine HCl (Dicyclomine HCl) 10 Mg Capsule, 10 MG PO Q6H PRN for ABDOMINAL PAIN Prescribed by: FAROOQ LANGE on 06/25/222039 Diphenhydramine HCl (Benadryl) 25 Mg Capsule, 50 MG PO HS, (Reported) Entered as Reported by: JOCELYN ROSA on 05/04/21 1413 Dulaglutide (Trulicity) 0.75 Mg/0.5 Ml Pen.injctr, 0.75 MG SC THUR, (Reported) Entered as Reported by: HAYDEN QUEZADA on 11/12/20 1539 Famotidine (Famotidine) 20 Mg Tablet, 20 MG PO BID, (Reported) Entered as Reported by: HAYDEN QUEZADA on 11/12/20 1539 Fenofibrate Nanocrystallized (Fenofibrate) 145 Mg Tablet, 145 MG PO DAILY, (Reported) Entered as Reported by: JOCELYN ROSA on 09/05/18 1028 Gabapentin (Gabapentin) 800 Mg Tablet, 800 MG PO TID, (Reported) Entered as Reported by: JOCELYN ROSA on 05/04/21 1411 Hydrocodone/Acetaminophen (Hydrocodone-Acetamin 5-325 mg) 5 Mg-325 Mg Tablet, 1 TAB PO Q6H PRN for PAIN-SEVERE (8-10) Prescribed by: FAROOQ LANGE on 10/15/21 213 Insulin Glargine,Hum.rec.anlog (Lantus Solostar) 100 Unit/1 Ml Insuln.pen, 12 UNITS SC HS, (Reported) Entered as Reported by: HAYDEN QUEZADA on 11/12/20 1539 Levothyroxine Sodium (Levothyroxine Sodium) 112 Mcg Tablet, 112 MCG PO DAILY, (Reported) Entered as Reported by: JOCELYN ROSA on 09/05/18 1028 Loratadine (Loratadine) 10 Mg Tablet, 10 MG PO DAILY, (Reported) Entered as Reported by: JOCELYN ROSA on 07/24/19 1200 Nystatin (Nystatin) 100,000 Unit/1 Ml Oral.susp, 5 ML PO Q8H PRN for THURSH, (Reported) Entered as Reported by: HAYDEN QUEZADA on 11/12/20 1539 Ondansetron (Ondansetron Odt) 4 Mg Tab.rapdis, 4 MG PO Q6H PRN for NAUSEA/VOMITING Prescribed by: FAROOQ LANGE on 10/15/21 2132 Pantoprazole Sodium (Pantoprazole Sodium) 40 Mg Tablet.dr, 40 MG PO BID, (Reported) Entered as Reported by: JOCELYN ROSA on 09/05/18 1028 Polyethylene Glycol 3350 (Clearlax) 17 Gram/Dose Powder, 17 GM PO DAILY PRN for CONSTIPATION Prescribed by: FAROOQ LANGE on 06/25/22 204 Prednisone (Prednisone) 20 Mg Tab, 40 MG PO DAILY Prescribed by: FAROOQ LANGE on 01/10/22 1928 Rosuvastatin Calcium (Rosuvastatin Calcium) 10 Mg Tablet, 10 MG PO HS, (Reported) Entered as Reported by: HAYDEN QUEZADA on 01/16/20 1136 Solifenacin Succinate (Vesicare) 10 Mg Tablet, 10 MG PO DAILY, (Reported) Entered as Reported by: JOCELYN ROSA on 05/04/21 1413 Tamsulosin HCl (Flomax) 0.4 Mg Cap, 0.4 MG PO DAILY, (Reported) Entered as Reported by: HAYDEN QUEZADA on 11/12/20 1539 Review of Systems Review of Systems Constitutional: No chills, No fever EENTM: See HPI (Complaint of some blood from her right ear earlier this week.) Respiratory: No Symptoms Reported Cardiovascular: No Symptoms Reported Gastrointestinal: See HPI Genitourinary: See HPI Musculoskeletal: no symptoms reported Skin: No rash Psychiatric/Neurological: Anxiety; Denies Headache Past Uzjsdcc-Vdeazw-Zbiccg Hx Patient Social History Tobacco Use?: Yes Tobacco type used: Cigarettes Smoking Status: Heavy Tobacco Smoker Smokeless Tobacco Frequency: Never a User Use of E-Cig and/or Vaping dev: No Use of E-Cig and/or Vaping Jimmie: Never a User Substance use?: No Alcohol Use?: No Pt feels they are or have been: No Immunizations Up To Date Tetanus Booster (TDap): Unknown First/Initial COVID19 Vaccinat: denies Second COVID19 Vaccination Bienvenido: denies Third COVID19 Vaccination Date: denies Seasonal Allergies Seasonal Allergies: Yes Past Medical History Surgery/Hospitalization HX: COPD, Bipolar, Anxiety, Hysterectomy, Oopherectomy, Section, Migraine Headaches, Hypercholesterolemia, Hypothyroid Surgeries: Yes (C/S X2, HERNIA X3, ) Abdominal, Section, Hysterectomy, Oophorectomy, 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 Respiratory: Yes (smoker's cough) Asthma, COPD Cardiac: Yes High Cholesterol Neurological: Yes Headaches /Migraines 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 Disorders: Yes 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 Disorders: Ovarian Cyst [employer] History: Hysterectomy Genitourinary: No Bladder Infection Gastrointestinal: Yes Gastroesophageal Reflux, Chronic Constipation, Irritable Bowel Musculoskeletal: Yes (bulging disc) Degenerate Disk Disease, Scoliosis, Chronic Back Pain Endocrine: Yes Hypothyroidsim, Diabetes, Non-Insulin dep HEENT: Yes (chronic sinusitis) Cancer: Yes Cervical Did You Recieve Any Treatments: Yes What Type of Treatment Did You: Surgical Intervention Psychosocial: Yes Anxiety, Bipolar, Depression Integumentary: No Blood Disorders: No Family Medical History No Pertinent Family Hx Physical Exam Vital Signs Vital Signs - First Documented 06/25/22 18:37 Temp 36.2 Pulse 117 Resp 16 B/P (MAP) 132/85 (101) O2 Delivery Room Air Capillary Refill : Less Than 3 Seconds Height/Weight/BMI Height: 5'4.00" Weight: 142lbs. 0oz. [id number]; 21.00 BMI Method:Stated General Appearance: WD/WN, no apparent distress HEENT: PERRL/EOMI, pharynx normal Neck: non-tender, full range of motion, supple Respiratory: chest non-tender, lungs clear, normal breath sounds Cardiovascular: normal peripheral pulses, regular rate, rhythm Gastrointestinal: normal bowel sounds, soft, no pulsatile mass Rectal: deferred Extremities: normal range of motion, non-tender, normal capillary refill Neurologic/Psychiatric: alert, oriented x 3 Skin: normal color, warm/dry Images 1 - Diffuse abdominal pain Progress/Results/Core Measures Results/Orders Lab Results Laboratory Tests Test 06/25/22 18:50 06/25/22 19:26 Range/Units White Blood Count 9.8 4.3-11.0 10^3/uL Red Blood Count 5.13 H 3.80-5.11 10^6/uL Hemoglobin 14.0 11.5-16.0 g/dL Hematocrit 41 35-52 % Mean Corpuscular Volume 80 80-99 fL Mean Corpuscular Hemoglobin 27 25-34 pg Mean Corpuscular Hemoglobin Concent 34 32-36 g/dL Red Cell Distribution Width 14.6 H 10.0-14.5 % Platelet Count 317 130-400 10^3/uL Mean Platelet Volume 8.2 L 9.0-12.2 fL Immature Granulocyte % (Auto) 1 % Neutrophils (%) (Auto) 54 42-75 % Lymphocytes (%) (Auto) 36 12-44 % Monocytes (%) (Auto) 6 0-12 % Eosinophils (%) (Auto) 3 0-10 % Basophils (%) (Auto) 1 0-10 % Neutrophils # (Auto) 5.3 1.8-7.8 10^3/uL Lymphocytes # (Auto) 3.6 1.0-4.0 10^3/uL Monocytes # (Auto) 0.6 0.0-1.0 10^3/uL Eosinophils # (Auto) 0.3 0.0-0.3 10^3/uL Basophils # (Auto) 0.1 0.0-0.1 10^3/uL Immature Granulocyte # (Auto) 0.1 0.0-0.1 10^3/uL Sodium Level 133 L 135-145 MMOL/L Potassium Level 4.2 3.6-5.0 MMOL/L Chloride Level 98 98-107 MMOL/L Carbon Dioxide Level 21 21-32 MMOL/L Anion Gap 14 5-14 MMOL/L Blood Urea Nitrogen 10 7-18 MG/DL Creatinine 0.87 0.60-1.30 MG/DL Estimat Glomerular Filtration Rate 79 BUN/Creatinine Ratio 11 Glucose Level 226 H 70-105 MG/DL Calcium Level 10.0 8.5-10.1 MG/DL Corrected Calcium 9.8 8.5-10.1 MG/DL Total Bilirubin 0.3 0.1-1.0 MG/DL Aspartate Amino Transf (AST/SGOT) 16 5-34 U/L Alanine Aminotransferase (ALT/SGPT) 15 0-55 U/L Alkaline Phosphatase 123 40-136 U/L Total Protein 7.1 6.4-8.2 GM/DL Albumin 4.3 3.2-4.5 GM/DL Lipase 34 8-78 U/L Urine Color YELLOW Urine Clarity CLEAR Urine pH 6.0 5-9 Urine Specific [place] 1.015 L 1.016-1.022 Urine Protein NEGATIVE NEGATIVE Urine Glucose (UA) 3+ H NEGATIVE Urine Ketones NEGATIVE NEGATIVE Urine Nitrite NEGATIVE NEGATIVE Urine Bilirubin NEGATIVE NEGATIVE Urine Urobilinogen 0.2 < = 1.0 MG/DL Urine Leukocyte Esterase NEGATIVE NEGATIVE Urine RBC (Auto) NEGATIVE NEGATIVE Urine RBC 2-5 H /HPF Urine WBC 5-10 H /HPF Urine Squamous Epithelial Cells 10-25 H /HPF Urine Crystals NONE /LPF Urine Bacteria NEGATIVE /HPF Urine Casts NONE /LPF Urine Mucus NEGATIVE /LPF Urine Yeast FEW H /HPF Urine Culture Indicated NO My Orders Orders - FAROOQ LANGE MD Comprehensive Metabolic Panel (06/25/22 18:53) Lipase (06/25/22 18:53) Ua Culture If Indicated (06/25/22 18:53) Ed Iv/Invasive Line Start (06/25/22 18:53) Cbc With Automated Diff (06/25/22 18:53) Ct Abdomen/Pelvis Wo (06/25/22 18:53) Ns Iv 1000 Ml (Sodium Chloride 0.9%) (06/25/22 18:53) Ondansetron Injection (Zofran Injectio (06/25/22 18:53) Ketorolac Injection (Toradol Injection) (06/25/22 19:30) Sucralfate Tablet (Carafate Tablet) (06/25/22 20:35) Rx-Dicyclomine Capsule (Rx-Bentyl Capsul (06/25/22 20:35) Vital Signs/I&O 06/25/22 18:37 Temp 36.2 Pulse 117 Resp 16 B/P (MAP) 132/85 (101) O2 Delivery Room Air Blood Pressure Mean: 101 Progress Progress Note #1: Progress Note Potential diagnosis of constipation, pyelonephritis, renal colic, cholecystitis, appendicitis, colitis, diverticulitis, dehydration, electrolyte imbalance, UTI. Obtain peripheral IV access and send labs for complete blood count, comprehensive metabolic profile, lipase, urinalysis. CT scan of the abdomen and pelvis without contrast to evaluate for possible kidney stones versus abdominal pathology for her symptoms. Administer normal saline 1 L IV fluid bolus, Zofran 4 mg IV for nausea and vomiting. Patient refused anything for pain currently. She states that she had taken a narcotic earlier in the week that she is prescribed and it had caused her constipation so she did not want to take any more of those. Progress Note #2: Progress Note Complete blood count was normal with white blood cell count at the upper limit of normal at 9.8 thousand. She had a normal hemoglobin of 14 and not showing anemia. Her comprehensive metabolic profile did not show any acute abnormalities on her basic electrolytes, kidney function, renal function, hepatic function. Her lipase was not elevated to indicate pancreatitis. She did have an elevated glucose of 226. Her urinalysis did not show signs of urinary tract infection. She had 3+ glucose but no leukocyte Estrace, nitrates, bacteria to indicate a UTI. Her CT scan of the abdomen and pelvis without IV contrast on my review and personal interpretation and she did not have any acute surgical findings. She did not have signs of perforation or obstruction. She did have some increased stool throughout the colon but again no obstruction or blockage. Progress Note #3: Time: 20:23 Progress Note I reviewed the radiologist report on the CT scan of the abdomen and pelvis without contrast. She did not have any acute findings on the test. Counseled patient on the findings and results. Will try treating with Bentyl or dicyclomine for abdominal spasms cramping and nausea. Encourage fluids and hydration. We will also give a dose of Carafate here in the ED for possible gastritis and GERD. Advised to check back with her primary about colonoscopy possible EGD and possible nuclear medicine scan of her gallbladder. In the meantime follow-up bland low-fat diet. Stay well-hydrated and drink plenty of fluids. For the constipation send a prescription for polyethylene glycol to help act as a laxative. May also use tmld-wmx-mgnhlyl medicine such as Tums or Mylanta to help with reflux symptoms. She may need to be on Carafate in addition to her Protonix and famotidine but we will start with just the Bentyl for now. Diagnostic Imaging Diagonstic Imaging: CT Plain Films/CT/US/NM/MRI: abdomen, pelvis Comments [facility] [place], [place] NAME: MIGU[facility]ZOE D [facility] REC#: [id number] PT STATUS: REG ER : 1970 PHYSICIAN: FAROOQ LANGE MD ADMIT DATE: 06/25/22/ER FS Signed Date of Exam:06/25/22 CT ABDOMEN/PELVIS WO PROCEDURE: CT abdomen and pelvis without contrast. TECHNIQUE: Multiple contiguous axial images were obtained through the abdomen and pelvis without the use of intravenous contrast. Auto Exposure Controls were utilized during the CT exam to meet ALARA standards for radiation dose reduction. INDICATION: Left-sided flank pain. Nausea and vomiting. COMPARISON: 01/10/2022. FINDINGS: The heart is unremarkable. The lung bases are clear. No evidence of renal calculus or hydronephrosis. No perinephric fat stranding. The urinary bladder is unremarkable. No bladder calculi. There is hepatic steatosis. Focal fatty sparing is seen along the gallbladder fossa. The gallbladder is nondistended. The spleen, pancreas and adrenal glands have a normal noncontrast CT appearance. There is no pathologically enlarged mesenteric or retroperitoneal adenopathy. The bowel loops are nondilated. The appendix is visualized in the right lower quadrant and has a normal appearance. There is no free fluid or free air. No acute osseous abnormality. Endplate sclerotic changes are seen at the L4-L5 level. Hernia repair changes are seen in the ventral abdomen. There is no free air, loculated collection or adenopathy in the pelvis. IMPRESSION: 1. No evidence of hydronephrosis or obstructing calculi. 2. Hepatic steatosis. Dictated by: Dictated on workstation # [id number] Dict: 06/25/221923 Trans: 06/25/221952 [facility] [id number] Interpreted by: MIKE BARRIOS DO Electronically signed by: MIKE BARRIOS DO 06/25/221952 Reviewed: Reviewed by Me Departure Impression Primary Impression: Diffuse abdominal pain Additional Impression: GERD with esophagitis Qualified Codes: K21.00 - Gastro-esophageal reflux disease with esophagitis, without bleeding Disposition: HOME, SELF-CARE Condition: Stable Departure-Patient Inst. Decision time for Depature: 20:37 Referrals: [facility] (PCP) Primary Care Physician AMINATA ARRIETA APRN (Family) Primary Care Physician Patient Instructions: Abdominal Pain, Adult ED, Acid Reflux, Adult and Adolescent ED Add. Discharge Instructions: Stay well-hydrated and drink plenty of fluids. Follow-up bland low-fat diet. Check back with the clinic as they may need to set you up for colonoscopy and/or scope of your stomach and esophagus. They may also need to consider ordering a nuclear medicine scan of your gallbladder to check and see if it might be contributing to your pain and symptoms. If your pain and symptoms are worsening instead of improving as you take the laxative and the dicyclomine then you should be checked again with the clinic or here in the ER. All discharge instructions reviewed with patient and/or family. Voiced understanding. Scripts Dicyclomine HCl (Dicyclomine HCl) 10 Mg Capsule 10 MG PO Q6H PRN for ABDOMINAL PAIN for 7 Days, #28 CAP 0 Refills Prov: FAROOQ LANGE MD 06/25/22 Polyethylene Glycol 3350 (Clearlax) 17 Gram/Dose Powder 17 GM PO DAILY PRN for CONSTIPATION for 30 Days, #510 GM 0 Refills Prov: FAROOQ LANGE MD 06/25/22 FAROOQ LANGE MD June 25, 2022 19:23
[2022-06-25] MEDS ORDERED: KETOROLAC 15 MG/ML VIAL IVP STA (19:30)
[2022-06-25 19:31] LABS: BILIRUBIN,URINE NEGATIVE (NEGATIVE); CLARITY,URINE CLEAR; COLOR,URINE YELLOW; GLUCOSE, URINE (UA) 3+ (NEGATIVE); KETONES,URINE NEGATIVE (NEGATIVE); LEUKOCYTE ESTERASE ,URINE NEGATIVE (NEGATIVE); NITRITE,URINE NEGATIVE (NEGATIVE); PROTEIN,URINE NEGATIVE (NEGATIVE)
[2022-06-25 19:35] LABS: BACTERIA,URINE NEGATIVE /HPF
[2022-06-25 19:36] LABS: YEAST,URINE FEW /HPF
--- NOTE | 2022-06-25 19:55 | Diagnostic Imaging Report ---
PROCEDURE: CT abdomen and pelvis without contrast. TECHNIQUE: Multiple contiguous axial images were obtained through the abdomen and pelvis without the use of intravenous contrast. Auto Exposure Controls were utilized during the CT exam to meet ALARA standards for radiation dose reduction. INDICATION: Left-sided flank pain. Nausea and vomiting. COMPARISON: 01/10/2022. FINDINGS: The heart is unremarkable. The lung bases are clear. No evidence of renal calculus or hydronephrosis. No perinephric fat stranding. The urinary bladder is unremarkable. No bladder calculi. There is hepatic steatosis. Focal fatty sparing is seen along the gallbladder fossa. The gallbladder is nondistended. The spleen, pancreas and adrenal glands have a normal noncontrast CT appearance. There is no pathologically enlarged mesenteric or retroperitoneal adenopathy. The bowel loops are nondilated. The appendix is visualized in the right lower quadrant and has a normal appearance. There is no free fluid or free air. No acute osseous abnormality. Endplate sclerotic changes are seen at the L4-L5 level. Hernia repair changes are seen in the ventral abdomen. There is no free air, loculated collection or adenopathy in the pelvis. IMPRESSION: 1. No evidence of hydronephrosis or obstructing calculi. 2. Hepatic steatosis. Dictated by: Dictated on workstation # [id number]
[2022-06-25] MEDS ORDERED: SUCRALFATE 1 GM (CARAFATE) TAB PO STA (20:35)
[2022-06-25] MEDS ORDERED: RX-DICYCLOMINE 10 MG (BENTYL) CAP PPK#4 PO STA (20:35)
[2022-06-25] MEDS ORDERED: POLY119P2 PO (20:40)
[2022-06-25] MEDS ORDERED: DICY10CA12 PO (20:40)
[2022-06-25 20:47] VITALS: BP 121/78
== END 2022-06-25 20:47 | disposition home or self-care (01) ==
LOC: EDUNIT# 18:37 → ER FS 18:38
DX: K21.00 Gastro-esophageal reflux disease with esophagitis, without bleeding (principal); F17.210 Nicotine dependence, cigarettes, uncomplicated; Z28.310 Unvaccinated for COVID-19
CPT/HCPCS: 36415; 74176; 80053; 81000; 83690; 85025

== ENCOUNTER 2022-07-26 20:47 | Emergency (ER) | payer MEDICAID ==
[~2022-07-26 20:47] MED LIST changes: +DICY10CA12 PO; +POLY119P2 PO
[2022-07-26] MEDS ORDERED: ONDANSETRON 4 MG/2 ML (SDV) Z0FRAN IVP STA (20:52)
[2022-07-26] MEDS ORDERED: KETOROLAC 15 MG/ML VIAL IVP STA (20:52)
[2022-07-26] MEDS ORDERED: diphenhydrAMINE 50 MG/ML INJ (BENADRYL) IVP STA (20:52)
--- NOTE | 2022-07-26 20:55 | ED Headache ---
General Stated Complaint: MIGRAINE History of Present Illness Date Seen by Provider: Jul 26, 2022 Time Seen by Provider: 20:40 Initial Comments 52-year-old female with PMH of multiple spine issues and arthritis on [place], migraine headaches, DM2, is brought in by EMS with complaints of a migraine headache which has been going on for the past 2 to 3 days. Headache is associated with nausea and vomiting, and photophobia. Patient has run out of ibuprofen and Tylenol at home and has not been taking anything for her headache at all. Patient has not been eating or drinking much either. Denies neck pain or neck stiffness, fever and chills, blurry vision, hearing disturbances, dizziness, diarrhea, abdominal pain. Allergies and Home Medications Allergies Coded Allergies: Sulfa (Sulfonamide Antibiotics) (Verified Allergy, Unknown, abd pain, 09/05/18) adhesive tape (Verified Allergy, Unknown, Hives, 09/05/18) bupropion (Verified Allergy, Unknown, sucidial, 09/05/18) carisoprodol (Verified Allergy, Unknown, heart palpatations, 09/05/18) quetiapine (Verified Allergy, Unknown, suicidal, 09/05/18) Patient Home Medication List Home Medication List Reviewed: Yes Albuterol Sulfate (Albuterol Sulfate) 2.5 Mg/3 Ml Vial.neb, 3 ML NEB Q6H PRN for SHORTNESS OF BREATH, (Reported) Entered as Reported by: HAYDEN QUEZADA on 01/16/20 1136 Albuterol Sulfate (Proventil Hfa) 6.7 Gm Hfa.aer.ad, 2 PUFF INH Q6H PRN for SHORTNESS OF BREATH, (Reported) Entered as Reported by: HAYDEN QUEZADA on 11/12/20 1539 Amitriptyline HCl (Amitriptyline HCl) 10 Mg Tablet, 10 MG PO HS, (Reported) Entered as Reported by: JOCELYN ROSA on 05/04/21 1413 Amoxicillin/Potassium Clav (Amox Tr-K Clv 875-125 mg Tab) 875 Mg-125 Mg Tablet, 1 EACH PO BID Prescribed by: FAROOQ LANGE on 01/10/22 1928 Aspirin (Aspirin EC) 81 Mg Tablet.dr, 81 MG PO DAILY, (Reported) Entered as Reported by: HAYDEN QUEZADA on 01/16/20 1136 Celecoxib (Celebrex) 100 Mg Capsule, 100 MG PO BID, (Reported) Entered as Reported by: JOCELYN ROSA on 05/04/21 1413 Citalopram Hydrobromide (Citalopram HBr) 40 Mg Tablet, 40 MG PO DAILY, (Reported) Entered as Reported by: HAYDEN QUEZADA on 11/12/20 1539 Clindamycin HCl (Clindamycin HCl) 300 Mg Capsule, 300 MG PO TID Prescribed by: VIVIAN DASILVA on 06/21/21 2325 Cyclobenzaprine HCl (Cyclobenzaprine HCl) 10 Mg Tablet, 10 MG PO TID PRN for MUSCLE SPASMS, (Reported) Entered as Reported by: JOCELYN ROSA on 09/05/18 1028 Dapagliflozin Propanediol (Farxiga) 10 Mg Tablet, 10 MG PO DAILY, (Reported) Entered as Reported by: HAYDEN QUEZADA on 11/12/20 153 Dicyclomine HCl (Dicyclomine HCl) 20 Mg Tablet, 20 MG PO Q6H PRN for abdominal cramping Prescribed by: TY PARRA on 10/12/21 215 Dicyclomine HCl (Dicyclomine HCl) 10 Mg Capsule, 10 MG PO Q6H PRN for ABDOMINAL PAIN Prescribed by: FAROOQ LANGE on 06/25/222039 Diphenhydramine HCl (Benadryl) 25 Mg Capsule, 50 MG PO HS, (Reported) Entered as Reported by: JOCELYN ROSA on 05/04/21 1413 Dulaglutide (Trulicity) 0.75 Mg/0.5 Ml Pen.injctr, 0.75 MG SC THUR, (Reported) Entered as Reported by: HAYDEN QUEZADA on 11/12/20 1539 Famotidine (Famotidine) 20 Mg Tablet, 20 MG PO BID, (Reported) Entered as Reported by: HAYDEN QUEZADA on 11/12/20 1539 Fenofibrate Nanocrystallized (Fenofibrate) 145 Mg Tablet, 145 MG PO DAILY, (Reported) Entered as Reported by: JOCELYN ROSA on 09/05/18 1028 Gabapentin (Gabapentin) 800 Mg Tablet, 800 MG PO TID, (Reported) Entered as Reported by: JOCELYN ROSA on 05/04/21 1411 Hydrocodone/Acetaminophen (Hydrocodone-Acetamin 5-325 mg) 5 Mg-325 Mg Tablet, 1 TAB PO Q6H PRN for PAIN-SEVERE (8-10) Prescribed by: FAROOQ LANGE on 10/15/212131 Insulin Glargine,Hum.rec.anlog (Lantus Solostar) 100 Unit/1 Ml Insuln.pen, 12 UNITS SC HS, (Reported) Entered as Reported by: HAYDEN QUEZADA on 11/12/20 1539 Levothyroxine Sodium (Levothyroxine Sodium) 112 Mcg Tablet, 112 MCG PO DAILY, (Reported) Entered as Reported by: JOCELYN RSOA on 09/05/18 1028 Loratadine (Loratadine) 10 Mg Tablet, 10 MG PO DAILY, (Reported) Entered as Reported by: JOCELYN ROSA on 07/24/19 1200 Nystatin (Nystatin) 100,000 Unit/1 Ml Oral.susp, 5 ML PO Q8H PRN for THURSH, (Reported) Entered as Reported by: HAYDEN QUEZADA on 11/12/20 1539 Ondansetron (Ondansetron Odt) 4 Mg Tab.rapdis, 4 MG PO Q6H PRN for NAUSEA/VOMITING Prescribed by: FAROOQ LANGE on 10/15/212131 Pantoprazole Sodium (Pantoprazole Sodium) 40 Mg Tablet.dr, 40 MG PO BID, (Reported) Entered as Reported by: JOCELYN ROSA on 09/05/18 1028 Polyethylene Glycol 3350 (Clearlax) 17 Gram/Dose Powder, 17 GM PO DAILY PRN for CONSTIPATION Prescribed by: FAROOQ LANGE on 06/25/22 204 Prednisone (Prednisone) 20 Mg Tab, 40 MG PO DAILY Prescribed by: FAROOQ LANGE on 01/10/22 1928 Rosuvastatin Calcium (Rosuvastatin Calcium) 10 Mg Tablet, 10 MG PO HS, (Reported) Entered as Reported by: HAYDEN QUEZADA on 01/16/20 1136 Solifenacin Succinate (Vesicare) 10 Mg Tablet, 10 MG PO DAILY, (Reported) Entered as Reported by: JOCELYN ROSA on 05/04/21 1413 Tamsulosin HCl (Flomax) 0.4 Mg Cap, 0.4 MG PO DAILY, (Reported) Entered as Reported by: HAYDEN QUEZADA on 11/12/20 1539 Review of Systems Review of Systems Constitutional: see HPI Ears, Nose, Mouth, Throat: no symptoms reported Respiratory: no symptoms reported Cardiovascular: no symptoms reported Gastrointestinal: no symptoms reported Genitourinary: no symptoms reported Musculoskeletal: no symptoms reported Skin: no symptoms reported Psychiatric/Neurological: Headache Past Gxlbmlt-Uqvlip-Vezmro Hx Immunizations Up To Date Tetanus Booster (TDap): Unknown First/Initial COVID19 Vaccinat: denies Second COVID19 Vaccination Bienvenido: denies Third COVID19 Vaccination Date: denies Seasonal Allergies Seasonal Allergies: Yes Past Medical History Surgery/Hospitalization HX: COPD, Bipolar, Anxiety, Hysterectomy, Oopherectomy, Section, Migraine Headaches, Hypercholesterolemia, Hypothyroid Surgeries: Yes (C/S X2, HERNIA X3, ) Abdominal, Section, Hysterectomy, Oophorectomy, 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 Respiratory: Yes (smoker's cough) Asthma, COPD Cardiac: Yes High Cholesterol Neurological: Yes Headaches /Migraines 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 Disorders: Yes 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 Disorders: Ovarian Cyst [employer] 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 Genitourinary: No Bladder Infection Gastrointestinal: Yes Gastroesophageal Reflux, Chronic Constipation, Irritable Bowel Musculoskeletal: Yes (bulging disc) Degenerate Disk Disease, Scoliosis, Chronic Back Pain Endocrine: Yes Hypothyroidsim, Diabetes, Non-Insulin dep HEENT: Yes (chronic sinusitis) Cancer: Yes Cervical Did You Recieve Any Treatments: Yes What Type of Treatment Did You: Surgical Intervention Psychosocial: Yes Anxiety, Bipolar, Depression Integumentary: No Blood Disorders: No Family Medical History No Pertinent Family Hx Physical Exam Vital Signs Capillary Refill : Height, Weight, BMI Height: 5'4.00" Weight: 142lbs. 0oz. 64.643151fs; 21.00 BMI Method:Stated General Appearance: WD/WN, no apparent distress HEENT: PERRL/EOMI, normal ENT inspection, photophobia Neck: non-tender, full range of motion, supple, normal inspection Cardiovascular: regular rate, rhythm Respiratory: lungs clear Psychiatric: alert, oriented x 3 [place] Nerves: normal hearing, normal speech, PERRL Coordination/Gait: normal gait Motor/Sensory: no motor deficit, no sensory deficit Skin: normal color Progress/Results/Core Measures Results/Orders My Orders Orders - KEYON JUNG MD Ed Iv/Invasive Line Start (07/26/22 20:52) Ns Iv 1000 Ml (Sodium Chloride 0.9%) (07/26/22 21:00) Ketorolac Injection (Toradol Injection) (07/26/22 20:52) Ondansetron Injection (Zofran Injectio (07/26/22 20:52) Diphenhydramine Injection (Benadryl Inje (07/26/22 20:52) Ns Iv 1000 Ml (Sodium Chloride 0.9%) (07/26/22 21:02) Diphenhydramine Injection (Benadryl Inje (07/26/22 21:06) Ondansetron Injection (Zofran Injectio (07/26/22 21:06) Ketorolac Injection (Toradol Injection) (07/26/22 21:06) Progress Progress Note : Progress Note 1. MIGRAINE: - Toradol 15mg iv/ Benadryl 25mg iv/ Zofran 4mg iv STAT, with significant improvement. - NS IVF bolus STAT - Vitals stable with normal blood pressure, no neck stiffness, did not occur during exertion, no thunderclap headache. SAH ruled out based on history and clinical exam No fever or any signs of meningitis. - Follow up with PCP in the next 3 to 7 days - Advised Naproxen twice a day for headache. -The patient was seen in the ED, and treated appropriately to presentation at a specific point in time. Patient is informed that there is a possibility that disease and illness can evolve and change in acuity rapidly or slowly after patient is discharged from the ER. Precautionary advice given to the patient for immediate return to ER if symptoms worsen or do not resolve, and to seek emergency care sooner rather than later. Pt also advised on the importance of PCP follow up and compliance with management and follow up plan with PCP and/or specialist, as this is part of the management plan. Pt verbally expressed und erstanding. Departure Impression Primary Impression: Migraine Qualified Codes: G43.109 - Migraine with aura, not intractable, without status migrainosus Disposition: 01 HOME, SELF-CARE Condition: Improved Departure-Patient Inst. [place]: [facility] [place] Primary Care Physician AMINATA ARRIETA APRN (Family) Primary Care Physician Patient Instructions: Home Headache Remedies, Migraines in adults Add. Discharge Instructions: - Follow up with PCP in the next 3 to 7 days - Advised Naproxen twice a day for headache. May use extra strength Tylenol 650 mg, every 4 hours as needed for breakthrough pain. -Advised to stay hydrated with at least 8 glasses of water per day KEYON JUNG MD Jul 26, 2022 20:55
[2022-07-26] MEDS ORDERED: NS IV 1000 ML 1,000 ML IV SCH (21:00)
[2022-07-26] MEDS ORDERED: NS IV 1000 ML 1,000 ML ONE (21:02)
[2022-07-26] MEDS ORDERED: diphenhydrAMINE 50 MG/ML INJ (BENADRYL) ONE (21:06)
[2022-07-26] MEDS ORDERED: KETOROLAC 15 MG/ML VIAL ONE (21:06)
[2022-07-26] MEDS ORDERED: ONDANSETRON 4 MG/2 ML (SDV) Z0FRAN ONE (21:06)
[2022-07-26 21:55] VITALS: BP 149/79
== END 2022-07-26 21:55 | disposition home or self-care (01) ==
LOC: EDUNIT# 20:47 → ER FS 20:47
DX: G43.909 Migraine, unspecified, not intractable, without status migrainosus (principal); M19.90 Unspecified osteoarthritis, unspecified site; Z79.891 Long term (current) use of opiate analgesic; Z28.310 Unvaccinated for COVID-19

== ENCOUNTER → 2022-09-22 | Outpatient (CLI) | payer MEDICAID ==
[~2022-09-22] VITALS: Ht 160 cm; Wt 53.0 kg
[~2022-09-22] MED LIST changes: +DAPA1TAB4 PO; +LEVO100C4 PO
== END | disposition home or self-care (01) ==
LOC: PREOP 05:40
PROVIDERS: ATTEND Surgery
DX: Z01.818 Encounter for other preprocedural examination (principal)

== ENCOUNTER 2022-10-05 10:13 | Day surgery (SDC) | payer MEDICAID ==
[~2022-10-05] VITALS: Ht 160 cm; Wt 53.0 kg
[2022-10-05] MEDS ORDERED: LACTATED RINGERS 1,000 ML 1,000 ML IV STA (10:22)
[2022-10-05] MEDS ORDERED: LACTATED RINGERS 1,000 ML 1,000 ML IV ONE (10:26)
[2022-10-05 10:40] VITALS: BP 117/82
[2022-10-05] MEDS ORDERED: MIDAZOLAM INJ 2 MG/2 ML VIAL ONE (11:04)
--- NOTE | 2022-10-05 11:35 | Progress Note-Post Operative ---
Post-Operative Progess Note Surgeon (s)/Database Specialist (s) Surgeon EULOGIO MORALES DO Database Specialist: none Pre-Operative Diagnosis hx of polyps Post-Operative Diagnosis colon polyps Procedure & Operative Findings Date of Procedure 10/05/22 Procedure Performed/Findings colonoscopy with hot biopsy polypectomy x 3 Anesthesia Type per PROCESS CONTROL TECHNICIAN Estimated Blood Loss Estimated blood loss (mL): none Specimens/Packing Specimens Removed cecum polyp, sigmoid polyps x 2 EULOGIO MORALES DO Oct 05, 2022 11:34
--- NOTE | 2022-10-05 11:37 | Discharge Inst-Simple/Standard ---
Discharge Inst-Standard Patient Instructions/Follow Up Plan of Care/Instructions/FU: doc 2 weeks Activity as Tolerated: Yes Discharge Diet: Regular Diet EULOGIO MORALES DO Oct 05, 2022 11:37
[2022-10-05 11:40] VITALS: BP 108/56
[2022-10-05 11:45] VITALS: BP 136/88
[2022-10-05 11:50] VITALS: BP 143/92
[2022-10-05 12:35] VITALS: BP 143/92
--- NOTE | 2022-10-05 14:04 | Anesthesia-General Post-Op ---
MAC Patient Condition Mental Status/LOC: Same as Preop Cardiovascular: Satisfactory Nausea/Vomiting: Absent Respiratory: Satisfactory Pain: Controlled Complications: Absent Post Op Complications Complications None Follow Up Care/Instructions Patient Instructions None needed. Anesthesiology Discharge Order Discharge Order Patient is doing well, no complaints, stable vital signs, no apparent adverse anesthesia problems. No complications reported per nursing. TARAS SORTO CRNA Oct 05, 2022 14:04
--- NOTE | 2022-10-05 15:46 | OPERATIVE REPORT ---
DATE OF SERVICE: 10/05/2022 PREOPERATIVE DIAGNOSIS: History of polyps. POSTOPERATIVE DIAGNOSIS: Colon polyps. PROCEDURE: Colonoscopy with hot biopsy polypectomy x3. SURGEON: Eulogio Harris DO ANESTHESIA: General. ESTIMATED BLOOD LOSS: Minimal. COMPLICATIONS: None. INDICATIONS: The patient is a 52-year-old female, needing screening colonoscopy. She has a history of polyps. She understands risks and benefits of procedure and wished to proceed. Consent was signed in chart. DESCRIPTION OF PROCEDURE: The patient was taken to endoscopy suite, placed in left lateral recumbent position. Timeout was performed. Digital rectal exam was performed. No palpable polyps, masses or ulcerations. Scope was inserted in the rectum all the way to the cecum with minimal difficulty. Prep was adequate. Scope was slowly retracted back. No polyps, masses or ulcerations. In the cecum, a small flat polyp was present, which hot biopsy polypectomy was performed. Scope was then continuously retracted back. No polyps, masses or ulcerations in the ascending, transverse and descending colon. In the sigmoid colon, 2 polyps were present, which hot biopsy polypectomy was performed. Scope was continued to be slowly retracted back into the rectum where it was also retroflexed noting no other pathology. Scope was returned to its normal position, slowly withdrawn until completely removed. The patient tolerated the procedure well without complications, taken to recovery in stable condition. RECOMMENDATIONS: The patient will repeat colonoscopy in 5 years. Any issues before that, be seen at that time. The patient will follow up on pathology in 2 weeks. Job ID: [id number] DocumentID: [id number] Dictated Date: 10/05/2022 11:37:57 Cable Tower Operator Date: 10/05/2022 15:44:00 Dictated By: EULOGIO HARRIS DO
== END 2022-10-05 12:35 | disposition home or self-care (01) ==
LOC: ENDO 10:13
PROVIDERS: ATTEND Surgery
DX: Z12.11 Encounter for screening for malignant neoplasm of colon (principal); D12.5 Benign neoplasm of sigmoid colon; K63.5 Polyp of colon; D10.4 Benign neoplasm of tonsil; F17.210 Nicotine dependence, cigarettes, uncomplicated; Z28.310 Unvaccinated for COVID-19; Z79.899 Other long term (current) drug therapy; Z76.89 Persons encountering health services in other specified circumstances
CPT/HCPCS: 82947